=== PATIENT | female | born 1935 | race Caucasian/White ===

== ENCOUNTER 2017-05-10 17:14 | Inpatient (IN) | payer MEDICARE, OTHER, SELFPAY ==
[2017-05-10] VITALS (8 sets, daily range): BP systolic 107–122; BP diastolic 47–64; PULSE 80–106; RESP 16–30; TEMP 36.6–37.7; O2SAT 92–99; BMI 17.2; BMI 15.3
--- NOTE | 2017-05-10 17:59 | RAD_ITS ---
STUDY: X-RAY CHEST REASON FOR EXAM: Female, 81 years old. Shortness of breath, cough and fatigue TECHNIQUE: Frontal and lateral views COMPARISON: None. FINDINGS: The lungs are expanded. Bilateral interstitial prominence Normal size heart. Normal mediastinum. Slightly prominent right hilum with adjacent surgical clips.. Normal visualized pulmonary arteries. Calcified aortic arch and descending thoracic aorta. Normal visualized thoracic spine. Normal visualized ribs, clavicles, and shoulders. There is no demonstrated abnormality of the visualized soft tissue structures of the upper abdomen. RAD/Chest PA and Lateral IMPRESSION: Diffuse pulmonary interstitial prominence. Electronically Signed: Didier Moss DO at 18:39 EDT Tel [phone], Service support ,
--- NOTE | 2017-05-10 17:59 | EKG12_ITS ---
Test Reason : SOB Blood Pressure : / mmHG Vent. Rate : 091 BPM Atrial Rate : 091 BPM P-R Int : 136 ms QRS Dur : 072 ms QT Int : 346 ms P-R-T Axes : 078 074 071 degrees QTc Int : 425 ms Normal sinus rhythm Nonspecific ST abnormality Abnormal ECG Confirmed by NATALIA PATEL, JAME ([id number]), pictures editor LIS COLEMAN ([id number]) on 05/11/2017 2:38:13 PM Referred By: SUSIE Confirmed By:JAME FISHER MD
[2017-05-10 18:30] LABS: Absolute Lymphocyte Count 1.47 X10^3/ul (0.83-4.51); Basophil# 0.02 X10^3/uL; Basophil% 0.1 % (0-1); Eosinophil# 0.12 X10^3/uL; Eosinophils% 0.7 % (0-5); Hematocrit 42.6 % (37-47); Hemoglobin 14.1 g/dl (12.0-15.0); Lymphocyte # 1.47 X10^3/ul (4.0); Lymphocyte % 8.8 % (19-41); Mean Corp Hgb Conc 33.1 g/gl (32-36); Mean Corpuscular Hgb 32.9 pg (27.0-32.0); Mean Corpuscular Volume 99.5 fL (81-99); Monocyte# 1.11 X10^3/uL; Monocyte% 6.6 % (0-10); Neutrophil % 83.6 % (47-70); Platelet Count 185 K/mm3 (150-450); RBC Distribution Width CV 12.7 % (11.6-14.6); RBC Distribution Width SD 46.1 fl (35.1-43.9); Red Blood Count 4.28 M/mm3 (4.2-5.4); White Blood Count 16.8 K/mm3 (4.4-11.0)
[2017-05-10 18:34] LABS: POSITIVE COUNT NO; POSITIVE DIFFERENTIAL NO; POSITIVE MORPHOLOGY NO
[2017-05-10] MEDS: Ipratropium/Albuterol Sulfate 3 ML AMPUL.NEB INHALATION ×2 (18:35→22:57)
[2017-05-10 18:46] LABS: Anion Gap 7 (5-15); BUN 19 mg/dL (7-18); BUN/Creat Ratio 23.5 RATIO (10-20); Calcium,Total 9.5 mg/dL (8.5-10.1); Chloride 110 mmol/L (98-107); Creatinine, Serum 0.81 mg/dL (0.55-1.02); EST Glomerular Filtration Rate 72 mL/min (>60); Est Glom Filt Rate - Afr Amer 87 mL/min (>60); Estimated Creatinine Clearance 39.07 ml/min; Glucose 96 mg/dL (74-106); Potassium 4.3 mmol/L (3.5-5.1); Sodium Level 141 mmol/L (136-145)
--- NOTE | 2017-05-10 19:30 | PCM.HP.STD ---
Problem List (1) Chronic obstructive pulmonary disease (COPD) Status: Chronic Qualifiers: COPD type: unspecified COPD Qualified Code(s): J44.9 - Chronic obstructive pulmonary disease, unspecified (2) Chronic respiratory failure with hypoxia Status: Chronic (3) Severe protein-calorie malnutrition Status: Chronic (4) History of tobacco use Status: Chronic (5) Chronic back pain Status: Chronic Qualifiers: Back pain location: back pain in unspecified location Back pain laterality: unspecified Qualified Code(s): M54.9 - Dorsalgia, unspecified; G89.29 - Other chronic pain (6) History of lung cancer Status: Chronic (7) COPD exacerbation Status: Acute (8) Pneumonia Status: Acute Qualifiers: Pneumonia type: due to unspecified organism Laterality: unspecified laterality Lung location: unspecified part of lung Qualified Code(s): J18.9 - Pneumonia, unspecified organism History of Present Illness Date of Admission: 05/10/17 Chief Complaint: Cough, congestion, wheezing, dyspnea. The patient is a 81 y/o F w/ PMHx: Chronic COPD w/ Chronic Hypoxic Respiratory Failure (2L-2.5L NC q HS), Tobacco Use Hx noted to have quit ~ 2 weeks prior to current presentation (1/2 ppd since youth), Chronic severe protein-calorie malnutrition, Chronic back pain, Hx Lung CA s/p RUL lobectomy following w/ Pulmonary Physician in [place] who presents to the [facility] ED on 05/10/17 with history of ongoing cough with productive sputum, wheezing, dyspnea worsened with exertion with chills without fever x 5 days. In the ED work-up included T 97.8, HR 106-->90, BP 122/47, RR 30-->22, 97% on RA, CBC w/ WBC 16.8, Hgb 14.1, Plts 185 with L shift, BMP unremarkable, CXR with chronic changes but ? early PNA infiltrate and she notes similar presentation prior with PNA. In the ED patient administered azithromycin, rocephin, solumedrol, duoneb, albuterol. Past Medical History Past Medical History (Chronic Problems): Chronic Problems Chronic obstructive pulmonary disease (COPD) (Chronic) Chronic respiratory failure with hypoxia (Chronic) Severe protein-calorie malnutrition (Chronic) History of tobacco use (Chronic) Chronic back pain (Chronic) History of lung cancer (Chronic) Allergies aspirin Adverse Reaction (Verified 05/10/17 17:18) Other Home Medications: Ambulatory Orders Medication Instructions Recorded Albuterol Aerosols [Ventolin 2.5 mg INHALATION Q4HWA.RT 05/10/17 Aerosols] Hydrocodone Bitart/Apap 5-325 1 tablet PO Q6H PRN PRN 05/10/17 [[place] 5MG-325MG] Ipratropium/Albuterol Sulfate 3 ml INHALATION Q4HWA.RT 05/10/17 [Duoneb] Lorazepam [Ativan] 0.5 mg PO TID PRN PRN 05/10/17 Surgical History: - - Hysterectomy, RUL Lobectomy, Melanoma skin resection. 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 Tobacco Use: Non-smoker Alcohol: None Drugs: None - *Family History Maternal History Items: No pertinent history Paternal History Items: No pertinent history Review of Systems Constitutional: Reports: Chills, Malaise, Weakness, Fatigue. Denies: Fever, Weight Change HEENT: Denies: Head Aches, Sinus Congestion, Sinus Drainage Cardiovascular: Denies: Chest Pain, Palpitations Respiratory: Reports: Cough, Shortness of Breath, Shortness of breath at rest, Shortness of breath upon exertion, Sputum production, Wheezing Gastrointestinal: Denies: Abdominal Pain, Nausea, Vomiting Genitourinary: Denies: Dysuria Musculoskeletal: Reports: Back Pain, Joint Pain. Denies: Joint Tenderness Skin: Denies: Rash, Wounds Neurological: Denies: Numbness, Tingling, Focal weakness Psychiatric: Reports: Anxiety. Denies: Depression, Homicidal Ideations, Suicidal Ideations Hematologic/ Lymphatic: Denies: Easy Bruising, Easy Bleeding VTE Information - Inpt Only VTE Present on Admission: No VTE Mechan Device Prophylaxis: SCD's VTE Pharm Prophylaxis ordered?: Yes Patient Problems: Active and Suspected Problems COPD exacerbation (Acute) Pneumonia (Acute) Subjective: Seated upright in the ED bed, notes mild improvement since initial presentation. Objective: Physical Examination: General: awake, alert, oriented x 3 and cooperative, seated upright in the ED bed, notes less dyspnea, able to speak in full sentences. Skin: normal color, turgor, no icterus, cyanosis. HEENT: AT/NC, EOMI, PERRLA, mildly dry MM, no carotid bruits or JVD noted. Lungs: Severely diminished, > bases, coarse BL bases, R>L base, expiratory wheezing. Heart: Regular rate and rhythm; no gallop, rub audible. Abdomen: soft, cachetic habitus, NTTP, ND, normal BS, no HSM. Extremities: no cyanosis, clubbing, or edema. Neurological: patient awake, alert, oriented x 3; cognitive function intact; pupils equally reactive to light and accomodation; cranial nerves II-XII grossly normal, moving all 4 extremities, no focal deficits, strength severely globally decreased secondary to acute presentation. Psychiatric: affect appears fatigued, no acute evidence of depressive or anxiety feelings. - Physical Exam Vital Signs Temp Pulse Resp BP Pulse Ox 97.8 F 93 24 H 117/61 96 05/10/17 17:15 05/10/17 18:35 05/10/17 18:35 05/10/17 17:35 05/10/17 17:35 Oxygen Delivery Method Room Air Weight: 103 lb 10.807 oz Body Mass Index (BMI) 17.2 Laboratory Tests Past 24 Hrs 05/10/17 05/10/17 18:11 18:11 WBC 16.8 H RBC 4.28 Hgb 14.1 Hct 42.6 MCV 99.5 H MCH 32.9 H MCHC 33.1 RDW 12.7 RDW Differential 46.1 H Plt Count 185 MPV 11.0 Immature Gran % (Auto) 0.200 Neut % (Auto) 83.6 H Lymph % (Auto) 8.8 L [place] % (Auto) 6.6 Eos % (Auto) 0.7 Baso % (Auto) 0.1 Absolute Neuts (auto) 14.0 H Absolute Lymphs (auto) 1.47 Total Counted Not Reportable Sodium 141 Potassium 4.3 Chloride 110 H Carbon Dioxide 24.0 Anion Gap 7 BUN 19 H Creatinine 0.81 Estim Creat Clear Calc 39.07 Est GFR (MDRD) Af Amer 87 Est GFR (MDRD) Non-Af 72 BUN/Creatinine Ratio 23.5 H Glucose 96 Calcium 9.5 Assessment/Plan Active and Suspected Problems COPD exacerbation (Acute) Pneumonia (Acute) The patient is a 81 y/o F w/ PMHx: Chronic COPD w/ Chronic Hypoxic Respiratory Failure, Tobacco Use Hx, Chronic severe protein-calorie malnutrition, Chronic back pain, Hx Lung CA who presents to the [facility] ED on 05/10/17 with history of ongoing cough with productive sputum, wheezing, dyspnea worsened with exertion with chills without fever x 5 days. (1) Acute on Chronic Hypoxic Respiratory Failure secondary to Acute on Chronic COPD Exacerbation and Suspected Community Acquired Pneumonia: CXR in the ED w/ change changes and ? infiltrates. Admission CBC w/ WBC 16.8 with L shift. Will admit to [facility], will obtain ABG, maintain on oxygen with wean as tolerated to home oxygen supplementation, continue ATC duonebs, PRN albuterol, maintained on IV Rocephin and Azithromycin, maintain on solumedrol, HOB, IS parameters w/ pending sputum cultures and urine antigens. Bld cx x 2 obtained in the ED. Respiratory viral panel pending. Will need oxygenation assessment prior to discharge. (2) Chronic Back Pain: Fall precautions, position changes, PT, OT, CM for discharge planning, PRN pain regimen. (3) Tobacco Abuse: Encouraged continued cessation as recently stopped ~ 2 weeks prior to current presentation, 1/2 ppd since youth, inpatient consultation per RT, NR if desired. (4) Chronic severe protein-calorie malnutrition: Evidenced per BMI, muscle and fat loss, ensure supplementation, MVI w/ minerals, nutrition consulted. (5) Hx Lung CA: s/p RUL lobectomy following w/ Pulmonary Physician in [place]. Encouraged continued tobacco cessation (2 weeks prior to current presentation). (6) Anxiety: Maintain on home PRN Low dose ativan, although given age would benefit from consideration SSRI instead short acting BZD. (7) DVT Prophylaxis: SCDs, lovenox. (8) CODE status: Discussed CODE status at length including difference between FULL code, DNR-CCA and DNR-CC status. Following discussions about the differences in these status, patient notes unsure about status, recommended continued discussions with son present and for interim FULL CODE status. Advanced Care Planning Face to Face Time: 16 minutes. Code Visit Inpatient E&M: 21334 Init Hosp L3 Procedures: 32455 Advncd Care Plan 30 Min
[2017-05-10] MEDS: MethylPREDNISolone 125 MG/2 ML Vial 80 MG IV (19:33)
[2017-05-10 20:55] LABS: Magnesium 2.1 mg/dL (1.6-2.6)
[2017-05-10 21:25] LABS: Allen Test POS; Base Excess -1 mmol/L (-2 to +2); Bicarbonate 22.5 mmol/L (22-26); Blood Gas Specimen Type ART; O2 Delivery Device Nasal Can; PO2 108 mmHG (75-100); SITE L Radial; SO2 99 % (95-99); Time Given 1515; Total Carbon Dioxide 24 mmol/L; pCO2 31.9 mmHg (35-45); pH 7.46 (7.35-7.45)
[2017-05-10] MEDS: 0.9% Normal Saline 1,000 ML 100 ML IV (21:27)
[2017-05-10] MEDS: Famotidine 20 MG Tablet PO (22:21)
[2017-05-10] MEDS: guaiFENesin 1,200 MG Tablet 1200 MG PO (22:22)
[2017-05-11] VITALS (13 sets, daily range): BP systolic 98–112; BP diastolic 50–66; PULSE 78–98; RESP 16–23; TEMP 36.6–37.1; O2SAT 95–97
--- NOTE | 2017-05-11 00:04 | ED.VISSUMM ---
- ER Visit Summary Date of Service: 05/10/17 Chief Complaint: Short of breath, cough, fatigue History of Present Illness: The patient is a 81 F with a history of COPD. She wears home oxygen at night only. Patient reports a four-day history of increasing shortness of breath and cough. She states she is bringing up thick yellow sputum. She has chest pain only when she takes a deep breath. She denies fever. She has noted increased wheezing over the past 2 days and has been using her breathing treatments more than normal. Physical Examination: Blood pressure is 117/61, temperature 97.8, heart rate 99, respiratory rate 16, pulse ox 96% on room air. Patient sitting upright in bed no acute distress. She speaking full sentences. Head and neck examination is grossly unremarkable. Heart is regular rate and rhythm. Lung sounds are slightly diminished throughout. There is no significant wheeze or rhonchi. Abdomen is soft nontender. Lower extremity examination was no calf tenderness or edema. Test Results: CBC was a white count of 16.8 with 83% neutrophils. Chemistry studies are grossly unremarkable. EKG is sinus at 91 with no sign of acute ischemia. Two-view chest x-ray is read as diffuse pulmonary interstitial prominence. On my review there does appear to be an increased density in the right midlung concerning for early pneumonia. Emergency Department Course and Treatment: Patient was given DuoNeb treatment. Following chest x-ray blood cultures were ordered along with Rocephin, Zithromax, and IV Solu-Medrol. Nursing staff reports that when she was being wheeled back to the department from radiology, she seem to have increased work of breathing and pursed lip breathing. Nurse reports she appeared to be mildly cyanotic around her lips. Pulse ox was reading 68, however it is noted that a good waveform was not able to be achieved. Patient was placed on nasal cannula and was easily weaned back down to 2 L. With a good waveform her sats are in the mid 90s. I have spoken with Dr. Courtney patient will be admitted for further treatment. Treatment Plan: [] Disposition: Admit Impression: 1. COPD exacerbation 2. Pneumonia This note was generated with [employer] software. It may contain incorrect words, spelling, and punctuation that were not noted in review of the chart prior to signing ED Disposition - Plan for ED Patient: Disposition: Acute Care Hospital [facility] Chief Complaint: Shortness of Breath
--- NOTE | 2017-05-11 00:07 | ED.DCSUM_ITS ---
- ER Visit Summary Date of Service: 05/10/17 Chief Complaint: Short of breath, cough, fatigue History of Present Illness: The patient is a 81 F with a history of COPD. She wears home oxygen at night only. Patient reports a four-day history of increasing shortness of breath and cough. She states she is bringing up thick yellow sputum. She has chest pain only when she takes a deep breath. She denies fever. She has noted increased wheezing over the past 2 days and has been using her breathing treatments more than normal. Physical Examination: Blood pressure is 117/61, temperature 97.8, heart rate 99 , respiratory rate 16, pulse ox 96% on room air. Patient sitting upright in bed no acute distress. She speaking full sentences. Head and neck examination is grossly unremarkable. Heart is regular rate and rhythm. Lung sounds are slightly diminished throughout. There is no significant wheeze or rhonchi. Abdomen is soft nontender. Lower extremity examination was no calf tenderness or edema. Test Results: CBC was a white count of 16.8 with 83% neutrophils. Chemistry studies are grossly unremarkable. EKG is sinus at 91 with no sign of acute ischemia. Two-view chest x-ray is read as diffuse pulmonary interstitial prominence. On my review there does appear to be an increased density in the right midlung concerning for early pneumonia. Emergency Department Course and Treatment: Patient was given DuoNeb treatment. Following chest x-ray blood cultures were ordered along with Rocephin, Zithromax , and IV Solu-Medrol. Nursing staff reports that when she was being wheeled back to the department from radiology, she seem to have increased work of breathing and pursed lip breathing. Nurse reports she appeared to be mildly cyanotic around her lips. Pulse ox was reading 68, however it is noted that a good waveform was not able to be achieved. Patient was placed on nasal cannula and was easily weaned back down to 2 L. With a good waveform her sats are in the mid 90s. I have spoken with Dr. Courtney patient will be admitted for further treatment. Treatment Plan: [] Disposition: Admit Impression: 1. COPD exacerbation 2. Pneumonia This note was generated with [employer] software. It may contain incorrect words, spelling, and punctuation that were not noted in review of the chart prior to signing ED Disposition - Plan for ED Patient: Disposition: Acute Care Hospital [facility] Chief Complaint: Shortness of Breath
[2017-05-11] MEDS: Ipratropium/Albuterol Sulfate 3 ML AMPUL.NEB INHALATION ×6 (02:52→22:44)
[2017-05-11 05:18] LABS: Absolute Lymphocyte Count 0.34 X10^3/ul (0.83-4.51); Absolute Neutrophil Count 12.5 X10^3/uL (2.0-7.7); Basophil# 0.02 X10^3/uL; Basophil% 0.2 % (0-1); Hematocrit 38.1 % (37-47); Hemoglobin 12.7 g/dl (12.0-15.0); Lymphocyte # 0.34 X10^3/ul (4.0); Lymphocyte % 2.6 % (19-41); Mean Corp Hgb Conc 33.3 g/gl (32-36); Mean Corpuscular Hgb 33.2 pg (27.0-32.0); Mean Corpuscular Volume 99.5 fL (81-99); Mean Platelet Vol. 10.5 fl (6.2-12.0); Monocyte# 0.15 X10^3/uL; Monocyte% 1.2 % (0-10); Neutrophil # 12.46 X10^3/uL (2.7-7.7); Neutrophil % 95.7 % (47-70); Platelet Count 158 K/mm3 (150-450); RBC Distribution Width CV 12.3 % (11.6-14.6); Red Blood Count 3.83 M/mm3 (4.2-5.4)
[2017-05-11 05:19] LABS: Differential Indicated SCAN CRITERIA MET; POSITIVE COUNT NO; POSITIVE DIFFERENTIAL YES; POSITIVE MORPHOLOGY NO
[2017-05-11 05:28] LABS: Anion Gap 7 (5-15); BUN 19 mg/dL (7-18); BUN/Creat Ratio 24.1 RATIO (10-20); Calcium,Total 8.7 mg/dL (8.5-10.1); Chloride 109 mmol/L (98-107); Creatinine, Serum 0.79 mg/dL (0.55-1.02); EST Glomerular Filtration Rate 74 mL/min (>60); Est Glom Filt Rate - Afr Amer 89 mL/min (>60); Glucose 236 mg/dL (74-106); Potassium 3.9 mmol/L (3.5-5.1); Sodium Level 141 mmol/L (136-145)
--- NOTE | 2017-05-11 09:28 | NURSING ---
ROCEPHIN AND ZITHROMAX NOT ON UNIT FOR PT ADMINISTRATION
[2017-05-11] MEDS: Enoxaparin 30 MG/0.3 ML Syringe SC (09:55)
[2017-05-11] MEDS: Famotidine 20 MG Tablet PO ×2 (09:55→21:12)
[2017-05-11] MEDS: Ceftriaxone 1 GM/50 ML BAG IV (09:55)
[2017-05-11] MEDS: Multivitamins,Ther W-Minerals Tablet 1 TABLET PO (09:56)
[2017-05-11] MEDS: guaiFENesin 1,200 MG Tablet 1200 MG PO ×2 (09:56→21:13)
[2017-05-11] MEDS: oxyCODONE 5 MG Tablet PO ×2 (10:00→21:17)
[2017-05-11] MEDS: Acetaminophen 325 MG Tablet 650 MG PO ×2 (10:01→18:54)
--- NOTE | 2017-05-11 11:17 | CASEMGMT ---
RN LINUS Face to Face with patient for initial transition planning/care coordination assessment. RN CM introduced self and role at [facility]. Patient lying in bed, alert and oriented. Patient willing to participate in assessment and is able to answer all questions appropriately. Care providers, pharmacy, and demographics verified. See link attached. Patient wishes to discharge home, denies need for home health at this time. Patient currently has oxygen at night and will monitor for need for portability. Patient states she has no further needs or concerns at this time. CM to follow for discharge planning needs that may arise. Disposition Plan: Patient to discharge home with family support and follow-up plans in place. CM to monitor for need for portable home oxygen.
--- NOTE | 2017-05-11 16:53 | PCM.PROGNOTE ---
Patient Problems: Active and Suspected Problems COPD exacerbation (Acute) Pneumonia (Acute) Subjective: She feels better today. Still has dry cough, somewhat better. Shortness of breath improving, but appear out of air even at rest. She finished full sentences most of the time. - Physical Exam General: Alert, Oriented x3, Cooperative HEENT: Atraumatic, PERRLA, Normocephalic Oral: Moist Mucosa, No Gingival or Mucosal Lesions/ Ulcerations Neck: Supple, No JVD Lungs: - - Coarse rhonchi bilaterally. Cardiovascular: Regular rate, Regular Rhythm, Normal S1, Normal S2, No murmurs, No Ectopic Activity Abdomen: Bowel Sounds Present, Soft, Non Tender, Non-Distended, No Hepato-splenomegaly Extremities: No clubbing, No cyanosis, No edema Skin: No rashes, No breakdown Musculoskeletal: No Tenderness to Palpation of Joints or Extremities, No Muscle Wasting Lymphatic: No Cervical, Supraclavicular, or Inguinal Adenopathy Neurological: Cranial nerves II-XII grossly intact, Neuro grossly intact Psych/Mental Status: Normal Affect Vital Signs Temp Pulse Resp BP Pulse Ox 98.8 F 78 18 108/58 L 96 05/11/17 14:40 05/11/17 14:40 05/11/17 14:40 05/11/17 14:40 05/11/17 14:40 Oxygen Flow Rate (L/min) 2 Oxygen Delivery Method Nasal Cannula Weight: 92 lb 6.402 oz Body Mass Index (BMI) 15.3 Intake and Output for Last 24 Hours 05/09/17 05/10/17 05/11/17 23:59 23:59 23:59 Intake Total 781 / 781 Output Total 400 / 400 Balance 381 / 381 Microbiology Past 72 Hours 05/10/17 21:30 Respiratory Panel (PCR) - Final Mucosa - Nasopharyngeal 05/10/17 22:30 Legionella Antigen - Final Urine, Clean Catch 05/10/17 22:30 Streptococcus pneumoniae Antigen (M - Final Urine, Clean Catch Laboratory Tests Past 24 Hrs 05/10/17 05/11/17 05/11/17 21:21 05:00 05:00 WBC 13.0 H RBC 3.83 L Hgb 12.7 Hct 38.1 MCV 99.5 H MCH 33.2 H MCHC 33.3 RDW 12.3 RDW Differential 44.0 H Plt Count 158 MPV 10.5 Immature Gran % (Auto) 0.300 Neut % (Auto) 95.7 H Lymph % (Auto) 2.6 L [place] % (Auto) 1.2 Eos % (Auto) 0.0 Baso % (Auto) 0.2 Absolute Neuts (auto) 12.5 H Absolute Lymphs (auto) 0.34 L Total Counted Not Reportable Specimen Type ART Sample Site L Radial pH 7.46 H Bicarbonate Actual 22.5 POC Total CO2 24 Base Excess -1 O2 Saturation 99 ABG pCO2 31.9 L ABG pO2 108 H Geoff Test POS O2 Delivery Device Nasal Can Liter Flow 2.0 Blood Gas Notified Whom HOSP Blood Gas Notified Time 1515 Sodium 141 Potassium 3.9 Chloride 109 H Carbon Dioxide 25.0 Anion Gap 7 BUN 19 H Creatinine 0.79 Estim Creat Clear Calc 28.20 Est GFR (MDRD) Af Amer 89 Est GFR (MDRD) Non-Af 74 BUN/Creatinine Ratio 24.1 H Glucose 236 H Calcium 8.7 Diagnostic Data Chest X-Ray 05/10/17 17:59 IMPRESSION: Diffuse pulmonary interstitial prominence. Electronically Signed: Didier Moss DO at 18:39 EDT Tel [phone], Service support , Medical Necessity - Tobacco Use Smoking Status: Former smoker Tobacco Use: Non-smoker Assessment/Plan Active and Suspected Problems COPD exacerbation (Acute) Pneumonia (Acute) The patient is a 81 y/o F w/ PMHx: Chronic COPD w/ Chronic Hypoxic Respiratory Failure, Tobacco Use Hx, Chronic severe protein-calorie malnutrition, Chronic back pain, Hx Lung CA who presents to the [facility] ED on 05/10/17 with history of ongoing cough with productive sputum, wheezing, dyspnea worsened with exertion with chills without fever x 5 days. #1 Acute on chronic hypoxemic respiratory failure with acute exacerbation of COPD and pneumonia. WBC elevated to 16, low grade temp on admission at 99.8. CXR findings of interstitial prominence bilaterally. Started on Solu-Medrol, bronchodilator with DuoNeb and albuterol prn, and oxygen supplement. She has chronic respiratory failure with home oxygen use, but uses only during the night. Started on ceftriaxone and azithromycin, continue. #2 Chronic back pain. Stable. Continue current medications. PT/OT. #3 Chronic severe protein-calorie malnutrition: BMI 15. Possibly with chronic condition of COPD. Nutrition consult. #4 History of lung cancer. With history of RUL lobectomy. She follows intervention manager in [place]. #5 Anxiety disorder. Stable. Continue current medications. VTE prophylaxis: Lovenox and SCD. GI prophylaxis: H2 tanisha po. Patient is full code. Code status discussed. Disposition: home in 2 to 3 days. Code Visit Inpatient E&M: 03104 Subs Hosp L3
--- NOTE | 2017-05-11 17:04 | PN_ITS ---
Patient Problems: Active and Suspected Problems COPD exacerbation (Acute) Pneumonia (Acute) Subjective: She feels better today. Still has dry cough, somewhat better. Shortness of breath improving, but appear out of air even at rest. She finished full sentences most of the time. - Physical Exam General: Alert, Oriented x3, Cooperative HEENT: Atraumatic, PERRLA, Normocephalic Oral: Moist Mucosa, No Gingival or Mucosal Lesions/ Ulcerations Neck: Supple, No JVD Lungs: - - Coarse rhonchi bilaterally. Cardiovascular: Regular rate, Regular Rhythm, Normal S1, Normal S2, No murmurs, No Ectopic Activity Abdomen: Bowel Sounds Present, Soft, Non Tender, Non-Distended, No Hepato- splenomegaly Extremities: No clubbing, No cyanosis, No edema Skin: No rashes, No breakdown Musculoskeletal: No Tenderness to Palpation of Joints or Extremities, No Muscle Wasting Lymphatic: No Cervical, Supraclavicular, or Inguinal Adenopathy Neurological: Cranial nerves II-XII grossly intact, Neuro grossly intact Psych/Mental Status: Normal Affect Vital Signs Temp Pulse Resp BP Pulse Ox 98.8 F 78 18 108/58 L 96 05/11/17 14:40 05/11/17 14:40 05/11/17 14:40 05/11/17 14:40 05/11/17 14:40 Oxygen Flow Rate (L/min) 2 Oxygen Delivery Method Nasal Cannula Weight: 92 lb 6.402 oz Body Mass Index (BMI) 15.3 Intake and Output for Last 24 Hours 05/09/17 05/10/17 05/11/17 23:59 23:59 23:59 Intake Total 781 / 781 Output Total 400 / 400 Balance 381 / 381 Microbiology Past 72 Hours 05/10/17 21:30 Respiratory Panel (PCR) - Final Mucosa - Nasopharyngeal 05/10/17 22:30 Legionella Antigen - Final Urine, Clean Catch 05/10/17 22:30 Streptococcus pneumoniae Antigen (M - Final Urine, Clean Catch Laboratory Tests Past 24 Hrs 05/10/17 05/11/17 05/11/17 21:21 05:00 05:00 WBC 13.0 H RBC 3.83 L Hgb 12.7 Hct 38.1 MCV 99.5 H MCH 33.2 H MCHC 33.3 RDW 12.3 RDW Differential 44.0 H Plt Count 158 MPV 10.5 Immature Gran % (Auto) 0.300 Neut % (Auto) 95.7 H Lymph % (Auto) 2.6 L Bowman % (Auto) 1.2 Eos % (Auto) 0.0 Baso % (Auto) 0.2 Absolute Neuts (auto) 12.5 H Absolute Lymphs (auto) 0.34 L Total Counted Not Reportable Specimen Type ART Sample Site L Radial pH 7.46 H Bicarbonate Actual 22.5 POC Total CO2 24 Base Excess -1 O2 Saturation 99 ABG pCO2 31.9 L ABG pO2 108 H Geoff Test POS O2 Delivery Device Nasal Can Liter Flow 2.0 Blood Gas Notified Whom HOSP Blood Gas Notified Time 1515 Sodium 141 Potassium 3.9 Chloride 109 H Carbon Dioxide 25.0 Anion Gap 7 BUN 19 H Creatinine 0.79 Estim Creat Clear Calc 28.20 Est GFR (MDRD) Af Amer 89 Est GFR (MDRD) Non-Af 74 BUN/Creatinine Ratio 24.1 H Glucose 236 H Calcium 8.7 Diagnostic Data Chest X-Ray 05/10/17 17:59 IMPRESSION: Diffuse pulmonary interstitial prominence. 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 #1 Acute on chronic hypoxemic respiratory failure with acute exacerbation of COPD and pneumonia. WBC elevated to 16, low grade temp on admission at 99.8. CXR findings of interstitial prominence bilaterally. Started on Solu-Medrol, bronchodilator with DuoNeb and albuterol prn, and oxygen supplement. She has chronic respiratory failure with home oxygen use, but uses only during the night. Started on ceftriaxone and azithromycin, continue. #2 Chronic back pain. Stable. Continue current medications. PT/OT. #3 Chronic severe protein-calorie malnutrition: BMI 15. Possibly with chronic condition of COPD. Nutrition consult. #4 History of lung cancer. With history of RUL lobectomy. 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 #5 Anxiety disorder. Stable. Continue current medications. VTE prophylaxis: Lovenox and SCD. GI prophylaxis: H2 tanisha po. Patient is full code. Code status discussed. Disposition: home in 2 to 3 days. Code Visit Inpatient E&M: 87000 Subs Hosp L3
[2017-05-11] MEDS: 0.9% NaCl Peripheral Flush Adult/Peds IV (21:13)
[2017-05-11] MEDS: LORazepam 0.5 MG Tablet PO (21:18)
[2017-05-12] VITALS (9 sets, daily range): BP systolic 114–122; BP diastolic 60–68; PULSE 77–96; RESP 16–26; TEMP 36.7–37.1; O2SAT 95–99
[2017-05-12] MEDS: LORazepam 0.5 MG Tablet PO ×3 (03:04→21:12)
[2017-05-12] MEDS: Ipratropium/Albuterol Sulfate 3 ML AMPUL.NEB INHALATION ×5 (03:05→20:06)
[2017-05-12] MEDS: 0.9% NaCl Peripheral Flush Adult/Peds IV ×3 (05:26→14:28)
[2017-05-12 07:45] LABS: Hematocrit 39.4 % (37-47); Hemoglobin 13.3 g/dl (12.0-15.0); Mean Corp Hgb Conc 33.8 g/gl (32-36); Mean Corpuscular Hgb 33.2 pg (27.0-32.0); Mean Corpuscular Volume 98.3 fL (81-99); Mean Platelet Vol. 10.9 fl (6.2-12.0); Platelet Count 177 K/mm3 (150-450); RBC Distribution Width CV 12.3 % (11.6-14.6); RBC Distribution Width SD 43.3 fl (35.1-43.9); Red Blood Count 4.01 M/mm3 (4.2-5.4); White Blood Count 16.1 K/mm3 (4.4-11.0)
[2017-05-12 07:47] LABS: Scan Indicated on CBC? Y/N NO
[2017-05-12 08:07] LABS: Anion Gap 8 (5-15); BUN 26 mg/dL (7-18); BUN/Creat Ratio 27.5 RATIO (10-20); Calcium,Total 8.9 mg/dL (8.5-10.1); Chloride 110 mmol/L (98-107); Creatinine, Serum 0.94 mg/dL (0.55-1.02); EST Glomerular Filtration Rate 60 mL/min (>60); Est Glom Filt Rate - Afr Amer 73 mL/min (>60); Glucose 207 mg/dL (74-106); Sodium Level 140 mmol/L (136-145)
[2017-05-12] MEDS: Famotidine 20 MG Tablet PO ×2 (09:51→21:11)
[2017-05-12] MEDS: Enoxaparin 30 MG/0.3 ML Syringe SC (09:51)
[2017-05-12] MEDS: guaiFENesin 1,200 MG Tablet 1200 MG PO ×2 (09:51→21:11)
[2017-05-12] MEDS: Multivitamins,Ther W-Minerals Tablet 1 TABLET PO (09:51)
[2017-05-12] MEDS: oxyCODONE 5 MG Tablet PO ×3 (09:58→21:18)
[2017-05-12] MEDS: Ceftriaxone 1 GM/50 ML BAG IV (10:01)
[2017-05-12] MEDS: Ondansetron 4 MG/2 ML Vial IV (14:28)
--- NOTE | 2017-05-12 18:52 | PCM.PROGNOTE ---
Patient Problems: Active and Suspected Problems COPD exacerbation (Acute) Pneumonia (Acute) Subjective: She feels fair. She is c/o insomnia and fatigue today. She has no chest pain. - Physical Exam General: Alert, Oriented x3, Cooperative HEENT: Atraumatic, PERRLA, Normocephalic Oral: Moist Mucosa, No Gingival or Mucosal Lesions/ Ulcerations Neck: Supple, No JVD Lungs: - - Coarse rhonchi bilaterally. Cardiovascular: Regular rate, Regular Rhythm, Normal S1, Normal S2, No murmurs, No Ectopic Activity Abdomen: Bowel Sounds Present, Soft, Non Tender, Non-Distended, No Hepato-splenomegaly Extremities: No clubbing, No cyanosis, No edema Skin: No rashes, No breakdown Musculoskeletal: No Tenderness to Palpation of Joints or Extremities, No Muscle Wasting Lymphatic: No Cervical, Supraclavicular, or Inguinal Adenopathy Neurological: Cranial nerves II-XII grossly intact, Neuro grossly intact Psych/Mental Status: Normal Affect - Physical Exam Vital Signs Temp Pulse Resp BP Pulse Ox 98.5 F 82 18 114/68 97 05/12/17 15:30 05/12/17 15:44 05/12/17 15:44 05/12/17 15:30 05/12/17 15:30 Oxygen Flow Rate (L/min) 2 Oxygen Delivery Method Room Air Weight: 92 lb 6.402 oz Body Mass Index (BMI) 15.3 Intake and Output for Last 24 Hours 05/10/17 05/11/17 05/12/17 23:59 23:59 23:59 Intake Total 781 / 781 Output Total 400 / 400 Balance 381 / 381 Microbiology Past 72 Hours 05/10/17 21:30 Respiratory Panel (PCR) - Final Mucosa - Nasopharyngeal 05/10/17 22:30 Legionella Antigen - Final Urine, Clean Catch 05/10/17 22:30 Streptococcus pneumoniae Antigen (M - Final Urine, Clean Catch Laboratory Tests Past 24 Hrs 05/12/17 05/12/17 07:15 07:15 WBC 16.1 H RBC 4.01 L Hgb 13.3 Hct 39.4 MCV 98.3 MCH 33.2 H MCHC 33.8 RDW 12.3 RDW Differential 43.3 Plt Count 177 MPV 10.9 Sodium 140 Potassium 4.0 Chloride 110 H Carbon Dioxide 22.0 Anion Gap 8 BUN 26 H Creatinine 0.94 Estim Creat Clear Calc 30.00 Est GFR (MDRD) Af Amer 73 Est GFR (MDRD) Non-Af 60 BUN/Creatinine Ratio 27.5 H Glucose 207 H Calcium 8.9 Diagnostic Data Chest X-Ray 05/10/17 17:59 IMPRESSION: Diffuse pulmonary interstitial prominence. 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 #1 Acute on chronic hypoxemic respiratory failure with acute exacerbation of COPD and pneumonia. WBC elevated to 16, low grade temp on admission at 99.8. CXR findings of interstitial prominence bilaterally. She was started on Rocephin and azithromycin. Continue. Started on Solu-Medrol, bronchodilator with DuoNeb and albuterol prn, and oxygen supplement. She has chronic respiratory failure with home oxygen use, but uses only during the night. She may need oxygen use during the day as well. She needs oxygen evaluation with ambulation prior to discharge. #2 Chronic back pain. Stable. Continue current medications. PT/OT. #3 Chronic severe protein-calorie malnutrition: BMI 15. Possibly with chronic condition of COPD. Nutrition consult. #4 History of lung cancer. With history of RUL lobectomy. 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 #5 Anxiety disorder. Stable. Continue current medications. VTE prophylaxis: Lovenox and SCD. GI prophylaxis: H2 tanisha po. Patient is full code. Code status discussed. Disposition: home in 1 to 2 days. Code Visit Inpatient E&M: 86867 Subs Hosp L2
--- NOTE | 2017-05-12 18:57 | PN_ITS ---
Patient Problems: Active and Suspected Problems COPD exacerbation (Acute) Pneumonia (Acute) Subjective: She feels fair. She is c/o insomnia and fatigue today. She has no chest pain. - Physical Exam General: Alert, Oriented x3, Cooperative HEENT: Atraumatic, PERRLA, Normocephalic Oral: Moist Mucosa, No Gingival or Mucosal Lesions/ Ulcerations Neck: Supple, No JVD Lungs: - - Coarse rhonchi bilaterally. Cardiovascular: Regular rate, Regular Rhythm, Normal S1, Normal S2, No murmurs, No Ectopic Activity Abdomen: Bowel Sounds Present, Soft, Non Tender, Non-Distended, No Hepato- splenomegaly Extremities: No clubbing, No cyanosis, No edema Skin: No rashes, No breakdown Musculoskeletal: No Tenderness to Palpation of Joints or Extremities, No Muscle Wasting Lymphatic: No Cervical, Supraclavicular, or Inguinal Adenopathy Neurological: Cranial nerves II-XII grossly intact, Neuro grossly intact Psych/Mental Status: Normal Affect - Physical Exam Vital Signs Temp Pulse Resp BP Pulse Ox 98.5 F 82 18 114/68 97 05/12/17 15:30 05/12/17 15:44 05/12/17 15:44 05/12/17 15:30 05/12/17 15:30 Oxygen Flow Rate (L/min) 2 Oxygen Delivery Method Room Air Weight: 92 lb 6.402 oz Body Mass Index (BMI) 15.3 Intake and Output for Last 24 Hours 05/10/17 05/11/17 05/12/17 23:59 23:59 23:59 Intake Total 781 / 781 Output Total 400 / 400 Balance 381 / 381 Microbiology Past 72 Hours 05/10/17 21:30 Respiratory Panel (PCR) - Final Mucosa - Nasopharyngeal 05/10/17 22:30 Legionella Antigen - Final Urine, Clean Catch 05/10/17 22:30 Streptococcus pneumoniae Antigen (M - Final Urine, Clean Catch Laboratory Tests Past 24 Hrs 05/12/17 05/12/17 07:15 07:15 WBC 16.1 H RBC 4.01 L Hgb 13.3 Hct 39.4 MCV 98.3 MCH 33.2 H MCHC 33.8 RDW 12.3 RDW Differential 43.3 Plt Count 177 MPV 10.9 Sodium 140 Potassium 4.0 Chloride 110 H Carbon Dioxide 22.0 Anion Gap 8 BUN 26 H Creatinine 0.94 Estim Creat Clear Calc 30.00 Est GFR (MDRD) Af Amer 73 Est GFR (MDRD) Non-Af 60 BUN/Creatinine Ratio 27.5 H Glucose 207 H Calcium 8.9 Diagnostic Data Chest X-Ray 05/10/17 17:59 IMPRESSION: Diffuse pulmonary interstitial prominence. 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 #1 Acute on chronic hypoxemic respiratory failure with acute exacerbation of COPD and pneumonia. WBC elevated to 16, low grade temp on admission at 99.8. CXR findings of interstitial prominence bilaterally. She was started on Rocephin and azithromycin. Continue. Started on Solu-Medrol, bronchodilator with DuoNeb and albuterol prn, and oxygen supplement. She has chronic respiratory failure with home oxygen use, but uses only during the night. She may need oxygen use during the day as well. She needs oxygen evaluation with ambulation prior to discharge. #2 Chronic back pain. Stable. Continue current medications. PT/OT. #3 Chronic severe protein-calorie malnutrition: BMI 15. Possibly with chronic condition of COPD. Nutrition consult. #4 History of lung cancer. With history of RUL lobectomy. 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 #5 Anxiety disorder. Stable. Continue current medications. VTE prophylaxis: Lovenox and SCD. GI prophylaxis: H2 tanisha po. Patient is full code. Code status discussed. Disposition: home in 1 to 2 days. Code Visit Inpatient E&M: 59917 Subs Hosp L2
[2017-05-13] VITALS (8 sets, daily range): BP systolic 119–127; BP diastolic 65–77; PULSE 73–88; RESP 16–20; TEMP 36.7–37; O2SAT 96–98
[2017-05-13] MEDS: oxyCODONE 5 MG Tablet PO ×2 (06:15→20:50)
[2017-05-13] MEDS: LORazepam 0.5 MG Tablet PO ×2 (06:29→20:45)
[2017-05-13 07:18] LABS: Hematocrit 38.1 % (37-47); Hemoglobin 12.6 g/dl (12.0-15.0); Mean Corp Hgb Conc 33.1 g/gl (32-36); Mean Corpuscular Hgb 32.6 pg (27.0-32.0); Mean Corpuscular Volume 98.7 fL (81-99); Mean Platelet Vol. 10.7 fl (6.2-12.0); Platelet Count 171 K/mm3 (150-450); RBC Distribution Width CV 12.1 % (11.6-14.6); RBC Distribution Width SD 43.4 fl (35.1-43.9); Red Blood Count 3.86 M/mm3 (4.2-5.4); White Blood Count 12.2 K/mm3 (4.4-11.0)
[2017-05-13 07:19] LABS: Scan Indicated on CBC? Y/N NO
[2017-05-13] MEDS: Ipratropium/Albuterol Sulfate 3 ML AMPUL.NEB INHALATION ×3 (07:40→18:56)
[2017-05-13 07:50] LABS: BUN 25 mg/dL (7-18); Creatinine, Serum 0.82 mg/dL (0.55-1.02); Estimated Creatinine Clearance 34.39 ml/min; Glucose 136 mg/dL (74-106)
[2017-05-13 07:51] LABS: Anion Gap 7 (5-15); BUN/Creat Ratio 30.5 RATIO (10-20); Calcium,Total 9.1 mg/dL (8.5-10.1); Chloride 110 mmol/L (98-107); EST Glomerular Filtration Rate 71 mL/min (>60); Est Glom Filt Rate - Afr Amer 85 mL/min (>60); Potassium 4.9 mmol/L (3.5-5.1); Sodium Level 142 mmol/L (136-145)
[2017-05-13] MEDS: 0.9% NaCl Peripheral Flush Adult/Peds IV (10:02)
--- NOTE | 2017-05-13 10:58 | PCM.PROGNOTE ---
<Kayleigh Cerna - Last Filed: 05/13/17 11:14> Patient Problems: Active and Suspected Problems COPD exacerbation (Acute) Pneumonia (Acute) Subjective: Patient seen and examined. Complains of shortness of breath. Denies cough, fever, chills. Complains of intermittent chest discomfort. States she is generally weak and wishes to go to assisted facility, [facility] at discharge where her currently resides. Denies other complaints. - Physical Exam General: Alert, Oriented x3, Cooperative, No apparent distress HEENT: Atraumatic, PERRLA, EOMI, Normocephalic Neck: Supple, No JVD, Negative Carotid Bruits Lungs: Clear to auscultation, Diminished Cardiovascular: Regular rate, Regular Rhythm, Normal S1, Normal S2, No murmurs Abdomen: Bowel Sounds Present, Soft, Non Tender, Non-Distended Extremities: No clubbing, No cyanosis, No edema, Capillary Refill Less than 3 Seconds Skin: No rashes, No breakdown Musculoskeletal: No Tenderness to Palpation of Joints or Extremities Neurological: Cranial nerves II-XII grossly intact, Neuro grossly intact Psych/Mental Status: Normal Affect, Appropriate Vital Signs Temp Pulse Resp BP Pulse Ox 98.2 F 88 20 H 119/65 98 05/13/17 10:00 05/13/17 10:00 05/13/17 10:00 05/13/17 10:00 05/13/17 10:00 Oxygen Flow Rate (L/min) 2 Oxygen Delivery Method Room Air Weight: 41.912 kg Body Mass Index (BMI) 15.3 Intake and Output for Last 24 Hours 05/11/17 05/12/17 05/13/17 23:59 23:59 23:59 Intake Total 781 / 781 Output Total 400 / 400 Balance 381 / 381 Microbiology Past 72 Hours 05/10/17 19:58 Blood Culture - Preliminary Blood Culture (Wb) - Anticubital Right No growth in 48 hours. 05/10/17 19:53 Blood Culture - Preliminary Blood Culture (Wb) - Anticubital Left No growth in 48 hours. 05/10/17 21:30 Respiratory Panel (PCR) - Final Mucosa - Nasopharyngeal 05/10/17 22:30 Legionella Antigen - Final Urine, Clean Catch 05/10/17 22:30 Streptococcus pneumoniae Antigen (M - Final Urine, Clean Catch Laboratory Tests Past 24 Hrs 05/13/17 05/13/17 06:55 06:55 WBC 12.2 H RBC 3.86 L Hgb 12.6 Hct 38.1 MCV 98.7 MCH 32.6 H MCHC 33.1 RDW 12.1 RDW Differential 43.4 Plt Count 171 MPV 10.7 Sodium 142 Potassium 4.9 Chloride 110 H Carbon Dioxide 25.0 Anion Gap 7 BUN 25 H Creatinine 0.82 Estim Creat Clear Calc 34.39 Est GFR (MDRD) Af Amer 85 Est GFR (MDRD) Non-Af 71 BUN/Creatinine Ratio 30.5 H Glucose 136 H Calcium 9.1 Medical Necessity - Tobacco Use Smoking Status: Former smoker Tobacco Use: Non-smoker Assessment/Plan Active and Suspected Problems COPD exacerbation (Acute) Pneumonia (Acute) 1. Acute on chronic hypoxic respiratory failure secondary to acute on chronic COPD exacerbation and suspected acute community-acquired pneumonia-patient requires supplemental oxygen at bedtime at home. Chest x-ray on admission with diffuse pulmonary interstitial prominence. WBC on admission 16.8. Urine for strep and Legionella negative. Respiratory panel negative. Blood culture shows no growth in 48 hours. Patient has remained afebrile. No cough. Continue albuterol aerosols. Patient received IV Rocephin and azithromycin. Transition to oral Levaquin for 5 days. Discontinue IV Solu-Medrol and transitioned to oral prednisone taper. Patient is stable on room air. Continue supplemental oxygen as needed to maintain O2 at or above 90%. 2. History of lung cancer-status post right upper lobe lobectomy. Follows with pulmonary medicine and [place]. 3. Chronic back pain-continue home regimen. Denies significant pain. PT/OT. 4. Chronic severe protein calorie malnutrition-BMI 15. Nutrition consulted. Ensure supplementation. 5. History of tobacco use-states she quit in the past few weeks. Encouraged continued cessation. 6. Anxiety disorder-continue home regimen. DVT prophylaxis-Lovenox SC Discharge planning: Patient wishes to be discharged to [facility] where her resides in dementia unit. Case management involved. This patient was seen by KCAY Whalen under the supervision of Dr. Chester. <Shalonda Chester - Last Filed: 05/13/17 16:20> - Physical Exam Vital Signs Temp Pulse Resp BP Pulse Ox 98.2 F 82 16 119/65 98 05/13/17 10:00 05/13/17 10:54 05/13/17 10:54 05/13/17 10:00 05/13/17 10:00 Oxygen Flow Rate (L/min) 2 Oxygen Delivery Method Room Air Weight: 92 lb 6.402 oz Body Mass Index (BMI) 15.3 Intake and Output for Last 24 Hours 05/11/17 05/12/17 05/13/17 23:59 23:59 23:59 Intake Total 781 / 781 Output Total 400 / 400 Balance 381 / 381 Microbiology Past 72 Hours 05/10/17 19:58 Blood Culture - Preliminary Blood Culture (Wb) - Anticubital Right No growth in 48 hours. 05/10/17 19:53 Blood Culture - Preliminary Blood Culture (Wb) - Anticubital Left No growth in 48 hours. 05/10/17 21:30 Respiratory Panel (PCR) - Final Mucosa - Nasopharyngeal 05/10/17 22:30 Legionella Antigen - Final Urine, Clean Catch 05/10/17 22:30 Streptococcus pneumoniae Antigen (M - Final Urine, Clean Catch Laboratory Tests Past 24 Hrs 05/13/17 05/13/17 06:55 06:55 WBC 12.2 H RBC 3.86 L Hgb 12.6 Hct 38.1 MCV 98.7 MCH 32.6 H MCHC 33.1 RDW 12.1 RDW Differential 43.4 Plt Count 171 MPV 10.7 Sodium 142 Potassium 4.9 Chloride 110 H Carbon Dioxide 25.0 Anion Gap 7 BUN 25 H Creatinine 0.82 Estim Creat Clear Calc 34.39 Est GFR (MDRD) Af Amer 85 Est GFR (MDRD) Non-Af 71 BUN/Creatinine Ratio 30.5 H Glucose 136 H Calcium 9.1 Assessment/Plan Hospitalist note: I am seeing this patient in conjunction with Kayleigh Cerna. I independently seen and examined the patient. Progress note above and laboratory data and I agree with above treatment plan. Patient was admitted for acute on chronic hypoxic respiratory failure due to COPD exacerbation and probable early pneumonia. Today, patient complained of headache and not being able to sleep over the last couple of nights. Her breathing is okay, denies cough or sputum production. Her vital signs are stable, maintaining her O2 saturation at 98% on room air. - Physical Exam General: Alert, Oriented x3, Cooperative, No apparent distress. HEENT: Atraumatic, PERRLA, EOMI. Neck: Supple, No JVD, Negative Carotid Bruits, Trachea Midline, Thyroid Normal. Lungs: Decreased breath sounds bilateral, otherwise clear, No rhonchi, No wheeze, No rales. Cardiovascular: Regular rate, Regular Rhythm, Normal S1, Normal S2, PMI Normal. Abdomen: Bowel Sounds Present, Soft, Non Tender, Non-Distended, No Hepato-splenomegaly. Extremities: No clubbing, No cyanosis, No edema Skin: No rashes, No breakdown Neurological: Neuro grossly intact Vital Signs are stable. Assessment and plan: #1 acute on chronic hypoxic respiratory failure: Secondary to COPD and probable early pneumonia. She is on bronchodilators and Levaquin as well as prednisone. Symptoms improved, pulse ox is normal on room air. Routine blood work from today reviewed, unremarkable. Patient wishes to go to a senior living where her resides in the dementia unit. According to PT OT, patient did very well and she may not qualify to go to assisted facility. #2 other chronic medical problems: Stable, continue current medications as above. This note was generated with [id number] dictation software. It may contain incorrect words, spelling, and punctuation that were not noted in checking the note before signing. Code Visit Inpatient E&M: 05437 Subs Hosp L2
[2017-05-13] MEDS: Multivitamins,Ther W-Minerals Tablet 1 TABLET PO (11:10)
[2017-05-13] MEDS: Famotidine 20 MG Tablet PO ×2 (11:10→20:46)
[2017-05-13] MEDS: Enoxaparin 30 MG/0.3 ML Syringe SC (11:10)
[2017-05-13] MEDS: guaiFENesin 1,200 MG Tablet 1200 MG PO ×2 (11:10→20:47)
--- NOTE | 2017-05-13 11:14 | PN_ITS ---
<Kayleigh Cerna - Last Filed: 05/13/17 11:14> Patient Problems: Active and Suspected Problems COPD exacerbation (Acute) Pneumonia (Acute) Subjective: Patient seen and examined. Complains of shortness of breath. Denies cough, fever, chills. Complains of intermittent chest discomfort. States she is generally weak and wishes to go to group home facility, [facility] at discharge where her currently resides. Denies other complaints. - Physical Exam General: Alert, Oriented x3, Cooperative, No apparent distress HEENT: Atraumatic, PERRLA, EOMI, Normocephalic Neck: Supple, No JVD, Negative Carotid Bruits Lungs: Clear to auscultation, Diminished Cardiovascular: Regular rate, Regular Rhythm, Normal S1, Normal S2, No murmurs Abdomen: Bowel Sounds Present, Soft, Non Tender, Non-Distended Extremities: No clubbing, No cyanosis, No edema, Capillary Refill Less than 3 Seconds Skin: No rashes, No breakdown Musculoskeletal: No Tenderness to Palpation of Joints or Extremities Neurological: Cranial nerves II-XII grossly intact, Neuro grossly intact Psych/Mental Status: Normal Affect, Appropriate Vital Signs Temp Pulse Resp BP Pulse Ox 98.2 F 88 20 H 119/65 98 05/13/17 10:00 05/13/17 10:00 05/13/17 10:00 05/13/17 10:00 05/13/17 10:00 Oxygen Flow Rate (L/min) 2 Oxygen Delivery Method Room Air Weight: 41.912 kg Body Mass Index (BMI) 15.3 Intake and Output for Last 24 Hours 05/11/17 05/12/17 05/13/17 23:59 23:59 23:59 Intake Total 781 / 781 Output Total 400 / 400 Balance 381 / 381 Microbiology Past 72 Hours 05/10/17 19:58 Blood Culture - Preliminary Blood Culture (Wb) - Anticubital Right No growth in 48 hours. 05/10/17 19:53 Blood Culture - Preliminary Blood Culture (Wb) - Anticubital Left No growth in 48 hours. 05/10/17 21:30 Respiratory Panel (PCR) - Final Mucosa - Nasopharyngeal 05/10/17 22:30 Legionella Antigen - Final Urine, Clean Catch 05/10/17 22:30 Streptococcus pneumoniae Antigen (M - Final Urine, Clean Catch Laboratory Tests Past 24 Hrs 05/13/17 05/13/17 06:55 06:55 WBC 12.2 H RBC 3.86 L Hgb 12.6 Hct 38.1 MCV 98.7 MCH 32.6 H MCHC 33.1 RDW 12.1 RDW Differential 43.4 Plt Count 171 MPV 10.7 Sodium 142 Potassium 4.9 Chloride 110 H Carbon Dioxide 25.0 Anion Gap 7 BUN 25 H Creatinine 0.82 Estim Creat Clear Calc 34.39 Est GFR (MDRD) Af Amer 85 Est GFR (MDRD) Non-Af 71 BUN/Creatinine Ratio 30.5 H Glucose 136 H Calcium 9.1 Medical Necessity - Tobacco Use Smoking Status: Former smoker Tobacco Use: Non-smoker Assessment/Plan Active and Suspected Problems COPD exacerbation (Acute) Pneumonia (Acute) 1. Acute on chronic hypoxic respiratory failure secondary to acute on chronic COPD exacerbation and suspected acute community-acquired pneumonia-patient requires supplemental oxygen at bedtime at home. Chest x-ray on admission with diffuse pulmonary interstitial prominence. WBC on admission 16.8. Urine for strep and Legionella negative. Respiratory panel negative. Blood culture shows no growth in 48 hours. Patient has remained afebrile. No cough. Continue albuterol aerosols. Patient received IV Rocephin and azithromycin. Transition to oral Levaquin for 5 days. Discontinue IV Solu-Medrol and transitioned to oral prednisone taper. Patient is stable on room air. Continue supplemental oxygen as needed to maintain O2 at or above 90%. 2. History of lung cancer-status post right upper lobe lobectomy. Follows with pulmonary medicine and [place]. 3. Chronic back pain-continue home regimen. Denies significant pain. PT/OT. 4. Chronic severe protein calorie malnutrition-BMI 15. Nutrition consulted. Ensure supplementation. 5. History of tobacco use-states she quit in the past few weeks. Encouraged continued cessation. 6. Anxiety disorder-continue home regimen. DVT prophylaxis-Lovenox SC Discharge planning: Patient wishes to be discharged to [facility] where her resides in dementia unit. Case management involved. This patient was seen by KACY Whalen under the supervision of Dr. Chester. <Shalonda Chester - Last Filed: 05/13/17 16:20> - Physical Exam Vital Signs Temp Pulse Resp BP Pulse Ox 98.2 F 82 16 119/65 98 05/13/17 10:00 05/13/17 10:54 05/13/17 10:54 05/13/17 10:00 05/13/17 10:00 Oxygen Flow Rate (L/min) 2 Oxygen Delivery Method Room Air Weight: 92 lb 6.402 oz Body Mass Index (BMI) 15.3 Intake and Output for Last 24 Hours 05/11/17 05/12/17 05/13/17 23:59 23:59 23:59 Intake Total 781 / 781 Output Total 400 / 400 Balance 381 / 381 Microbiology Past 72 Hours 05/10/17 19:58 Blood Culture - Preliminary Blood Culture (Wb) - Anticubital Right No growth in 48 hours. 05/10/17 19:53 Blood Culture - Preliminary Blood Culture (Wb) - Anticubital Left No growth in 48 hours. 05/10/17 21:30 Respiratory Panel (PCR) - Final Mucosa - Nasopharyngeal 05/10/17 22:30 Legionella Antigen - Final Urine, Clean Catch 05/10/17 22:30 Streptococcus pneumoniae Antigen (M - Final Urine, Clean Catch Laboratory Tests Past 24 Hrs 05/13/17 05/13/17 06:55 06:55 WBC 12.2 H RBC 3.86 L Hgb 12.6 Hct 38.1 MCV 98.7 MCH 32.6 H MCHC 33.1 RDW 12.1 RDW Differential 43.4 Plt Count 171 MPV 10.7 Sodium 142 Potassium 4.9 Chloride 110 H Carbon Dioxide 25.0 Anion Gap 7 BUN 25 H Creatinine 0.82 Estim Creat Clear Calc 34.39 Est GFR (MDRD) Af Amer 85 Est GFR (MDRD) Non-Af 71 BUN/Creatinine Ratio 30.5 H Glucose 136 H Calcium 9.1 Assessment/Plan Hospitalist note: I am seeing this patient in conjunction with Kayleigh Cerna. I independently seen and examined the patient. Progress note above and laboratory data and I agree with above treatment plan. Patient was admitted for acute on chronic hypoxic respiratory failure due to COPD exacerbation and probable early pneumonia. Today, patient complained of headache and not being able to sleep over the last couple of nights. Her breathing is okay, denies cough or sputum production. Her vital signs are stable, maintaining her O2 saturation at 98% on room air. - Physical Exam General: Alert, Oriented x3, Cooperative, No apparent distress. HEENT: Atraumatic, PERRLA, EOMI. Neck: Supple, No JVD, Negative Carotid Bruits, Trachea Midline, Thyroid Normal. Lungs: Decreased breath sounds bilateral, otherwise clear, No rhonchi, No wheeze , No rales. Cardiovascular: Regular rate, Regular Rhythm, Normal S1, Normal S2, PMI Normal. Abdomen: Bowel Sounds Present, Soft, Non Tender, Non-Distended, No Hepato- splenomegaly. Extremities: No clubbing, No cyanosis, No edema Skin: No rashes, No breakdown Neurological: Neuro grossly intact Vital Signs are stable. Assessment and plan: #1 acute on chronic hypoxic respiratory failure: Secondary to COPD and probable early pneumonia. She is on bronchodilators and Levaquin as well as prednisone. Symptoms improved, pulse ox is normal on room air. Routine blood work from today reviewed, unremarkable. Patient wishes to go to a [place] [facility] where her resides in the dementia unit. According to PT OT, patient did very well and she may not qualify to go to group home facility. #2 other chronic medical problems: Stable, continue current medications as above. This note was generated with [employer] dictation software. It may contain incorrect words, spelling, and punctuation that were not noted in checking the note before signing. Code Visit Inpatient E&M: 34623 Subs Hosp L2
[2017-05-13] MEDS: predniSONE 10 MG Tablet 40 MG PO (12:36)
[2017-05-13] MEDS: levoFLOXacin 750 MG Tablet PO (12:37)
--- NOTE | 2017-05-13 13:57 | CASEMGMT ---
Social Work Referral for SNF Placement. Spoke with patient in room. Introduced self as well as social work role. Patient reporting to live at home alone and to not feel able to return home alone at this time. This social worker health services noting that patient was just up walking in the [place] carrying coffee without assist or an assistive device. Patient was also able to get into be on own. Therapy documenting that patient is Independent. This social worker health services educating patient on Medicare guidelines and qualifications. Patient voicing to hear this social worker health services but then pointed out that [facility] said that they would be able to accept patient after patient had a three day stay. This social worker health services contacting [facility] and veto clinical information. [facility] reporting that patient does not current met medicare requirements and that [facility] not able to accept. [facility] voicing that if patient discharges home and fails in the home that at that point [facility] may be able to accept if patient is still within the 30day window. Patient expressing understanding but reluctant to be agreeable to discharge home. This social worker health services broaching topic of home health services. Patient not agreeable to home health care voicing to want to go somewhere where they do everything for you. This social worker health services again voicing that patient is not currently qualifying for a long term home stay. Patient voicing understanding and aware that current plan is for patient to discharge home alone. Patient continuing to decline home health care. Patient daughter, Kimberly aware of above information. Support given. PLAN: Discharge home alone. Elvira GOODWINW, ADMINISTRATIVE AND PROGRAM SPECIALIST
--- NOTE | 2017-05-13 20:55 | NURSING ---
PT C/O LEFT CHEST PAIN DURING ASSESSMENT. STATES THINKS ITS ANXIETY GIVEN ATIVAN AND OXY IR ORDERED. CALLED [facility] FOR STAT EKG. VSS. STATES WORSE WITH BREATHING. WILL NOTIFY MD OF EKG RESULTS.
--- NOTE | 2017-05-13 21:27 | EKG12_ITS ---
Test Reason : CP Blood Pressure : / mmHG Vent. Rate : 083 BPM Atrial Rate : 083 BPM P-R Int : 122 ms QRS Dur : 086 ms QT Int : 376 ms P-R-T Axes : 073 071 067 degrees QTc Int : 441 ms Sinus rhythm with marked sinus arrhythmia Otherwise normal ECG When compared with ECG of 10-MAY-2017 18:30, No significant change was found Confirmed by NATALIA PATEL, JAME ([id number]), production editor LIS COLEMAN ([id number]) on 05/23/2017 9:30:27 AM Referred By: KHOI Confirmed By:JAME FISHER MD
--- NOTE | 2017-05-14 01:15 | NURSING ---
PT C/O INSOMNIA, REQUESTS SLEEPING PILL. NO SLEEPING PILL ORDERED AND PT ALREADY TOOK ATIVAN. ALSO PAST TIME FOR SLEEPING PILL PER PROTOCOL. PT GIVEN WARM BLANKETS AND OFFERED BACKRUB. PT DECLINED.
[2017-05-14] MEDS: Acetaminophen 325 MG Tablet 650 MG PO (01:47)
[2017-05-14 02:00] VITALS: BP 149/85; PULSE 69; RESP 18; TEMP 36.6; O2SAT 99
--- NOTE | 2017-05-14 06:56 | NURSING ---
Reviewed [facility] charting.
[2017-05-14 07:02] LABS: Hematocrit 37.5 % (37-47); Hemoglobin 12.5 g/dl (12.0-15.0); Mean Corp Hgb Conc 33.3 g/gl (32-36); Mean Corpuscular Hgb 32.7 pg (27.0-32.0); Mean Corpuscular Volume 98.2 fL (81-99); Mean Platelet Vol. 10.9 fl (6.2-12.0); Platelet Count 168 K/mm3 (150-450); RBC Distribution Width CV 12.1 % (11.6-14.6); RBC Distribution Width SD 42.1 fl (35.1-43.9); Red Blood Count 3.82 M/mm3 (4.2-5.4)
[2017-05-14 07:08] LABS: Scan Indicated on CBC? Y/N NO
[2017-05-14 07:29] VITALS: PULSE 85; RESP 16; O2SAT 99
[2017-05-14] MEDS: Ipratropium/Albuterol Sulfate 3 ML AMPUL.NEB INHALATION (07:29)
[2017-05-14 08:18] LABS: Anion Gap 6 (5-15); BUN 27 mg/dL (7-18); Calcium,Total 8.8 mg/dL (8.5-10.1); Chloride 110 mmol/L (98-107); Creatinine, Serum 0.84 mg/dL (0.55-1.02); EST Glomerular Filtration Rate 68 mL/min (>60); Est Glom Filt Rate - Afr Amer 83 mL/min (>60); Estimated Creatinine Clearance 33.58 ml/min; Glucose 115 mg/dL (74-106); Potassium 4.6 mmol/L (3.5-5.1); Sodium Level 141 mmol/L (136-145)
[2017-05-14 08:58] VITALS: BP 141/80; PULSE 74; RESP 20; TEMP 36.8; O2SAT 99
[2017-05-14] MEDS: predniSONE 10 MG Tablet 40 MG PO (09:05)
[2017-05-14] MEDS: guaiFENesin 1,200 MG Tablet 1200 MG PO (09:05)
[2017-05-14] MEDS: Famotidine 20 MG Tablet PO (09:05)
[2017-05-14] MEDS: Multivitamins,Ther W-Minerals Tablet 1 TABLET PO (09:05)
[2017-05-14] MEDS: LORazepam 0.5 MG Tablet PO (09:06)
[2017-05-14] MEDS: oxyCODONE 5 MG Tablet PO (09:06)
[2017-05-14] MEDS: Enoxaparin 30 MG/0.3 ML Syringe SC (09:06)
--- NOTE | 2017-05-14 10:34 | PCM.DC ---
- Discharge Diagnoses Current Active Problems: Current Active and Chronic Problems Chronic obstructive pulmonary disease (COPD) (Chronic) Chronic respiratory failure with hypoxia (Chronic) Severe protein-calorie malnutrition (Chronic) History of tobacco use (Chronic) Chronic back pain (Chronic) History of lung cancer (Chronic) COPD exacerbation (Acute) Pneumonia (Acute) You will use the following diet at home:: No restrictions Discharge Activity: Return to Normal Activity Call your doctor if you observe: Shortness of breath, Dizziness, Fainting spells, Chest pain, Increased palpitations (irregular heartbeat) Allergies/Adverse Reactions: Allergies aspirin Adverse Reaction (Verified 05/10/17 17:18) Other Medications to take at Discharge Albuterol Aerosols [Ventolin Aerosols] 2.5 mg INHALATION Q4HWA.RT 05/10/17 Hydrocodone Bitart/Apap 5-325 [[place] 5/325] 1 tablet PO Q6H PRN PRN 05/10/17 Ipratropium/Albuterol Sulfate [Duoneb] 3 ml INHALATION Q4HWA.RT 05/10/17 Lorazepam [Ativan] 0.5 mg PO TID PRN PRN 05/10/17 Prednisone See Taper PO DAILY #22 tab 05/14/17 levoFLOXacin tablet [Levaquin tablet] 750 mg PO Q48@0600 #4 tab 05/14/17 The following prescriptions were given: levoFLOXacin tablet [Levaquin tablet] 750 mg PO Q48@0600 #4 tab Prednisone See Taper PO DAILY #22 tab Primary Care Physician: Moose Abrams [Primary Care Provider] - Please follow up with your Primary Care Physician in: 3-5 Days Proposed Discharge Date: 05/14/17
--- NOTE | 2017-05-14 10:37 | PCM.DC.SUM ---
<Kayleigh Cerna - Last Filed: 05/14/17 10:49> Discharge Date and Diagnosis Date of Admission: 05/10/17 Date of Discharge: 05/14/17 - Primary Discharge Diagnosis Active and Suspected Problems 1. Acute on chronic hypoxic respiratory failure secondary to acute on chronic COPD exacerbation and suspected community-acquired pneumonia - Secondary Discharge Diagnosis Chronic Problems Chronic obstructive pulmonary disease (COPD) (Chronic) Chronic respiratory failure with hypoxia (Chronic) Severe protein-calorie malnutrition (Chronic) History of tobacco use (Chronic) Chronic back pain (Chronic) History of lung cancer (Chronic) Hospital Course and Treatment Imaging Results: Diagnostic Data Chest X-Ray 05/10/17 17:59 IMPRESSION: Diffuse pulmonary interstitial prominence. Electronically Signed: Didier Moss DO at 18:39 EDT Tel [phone], Service support , Operations: None Procedures: None Summary of Care Provided: Patient is a 81-year-old female admitted 05/10/2017 due to cough, congestion, wheezing, dyspnea. She has a past medical history of chronic COPD with chronic hypoxic respiratory failure, likely use history with recent cessation 2 weeks ago, chronic severe protein calorie nutrition, chronic back pain, history of lung cancer status post right upper lobectomy. 1. Acute on chronic hypoxic respiratory failure secondary to acute on chronic COPD exacerbation and suspected acute community-acquired pneumonia-patient requires supplemental oxygen at bedtime at home. Chest x-ray on admission with diffuse pulmonary interstitial prominence. WBC on admission 16.8. Urine for strep and Legionella negative. Respiratory panel negative. Blood culture shows no growth in 48 hours. Patient has remained afebrile. No cough. Continue albuterol aerosols which patient has at home. Patient received IV Rocephin and azithromycin. Transition to oral Levaquin for 5 days. Patient received IV Solu-Medrol and transitioned to oral prednisone taper. Patient is stable on room air. Continue supplemental oxygen as needed to maintain O2 at or above 90%. Patient has home oxygen available at home which 2. History of lung cancer-status post right upper lobe lobectomy. Follows with pulmonary medicine and [place]. 3. Chronic back pain-continue home regimen. Denies significant pain. 4. Chronic severe protein calorie malnutrition-BMI 15. Encouraged continued ensure supplementation. 5. History of tobacco use-states she quit in the past few weeks. Encouraged continued cessation. 6. Anxiety disorder-continue home regimen. General: Alert, Oriented x3, Cooperative, No apparent distress HEENT: Atraumatic, PERRLA, EOMI, Normocephalic Neck: Supple, No JVD, Negative Carotid Bruits Lungs: Diminished, few scattered wheezes Cardiovascular: Regular rate, Regular Rhythm, Normal S1, Normal S2, No murmurs Abdomen: Bowel Sounds Present, Soft, Non Tender, Non-Distended Extremities: No clubbing, No cyanosis, No edema, Capillary Refill Less than 3 Seconds Skin: No rashes, No breakdown Musculoskeletal: No Tenderness to Palpation of Joints or Extremities Neurological: Cranial nerves II-XII grossly intact, Neuro grossly intact Psych/Mental Status: Normal Affect, Appropriate Patient seen and examined prior to discharge. Physical assessment as noted above. Patient is stable for discharge home. Patient was hoping to be discharged to longterm facility where her resides in dementia unit. [facility]. Patient also did not meet criteria and did very well with physical therapy. Patient is going to further discuss this with [facility] and primary care physician at discharge. She declined home health services and [facility]. This patient was seen by KACY Whalen under the supervision of Dr. Chester. Discharge Diet: No Restrictions Discharge Activity: Return to Normal Activity Call your doctor if you observe: Shortness of breath, Dizziness, Fainting spells, Chest pain, Increased palpitations (irregular heartbeat) Home Medications: Medications to take at Discharge Albuterol Aerosols [Ventolin Aerosols] 2.5 mg INHALATION Q4HWA.RT 05/10/17 Hydrocodone Bitart/Apap 5-325 [[place] 5/325] 1 tablet PO Q6H PRN PRN 05/10/17 Ipratropium/Albuterol Sulfate [Duoneb] 3 ml INHALATION Q4HWA.RT 05/10/17 Lorazepam [Ativan] 0.5 mg PO TID PRN PRN 05/10/17 Prednisone See Taper PO DAILY #22 tab 05/14/17 levoFLOXacin tablet [Levaquin tablet] 750 mg PO Q48@0600 #4 tab 05/14/17 Following Prescrptions Were Given to Patient: levoFLOXacin tablet [Levaquin tablet] 750 mg PO Q48@0600 #4 tab Prednisone See Taper PO DAILY #22 tab Primary Care Physician: Moose Abrams [Primary Care Provider] - Please follow up with your Primary Care Physician in: 3-5 Days Disposition: Home Minutes spent on discharge:: 35 Patient Condition:: Stable Medical Necessity - Tobacco Use Smoking Status: Former smoker Tobacco Use: Non-smoker Meaningful Use Info Meaningful Use Diagnoses (Choose all that apply): None applicable <Shalonda Chester E - Last Filed: 05/14/17 13:27> Discharge Date and Diagnosis - Secondary Discharge Diagnosis Chronic Problems Chronic obstructive pulmonary disease (COPD) (Chronic) Chronic respiratory failure with hypoxia (Chronic) Severe protein-calorie malnutrition (Chronic) History of tobacco use (Chronic) Chronic back pain (Chronic) History of lung cancer (Chronic) Hospital Course and Treatment Summary of Care Provided: Hospitalist note: Discharge summary above reviewed as well as physical examination and I agree with above discharge plan. Recent admitted for acute on chronic hypoxic respiratory failure due to COPD exacerbation and suspected community-acquired pneumonia. She was treated with bronchodilators, antibiotics and steroids. Chest x-ray showed diffuse pulmonary interstitial prominence without obvious infiltrate but pneumonia is still a possibility. Her routine blood work was remarkable for leukocytosis. Pneumococcal and Legionella antigen were negative. Respiratory panel for viruses were negative. Blood culture showed no growth in 48 hours. With above-mentioned treatment, patient symptoms improved and she was able to maintain her oxygenation on room air even with ambulation and she did not require oxygen. Patient was seen by PT OT and she did very well and she was able to ambulate around the floor without any difficulties. The patient herself and her daughter were wishing to have the patient go to longterm facility but she did not qualify to go for inpatient to longterm facility. Patient was discharged home in a stable medical condition, discharged on tapering course of prednisone and Levaquin, continued on bronchodilators, recommended follow-up with PCP this coming week. . Minutes spent on discharge:: 32 Code Visit Inpatient E&M: 81811 Disch Hosp
--- NOTE | 2017-05-14 10:46 | DS.PCM_ITS ---
<Kayleigh Cerna - Last Filed: 05/14/17 10:49> Discharge Date and Diagnosis Date of Admission: 05/10/17 Date of Discharge: 05/14/17 - Primary Discharge Diagnosis Active and Suspected Problems 1. Acute on chronic hypoxic respiratory failure secondary to acute on chronic COPD exacerbation and suspected community-acquired pneumonia - Secondary Discharge Diagnosis Chronic Problems Chronic obstructive pulmonary disease (COPD) (Chronic) Chronic respiratory failure with hypoxia (Chronic) Severe protein-calorie malnutrition (Chronic) History of tobacco use (Chronic) Chronic back pain (Chronic) History of lung cancer (Chronic) Hospital Course and Treatment Imaging Results: Diagnostic Data Chest X-Ray 05/10/17 17:59 IMPRESSION: Diffuse pulmonary interstitial prominence. Electronically Signed: Didier Moss DO at 18:39 EDT Tel [phone], Service support , Operations: None Procedures: None Summary of Care Provided: Patient is a 81-year-old female admitted 05/10/2017 due to cough, congestion, wheezing, dyspnea. She has a past medical history of chronic COPD with chronic hypoxic respiratory failure, likely use history with recent cessation 2 weeks ago, chronic severe protein calorie nutrition, chronic back pain, history of lung cancer status post right upper lobectomy. 1. Acute on chronic hypoxic respiratory failure secondary to acute on chronic COPD exacerbation and suspected acute community-acquired pneumonia-patient requires supplemental oxygen at bedtime at home. Chest x-ray on admission with diffuse pulmonary interstitial prominence. WBC on admission 16.8. Urine for strep and Legionella negative. Respiratory panel negative. Blood culture shows no growth in 48 hours. Patient has remained afebrile. No cough. Continue albuterol aerosols which patient has at home. Patient received IV Rocephin and azithromycin. Transition to oral Levaquin for 5 days. Patient received IV Solu-Medrol and transitioned to oral prednisone taper. Patient is stable on room air. Continue supplemental oxygen as needed to maintain O2 at or above 90%. Patient has home oxygen available at home which 2. History of lung cancer-status post right upper lobe lobectomy. Follows with pulmonary medicine and [facility]. 3. Chronic back pain-continue home regimen. Denies significant pain. 4. Chronic severe protein calorie malnutrition-BMI 15. Encouraged continued ensure supplementation. 5. History of tobacco use-states she quit in the past few weeks. Encouraged continued cessation. 6. Anxiety disorder-continue home regimen. General: Alert, Oriented x3, Cooperative, No apparent distress HEENT: Atraumatic, PERRLA, EOMI, Normocephalic Neck: Supple, No JVD, Negative Carotid Bruits Lungs: Diminished, few scattered wheezes Cardiovascular: Regular rate, Regular Rhythm, Normal S1, Normal S2, No murmurs Abdomen: Bowel Sounds Present, Soft, Non Tender, Non-Distended Extremities: No clubbing, No cyanosis, No edema, Capillary Refill Less than 3 Seconds Skin: No rashes, No breakdown Musculoskeletal: No Tenderness to Palpation of Joints or Extremities Neurological: Cranial nerves II-XII grossly intact, Neuro grossly intact Psych/Mental Status: Normal Affect, Appropriate Patient seen and examined prior to discharge. Physical assessment as noted above. Patient is stable for discharge home. Patient was hoping to be discharged to [facility] facility where her resides in dementia unit. Justin juarez denied patient. Patient also did not meet criteria and did very well with physical therapy. Patient is going to further discuss this with Justin juarez and primary care physician at discharge. She declined home health services and Meals [facility] Wheels. This patient was seen by KACY Whalen under the supervision of Dr. Chester. Discharge Diet: No Restrictions Discharge Activity: Return to Normal Activity Call your doctor if you observe: Shortness of breath, Dizziness, Fainting spells , Chest pain, Increased palpitations (irregular heartbeat) Home Medications: Medications to take at Discharge Albuterol Aerosols [Ventolin Aerosols] 2.5 mg INHALATION Q4HWA.RT 05/10/17 Hydrocodone Bitart/Apap 5-325 [[place] 5/325] 1 tablet PO Q6H PRN PRN 05/10/17 Ipratropium/Albuterol Sulfate [Duoneb] 3 ml INHALATION Q4HWA.RT 05/10/17 Lorazepam [Ativan] 0.5 mg PO TID PRN PRN 05/10/17 Prednisone See Taper PO DAILY #22 tab 05/14/17 levoFLOXacin tablet [Levaquin tablet] 750 mg PO Q48@0600 #4 tab 05/14/17 Following Prescrptions Were Given to Patient: levoFLOXacin tablet [Levaquin tablet] 750 mg PO Q48@0600 #4 tab Prednisone See Taper PO DAILY #22 tab Primary Care Physician: Moose Abrams [Primary Care Provider] - Please follow up with your Primary Care Physician in: 3-5 Days Disposition: Home Minutes spent on discharge:: 35 Patient Condition:: Stable Medical Necessity - Tobacco Use Smoking Status: Former smoker Tobacco Use: Non-smoker Meaningful Use Info Meaningful Use Diagnoses (Choose all that apply): None applicable <Shalonda Chester E - Last Filed: 05/14/17 13:27> Discharge Date and Diagnosis - Secondary Discharge Diagnosis Chronic Problems Chronic obstructive pulmonary disease (COPD) (Chronic) Chronic respiratory failure with hypoxia (Chronic) Severe protein-calorie malnutrition (Chronic) History of tobacco use (Chronic) Chronic back pain (Chronic) History of lung cancer (Chronic) Hospital Course and Treatment Summary of Care Provided: Hospitalist note: Discharge summary above reviewed as well as physical examination and I agree with above discharge plan. Recent admitted for acute on chronic hypoxic respiratory failure due to COPD exacerbation and suspected community-acquired pneumonia. She was treated with bronchodilators, antibiotics and steroids. Chest x-ray showed diffuse pulmonary interstitial prominence without obvious infiltrate but pneumonia is still a possibility. Her routine blood work was remarkable for leukocytosis. Pneumococcal and Legionella antigen were negative. Respiratory panel for viruses were negative. Blood culture showed no growth in 48 hours. With above-mentioned treatment, patient symptoms improved and she was able to maintain her oxygenation on room air even with ambulation and she did not require oxygen. Patient was seen by PT OT and she did very well and she was able to ambulate around the floor without any difficulties. The patient herself and her daughter were wishing to have the patient go to [facility] facility but she did not qualify to go for inpatient to [facility] facility. Patient was discharged home in a stable medical condition, discharged on tapering course of prednisone and Levaquin, continued on bronchodilators, recommended follow-up with PCP this coming week. . Minutes spent on discharge:: 32 Code Visit Inpatient E&M: 58043 Disch Hosp
[2017-05-14 11:30] VITALS: O2SAT 95
== END 2017-05-14 12:35 | disposition home or self-care (01) | DRG 190 ==
LOC: ED 18:54 → MS3 19:41
PROVIDERS: Hospitalist; Internal Medicine; Admitting Provider Family Medicine; Emergency Provider Emergency Medicine; Visit Provider Hospitalist
DX: J44.0 Chronic obstructive pulmonary disease with (acute) lower respiratory infection (principal); J96.21 Acute and chronic respiratory failure with hypoxia; E43 Unspecified severe protein-calorie malnutrition; J18.9 Pneumonia, unspecified organism; Z99.81 Dependence on supplemental oxygen; Z68.1 Body mass index [BMI] 19.9 or less, adult; J44.1 Chronic obstructive pulmonary disease with (acute) exacerbation; G89.29 Other chronic pain; M54.9 Dorsalgia, unspecified; F41.9 Anxiety disorder, unspecified; Z66 Do not resuscitate; Z85.118 Personal history of other malignant neoplasm of bronchus and lung; Z87.891 Personal history of nicotine dependence; Z90.2 Acquired absence of lung [part of]
CPT/HCPCS: 36415; 36600; 71046; 80048; 82803; 83735; 84484; 85025; 85027; 87040; 87449; 87633; 93005; 94640; 94667; 94668; 97110; 97162; 97166; 97530; 97802; 99285; J7030; J7050; A4216; J2405

== ENCOUNTER 2017-06-15 13:22 | Emergency (ER) | payer MEDICARE, OTHER, SELFPAY ==
[2017-06-15 13:23] VITALS: BP 135/83; PULSE 92; RESP 28; TEMP 37.4; O2SAT 97; BMI 19.0
--- NOTE | 2017-06-15 13:35 | EKG12_ITS ---
Test Reason : SOB Blood Pressure : / mmHG Vent. Rate : 073 BPM Atrial Rate : 073 BPM P-R Int : 130 ms QRS Dur : 076 ms QT Int : 386 ms P-R-T Axes : 084 080 078 degrees QTc Int : 425 ms Normal sinus rhythm Normal ECG Confirmed by NATALIA PATEL, JAME ([id number]), proposal editor LIS COLEMAN ([id number]) on 06/19/2017 2:25:07 PM Referred By: STACIE/ANA Confirmed By:JAME FISHER MD
--- NOTE | 2017-06-15 13:36 | RAD_ITS ---
STUDY: X-RAY CHEST REASON FOR EXAM: Female, 81 years old. ABD PAIN, N/V, DIZZINESS AND SOB. LABORED BREATHING NOTED TECHNIQUE: Frontal and lateral views of the chest. COMPARISON: None. FINDINGS: There is elevation of the right hilum with volume loss in the right lung suggesting that prior right upper lobectomy. There is hyperinflation of the lungs consistent with chronic obstructive lung disease (COPD). There is no demonstrated pleural abnormality. Normal size heart. Normal mediastinum and carrie. Normal visualized pulmonary arteries. Normal visualized aortic arch and descending thoracic aorta. There is demineralization of the osseous structures. Normal visualized ribs, clavicles, and shoulders. There is no demonstrated abnormality of the visualized soft tissue structures of the upper abdomen. RAD/Chest 1 View (Portable) IMPRESSION: COPD. Electronically Signed: Eric Tolentino MD at 14:01 EDT Tel , Service support ,
[2017-06-15 13:54] VITALS: PULSE 92; RESP 18
[2017-06-15] MEDS: Ipratropium/Albuterol Sulfate 3 ML AMPUL.NEB INHALATION (13:54)
[2017-06-15] MEDS: Albuterol 2.5 MG/3 ML VIAL.NEB. INHALATION (13:55)
[2017-06-15] MEDS: MethylPREDNISolone 125 MG/2 ML Vial IV (14:01)
[2017-06-15 14:17] LABS: Absolute Lymphocyte Count 1.73 X10^3/ul (0.83-4.51); Absolute Neutrophil Count 7.2 X10^3/uL (2.0-7.7); Basophil# 0.08 X10^3/uL; Basophil% 0.8 % (0-1); Eosinophil# 0.36 X10^3/uL; Eosinophils% 3.6 % (0-5); Hemoglobin 13.1 g/dl (12.0-15.0); Lymphocyte # 1.73 X10^3/ul (4.0); Lymphocyte % 17.1 % (19-41); Mean Corp Hgb Conc 32.8 g/gl (32-36); Mean Corpuscular Hgb 31.9 pg (27.0-32.0); Mean Corpuscular Volume 97.3 fL (81-99); Mean Platelet Vol. 10.5 fl (6.2-12.0); Monocyte# 0.68 X10^3/uL; Monocyte% 6.7 % (0-10); Neutrophil # 7.21 X10^3/uL (2.7-7.7); Neutrophil % 71.4 % (47-70); Platelet Count 228 K/mm3 (150-450); RBC Distribution Width CV 13.3 % (11.6-14.6); RBC Distribution Width SD 47.1 fl (35.1-43.9); Red Blood Count 4.11 M/mm3 (4.2-5.4); White Blood Count 10.1 K/mm3 (4.4-11.0)
[2017-06-15 14:18] LABS: POSITIVE COUNT NO; POSITIVE DIFFERENTIAL NO; POSITIVE MORPHOLOGY NO
[2017-06-15 14:24] LABS: AST(SGOT) 15 U/L (15-37); Alanine Aminotransfer ALT/SGPT 11 U/L (13-56); Albumin, Serum 3.4 g/dL (3.2-5.0); Alkaline Phosphatase 60 U/L (45-117); Anion Gap 5 (5-15); BUN 18 mg/dL (7-18); BUN/Creat Ratio 18.7 RATIO (10-20); Calcium,Total 8.9 mg/dL (8.5-10.1); Chloride 108 mmol/L (98-107); Creatinine, Serum 0.96 mg/dL (0.55-1.02); EST Glomerular Filtration Rate 59 mL/min (>60); Est Glom Filt Rate - Afr Amer 71 mL/min (>60); Estimated Creatinine Clearance 30.91 ml/min; Globulin 3.4 g/dL (2.2-4.2); Glucose 95 mg/dL (74-106); Lipase 68 U/L (73-393); Potassium 4.6 mmol/L (3.5-5.1); Protein, Total 6.8 g/dL (6.4-8.2); Sodium Level 140 mmol/L (136-145)
[2017-06-15 14:33] VITALS: BP 106/72; PULSE 78; RESP 20; O2SAT 94
--- NOTE | 2017-06-15 14:33 | ED.VISSUMM ---
- ER Visit Summary Date of Service: 06/15/17 Chief Complaint: Shortness of breath History of Present Illness: The patient is a 81 F who complains of shortness of breath. She states that yesterday she started feeling more short of breath. She also complains that she cannot keep anything down due to nausea. She was diagnosed with pneumonia 1 month ago. She felt dizzy this morning as well. She tried her nebulizers at home but it did not help her breathing. She does have a history of COPD and uses oxygen at night. She has had a cough productive of yellow sputum. She does admit to some intermittent left-sided chest pain as well. She saw her doctor for her symptoms and he put her on omeprazole to help with her stomach issues Physical Examination: Vital signs reviewed. HEENT exam unremarkable. Heart is regular rate and rhythm without murmurs. Lungs have diffuse rhonchi and wheezing. Abdomen is soft with epigastric tenderness. Extremities reveal no edema. Skin exam normal. Neurologic exam normal. Test Results: EKG is normal sinus rhythm with rate of 73. No ST changes. Labs are unremarkable. Chest x-ray reveals COPD without infiltrate Emergency Department Course and Treatment: Patient was given Solu-Medrol, DuoNeb and albuterol treatments. She feels much better. I will treat the patient with prednisone at home for her COPD. I will also give her Pepcid and Zofran for her stomach. She will follow-up with her PCP. Treatment Plan: [] Disposition: Discharge Impression: COPD exacerbation, gastritis This note was generated with [employer] dictation software. It may contain incorrect words, spelling, and punctuation that were not noted in review of the chart prior to signing ED Disposition - Plan for ED Patient: Chief Complaint: General Illness Referrals: Moose Abrams [Primary Care Provider] -
--- NOTE | 2017-06-15 14:35 | ED.DEP ---
ED Disposition - Plan for ED Patient: Disposition: Home or Assisted Living Chief Complaint: General Illness Instructions: ED COPD Flare Prescriptions: Ondansetron [Zofran Odt] 4 mg PO Q8H PRN PRN #10 tab PRN Reason: Nausea Prednisone [Deltasone] 60 mg PO DAILY #12 tab Famotidine [Pepcid] 20 mg PO BID #28 tab Referrals: Moose Abrams [Primary Care Provider] -
== END 2017-06-15 15:30 | disposition home or self-care (01) ==
PROVIDERS: Emergency Provider Emergency Medicine
DX: J44.1 Chronic obstructive pulmonary disease with (acute) exacerbation (principal); K29.70 Gastritis, unspecified, without bleeding; Z87.01 Personal history of pneumonia (recurrent); Z85.118 Personal history of other malignant neoplasm of bronchus and lung
CPT/HCPCS: 71045; 80053; 83690; 84484; 85025; 93005; 94640; 99285; A4216

== ENCOUNTER 2017-06-21 16:51 | Emergency (ER) | payer MEDICARE, OTHER, SELFPAY ==
[2017-06-21 16:54] VITALS: BP 118/81; PULSE 84; RESP 17; TEMP 36.6; O2SAT 95; BMI 18.1
--- NOTE | 2017-06-21 17:28 | EKG12_ITS ---
Test Reason : SOB
--- NOTE | 2017-06-21 17:29 | RAD_ITS ---
STUDY: X-RAY CHEST REASON FOR EXAM: Female, 81 years old. Short of breath TECHNIQUE: Frontal view of the chest COMPARISON: 06/15/2017 FINDINGS: There are stable postsurgical changes in the right lung. There are stable emphysematous changes. The lungs are otherwise clear. There are no pleural effusions. There is no pneumothorax. The heart is normal in size. The visualized osseous structures are within normal limits. RAD/Chest PA and Lateral IMPRESSION: No acute thoracic pathology. Electronically Signed: Victor Manuel Leon, at 18:26 EDT Tel , Service support ,
--- NOTE | 2017-06-21 17:30 | ED.VISSUMM ---
- ER Visit Summary Date of Service: 06/21/17 Chief Complaint: Diarrhea History of Present Illness: The patient is a 81 F 3 of prior lung CA with partial right lobectomy and COPD. Patient states that for the last week she has had diarrhea after breakfast every morning. She only has one episode of diarrhea day because she states she only eats breakfast. She eats peanut butter on toast. She states she is not eating any other meals. She denies melena. She denies nausea or vomiting. She denies abdominal pain. Sometimes the stool is loose other times is watery. She denies any gross blood. Unsure if she has been on recent antibiotics. She has not recently been hospitalized. Physical Examination: Well-appearing older female. Vital signs are stable afebrile. Pulse ox 95% room air no signs of hypoxia. H EENT exam unremarkable mildly dry mucous membranes. Neck nontender no JVD. No lymphadenopathy. Lungs clear to auscultation bilaterally. No rales rhonchi. Heart regular rhythm no murmur. Rate in the 80s. Abdomen is soft and nontender. Normal bowel sounds nondistended. No peritoneal signs. She is moving all 4 extremities. No edema. Neurovascular intact. Back exam nontender. Neurologically she is awake and alert. Test Results: CBC shows a white count of 12. H&H are normal. No bands. Electrolytes are unremarkable with a gap is 6. Creatinine 1. EKG sinus rhythm rate is 71 no acute abnormalities. Chest x-ray 2 views shows chronic changes consistent with COPD but no acute abnormality no pneumonia. Emergency Department Course and Treatment: She with one episode of diarrhea per day after eating breakfast. For the last week. Clinically this does not sound like C. difficile. She will be treated with IV fluids. Screening labs be obtained. She is also complaining of shortness of breath which is probably from her COPD and screening labs will be obtained. Patient will also be given 1 DuoNeb aerosol and Imodium for diarrhea. Treatment Plan: Exam patient is doing well at 1915. No distress. I went over all test results with her. She has had no diarrhea the entire time in the ER. She will be discharged home. Fluids and rest. Imodium for the diarrhea. Clinically I do not think she needs prednisone for her COPD. Disposition:Discharge Impression: Diarrhea This note was generated with [employer] dictation software. It may contain incorrect words, spelling, and punctuation that were not noted in review of the chart prior to signing ED Disposition - Plan for ED Patient: Chief Complaint: Diarrhea Referrals: Moose Abrams [Primary Care Provider] -
[2017-06-21] MEDS: 0.9% Normal Saline 1,000 ML 1000 ML IV (17:36)
[2017-06-21] MEDS: Loperamide 2 MG Capsule PO (17:36)
[2017-06-21 17:38] LABS: Absolute Lymphocyte Count 2.63 X10^3/ul (0.83-4.51); Absolute Neutrophil Count 8.2 X10^3/uL (2.0-7.7); Basophil# 0.05 X10^3/uL; Basophil% 0.4 % (0-1); Eosinophil# 0.24 X10^3/uL; Hematocrit 42.6 % (37-47); Hemoglobin 14.6 g/dl (12.0-15.0); Lymphocyte # 2.63 X10^3/ul (4.0); Lymphocyte % 21.7 % (19-41); Mean Corp Hgb Conc 34.3 g/gl (32-36); Mean Corpuscular Hgb 32.5 pg (27.0-32.0); Mean Corpuscular Volume 94.9 fL (81-99); Mean Platelet Vol. 10.1 fl (6.2-12.0); Monocyte% 6.6 % (0-10); Neutrophil # 8.23 X10^3/uL (2.7-7.7); Neutrophil % 68.1 % (47-70); POSITIVE COUNT NO; POSITIVE DIFFERENTIAL NO; POSITIVE MORPHOLOGY NO; Platelet Count 273 K/mm3 (150-450); RBC Distribution Width CV 13.2 % (11.6-14.6); RBC Distribution Width SD 45.6 fl (35.1-43.9); Red Blood Count 4.49 M/mm3 (4.2-5.4); White Blood Count 12.1 K/mm3 (4.4-11.0)
--- NOTE | 2017-06-21 17:43 | ED.RN ---
pt unable to tell me medications she is taking recently changed. lives alone . family unavailable and would not know medications
[2017-06-21 17:44] VITALS: PULSE 72; RESP 22
[2017-06-21] MEDS: Ipratropium/Albuterol Sulfate 3 ML AMPUL.NEB INHALATION (17:44)
[2017-06-21 17:53] LABS: Anion Gap 6 (5-15); BUN 23 mg/dL (7-18); BUN/Creat Ratio 21.3 RATIO (10-20); Calcium,Total 9.2 mg/dL (8.5-10.1); Chloride 110 mmol/L (98-107); Creatinine, Serum 1.08 mg/dL (0.55-1.02); EST Glomerular Filtration Rate 51 mL/min (>60); Est Glom Filt Rate - Afr Amer 62 mL/min (>60); Estimated Creatinine Clearance 26.28 ml/min; Glucose 142 mg/dL (74-106); Sodium Level 143 mmol/L (136-145)
--- NOTE | 2017-06-21 19:23 | ED.DEP ---
ED Disposition - Plan for ED Patient: Disposition: Home or Assisted Living Chief Complaint: Diarrhea Referrals: Moose Abrams [Primary Care Provider] - As soon as possible Additional Instructions: Fluids and rest. Use Imodium after every loose bowel movement until resolved. Follow-up your primary care physician if not improving or return to ER feeling a lot worse.
[2017-06-21 19:32] VITALS: BP 130/76; RESP 18
== END 2017-06-21 19:33 | disposition home or self-care (01) ==
PROVIDERS: Emergency Provider Emergency Medicine
DX: R19.7 Diarrhea, unspecified (principal); J44.9 Chronic obstructive pulmonary disease, unspecified; Z72.0 Tobacco use; Z85.118 Personal history of other malignant neoplasm of bronchus and lung
CPT/HCPCS: 71046; 80048; 85025; 93005; 94640; 99285; A4216

== ENCOUNTER 2018-04-20 17:37 | Observation (INO) | payer MEDICARE, OTHER, SELFPAY ==
[2018-04-20] VITALS (8 sets, daily range): BP systolic 109–131; BP diastolic 64–72; PULSE 80–94; RESP 20–28; TEMP 36.8–37.1; O2SAT 95–99; BMI 15.8; BMI 15.0
--- NOTE | 2018-04-20 18:07 | EKG12_ITS ---
Test Reason : WEAKNESS Blood Pressure : / mmHG Vent. Rate : 088 BPM Atrial Rate : 088 BPM P-R Int : 130 ms QRS Dur : 090 ms QT Int : 372 ms P-R-T Axes : 064 077 060 degrees QTc Int : 450 ms Normal sinus rhythm Normal ECG Confirmed by NATALIA PATEL, JAME ([id number]), newspaper editor managing LIS COLEMAN ([id number]) on 04/24/2018 9:19:33 AM Referred By: MICHELL Confirmed By:JAME FISHER MD
--- NOTE | 2018-04-20 18:08 | ED.VISSUMM ---
- ER Visit Summary Date of Service: 04/20/18 Chief Complaint: Shortness of breath History of Present Illness: The patient is a 82 F who presents with shortness of breath that has been getting worse over the past week. Patient states her breathing is worse with any exertion. Patient states she is on oxygen at home. Patient states she also has home aerosols. Patient states she has been using these at home. Patient states these were helping initially but over the last couple days have not seem to help much. Patient states she is coughing up some yellow sputum. Patient admits to some rhinorrhea and a sore throat. Patient admits to subjective chills. Patient states she has pain over the left side of her chest with coughing. Physical Examination: Vital signs are stable. Patient is afebrile. Patient is in no acute distress. Oral mucosa is pink and moist. Neck is supple. Trachea is midline. There is no JVD or lymphadenopathy noted. Heart was regular rate and rhythm. Lungs showed wheezing and rhonchi in the left lower lung. Abdomen is soft and nontender. Cranial nerves II through XII are intact. There are no focal motor or sensory deficits noted. The remaining physical exam is within normal limits. Test Results: CBC shows a mild leukocytosis. Basic metabolic profile and troponin were normal. EKG does not show any acute ST changes. Chest x-ray does not show any acute infiltrate. Emergency Department Course and Treatment: Patient was given a DuoNeb aerosol and prednisone initially. Patient was still feeling short of breath. Patient was given a repeat albuterol aerosol. Patient did not feel comfortable going home. Case was discussed with the hospitalist. He will admit the patient to his service. Patient and family understood and were agreeable with the plan. All questions were answered. Disposition: Admit to hospital Impression: COPD exacerbation This note was generated with [employer] dictation software. It may contain incorrect words, spelling, and punctuation that were not noted in review of the chart prior to signing ED Disposition - Plan for ED Patient: Disposition: Acute [facility]
--- NOTE | 2018-04-20 18:15 | RAD_ITS ---
STUDY: X-RAY CHEST REASON FOR EXAM: Female, 82 years old. Shortness of breath. TECHNIQUE: PA and lateral views of the chest. COMPARISON: June 21, 2017. FINDINGS: Telemetry wires overlie the chest. There is mild elevation of the right hemidiaphragm. The lungs are hyperexpanded with chronic interstitial changes consistent with COPD. There is no new mass or infiltrate. There is no demonstrated pleural abnormality. Normal size heart. Normal mediastinum and carrie. Normal visualized pulmonary arteries. There is atherosclerotic calcification of the aortic arch with tortuosity. There is demineralization of the osseous structures. Normal visualized ribs, clavicles, and shoulders. There is no demonstrated abnormality of the visualized soft tissue structures of the upper abdomen. RAD/Chest PA and Lateral IMPRESSION: Question COPD without acute cardiopulmonary disease or major interval change. Electronically Signed: Tony Randloph DO at 18:34 EST Tel [phone], Service support ,
[2018-04-20 18:16] LABS: Absolute Lymphocyte Count 2.08 X10^3/ul (0.83-4.51); Basophil# 0.05 X10^3/uL; Basophil% 0.4 % (0-1); Eosinophil# 0.14 X10^3/uL; Eosinophils% 1.1 % (0-5); Hematocrit 40.1 % (37-47); Hemoglobin 13.2 g/dl (12.0-15.0); Lymphocyte # 2.08 X10^3/ul (4.0); Lymphocyte % 16.9 % (19-41); Mean Corp Hgb Conc 32.9 g/gl (32-36); Mean Corpuscular Hgb 32.4 pg (27.0-32.0); Mean Corpuscular Volume 98.5 fL (81-99); Mean Platelet Vol. 10.3 fl (6.2-12.0); Monocyte# 0.97 X10^3/uL; Monocyte% 7.9 % (0-10); Neutrophil # 9.03 X10^3/uL (2.7-7.7); Neutrophil % 73.1 % (47-70); Platelet Count 289 K/mm3 (150-450); RBC Distribution Width CV 12.6 % (11.6-14.6); RBC Distribution Width SD 44.8 fl (35.1-43.9); Red Blood Count 4.07 M/mm3 (4.2-5.4); White Blood Count 12.3 K/mm3 (4.4-11.0)
[2018-04-20 18:21] LABS: POSITIVE COUNT NO; POSITIVE DIFFERENTIAL NO; POSITIVE MORPHOLOGY NO
[2018-04-20] MEDS: Ipratropium/Albuterol Sulfate 3 ML AMPUL.NEB INHALATION (18:29)
[2018-04-20 18:32] LABS: Anion Gap 7 (5-15); BUN 32 mg/dL (7-18); BUN/Creat Ratio 34.3 RATIO (10-20); Calcium,Total 9.4 mg/dL (8.5-10.1); Chloride 108 mmol/L (98-107); Creatinine, Serum 0.93 mg/dL (0.55-1.02); EST Glomerular Filtration Rate 61 mL/min (>60); Est Glom Filt Rate - Afr Amer 74 mL/min (>60); Glucose 114 mg/dL (74-106); Potassium 4.2 mmol/L (3.5-5.1); Sodium Level 139 mmol/L (136-145)
[2018-04-20] MEDS: Albuterol 2.5 MG/3 ML VIAL.NEB. INHALATION (20:22)
[2018-04-20] MEDS: Acetaminophen 500 MG Tablet 1000 MG PO (20:30)
[2018-04-20] MEDS: predniSONE 20 MG Tablet 60 MG PO (20:31)
--- NOTE | 2018-04-20 21:06 | PCM.HP.STD ---
Problem List (1) COPD exacerbation Status: Acute (2) Vertigo Status: Acute (3) Pneumonia Status: Resolved Qualifiers: Pneumonia type: due to unspecified organism Laterality: unspecified laterality Lung location: unspecified part of lung Qualified Code(s): J18.9 - Pneumonia, unspecified organism History of Present Illness Date of Admission: 04/20/18 Chief Complaint: vertigo The patient is a 82 year old F with a significant history of COPD home oxygen; lung cancer status post lung surgery who presented because of a severe spinning sensation of her head. Further patient reports increased shortness of breath in the last week which is above her baseline. Associated with her symptoms is productive cough of yellow sputum that has been going on for about 2 weeks. She reports that a couple of weeks ago she had flu. Past Medical History Past Medical History (Chronic Problems): Chronic Problems Chronic obstructive pulmonary disease (COPD) (Chronic) Chronic respiratory failure with hypoxia (Chronic) Severe protein-calorie malnutrition (Chronic) History of tobacco use (Chronic) Chronic back pain (Chronic) History of lung cancer (Chronic) Allergies No Known Allergies Allergy (Verified 04/20/18 17:38) Home Medications: Ambulatory Orders Medication Instructions Recorded Lorazepam [Ativan] 0.5 mg PO QHS PRN 05/10/17 Meloxicam 7.5 tab PO DAILY 04/20/18 Surgical History: - - Hysterectomy, RUL Lobectomy, Melanoma skin resection. 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 Paternal History Items: - - Denies knowledge of paternal medical history. Review of Systems Constitutional: Denies: Chills, Fever, Weight Change HEENT: Denies: Head Aches, Sinus Congestion, Sinus Drainage Cardiovascular: Denies: Chest Pain, Palpitations Respiratory: Reports: Cough, Shortness of Breath, Sputum production Gastrointestinal: Denies: Abdominal Pain, Nausea, Vomiting Genitourinary: Denies: Dysuria Musculoskeletal: Denies: Joint Pain, Joint Tenderness Skin: Denies: Rash, Wounds Neurological: Denies: Numbness, Tingling, Focal weakness Psychiatric: Denies: Anxiety, Depression, Homicidal Ideations, Suicidal Ideations Hematologic/ Lymphatic: Denies: Easy Bruising, Easy Bleeding VTE Information - Inpt Only VTE Present on Admission: No VTE Mechan Device Prophylaxis: None VTE Pharm Prophylaxis ordered?: Yes Patient Problems: Active and Suspected Problems Vertigo (Acute) - Physical Exam General: Alert, Oriented x3, Cooperative HEENT: Atraumatic, PERRLA, EOMI, Normocephalic Neck: Supple, No JVD, Negative Carotid Bruits Lungs: Diminished Cardiovascular: Regular rate, No murmurs Abdomen: Bowel Sounds Present, Soft, Non Tender Extremities: No edema, Capillary Refill Less than 3 Seconds Skin: No rashes, No breakdown Musculoskeletal: No Tenderness to Palpation of Joints or Extremities Neurological: Neuro grossly intact Psych/Mental Status: Normal Affect, Appropriate Vital Signs Temp Pulse Resp BP Pulse Ox 98.2 F 89 22 H 109/64 97 04/20/18 20:22 04/20/18 20:22 04/20/18 20:22 04/20/18 20:22 04/20/18 20:22 Oxygen Flow Rate (L/min) 2 Oxygen Delivery Method Room Air Weight: 43.182 kg Body Mass Index (BMI) 15.8 Laboratory Tests Past 24 Hrs 04/20/18 04/20/18 18:08 18:08 WBC 12.3 H RBC 4.07 L Hgb 13.2 Hct 40.1 MCV 98.5 MCH 32.4 H MCHC 32.9 RDW 12.6 RDW Differential 44.8 H Plt Count 289 MPV 10.3 Immature Gran % (Auto) 0.600 Neut % (Auto) 73.1 H Lymph % (Auto) 16.9 L [place] % (Auto) 7.9 Eos % (Auto) 1.1 Baso % (Auto) 0.4 Absolute Neuts (auto) 9.0 H Absolute Lymphs (auto) 2.08 Total Counted Not Reportable Sodium 139 Potassium 4.2 Chloride 108 H Carbon Dioxide 24.0 Anion Gap 7 BUN 32 H Creatinine 0.93 Estim Creat Clear Calc 30.70 Est GFR (MDRD) Af Amer 74 Est GFR (MDRD) Non-Af 61 BUN/Creatinine Ratio 34.3 H Glucose 114 H Calcium 9.4 Troponin I < 0.015 Assessment/Plan All Active Problems Vertigo (Acute) COPD exacerbation (Acute) Pneumonia (Resolved) The patient is a 82 year old F with a significant history of COPD home oxygen; lung cancer status post lung surgery who presented because of a severe spinning sensation of her head; and increased shortness of breath above her baseline as well as a productive cough consistent with Vertigo and acute exacerbation of COPD. Vertigo Likely vestibular neuritis as patient had recent URI. PT to teach patient vestibular exercises. Meclizine as needed Acute exacerbation of COPD Independent review of chest x-ray shows hyperinflation with no acute cardia pulmonary process. Received prednisone 60 mg at emergency department Continue patient on prednisone 40 mg daily Scheduled DuoNeb. Albuterol Patient noted to have mild leukocytosis. Trend CBC. Scheduled Mucinex Anxiety As needed Ativan continued Prophylaxis Subcutaneous heparin. Code Visit OBSV E&M: 00995 Initial observation care L3
[2018-04-21] VITALS (9 sets, daily range): BP systolic 100–118; BP diastolic 56–65; PULSE 80–92; RESP 14–28; TEMP 36.6–37; O2SAT 94–98
[2018-04-21 07:16] LABS: Absolute Lymphocyte Count 0.37 X10^3/ul (0.83-4.51); Absolute Neutrophil Count 7.3 X10^3/uL (2.0-7.7); Basophil# 0.02 X10^3/uL; Basophil% 0.3 % (0-1); Hematocrit 38.9 % (37-47); Hemoglobin 12.7 g/dl (12.0-15.0); Lymphocyte # 0.37 X10^3/ul (4.0); Lymphocyte % 4.7 % (19-41); Mean Corp Hgb Conc 32.6 g/gl (32-36); Mean Corpuscular Hgb 32.6 pg (27.0-32.0); Mean Platelet Vol. 10.5 fl (6.2-12.0); Monocyte# 0.08 X10^3/uL; Neutrophil # 7.34 X10^3/uL (2.7-7.7); Neutrophil % 93.7 % (47-70); Platelet Count 271 K/mm3 (150-450); RBC Distribution Width CV 12.5 % (11.6-14.6); RBC Distribution Width SD 44.7 fl (35.1-43.9); Red Blood Count 3.89 M/mm3 (4.2-5.4); White Blood Count 7.8 K/mm3 (4.4-11.0)
[2018-04-21 07:17] LABS: Differential Indicated SCAN CRITERIA MET; POSITIVE COUNT NO; POSITIVE DIFFERENTIAL YES; POSITIVE MORPHOLOGY NO
[2018-04-21 07:27] LABS: Platelet Estimate ADEQUATE (ADEQ); Platelet Morphology LARGE
[2018-04-21] MEDS: Ipratropium/Albuterol Sulfate 3 ML AMPUL.NEB INHALATION ×3 (07:35→18:54)
[2018-04-21] MEDS: Acetaminophen 325 MG Tablet 650 MG PO ×2 (09:26→14:50)
--- NOTE | 2018-04-21 09:35 | CASEMGMT ---
SW met w/pt in room in regard to prior level of function and discharge plan. PCP: Dr. Chidi Abrams Specialists: none. She used to see a lung doctor but he retired and she no longer sees him. Pharmacy: [facility] in [place] Insurance: Medicare/AARP Living Will/POA: Pt does not have. SW spoke w/pt about completing the forms as she has five children, and states two are involved. SW explained without designating a person, if any decisions needed made all five children would need to make the decision together. Pt is but has dementia and he is in [facility], she is his POA. SW gave pt the forms with a card to call SW after discharge, and explained she can set up an appointment to complete the forms. Pt states understanding. LNOK: Pt has five children. She states her daughter Kimberly takes her to appointments, pt no longer drives. Pt's son Caleb checks on pt every evening. Living arrangements: Pt lives alone, two story home but she stays on the first floor. Prior level of function: Pt independent with most ADL's though does not cook much or drive. Transportation: Pt does not drive, daughter takes her to appointments. DME/HHC: Pt has a walker, does not use. Pt has a nebulizer, O2 through [facility] . Pt wears O2 2LPM Continuous at night. Pt had home health once after an ankle fracture. Pt states has difficulty at times w/ADL's. SW did provide a private hire list for pt, though she states she cannot afford extra help. SW offered to complete referral for fdc care consult at home, explained the consult is free and they can see if pt qualifies for anything, will see if she qualifies for Medicaid. Pt states she and her daughter worked to get her on Medicaid. SW also spoke w/pt about MOW and home health. Pt agreeable to MOW information and referral to home health for nursing. SW completed the referral to [facility] and faxed it. SW gave pt information on MOW and LW/POA. SW made referral to [facility] for nursing, they can see her Monday or Monday. No further needs anticipated, pt home at discharge. TUAN Pereira, SENIOR NETWORK ENGINEER
[2018-04-21] MEDS: guaiFENesin 1,200 MG Tablet 1200 MG PO ×2 (09:36→20:03)
[2018-04-21] MEDS: Meloxicam 7.5 MG Tablet PO (09:36)
[2018-04-21] MEDS: predniSONE 20 MG Tablet 40 MG PO (09:36)
[2018-04-21] MEDS: Enoxaparin 40 MG/0.4 ML Syringe SC (09:36)
--- NOTE | 2018-04-21 11:34 | PCM.PN.HOSP ---
Patient Problems: Active and Suspected Problems Vertigo (Acute) Subjective: He will does not feel back to baseline though does feel a little bit better. Vitals/I&O's: Vital Signs Temp Pulse Resp BP Pulse Ox 98.3 F 89 14 100/64 96 04/21/18 10:24 04/21/18 10:24 04/21/18 10:24 04/21/18 10:24 04/21/18 10:24 Oxygen Flow Rate (L/min) 2 Oxygen Delivery Method Nasal Cannula Weight: 90 lb 2.705 oz Body Mass Index (BMI) 15.0 Intake and Output for Last 24 Hours 04/19/18 04/20/18 04/21/18 23:59 23:59 23:59 Intake Total 100 / 100 Output Total 200 / 200 Balance -200 / -200 100 / 100 General: Alert, Oriented x3, Cooperative, No apparent distress HEENT: Atraumatic, PERRLA, EOMI, Normocephalic Oral: Moist Mucosa Neck: Supple, No JVD, Trachea Midline Lungs: Clear to auscultation, Normal air movement, No rhonchi, No wheeze, No rales, Diminished Cardiovascular: Regular rate, Regular Rhythm, Normal S1, Normal S2, No murmurs Abdomen: Soft, Non Tender, Non-Distended, No Hepato-splenomegaly Extremities: No edema, Capillary Refill Less than 3 Seconds Skin: No rashes, No breakdown Neurological: Neuro grossly intact, Sensory exam intact to light touch and pain Psych/Mental Status: Normal Affect, Appropriate Microbiology Past 72 Hours 04/21/18 01:31 Mucosa - Nasopharyngeal Respiratory Panel (PCR) - Final Laboratory Results 04/20/18 18:08: WBC 12.3 H, RBC 4.07 L, Hgb 13.2, Hct 40.1, MCV 98.5, MCH 32.4 H, MCHC 32.9, RDW 12.6, RDW Differential 44.8 H, Plt Count 289, MPV 10.3, Immature Gran % (Auto) 0.600, Neut % (Auto) 73.1 H, Lymph % (Auto) 16.9 L, [place] % (Auto) 7.9, Eos % (Auto) 1.1, Baso % (Auto) 0.4, Absolute Neuts (auto) 9.0 H, Absolute Lymphs (auto) 2.08, Total Counted Not Reportable 04/20/18 18:08: Sodium 139, Potassium 4.2, Chloride 108 H, Carbon Dioxide 24.0, Anion Gap 7, BUN 32 H, Creatinine 0.93, Estim Creat Clear Calc 30.70, Est GFR (MDRD) Af Amer 74, Est GFR (MDRD) Non-Af 61, BUN/Creatinine Ratio 34.3 H, Glucose 114 H, Calcium 9.4, Troponin I < 0.015 04/21/18 06:16: WBC 7.8, RBC 3.89 L, Hgb 12.7, Hct 38.9, MCV 100.0 H, MCH 32.6 H, MCHC 32.6, RDW 12.5, RDW Differential 44.7 H, Plt Count 271, MPV 10.5, Immature Gran % (Auto) 0.300, Neut % (Auto) 93.7 H, Lymph % (Auto) 4.7 L, [place] % (Auto) 1.0, Eos % (Auto) 0.0, Baso % (Auto) 0.3, Absolute Neuts (auto) 7.3, Absolute Lymphs (auto) 0.37 L, Total Counted Not Reportable, Platelet Estimate ADEQUATE, Plt Morphology Comment LARGE Current Medications Acetaminophen (Tylenol) 650 mg PO Q6H PRN PRN PRN Reason: HEADACHE Last Admin: 04/21/18 09:26 Dose: 650 mg Albuterol Sulfate (Ventolin Aerosols) 2.5 mg INHALATION Q2H PRN PRN PRN Reason: SHORTNESS OF BREATH Albuterol/Ipratropium (Duoneb) 3 ml INHALATION Q4H.RT [facility] Last Admin: 04/21/18 07:35 Dose: 3 ml Enoxaparin Sodium (Lovenox) 40 mg SC DAILY@1000 [facility] Last Admin: 04/21/18 09:36 Dose: 40 mg Guaifenesin (Mucinex) 1,200 mg PO BID [facility] Last Admin: 04/21/18 09:36 Dose: 1,200 mg Lorazepam (Ativan) 0.5 mg PO QHS PRN PRN Reason: ANXIETY Magnesium Hydroxide (Milk Of Magnesia) 30 ml PO DAILY PRN PRN PRN Reason: Constipation Meclizine HCl (Antivert) 12.5 mg PO 4X/DAY PRN PRN PRN Reason: Vertigo Meloxicam (Mobic) 7.5 mg PO DAILY [facility] Last Admin: 04/21/18 09:36 Dose: 7.5 mg Nutritional Formula (Lactose Free) (Ensure Enlive) 120 ml PO 4X/DAY [facility] Last Admin: 04/21/18 09:39 Dose: Not Given Prednisone () 40 mg PO DAILY@0800 [facility] Last Admin: 04/21/18 09:36 Dose: 40 mg Sodium Chloride () 5 - 15 ml IV UD PRN PRN Reason: SALINE FLUSH Medical Necessity - Tobacco Use Smoking Status: Current some day smoker Assessment/Plan All Active Problems Vertigo (Acute) COPD exacerbation (Acute) Pneumonia (Resolved) 1. Acute COPD exacerbation -Chest x-ray is hyperinflated she did have a previous lung resection for cancer -We will continue with p.o. prednisone -Continue with DuoNeb -Plan will be to discharge tomorrow she is on room air 2. Vertigo -This is much improved, likely vestibular given her recent URI -He does have meclizine as needed available 3. Anxiety -Stable -Ativan available as needed DVT: Lovenox Code Visit OBSV E&M: 10738 Initial observation care L2
--- NOTE | 2018-04-21 11:40 | PN_ITS ---
Patient Problems: Active and Suspected Problems Vertigo (Acute) Subjective: He will does not feel back to baseline though does feel a little bit better. Vitals/I&O's: Vital Signs Temp Pulse Resp BP Pulse Ox 98.3 F 89 14 100/64 96 04/21/18 10:24 04/21/18 10:24 04/21/18 10:24 04/21/18 10:24 04/21/18 10:24 Oxygen Flow Rate (L/min) 2 Oxygen Delivery Method Nasal Cannula Weight: 90 lb 2.705 oz Body Mass Index (BMI) 15.0 Intake and Output for Last 24 Hours 04/19/18 04/20/18 04/21/18 23:59 23:59 23:59 Intake Total 100 / 100 Output Total 200 / 200 Balance -200 / -200 100 / 100 General: Alert, Oriented x3, Cooperative, No apparent distress HEENT: Atraumatic, PERRLA, EOMI, Normocephalic Oral: Moist Mucosa Neck: Supple, No JVD, Trachea Midline Lungs: Clear to auscultation, Normal air movement, No rhonchi, No wheeze, No rales, Diminished Cardiovascular: Regular rate, Regular Rhythm, Normal S1, Normal S2, No murmurs Abdomen: Soft, Non Tender, Non-Distended, No Hepato-splenomegaly Extremities: No edema, Capillary Refill Less than 3 Seconds Skin: No rashes, No breakdown Neurological: Neuro grossly intact, Sensory exam intact to light touch and pain Psych/Mental Status: Normal Affect, Appropriate Microbiology Past 72 Hours 04/21/18 01:31 Mucosa - Nasopharyngeal Respiratory Panel (PCR) - Final Laboratory Results 04/20/18 18:08: WBC 12.3 H, RBC 4.07 L, Hgb 13.2, Hct 40.1, MCV 98.5, MCH 32.4 H , MCHC 32.9, RDW 12.6, RDW Differential 44.8 H, Plt Count 289, MPV 10.3, Immature Gran % (Auto) 0.600, Neut % (Auto) 73.1 H, Lymph % (Auto) 16.9 L, [place] % (Auto) 7.9, Eos % (Auto) 1.1, Baso % (Auto) 0.4, Absolute Neuts (auto) 9.0 H, Absolute Lymphs (auto) 2.08, Total Counted Not Reportable 04/20/18 18:08: Sodium 139, Potassium 4.2, Chloride 108 H, Carbon Dioxide 24.0, Anion Gap 7, BUN 32 H, Creatinine 0.93, Estim Creat Clear Calc 30.70, Est GFR (MDRD) Af Amer 74, Est GFR (MDRD) Non-Af 61, BUN/Creatinine Ratio 34.3 H, Glucose 114 H, Calcium 9.4, Troponin I < 0.015 04/21/18 06:16: WBC 7.8, RBC 3.89 L, Hgb 12.7, Hct 38.9, MCV 100.0 H, MCH 32.6 H , MCHC 32.6, RDW 12.5, RDW Differential 44.7 H, Plt Count 271, MPV 10.5, Immature Gran % (Auto) 0.300, Neut % (Auto) 93.7 H, Lymph % (Auto) 4.7 L, [place] % (Auto) 1.0, Eos % (Auto) 0.0, Baso % (Auto) 0.3, Absolute Neuts (auto) 7.3, Absolute Lymphs (auto) 0.37 L, Total Counted Not Reportable, Platelet Estimate ADEQUATE, Plt Morphology Comment LARGE Current Medications Acetaminophen (Tylenol) 650 mg PO Q6H PRN PRN PRN Reason: HEADACHE Last Admin: 04/21/18 09:26 Dose: 650 mg Albuterol Sulfate (Ventolin Aerosols) 2.5 mg INHALATION Q2H PRN PRN PRN Reason: SHORTNESS OF BREATH Albuterol/Ipratropium (Duoneb) 3 ml INHALATION Q4H.RT [facility] Last Admin: 04/21/18 07:35 Dose: 3 ml Enoxaparin Sodium (Lovenox) 40 mg SC DAILY@1000 [facility] Last Admin: 04/21/18 09:36 Dose: 40 mg Guaifenesin (Mucinex) 1,200 mg PO BID [facility] Last Admin: 04/21/18 09:36 Dose: 1,200 mg Lorazepam (Ativan) 0.5 mg PO QHS PRN PRN Reason: ANXIETY Magnesium Hydroxide (Milk Of Magnesia) 30 ml PO DAILY PRN PRN PRN Reason: Constipation Meclizine HCl (Antivert) 12.5 mg PO 4X/DAY PRN PRN PRN Reason: Vertigo Meloxicam (Mobic) 7.5 mg PO DAILY [facility] Last Admin: 04/21/18 09:36 Dose: 7.5 mg Nutritional Formula (Lactose Free) (Ensure Enlive) 120 ml PO 4X/DAY [facility] Last Admin: 04/21/18 09:39 Dose: Not Given Prednisone () 40 mg PO DAILY@0800 [facility] Last Admin: 04/21/18 09:36 Dose: 40 mg Sodium Chloride () 5 - 15 ml IV UD PRN PRN Reason: SALINE FLUSH Medical Necessity - Tobacco Use Smoking Status: Current some day smoker Assessment/Plan All Active Problems Vertigo (Acute) COPD exacerbation (Acute) Pneumonia (Resolved) 1. Acute COPD exacerbation -Chest x-ray is hyperinflated she did have a previous lung resection for cancer -We will continue with p.o. prednisone -Continue with DuoNeb -Plan will be to discharge tomorrow she is on room air 2. Vertigo -This is much improved, likely vestibular given her recent URI -He does have meclizine as needed available 3. Anxiety -Stable -Ativan available as needed DVT: Lovenox Code Visit OBSV E&M: 36380 Initial observation care L2
[2018-04-21] MEDS: LORazepam 0.5 MG Tablet PO (20:03)
[2018-04-22 03:07] VITALS: BP 123/60; PULSE 63; RESP 16; TEMP 36.7; O2SAT 98
[2018-04-22 06:38] VITALS: PULSE 81; RESP 22; O2SAT 98
[2018-04-22] MEDS: Ipratropium/Albuterol Sulfate 3 ML AMPUL.NEB INHALATION ×2 (06:38→10:35)
[2018-04-22 08:20] VITALS: BP 134/72; PULSE 86; RESP 20; TEMP 36.6; O2SAT 97
[2018-04-22] MEDS: guaiFENesin 1,200 MG Tablet 1200 MG PO (08:34)
[2018-04-22] MEDS: predniSONE 20 MG Tablet 40 MG PO (08:34)
[2018-04-22] MEDS: Enoxaparin 40 MG/0.4 ML Syringe SC (08:34)
[2018-04-22 08:41] VITALS: RESP 20; O2SAT 97
[2018-04-22 10:35] VITALS: PULSE 86; RESP 24
--- NOTE | 2018-04-22 10:40 | DCINST_ITS ---
- Discharge Diagnoses Current Active Problems: Current Active and Chronic Problems Vertigo (Acute) You will use the following diet at home:: Regular Your food should be the consistency of: Regular Your liquids should be the consistency of: Regular/Thin Discharge Activity: Return to Normal Activity, No Restrictions Call your doctor if you observe: Fever of 101 or Higher, Shortness of breath, Dizziness, Fainting spells, Swelling in the ankles, Chest pain, Increased palpitations (irregular heartbeat) Allergies/Adverse Reactions: Allergies No Known Allergies Allergy (Verified 04/20/18 17:38) Medications to take at Discharge Lorazepam [Ativan] 0.5 mg PO QHS PRN 05/10/17 Meloxicam 7.5 tab PO DAILY 04/20/18 Budesonide INHALATION BID 04/21/18 Ipratropium/Albuterol Sulfate [Duoneb] 3 ml INHALATION Q4H.RT #30 ampul.neb 04/22/18 predniSONE tablet 40 mg PO DAILY@0800 #10 tablet 04/22/18 The following prescriptions were given: Ipratropium/Albuterol Sulfate [Duoneb] 3 ml INHALATION Q4H.RT #30 ampul.neb predniSONE tablet 40 mg PO DAILY@0800 #10 tablet Primary Care Physician: Moose Abrams [Primary Care Provider] - Please follow up with your Primary Care Physician in: 3-5 days Test Results: Test results from this visit will be discussed in further detail at your follow- up appointment, if applicable.
--- NOTE | 2018-04-22 10:40 | PCM.DC.SUM ---
Discharge Date and Diagnosis - Problem List Patient Problems: Active and Suspected Problems Vertigo (Acute) Date of Admission: 04/20/18 Date of Discharge: 04/22/18 - Primary Discharge Diagnosis Active and Suspected Problems Vertigo (Acute) - Secondary Discharge Diagnosis Chronic Problems Chronic obstructive pulmonary disease (COPD) (Chronic) Chronic respiratory failure with hypoxia (Chronic) Severe protein-calorie malnutrition (Chronic) History of tobacco use (Chronic) Chronic back pain (Chronic) History of lung cancer (Chronic) Hospital Course and Treatment Imaging Results: CXR: IMPRESSION: Question COPD without acute cardiopulmonary disease or major interval change. Consults: None Operations: None Procedures: None Summary of Care Provided: Per HPI: The patient is a 82 year old F with a significant history of COPD home oxygen; lung cancer status post lung surgery who presented because of a severe spinning sensation of her head. Further patient reports increased shortness of breath in the last week which is above her baseline. Associated with her symptoms is productive cough of yellow sputum that has been going on for about 2 weeks. She reports that a couple of weeks ago she had flu. Hospital Course: 1. Acute COPD [id number] female with a history of lung cancer status post lung resection, presents with shortness of breath. She had a slight cough that was slightly productive with yellow sputum, and she does have a history of COPD. She was started on steroids as well as DuoNeb therapy and has been doing very well. She did have an elevated leukocytosis which resolved without intervention. She is afraid of going home alone and therefore given her weakness, home health has been established to go out there with her. She will be given a prescription for prednisone to complete 5 days worth, as well as DuoNeb for her nebulizer. She will continue her home budesonide. To follow-up with her primary care doctor in 3-5 days. 2. Her other medical diagnoses were evaluated and her home medications were continued where appropriate Patient Problems: Active and Suspected Problems Vertigo (Acute) Objective: General: Alert, Oriented x3, Cooperative, No apparent distress HEENT: Atraumatic, PERRLA, EOMI, Normocephalic Oral: Moist Mucosa Neck: Supple, No JVD, Trachea Midline Lungs: Clear to auscultation, Normal air movement, No rhonchi, No wheeze, No rales, Diminished Cardiovascular: Regular rate, Regular Rhythm, Normal S1, Normal S2, No murmurs Abdomen: Soft, Non Tender, Non-Distended, No Hepato-splenomegaly Extremities: No edema, Capillary Refill Less than 3 Seconds Skin: No rashes, No breakdown Neurological: Neuro grossly intact, Sensory exam intact to light touch and pain Psych/Mental Status: Normal Affect, Appropriate - Physical Exam Vital Signs Temp Pulse Resp BP Pulse Ox 98 F 86 20 H 134/72 H 97 04/22/18 08:20 04/22/18 08:20 04/22/18 08:41 04/22/18 08:20 04/22/18 08:41 Oxygen Flow Rate (L/min) 2 Oxygen Delivery Method Room Air Weight: 90 lb 2.705 oz Body Mass Index (BMI) 15.0 Intake and Output for Last 24 Hours 04/20/18 04/21/18 04/23/18 23:59 23:59 00:59 Intake Total 820 / 820 420 / 420 Output Total 200 / 200 Balance -200 / -200 820 / 820 420 / 420 Microbiology Past 72 Hours 04/21/18 01:31 Respiratory Panel (PCR) - Final Mucosa - Nasopharyngeal Discharge Activity: Return to Normal Activity, No Restrictions Call your doctor if you observe: Fever of 101 or Higher, Shortness of breath, Dizziness, Fainting spells, Swelling in the ankles, Chest pain, Increased palpitations (irregular heartbeat) Home Medications: Medications to take at Discharge Lorazepam [Ativan] 0.5 mg PO QHS PRN 05/10/17 Meloxicam 7.5 tab PO DAILY 04/20/18 Budesonide INHALATION BID 04/21/18 Ipratropium/Albuterol Sulfate [Duoneb] 3 ml INHALATION Q4H.RT #30 ampul.neb 04/22/18 predniSONE tablet 40 mg PO DAILY@0800 #10 tablet 04/22/18 Following Prescrptions Were Given to Patient: Ipratropium/Albuterol Sulfate [Duoneb] 3 ml INHALATION Q4H.RT #30 ampul.neb predniSONE tablet 40 mg PO DAILY@0800 #10 tablet Primary Care Physician: Moose Abrams [Primary Care Provider] - Please follow up with your Primary Care Physician in: 3-5 days Disposition: Home with Home Health Minutes spent on discharge:: 35 Patient Condition:: Stable Medical Necessity - Tobacco Use Smoking Status: Current some day smoker Meaningful Use Info Meaningful Use Diagnoses (Choose all that apply): None applicable Code Visit OBSV E&M: 51088 Observation care discharge
[2018-04-22] MEDS: Meloxicam 7.5 MG Tablet PO (12:28)
[2018-04-22] MEDS: Acetaminophen 325 MG Tablet 650 MG PO (12:28)
[2018-04-22 13:30] VITALS: BP 109/63; PULSE 100; RESP 20; TEMP 36.6; O2SAT 94
== END 2018-04-22 13:50 | disposition home or self-care (01) ==
LOC: ED 21:35 → MS3 21:52
PROVIDERS: Admitting Provider Hospitalist; Emergency Provider Emergency Medicine; Visit Provider Family Medicine
DX: R42 Dizziness and giddiness (principal); E43 Unspecified severe protein-calorie malnutrition; J96.11 Chronic respiratory failure with hypoxia; J44.1 Chronic obstructive pulmonary disease with (acute) exacerbation; Z99.81 Dependence on supplemental oxygen; Z68.1 Body mass index [BMI] 19.9 or less, adult; Z85.118 Personal history of other malignant neoplasm of bronchus and lung; Z79.899 Other long term (current) drug therapy; Z85.820 Personal history of malignant melanoma of skin; F41.9 Anxiety disorder, unspecified; F17.210 Nicotine dependence, cigarettes, uncomplicated
CPT/HCPCS: 36415; 71046; 80048; 84484; 85025; 87633; 93005; 94640; 94667; 94668; 96372; 97162; 97166; 97530; 97802; 99218; 99285; 99406; A4216; G0378

== ENCOUNTER → 2018-04-27 12:27 | Outpatient (CLI) | payer MEDICARE, OTHER, SELFPAY ==
[2018-04-20 22:13] VITALS: BMI 15.0
[2018-04-27 14:13] LABS: Amphetamine Urine VISTA NEGATIVE (<1000 ng/mL); Barbiturate Urine VISTA NEGATIVE (< 200 ng/mL); Benzodiazepine Urine VISTA NEGATIVE (< 200 ng/mL); Cocaine Urine VISTA NEGATIVE (< 300 ng/mL); Ecstacy Urine VISTA NEGATIVE (< 500 ng/mL); Methadone Urine VISTA NEGATIVE (< 300 ng/mL); PCP Urine VISTA NEGATIVE (< 25 ng/mL); THC Urine VISTA NEGATIVE (< 50 ng/mL); Vista UDS pH Range 5
== END ==
PROVIDERS: Referring Provider Anesthesiology Pain Medicine; Visit Provider Anesthesiology Pain Medicine
DX: F11.20 Opioid dependence, uncomplicated (principal)
CPT/HCPCS: 80307

== ENCOUNTER → 2018-05-14 13:19 | Outpatient (CLI) | payer MEDICARE, OTHER, SELFPAY ==
[2018-04-20 22:13] VITALS: BMI 15.0
[2018-05-14 15:23] LABS: Amphetamine Urine VISTA NEGATIVE (<1000 ng/mL); Barbiturate Urine VISTA NEGATIVE (< 200 ng/mL); Benzodiazepine Urine VISTA NEGATIVE (< 200 ng/mL); Cocaine Urine VISTA NEGATIVE (< 300 ng/mL); Ecstacy Urine VISTA NEGATIVE (< 500 ng/mL); Methadone Urine VISTA NEGATIVE (< 300 ng/mL); PCP Urine VISTA NEGATIVE (< 25 ng/mL); THC Urine VISTA NEGATIVE (< 50 ng/mL); Vista UDS pH Range 5
== END ==
PROVIDERS: Referring Provider Anesthesiology Pain Medicine; Visit Provider Anesthesiology Pain Medicine
DX: F11.20 Opioid dependence, uncomplicated (principal)
CPT/HCPCS: 80307

== ENCOUNTER 2018-05-27 12:57 | Inpatient (IN) | payer MEDICARE, OTHER, SELFPAY ==
[2018-04-20 22:13] VITALS: BMI 15.0
[2018-05-27 12:58] VITALS: BP 110/49; PULSE 90; RESP 22; TEMP 37.1; O2SAT 96; BMI 15.5
--- NOTE | 2018-05-27 13:13 | EKG12_ITS ---
Test Reason : SOB Blood Pressure : / mmHG Vent. Rate : 080 BPM Atrial Rate : 080 BPM P-R Int : 122 ms QRS Dur : 084 ms QT Int : 352 ms P-R-T Axes : 063 070 068 degrees QTc Int : 405 ms Normal sinus rhythm with sinus arrhythmia Normal ECG Confirmed by NATALIA PATEL, JAME ([id number]), visual effects editor LIS COLEMAN ([id number]) on 05/29/2018 3:58:07 PM Referred By: MICHELL Confirmed By:JAME FISHER MD
--- NOTE | 2018-05-27 13:13 | RAD_ITS ---
STUDY: X-RAY CHEST REASON FOR EXAM: Female, 82 years old. Cough, dyspnea TECHNIQUE: Frontal and lateral views COMPARISON: April 20, 2018 FINDINGS: The lungs are expanded. Pulmonary interstitial prominence. Probable focal scar at the right base. Mild right infrahilar focal infiltrate is suspected. Normal size heart. There are surgical clips over the mediastinum. Normal visualized pulmonary arteries. Mildly calcified visualized aortic arch and descending thoracic aorta. Normal visualized thoracic spine. Normal visualized ribs, clavicles, and shoulders. There is no demonstrated abnormality of the visualized soft tissue structures of the upper abdomen. RAD/Chest PA and Lateral IMPRESSION: Pulmonary interstitial prominence. Probable focal scar at the right base. Mild right infrahilar focal infiltrate is suspected. Electronically Signed: Didier Moss DO at 14:15 EDT Tel [phone], Service support ,
--- NOTE | 2018-05-27 13:17 | ED.DCSUM_ITS ---
- ER Visit Summary Date of Service: 05/27/18 Chief Complaint: [Cough and shortness of breath] History of Present Illness: The patient is a 82 F [presents the emergency department cough shortness of breath started 2 weeks ago. Patient complains of exertional dyspnea and dyspnea at rest. Patient intermittently has had a pain in her chest with cough and with certain movements at times. While patient was getting undressed in the room she developed increased discomfort into the right chest and she thinks may have pulled a muscle. Patient denies any fevers at home but she has had some sweats. Patient is a smoker and has history of COPD. Patient continues to smoke. Patient does use home O2 at night 2 L. She denies recent travel or surgery. She denies any hemoptysis. Patient did cough so hard today that she did vomit x1. Patient has history of prior lung cancer with partial lobectomy of the right lung.] Physical Examination: [HEENT-PERRLA, EOMI. Cranial nerves II through XII grossly intact. TMs clear. Mucous membranes moist. No adenopathy. Cardiovascular-regular rate and rhythm without murmur or ectopy Lungs-diminished breath sounds bilaterally. Patient has some faint expiratory wheezes. No accessory muscle use or retractions. Abdomen-normoactive bowel sounds, soft, nontender, no rebound or rigidity, no peritoneal signs. Extremities-intact ?4, normal range of motion, normal pulses, atraumatic] Test Results: [EKG obtained arrival shows sinus rhythm with a ventricular rate of 80 bpm with occasional PACs. No acute I segment changes noted.] Emergency Department Course and Treatment: [EKG obtained arrival shows sinus rhythm with a ventricular rate of 80 bpm with occasional PACs. CBC with differential showed a white count 14.6, hemoglobin 12, hematocrit 36, platelets 339. Chemistries unremarkable. Troponin less than 0.015. D-dimer was elevated at 2.43. CTA of the chest obtained showed a right lower lobe bronchial thickening and questionable cavitary lesion in the left lung.] Treatment Plan: [Patient was medicated with DuoNeb aerosol as well as Solu- Medrol and started on Levaquin.] Disposition: [Admit] Impression: [COPD exacerbation] This note was generated with [employer] dictation software. It may contain incorrect words, spelling, and punctuation that were not noted in review of the chart prior to signing ED Disposition - Plan for ED Patient: Referrals: Moose Abrams [Primary Care Provider] -
[2018-05-27 13:18] VITALS: PULSE 94; RESP 22
[2018-05-27] MEDS: Ipratropium/Albuterol Sulfate 3 ML AMPUL.NEB INHALATION ×2 (13:18→19:16)
[2018-05-27] MEDS: MethylPREDNISolone 125 MG/2 ML Vial IV (13:28)
[2018-05-27] MEDS: 0.9% Normal Saline 1,000 ML 150 ML IV (13:28)
[2018-05-27 13:34] LABS: Hematocrit 36.1 % (37-47); Mean Corp Hgb Conc 33.2 g/gl (32-36); Mean Corpuscular Hgb 32.6 pg (27.0-32.0); Mean Corpuscular Volume 98.1 fL (81-99); Mean Platelet Vol. 9.8 fl (6.2-12.0); Platelet Count 339 K/mm3 (150-450); RBC Distribution Width CV 13.8 % (11.6-14.6); Red Blood Count 3.68 M/mm3 (4.2-5.4); White Blood Count 14.6 K/mm3 (4.4-11.0)
[2018-05-27 13:35] LABS: Differential Indicated MANUAL DIFF; POSITIVE COUNT YES; POSITIVE DIFFERENTIAL NO; POSITIVE MORPHOLOGY YES
[2018-05-27 13:43] LABS: D-Dimer Quantitative (DVT/PE) 2.43 FEU/ug/m (0.27-0.49)
--- NOTE | 2018-05-27 13:48 | CT_ITS ---
STUDY: CTA CHEST REASON FOR EXAM: Female, 82 years old. Dyspnea, cough RADIATION DOSAGE (If Supplied By Facility): CTDIvol = ( 2.51 ) mGy, DLP = ( 110.95 ) mGycm TECHNIQUE: The examination was performed with the intravenous administration of 75 IV Isovue 300. Post-processing of the angiographic images was performed, with multiplanar reformation and 3D reconstruction. Individualized dose optimization techniques were used for this CT. COMPARISON: None. FINDINGS: Normal enhancement of the main pulmonary artery and right and left pulmonary arteries. Normal enhancement of the bilateral peripheral pulmonary arteries. There is no demonstrated pulmonary embolism. Normal thoracic aorta and visualized great vessels. There is no demonstrated aortic dissection. Normal heart and pericardium. Normal mediastinum. Normal hilar regions. Normal visualized trachea. Intraluminal densities within right lower lobe bronchioles and bronchial wall thickening. The lungs are well expanded. Emphysematous changes. There is reticulonodular prominence of the right pulmonary parenchyma. Questionable 7 mm left upper lobe cavitary lesion. Normal pleura. Normal chest wall structures. Sclerotic focus within a mid thoracic vertebral body may be related to previous vertebroplasty.. Right renal cystic lesions. CT/CTA Chest W/WO Contrast IMPRESSION: No demonstrated pulmonary embolism or arterial dissection. Emphysematous changes. Questionable small cavitary left upper lobe lesion. Reticulonodular prominence of the right pulmonary parenchyma. Right lower lobe bronchial thickening with intraluminal bronchial densities. Correlation with bronchoscopy if needed. Right renal cystic lesion. Electronically Signed: Didier Moss DO at 14:36 EDT Tel [phone], Service support ,
[2018-05-27 13:51] LABS: Anion Gap 6 (5-15); BUN 21 mg/dL (7-18); Calcium,Total 9.7 mg/dL (8.5-10.1); Chloride 106 mmol/L (98-107); Creatinine, Serum 0.91 mg/dL (0.55-1.02); EST Glomerular Filtration Rate 62 mL/min (>60); Est Glom Filt Rate - Afr Amer 76 mL/min (>60); Estimated Creatinine Clearance 30.78 ml/min; Glucose 150 mg/dL (74-106); Potassium 3.9 mmol/L (3.5-5.1); Sodium Level 142 mmol/L (136-145)
[2018-05-27 13:52] LABS: Basophil 1 % (0-1); Lymphocyte 13 % (19-41); Monocyte 2 % (0-10); Neutrophil-Band 7 % (0-5); Neutrophil-Segmented 77 % (47-70); Total Cells Counted 100 (MANUAL DIFF)
[2018-05-27 13:53] LABS: Anisocytosis 1+; Platelet Estimate ADEQUATE (ADEQ); Reactive Lymphocyte RARE; Red Cell Morphology N CYTIC NORMAL (NORM C&C)
[2018-05-27 13:56] LABS: Absolute Neutrophil Count 12.3 X10^3/uL (2.0-7.7); Neutrophil # 12.25 X10^3/uL (2.7-7.7)
--- NOTE | 2018-05-27 15:23 | HP.PCM_ITS ---
History of Present Illness Date of Admission: 05/27/18 Chief Complaint: shortness of breath The patient is a 82 year old F with a past medical history as listed and include COPD and chronic hypoxic respiratory failure on 2 L of oxygen at home. She was admitted through the ED on 05/27/2018 with a complaint of shortness of breath and coughing as well as wheezing for the past few days. Cough was nonproductive. Patient was admitted about a month ago for acute vertigo and was discharged home with steroids. She states as soon as the steroids ran out she started feeling bad again. Of note patient does continue to smoke though she states she is cut down significantly and smokes about 1-2 cigarettes daily. She denied any fever chills, palpitations or dizziness, and admitted to pleuritic chest pain and abdominal pain worsened by the coughing. Review of systems otherwise negative. In the ED, vitals were significant for respiratory rate of 22 and pulse ox was 96% on room air. CBC showed a white cell count of 14.6 and BNP essentially unremarkable. Chest x-ray showed pulmonary interstitial prominence and probable focal scar of the right base with a mild right infrahilar focal infiltrate suspected. On account of elevated d-dimer, she had a CT angiogram done which showed no evidence of a PE but showed reticulonodular prominence of the right pulmonary parenchyma with questionable 7 mm left upper lobe cavitary lesion. She is been admitted to be managed for COPD exacerbation. [] Past Medical History Past Medical History (Chronic Problems): Chronic Problems Chronic obstructive pulmonary disease (COPD) (Chronic) Chronic respiratory failure with hypoxia (Chronic) Severe protein-calorie malnutrition (Chronic) History of tobacco use (Chronic) Chronic back pain (Chronic) History of lung cancer (Chronic) Allergies No Known Allergies Allergy (Verified 05/27/18 12:58) Home Medications: Ambulatory Orders Medication Instructions Recorded Budesonide 1 inh INHALATION BID 04/21/18 Hydrocodone/Acetaminophen [[place] 1 each PO BID PRN PRN 05/27/18 5-325 Tablet] Surgical History: - - Hysterectomy, RUL Lobectomy, Melanoma skin resection. Psychiatric History: Anxiety BAKER TEST History: No pertinent BAKER TEST history Smoking Status: Current every day smoker Alcohol: None Drugs: None - *Family History Maternal History Items: - - Denies knowledge of maternal medical history. Paternal History Items: - - Denies knowledge of paternal medical history. Review of Systems Constitutional: Denies: Chills, Fever, Malaise, Weakness, Weight Change, Fatigue Eyes: Denies: Blurred vision HEENT: Denies: Head Aches, Sinus Congestion, Sinus Drainage Cardiovascular: Denies: Chest Pain, Chest Pressure, Chest Tightness, Light Headedness, Palpitations Respiratory: Reports: Cough, Pleuritic Pain, Shortness of Breath, Shortness of breath at rest, Shortness of breath upon exertion, Wheezing. Denies: Hemoptysis, Sputum production Gastrointestinal: Reports: Abdominal Pain - with coughing, Vomiting - once today after excessive coughing. Denies: Constipation, Diarrhea, Dyspepsia Genitourinary: Denies: Dysuria Musculoskeletal: Denies: Joint Pain, Joint Tenderness Skin: Denies: Rash, Wounds Neurological: Denies: Numbness, Tingling, Focal weakness Psychiatric: Denies: Anxiety, Depression, Homicidal Ideations, Suicidal Ideations Hematologic/ Lymphatic: Denies: Easy Bruising, Easy Bleeding VTE Information - Inpt Only VTE Present on Admission: No VTE Pharm Prophylaxis ordered?: Yes - Physical Exam General: Alert, Oriented x3, Cooperative, No apparent distress HEENT: Atraumatic, PERRLA, EOMI, Normocephalic Oral: Dry Mucosa Neck: Supple, No JVD, Negative Carotid Bruits Lungs: Short of Breath, Wheezes, - - saturation occasionally dipped to 89-88% on room air. has some rhonchi and wheezing in all lung sorto. Cardiovascular: Regular rate, Regular Rhythm, Normal S1, Normal S2, No murmurs Abdomen: Bowel Sounds Present, Soft, Non Tender, Non-Distended, No Hepato- splenomegaly Extremities: No clubbing, No cyanosis, No edema, Capillary Refill Less than 3 Seconds Skin: No rashes, No breakdown Musculoskeletal: No Tenderness to Palpation of Joints or Extremities, Cachexia Lymphatic: No Cervical, Supraclavicular, or Inguinal Adenopathy Neurological: Cranial nerves II-XII grossly intact Psych/Mental Status: Normal Affect, Appropriate, Alert and oriented to time, place, person, mood and affect Vital Signs Temp Pulse Resp BP Pulse Ox 98.7 F 94 22 H 110/49 L 96 05/27/18 12:58 05/27/18 13:18 05/27/18 13:18 05/27/18 12:58 05/27/18 12:58 Oxygen Delivery Method Room Air Weight: 93 lb 6.4 oz Body Mass Index (BMI) 15.5 Laboratory Tests Past 24 Hrs 05/27/18 05/27/18 05/27/18 13:24 13:24 13:24 WBC 14.6 H RBC 3.68 L Hgb 12.0 Hct 36.1 L MCV 98.1 MCH 32.6 H MCHC 33.2 RDW 13.8 RDW Differential 50.0 H Plt Count 339 MPV 9.8 Neut % (Auto) Not Reportable Absolute Neuts (auto) 12.3 H Absolute Lymphs (auto) 1.90 Total Counted 100 Neutrophils % (Manual) 77 H Band Neutrophils % 7 H Lymphocytes % (Manual) 13 L Monocytes % (Manual) 2 Basophils % (Manual) 1 Diff Path Review May foll Reactive Lymphocytes RARE Platelet Estimate ADEQUATE RBC Morphology N CYTIC Anisocytosis 1+ D-Dimer Quant (PE/DVT) 2.43 H* Sodium 142 Potassium 3.9 Chloride 106 Carbon Dioxide 30.0 Anion Gap 6 BUN 21 H Creatinine 0.91 Estim Creat Clear Calc 30.78 Est GFR (MDRD) Af Amer 76 Est GFR (MDRD) Non-Af 62 BUN/Creatinine Ratio 23.0 H Glucose 150 H Calcium 9.7 Troponin I < 0.015 Diagnostic Data Chest X-Ray 05/27/18 13:13 IMPRESSION: Pulmonary interstitial prominence. Probable focal scar at the right base. Mild right infrahilar focal infiltrate is suspected. Electronically Signed: Didier Moss DO at 14:15 EDT Tel [phone], Service support , Chest CTA 05/27/18 13:48 IMPRESSION: No demonstrated pulmonary embolism or arterial dissection. Emphysematous changes. Questionable small cavitary left upper lobe lesion. Reticulonodular prominence of the right pulmonary parenchyma. Right lower lobe bronchial thickening with intraluminal bronchial densities. Correlation with bronchoscopy if needed. Right renal cystic lesion. Electronically Signed: Didier Moss DO at 14:36 EDT Tel [phone], Service support , Assessment/Plan All Active Problems Vertigo (Acute) COPD exacerbation (Acute) Pneumonia (Resolved) 2-year-old female admitted with a complaint of shortness of breath cough and wheezing. 1. COPD exacerbation likely due to URTI * admit to Med surg with telemetry * check respiratory panel and sputum culture * IV solumedrol 40mg q8 * breathing treatments with duonebs * titrate oxygen to maintain sats>92% * counselled strongly to stop smokiing * Continue inhaled budesonide. * 2. cavitary right upper lung lesion: * as per CT, there is a questionable 7mm upper lobe cavitary lesion. 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 * Will consult pulmonology for review. * 3. Chronic hypoxic respiratory failure: on 2L of oxygen at home. Was on room air at time of review. Titrate oxygen to maintain saturation above 90%. 4. Severe malnutrition: BMI is only 15.5 and patient looks cachectic. This is likely as a result of severe COPD. Will consult nutrition. DVT Prophylaxis: Lovenox Code Status:Full code * Patient counseled extensively about different types of CODE STATUS including full code, DNR CCA and DNR CCA. Patient elects to be full code. Total [id number] time 16 minutes. Code Visit OBSV E&M: 07001 Initial observation care L3
[2018-05-27] MEDS: levoFLOXacin IV 750 MG/150 ML BAG 100 MG IV (15:42)
[2018-05-27 16:05] VITALS: BMI 15.3
[2018-05-27 17:46] VITALS: BP 119/62; PULSE 86; RESP 31; TEMP 36.8; O2SAT 96
[2018-05-27 19:16] VITALS: PULSE 85; RESP 18; O2SAT 97
[2018-05-27 20:01] VITALS: BP 137/75; PULSE 84; RESP 20; TEMP 36.7; O2SAT 97
[2018-05-27 20:21] VITALS: PULSE 73
[2018-05-27] MEDS: HYDROcodone Bitartrate/Apap 5/325 Tablet PO (21:00)
[2018-05-28] VITALS (20 sets, daily range): BP systolic 109–138; BP diastolic 46–78; PULSE 59–94; RESP 18–34; TEMP 36.4–37.2; O2SAT 93–98
[2018-05-28 06:13] LABS: Anion Gap 7 (5-15); BUN 23 mg/dL (7-18); Calcium,Total 8.7 mg/dL (8.5-10.1); Chloride 108 mmol/L (98-107); Creatinine, Serum 0.89 mg/dL (0.55-1.02); EST Glomerular Filtration Rate 65 mL/min (>60); Est Glom Filt Rate - Afr Amer 78 mL/min (>60); Glucose 242 mg/dL (74-106); Potassium 4.6 mmol/L (3.5-5.1); Sodium Level 139 mmol/L (136-145)
[2018-05-28 06:38] LABS: Hematocrit 33.2 % (37-47); Mean Corp Hgb Conc 33.1 g/gl (32-36); Mean Corpuscular Hgb 32.3 pg (27.0-32.0); Mean Corpuscular Volume 97.4 fL (81-99); Mean Platelet Vol. 10.4 fl (6.2-12.0); Platelet Count 306 K/mm3 (150-450); RBC Distribution Width CV 13.6 % (11.6-14.6); RBC Distribution Width SD 46.2 fl (35.1-43.9); Red Blood Count 3.41 M/mm3 (4.2-5.4); White Blood Count 13.2 K/mm3 (4.4-11.0)
[2018-05-28 06:46] LABS: Differential Indicated MANUAL DIFF; POSITIVE COUNT YES; POSITIVE DIFFERENTIAL NO; POSITIVE MORPHOLOGY YES
[2018-05-28 07:12] LABS: Lymphocyte 14 % (19-41); Neutrophil-Band 3 % (0-5); Neutrophil-Segmented 83 % (47-70); Platelet Estimate ADEQUATE (ADEQ); Red Cell Morphology NORM C+C NORMAL (NORM C&C); Total Cells Counted 100 (MANUAL DIFF); Toxic Granulation 3+
[2018-05-28 07:13] LABS: Absolute Lymphocyte Count 1.84 X10^3/ul (0.83-4.51); Absolute Neutrophil Count 11.4 X10^3/uL (2.0-7.7); Lymphocyte # 1.84 X10^3/ul (4.0); Neutrophil # 11.35 X10^3/uL (2.7-7.7)
[2018-05-28] MEDS: Ipratropium/Albuterol Sulfate 3 ML AMPUL.NEB INHALATION ×4 (07:28→19:40)
[2018-05-28] MEDS: HYDROcodone Bitartrate/Apap 5/325 Tablet PO ×2 (10:02→15:57)
--- NOTE | 2018-05-28 10:41 | NURSING ---
Addendum entered by Sera Burger 05/28/18 12:50: aware of order for sputum-- unable to obtain at this time. Original Note: Addendum entered by Sera Burger 05/28/18 10:41: tubes needed are in room with labels in preparation to send when obtained. Original Note: Pt and [employer] Bri notified of need for urine samples.
[2018-05-28 13:21] LABS: Pathologist Review Reviewed
--- NOTE | 2018-05-28 13:41 | PCM.PN.HOSP ---
Patient Problems: Active and Suspected Problems COPD exacerbation (Acute) Pneumonia (Acute) Subjective: breathing better. Vitals/I&O's: Vital Signs Temp Pulse Resp BP Pulse Ox 36.4 C L 76 23 H 110/46 L 94 05/28/18 08:00 05/28/18 11:15 05/28/18 11:15 05/28/18 08:00 05/28/18 11:15 Oxygen Flow Rate (L/min) 2 Oxygen Delivery Method Room Air Weight: 41.73 kg Body Mass Index (BMI) 15.3 Intake and Output for Last 24 Hours 05/26/18 05/27/18 05/28/18 23:59 23:59 23:59 Intake Total 1257 / 1257 306 / 306 Output Total 300 / 300 200 / 200 Balance 957 / 957 106 / 106 General: Alert, No apparent distress HEENT: Atraumatic, Normocephalic Oral: Moist Mucosa, No Gingival or Mucosal Lesions/ Ulcerations Neck: No Nodes, Thyroid Normal Size and Texture Lungs: Diminished, - - coarse bs bilaterally. Cardiovascular: Regular rate, Regular Rhythm, Normal S1, Normal S2, No murmurs Abdomen: Bowel Sounds Present, Soft, Non Tender, Non-Distended Extremities: No edema, No Calf Tenderness Skin: No rashes, No breakdown Musculoskeletal: Cachexia, Muscle Wasting Psych/Mental Status: Normal Affect, Appropriate Microbiology Past 72 Hours 05/27/18 16:30 Mucosa - Nose Respiratory Panel (PCR) - Final 05/28/18 11:12 Urine, Clean Catch Streptococcus pneumoniae Antigen (M - Final 05/28/18 11:12 Urine, Clean Catch Legionella Antigen - Final Laboratory Results 05/27/18 13:24: Absolute Neuts (auto) 12.3 H, Absolute Lymphs (auto) 1.90, Total Counted 100, Neutrophils % (Manual) 77 H, Band Neutrophils % 7 H, Lymphocytes % (Manual) 13 L, Monocytes % (Manual) 2, Basophils % (Manual) 1, Diff Path Review Reviewed, Reactive Lymphocytes RARE, Platelet Estimate ADEQUATE, RBC Morphology N CYTIC, Anisocytosis 1+ 05/27/18 13:24: D-Dimer Quant (PE/DVT) 2.43 H* 05/27/18 13:24: Sodium 142, Potassium 3.9, Chloride 106, Carbon Dioxide 30.0, Anion Gap 6, BUN 21 H, Creatinine 0.91, Estim Creat Clear Calc 30.78, Est GFR (MDRD) Af Amer 76, Est GFR (MDRD) Non-Af 62, BUN/Creatinine Ratio 23.0 H, Glucose 150 H, Calcium 9.7, Troponin I < 0.015 05/28/18 05:30: WBC 13.2 H, RBC 3.41 L, Hgb 11.0 L, Hct 33.2 L, MCV 97.4, MCH 32.3 H, MCHC 33.1, RDW 13.6, RDW Differential 46.2 H, Plt Count 306, MPV 10.4, Neut % (Auto) Not Reportable, Absolute Neuts (auto) 11.4 H, Absolute Lymphs (auto) 1.84, Total Counted 100, Neutrophils % (Manual) 83 H, Band Neutrophils % 3, Lymphocytes % (Manual) 14 L, Diff Path Review May foll, Toxic Granulation 3+, Platelet Estimate ADEQUATE, RBC Morphology NORM C+C 05/28/18 05:30: Sodium 139, Potassium 4.6, Chloride 108 H, Carbon Dioxide 24.0, Anion Gap 7, BUN 23 H, Creatinine 0.89, Estim Creat Clear Calc 31.00, Est GFR (MDRD) Af Amer 78, Est GFR (MDRD) Non-Af 65, BUN/Creatinine Ratio 26.0 H, Glucose 242 H, Calcium 8.7 Current Medications Hydrocodone Bitart/Acetaminophen ([place] 5mg-325mg) 1 tablet PO BID PRN PRN PRN Reason: PAIN Last Admin: 05/28/18 10:02 Dose: 1 tablet Albuterol/Ipratropium (Duoneb) 3 ml INHALATION Q4HWA.RT ARABELLA Last Admin: 05/28/18 11:15 Dose: 3 ml Dextrose (D50w Syringe) 0 gm IV X1 PRN; Protocol PRN Reason: Hypoglycemia Enoxaparin Sodium (Lovenox) 40 mg SC DAILY@1000 ARABELLA Last Admin: 05/28/18 10:03 Dose: Not Given Glucagon () 1 mg IM .X1 PRN PRN Reason: Hypoglycemia Levofloxacin (Levaquin Iv) 750 mg in 150 mls @ 100 mls/hr IV Q48H ARABELLA Methylprednisolone (Solu-Medrol) 40 mg IV Q8 [facility] Last Admin: 05/28/18 05:34 Dose: 40 mg Nutritional Formula (Lactose Free) (Ensure Enlive) 120 ml PO 4X/DAY [facility] Last Admin: 05/28/18 09:56 Dose: Not Given Sodium Chloride () 5 - 15 ml IV UD PRN PRN Reason: SALINE FLUSH Medical Necessity - Tobacco Use Smoking Status: Current every day smoker Assessment/Plan All Active Problems COPD exacerbation (Acute) Pneumonia (Acute) 1. AECOPD improved slightly on BDs and steroids wean steroids and monitor 2. Possible gram negative pneumonia RLL Strep and legionella antigens negative on levaquin clinically improving 3. COLLETTE cavitary lesion, possible pulm consult check PPD 4. Tobacco abuse states only smoking 3 cigs/d advised complete cessation. discussed risks of continued smoking, including, worsening COPD, CAD, PAD, etc. 5. DVT proph: LMWH. Code Visit Inpatient E&M: 35137 Subs Hosp L2
--- NOTE | 2018-05-28 13:49 | PN_ITS ---
Patient Problems: Active and Suspected Problems COPD exacerbation (Acute) Pneumonia (Acute) Subjective: breathing better. Vitals/I&O's: Vital Signs Temp Pulse Resp BP Pulse Ox 36.4 C L 76 23 H 110/46 L 94 05/28/18 08:00 05/28/18 11:15 05/28/18 11:15 05/28/18 08:00 05/28/18 11:15 Oxygen Flow Rate (L/min) 2 Oxygen Delivery Method Room Air Weight: 41.73 kg Body Mass Index (BMI) 15.3 Intake and Output for Last 24 Hours 05/26/18 05/27/18 05/28/18 23:59 23:59 23:59 Intake Total 1257 / 1257 306 / 306 Output Total 300 / 300 200 / 200 Balance 957 / 957 106 / 106 General: Alert, No apparent distress HEENT: Atraumatic, Normocephalic Oral: Moist Mucosa, No Gingival or Mucosal Lesions/ Ulcerations Neck: No Nodes, Thyroid Normal Size and Texture Lungs: Diminished, - - coarse bs bilaterally. Cardiovascular: Regular rate, Regular Rhythm, Normal S1, Normal S2, No murmurs Abdomen: Bowel Sounds Present, Soft, Non Tender, Non-Distended Extremities: No edema, No Calf Tenderness Skin: No rashes, No breakdown Musculoskeletal: Cachexia, Muscle Wasting Psych/Mental Status: Normal Affect, Appropriate Microbiology Past 72 Hours 05/27/18 16:30 Mucosa - Nose Respiratory Panel (PCR) - Final 05/28/18 11:12 Urine, Clean Catch Streptococcus pneumoniae Antigen (M - Final 05/28/18 11:12 Urine, Clean Catch Legionella Antigen - Final Laboratory Results 05/27/18 13:24: Absolute Neuts (auto) 12.3 H, Absolute Lymphs (auto) 1.90, Total Counted 100, Neutrophils % (Manual) 77 H, Band Neutrophils % 7 H, Lymphocytes % (Manual) 13 L, Monocytes % (Manual) 2, Basophils % (Manual) 1, Diff Path Review Reviewed, Reactive Lymphocytes RARE, Platelet Estimate ADEQUATE, RBC Morphology N CYTIC, Anisocytosis 1+ 05/27/18 13:24: D-Dimer Quant (PE/DVT) 2.43 H* 05/27/18 13:24: Sodium 142, Potassium 3.9, Chloride 106, Carbon Dioxide 30.0, Anion Gap 6, BUN 21 H, Creatinine 0.91, Estim Creat Clear Calc 30.78, Est GFR (MDRD) Af Amer 76, Est GFR (MDRD) Non-Af 62, BUN/Creatinine Ratio 23.0 H, Glucose 150 H, Calcium 9.7, Troponin I < 0.015 05/28/18 05:30: WBC 13.2 H, RBC 3.41 L, Hgb 11.0 L, Hct 33.2 L, MCV 97.4, MCH 32.3 H, MCHC 33.1, RDW 13.6, RDW Differential 46.2 H, Plt Count 306, MPV 10.4, Neut % (Auto) Not Reportable, Absolute Neuts (auto) 11.4 H, Absolute Lymphs (auto) 1.84, Total Counted 100, Neutrophils % (Manual) 83 H, Band Neutrophils % 3, Lymphocytes % (Manual) 14 L, Diff Path Review May foll, Toxic Granulation 3+, Platelet Estimate ADEQUATE, RBC Morphology NORM C+C 05/28/18 05:30: Sodium 139, Potassium 4.6, Chloride 108 H, Carbon Dioxide 24.0, Anion Gap 7, BUN 23 H, Creatinine 0.89, Estim Creat Clear Calc 31.00, Est GFR (MDRD) Af Amer 78, Est GFR (MDRD) Non-Af 65, BUN/Creatinine Ratio 26.0 H, Glucose 242 H, Calcium 8.7 Current Medications Hydrocodone Bitart/Acetaminophen ([place] 5mg-325mg) 1 tablet PO BID PRN PRN PRN Reason: PAIN Last Admin: 05/28/18 10:02 Dose: 1 tablet Albuterol/Ipratropium (Duoneb) 3 ml INHALATION Q4HWA.RT ARABELLA Last Admin: 05/28/18 11:15 Dose: 3 ml Dextrose (D50w Syringe) 0 gm IV X1 PRN; Protocol PRN Reason: Hypoglycemia Enoxaparin Sodium (Lovenox) 40 mg SC DAILY@1000 ARABELLA Last Admin: 05/28/18 10:03 Dose: Not Given Glucagon () 1 mg IM .X1 PRN PRN Reason: Hypoglycemia Levofloxacin (Levaquin Iv) 750 mg in 150 mls @ 100 mls/hr IV Q48H [place]ELL[place] Methylprednisolone (Solu-Medrol) 40 mg IV Q8 [facility] Last Admin: 05/28/18 05:34 Dose: 40 mg Nutritional Formula (Lactose Free) (Ensure Enlive) 120 ml PO 4X/DAY [facility] Last Admin: 05/28/18 09:56 Dose: Not Given Sodium Chloride () 5 - 15 ml IV UD PRN PRN Reason: SALINE FLUSH Medical Necessity - Tobacco Use Smoking Status: Current every day smoker Assessment/Plan All Active Problems COPD exacerbation (Acute) Pneumonia (Acute) 1. AECOPD * improved slightly * on BDs and steroids * wean steroids and monitor 2. Possible gram negative pneumonia * RLL * Strep and legionella antigens negative * on levaquin * clinically improving 3. COLLETTE cavitary lesion, possible * pulm consult * check PPD 4. Tobacco abuse * states only smoking 3 cigs/d * advised complete cessation. * discussed risks of continued smoking, including, worsening COPD, CAD, PAD, etc. 5. DVT proph: LMWH. Code Visit Inpatient E&M: 55149 Subs Hosp L2
--- NOTE | 2018-05-28 14:00 | NURSING ---
Pt reports that she hates the taste of Ensure and will not drink it during stay. She reports that at home she drinks Boost.
--- NOTE | 2018-05-28 14:43 | CON.PCM_ITS ---
Problem List (1) Chronic obstructive pulmonary disease (COPD) Status: Chronic Qualifiers: COPD type: unspecified COPD Qualified Code(s): J44.9 - Chronic obstructive pulmonary disease, unspecified (2) Severe protein-calorie malnutrition Status: Chronic (3) History of tobacco use Status: Chronic (4) Chronic back pain Status: Chronic Qualifiers: Back pain location: back pain in unspecified location Back pain laterality: unspecified Qualified Code(s): M54.9 - Dorsalgia, unspecified; G89.29 - Other chronic pain (5) History of lung cancer Status: Chronic (6) Bronchiectasis Status: Acute Reason for Consult Date of Consultation: 05/28/18 Reason for Consultation: Abnormal CT scan History of Present Illness: The patient is a 82 year old F, with past medical history listed below, who presented to [facility] on 05/27/2018 secondary to worsening shortness of breath, coughing and wheezing for 3 days. Patient had described the cough is nonproductive. Patient had reported a recent hospitalization approximately 1 month ago secondary to acute vertigo and was discharged home with steroids. Patient states that when the steroids had been completed, patient started to feel worse again. Patient continues to be an active smoker, but has attempted to cut down recently and she feels this may have helped a little bit. Patient did not have any fevers, chills, palpitations, nausea or vomiting. Patient did report some pleuritic type chest pain and abdominal pain that she thought was worse with coughing. In the emergency room, patient was noted to be 96% on room air with an elevated white blood cell count of 14.6. Patient eventually had a CT angiogram showing no PE, but a reticular nodular right lower lobe infiltrate, potential cavitary lesion of 7 mm and emphysematous changes. Patient was admitted to the floor for COPD exacerbation. Since being hospitalized, patient reports subjective improvement in overall condition. Patient has reported significant increase in sputum production with the onset of steroids. Patient remains on room air, but states that she required 2 L nasal cannula with ambulation previously. Patient reports a long pulmonary history and was previously taken care of by Dr. Coy in [place]. Patient has not been able to establish with another metal solderer since that time. Patient is unable to provide much specific history, but does state that she has a history of lung cancer that was removed. Patient states that she would not be willing to undergo chemo, radiation or repeat surgery if cancer were found again. Patient is unaware of a diagnosis of COPD, but does state that she has had pulmonary function tests in the past. Patient is on Pulmicort aerosols at home. Patient does report increased need for hospitalization recently. Patient does not use any pulmonary toileting devices at home. Patient is unaware of a diagnosis of bronchiectasis. Patient denies any recent unintentional weight loss. Patient reports that she is been small for a long time. Patient does report that she would wish to stallworth ve more conservative measures moving forward. Past Medical History Past Medical History (Chronic Problems): Chronic Problems Chronic obstructive pulmonary disease (COPD) (Chronic) Chronic respiratory failure with hypoxia (Chronic) Severe protein-calorie malnutrition (Chronic) History of tobacco use (Chronic) Chronic back pain (Chronic) History of lung cancer (Chronic) Allergies No Known Allergies Allergy (Verified 05/27/18 16:17) Home Medications: Ambulatory Orders Medication Instructions Recorded Budesonide 1 inh INHALATION BID 04/21/18 Hydrocodone/Acetaminophen [[place] 1 each PO BID PRN PRN 05/27/18 5-325 Tablet] Surgical History: - - Hysterectomy, RUL Lobectomy, Melanoma skin resection. 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 Paternal History Items: - - Denies knowledge of paternal medical history. Review of Systems Comment: See HPI, otherwise negative x10 systems Patient Problems: Active and Suspected Problems Bronchiectasis (Acute) COPD exacerbation (Acute) Pneumonia (Acute) Objective: CT scan of the chest was personally reviewed. Patient does have emphysematous changes noted at bilateral apices, right greater than left. Patient also has significant bronchiectasis noted right greater than left. Patient does have some narrowing of the airway in the right hilum. Patient does not have any PFTs available for review. - Physical Exam General: Alert, Oriented x3, Cooperative, No apparent distress, - - No conversational dyspnea. Frail-appearing. HEENT: Atraumatic, PERRLA, EOMI, Normocephalic, - - No scleral icterus or injection noted. Oral: Moist Mucosa, No Gingival or Mucosal Lesions/ Ulcerations Neck: Supple, No JVD, No Nodes, Trachea Midline Lungs: No wheeze, No rales, Diminished, Rhonchi - Improved with coughing, - - Symmetric expansion. No dullness to percussion. Cardiovascular: Regular rate, Regular Rhythm, Normal S1, Normal S2, No murmurs, No rub noted, No Gallop Abdomen: Bowel Sounds Present, Soft, Non Tender, Non-Distended Extremities: No cyanosis, No edema, Capillary Refill Less than 3 Seconds, Clubbing - Mild Skin: No rashes, No breakdown Musculoskeletal: No Tenderness to Palpation of Joints or Extremities Lymphatic: No Cervical, Supraclavicular, or Inguinal Adenopathy Neurological: Cranial nerves II-XII grossly intact, Neuro grossly intact, Motor Exam 5/5 strength throughout Psych/Mental Status: Normal Affect, Appropriate Vital Signs Temp Pulse Resp BP Pulse Ox 36.4 C L 76 23 H 110/46 L 94 05/28/18 08:00 05/28/18 11:15 05/28/18 11:15 05/28/18 08:00 05/28/18 11:15 Oxygen Flow Rate (L/min) 2 Oxygen Delivery Method Room Air Weight: 41.73 kg Body Mass Index (BMI) 15.3 Intake and Output for Last 24 Hours 05/26/18 05/27/18 05/28/18 23:59 23:59 23:59 Intake Total 1257 / 1257 306 / 306 Output Total 300 / 300 200 / 200 Balance 957 / 957 106 / 106 Microbiology Past 72 Hours 05/27/18 16:30 Respiratory Panel (PCR) - Final Mucosa - Nose 05/28/18 11:12 Streptococcus pneumoniae Antigen (M - Final Urine, Clean Catch 05/28/18 11:12 Legionella Antigen - Final Urine, Clean Catch Laboratory Tests Past 24 Hrs 05/27/18 05/28/18 05/28/18 13:24 05:30 05:30 WBC 13.2 H RBC 3.41 L Hgb 11.0 L Hct 33.2 L MCV 97.4 MCH 32.3 H MCHC 33.1 RDW 13.6 RDW Differential 46.2 H Plt Count 306 MPV 10.4 Neut % (Auto) Not Reportable Absolute Neuts (auto) 11.4 H Absolute Lymphs (auto) 1.84 Total Counted 100 Neutrophils % (Manual) 83 H Band Neutrophils % 3 Lymphocytes % (Manual) 14 L Diff Path Review Reviewed May foll Toxic Granulation 3+ Platelet Estimate ADEQUATE RBC Morphology NORM C+C Sodium 139 Potassium 4.6 Chloride 108 H Carbon Dioxide 24.0 Anion Gap 7 BUN 23 H Creatinine 0.89 Estim Creat Clear Calc 31.00 Est GFR (MDRD) Af Amer 78 Est GFR (MDRD) Non-Af 65 BUN/Creatinine Ratio 26.0 H Glucose 242 H Calcium 8.7 Assessment/Plan All Active Problems Bronchiectasis (Acute) COPD exacerbation (Acute) Pneumonia (Acute) RECOMMENDATIONS: 1. Initiate PEP therapy, await sputum culture 2. Agree with antibiotics and steroids 3. Add mucolytic therapy 4. Outpatient complete PFT 5. Walking oximetry prior to discharge 6. Attempt to obtain old records from Dr. Coy's office 7. Repeat CT scan of the chest in 3 months as an outpatient IMPRESSIONS: 1. Abnormal CT scan/bronchiectasis/COPD in exacerbation Patient does have extensive bronchiectasis noted on CT scan of the chest. Patient does have some hilar narrowing of the airway, but it is unclear if this is secondary to secretions. Patient is wishing for a conservative approach at this time given her age and comorbidities. Given this perspective, pulmonary toileting would be appropriate. Will add a mucolytic, but continue bronchodilators, antibiotics and steroids. Will repeat CT scan in 3 months to see if narrowing is improved after initiation of pulmonary toileting. Patient will need a walking oximetry prior to discharge for formal recommendations. Clinical suspicion for recurrent pneumonia secondary to poor control of bronchiectasis. Patient would have an increased risk for multidrug-resistant organisms, so would obtain a sputum culture to direct outpatient therapy. Also recommend obtaining old records from Dr. Coy. 2. Reported cavitary right upper lung lesion Patient does not have any risk factors for tuberculosis. Patient does have a history of previous lung nodule, but exact location is unclear to the patient. Clinical suspicion for bronchiectatic lesion. Patient may have a malignancy, but is not wanting to do anything with the diagnosis at this time. 3. Malnutrition/repeated hospitalizations/lack of outpatient pulmonary follow-up Complicates care, management, recovery and prognosis. We will follow-up as an outpatient with our office. Code Visit Inpatient E&M: 49775 Init Hosp L3
--- NOTE | 2018-05-28 14:48 | CHAPLAIN ---
Type of Pastoral Visit _x__ Initial Visit ___ Follow-up Visit ___ On-call Visit ___ General Patient Visit ___ Spiritual Assessment ___ Family Conference ___ Bereavement ___ Rapid Response ___ Code Blue ___ Other (describe below) Pastoral Care Referral From _x__ Patient ___ Family ___ Nurse ___ Physician ___ Airplane Rental Clerk ___ University Demonstrator ___ Other (describe below) Sacrament/Intervention _x__ Active listening ___ Anointing ___ Confucianism ___ Bereavement ___ Communion ___ Vivian exploration ___ _x__ Life review _x__ Prayer ___ Reconciliation ___ Sacrament of Sick _x__ Supportive presence ___ Wedding ___ Other (describe below) Pastoral Comments patient says that she is independent and wants to do as much for herself as possible; pt says she is realizing that any physical activity is difficult for her; pt will see a different doctor and asks for prayer to live longer although she admits that when my number is up that is it, and I will go to [place] and be with my daughter there; pt is member of [employer] and welcomes prayer support and time to talk; pt says she had six children but only two watch out for her and I don't want to talk about that situation with my other children;
--- NOTE | 2018-05-28 15:00 | CASEMGMT ---
SOL BARRIGA Assessment Presentation: COPD exacerbation. Previous admission: 04/20/18-04/22/18 for COPD exacerbation. PT returned home. Intro role of CM purpose of SOL BARRIGA Assessment to patient in room. She is awake alert and able to participate in dc planning. Pt states she was doing fairly well at home with family support for shopping, driving and meals. Pt did state we'll have to see what these lung tests show, I told them I don't want any more surgeries. SOL BARRIGA provided emotional support, spoke with pt re: her wishes to remain independent but she is voicing she does not want extensive treatment if cancer is found again. SOL BARRIGA let her know CM is available to speak with her in future if she has concerns. -Pt talked about her being at [facility], has dementia. Her family has discussed her going to [facility] if SNF needed, but pt stated she does not wish to go there. She would be agreeable to local area SNF if needed, but prefers to return home if at all possible. PCP: Dr. Abrams Specialists: Dr. Fuentes, Dr. Coy in [place] Preferred [facility]acy: [facility] Insurance: [facility] Prescription Benefit: yes LNOK: daughters Kimberly Patterson and Denise Almonte are listed but pt states only Daughter Kimberly and her son Caleb help her. Living Arrangements: Pt lives in two story home, first floor set up. Pt has been independent at home but difficulty with bathing. Received list of private duty companies on last admission. Pt states she does not wish to pay for additional care and wishes to remain independent as much as possible. Family assists with checking on pt, shopping and taking to appointments. Transportation: daughter/son drive DME: Walker, nebulizer, Oxygen 2l through [facility], wears @ night only. Pt states she has concentrator, no portability. Call to [facility] to verify script is for nocturnal O2 only. If continuous Home O2 is needed, will need update script and documentation faxed. [facility] PH: FX: HHC: none. SOL BARRIGA discussed Home Health on dc, but presently pt is declining. Patient DC goals: Home DC PLAN: anticipate home on discharge. Pending test results, may benefit from Palliative Care Referral on dc. Bianca FARRIS RN ACM
[2018-05-28] MEDS: 0.9% NaCl Peripheral Flush Adult/Peds IV ×2 (15:54→22:36)
[2018-05-28] MEDS: guaiFENesin 1,200 MG Tablet 1200 MG PO (17:41)
[2018-05-29] VITALS (10 sets, daily range): BP systolic 118–129; BP diastolic 57–60; PULSE 70–821; RESP 18–24; TEMP 36.6–36.8; O2SAT 96–98
[2018-05-29] MEDS: HYDROcodone Bitartrate/Apap 5/325 Tablet PO ×2 (05:56→12:56)
[2018-05-29] MEDS: 0.9% NaCl Peripheral Flush Adult/Peds IV (05:57)
[2018-05-29] MEDS: Ipratropium/Albuterol Sulfate 3 ML AMPUL.NEB INHALATION ×2 (06:58→11:36)
--- NOTE | 2018-05-29 08:14 | PCM.PN.PUL ---
Patient Problems: Active and Suspected Problems Bronchiectasis (Acute) COPD exacerbation (Acute) Pneumonia (Acute) Subjective: Patient feels subjectively unchanged compared to previous. Patient does report she was able to expectorate some overnight, but did not receive an Acapella. Patient was placed on nasal cannula oxygen with sleep. Patient denies any current chest pain, abdominal pain, nausea or vomiting. Patient does not feel she is strong enough to go home at this point. - Physical Exam General: Alert, Oriented x3, Cooperative, No apparent distress, - - No conversational dyspnea noted. Appears stated age. HEENT: Atraumatic, PERRLA, EOMI, Normocephalic, - - No scleral icterus or injection noted. Oral: Moist Mucosa, No Gingival or Mucosal Lesions/ Ulcerations Neck: Supple, No JVD, No Nodes, Trachea Midline Lungs: No wheeze, No rales, Diminished, Rhonchi - Scattered, - - Symmetric expansion. No dullness to percussion. Cardiovascular: Regular rate, Regular Rhythm, Normal S1, Normal S2, No murmurs, No rub noted, No Gallop Abdomen: Bowel Sounds Present, Soft, Non Tender, Non-Distended Extremities: No clubbing, No cyanosis, No edema, Capillary Refill Less than 3 Seconds Skin: No rashes, No breakdown Musculoskeletal: No Tenderness to Palpation of Joints or Extremities Lymphatic: No Cervical, Supraclavicular, or Inguinal Adenopathy Neurological: Cranial nerves II-XII grossly intact, Neuro grossly intact, Motor Exam 5/5 strength throughout Psych/Mental Status: Alert and oriented to time, place, person, mood and affect Vital Signs Temp Pulse Resp BP Pulse Ox 36.6 C 73 24 H 129/60 H 98 05/29/18 03:06 05/29/18 06:01 05/29/18 03:10 05/29/18 03:06 05/29/18 03:10 Oxygen Flow Rate (L/min) 2 Oxygen Delivery Method Nasal Cannula Weight: 41.7 kg Body Mass Index (BMI) 15.3 Intake and Output for Last 24 Hours 05/27/18 05/28/18 05/29/18 23:59 23:59 23:59 Intake Total 1257 / 1257 806 / 806 100 / 100 Output Total 300 / 300 200 / 200 Balance 957 / 957 606 / 606 100 / 100 Microbiology Past 72 Hours 05/27/18 16:30 Respiratory Panel (PCR) - Final Mucosa - Nose 05/28/18 11:12 Streptococcus pneumoniae Antigen (M - Final Urine, Clean Catch 05/28/18 11:12 Legionella Antigen - Final Urine, Clean Catch Laboratory Tests Past 24 Hrs 05/27/18 13:24 Diff Path Review Reviewed Medical Necessity - Tobacco Use Smoking Status: Current every day smoker Assessment/Plan All Active Problems Bronchiectasis (Acute) COPD exacerbation (Acute) Pneumonia (Acute) RECOMMENDATIONS: 1. Initiate PEP therapy, await sputum culture 2. Agree with antibiotics, but transition to prednisone 3. Prednisone can likely be weaned over the next 12-14 days 4. Outpatient complete PFT 5. Walking oximetry prior to discharge 6. Attempt to obtain old records from Dr. Coy's office 7. Repeat CT scan of the chest in 3 months as an outpatient IMPRESSIONS: 1. Abnormal CT scan/bronchiectasis/COPD in exacerbation Patient does have extensive bronchiectasis noted on CT scan of the chest. Patient does have some hilar narrowing of the airway, but it is unclear if this is secondary to secretions. Patient is wishing for a conservative approach at this time given her age and comorbidities. Patient is not received and Acapella. This will be provided. Patient is on mucolytic therapy. Encourage ambulation. Patient will need a walking oximetry prior to discharge. Patient will be at high risk for resistant organisms, so may need to wait for culture to come back given lack of subjective improvement. 2. Reported cavitary right upper lung lesion Patient does not have any risk factors for tuberculosis. Patient does have a history of previous lung nodule, but exact location is unclear to the patient. Clinical suspicion for bronchiectatic lesion. Patient may have a malignancy, but is not wanting to do anything with the diagnosis at this time. 3. Malnutrition/repeated hospitalizations/lack of outpatient pulmonary follow-up Complicates care, management, recovery and prognosis. We will follow-up as an outpatient with our office. Code Visit Inpatient E&M: 24097 Subs Hosp L2
[2018-05-29] MEDS: levoFLOXacin IV 750 MG/150 ML BAG 100 MG IV (08:28)
--- NOTE | 2018-05-29 08:57 | CPS ---
Pt WAS EATING, Pt KNOWS HOW TO USE PEP.
[2018-05-29] MEDS: predniSONE 20 MG Tablet 40 MG PO (09:05)
[2018-05-29] MEDS: guaiFENesin 1,200 MG Tablet 1200 MG PO (09:05)
[2018-05-29] MEDS: Enoxaparin 40 MG/0.4 ML Syringe SC (09:05)
--- NOTE | 2018-05-29 09:34 | NURSING ---
Addendum entered by Sera Burger 05/29/18 09:56: *42hrs not 3 days. Appointment was set up with PCP to have read within time frame. Original Note: Dr. Koroma notified pt that TB test will be given today and that patient will be responsible to follow up with PCP for reading in 3 days.
--- NOTE | 2018-05-29 09:35 | PCM.DC ---
- Discharge Diagnoses Current Active Problems: Current Active and Chronic Problems Bronchiectasis (Acute) COPD exacerbation (Acute) Pneumonia (Acute) You will use the following diet at home:: No restrictions Your food should be the consistency of: Regular Discharge Activity: Return to Normal Activity Call your doctor if you observe: Fever of 101 or Higher, Shortness of breath Instructions: What is COPD?, Discharge Instructions: COPD Allergies/Adverse Reactions: Allergies No Known Allergies Allergy (Verified 05/27/18 16:17) Medications to take at Discharge Budesonide 1 inh INHALATION BID 04/21/18 Hydrocodone/Acetaminophen [[place] 5-325 Tablet] 1 each PO BID PRN PRN 05/27/18 Albuterol Inhaler [Ventolin Hfa] 1 - 2 puff INHALATION Q4H PRN PRN #1 inhaler 05/29/18 Guaifenesin [Mucinex] 1,200 mg PO BID #10 tablet 05/29/18 levoFLOXacin tablet [Levaquin tablet] 750 mg PO QODAY #3 tablet 05/29/18 predniSONE tablet 2 tab PO DAILY@0800 #8 tablet 05/29/18 The following prescriptions were given: Albuterol Inhaler [Ventolin Hfa] 1 - 2 puff INHALATION Q4H PRN PRN #1 inhaler PRN Reason: Shortness Of Breath levoFLOXacin tablet [Levaquin tablet] 750 mg PO QODAY #3 tablet predniSONE tablet 2 tab PO DAILY@0800 #8 tablet Guaifenesin [Mucinex] 1,200 mg PO BID #10 tablet Primary Care Physician: Moose Abrams [Primary Care Provider] - Within 1 Week (have your skin test read by 06/01/18) Test Results: Test results from this visit will be discussed in further detail at your follow-up appointment, if applicable. Please Follow Up With: Brad Fuentes MD - COPD When: 4-6 weeks Proposed Discharge Date: 05/29/18
--- NOTE | 2018-05-29 09:37 | PCM.DC.SUM ---
Discharge Date and Diagnosis - Problem List Patient Problems: Active and Suspected Problems Bronchiectasis (Acute) COPD exacerbation (Acute) Pneumonia (Acute) Date of Admission: 05/27/18 Date of Discharge: 05/29/18 - Primary Discharge Diagnosis Active and Suspected Problems Bronchiectasis (Acute) COPD exacerbation (Acute) Pneumonia (Acute) 1. AECOPD improved slightly on BDs and steroids wean steroids and monitor 2. Possible gram negative pneumonia RLL Strep and legionella antigens negative on levaquin clinically improving 3. COLLETTE cavitary lesion, possible pulm consult check PPD 4. Tobacco abuse states only smoking 3 cigs/d advised complete cessation. discussed risks of continued smoking, including, worsening COPD, CAD, PAD, etc. - Secondary Discharge Diagnosis Chronic Problems Chronic obstructive pulmonary disease (COPD) (Chronic) Chronic respiratory failure with hypoxia (Chronic) Severe protein-calorie malnutrition (Chronic) History of tobacco use (Chronic) Chronic back pain (Chronic) History of lung cancer (Chronic) Hospital Course and Treatment Imaging Results: Clinical Impression(s) from Imaging Studies Chest X-Ray 05/27/18 13:13 IMPRESSION: Pulmonary interstitial prominence. Probable focal scar at the right base. Mild right infrahilar focal infiltrate is suspected. Electronically Signed: Didier Moss DO at 14:15 EDT Tel [phone], Service support , Chest CTA 05/27/18 13:48 IMPRESSION: No demonstrated pulmonary embolism or arterial dissection. Emphysematous changes. Questionable small cavitary left upper lobe lesion. Reticulonodular prominence of the right pulmonary parenchyma. Right lower lobe bronchial thickening with intraluminal bronchial densities. Correlation with bronchoscopy if needed. Right renal cystic lesion. Electronically Signed: Didier Moss DO at 14:36 EDT Tel [phone], Service support , Alfredo: pulmonary Operations: None Procedures: None Summary of Care Provided: The patient is a 82 year old F Patti with shortness of breath. Patient had a CT Lou Webber of the chest that showed reticular nodular prominence of the right pulmonary parenchyma with a questionable submillimeter left upper lobe cavitary lesion. Patient was admitted for COPD exacerbation started on steroids as well as treatment for pneumonia. Patient was put on Levaquin. Patient was seen in consultation by pulmonology is concerned about bronchiectasis and possible drug-resistant organisms the patient has clinically improved during the course of her brief hospitalization. Sputum culture was performed late on the evening of the . Overall patient is better she is currently on room air, though she does have oxygen that she wears at night chronically. Patient is stable for discharge. Patient will follow up with pulmonary group here. Previously, patient was seeing a water meter installer in [place] who is no longer practicing. Patient will complete total of a week of Levaquin, have an albuterol metered-dose inhaler as needed, prednisone 40 mg daily for total 5 days including time as she has been here. And patient is still continuing to smoke and has been advised strongly to discontinue all cigarettes. Patient is minimizing her consumption stating that is only 3 cigarettes/day. Patient is advised to have complete cessation. For the cavitary lung lesion PPD was ordered today and I will need to be checked by a nuclear the of this month. Her Kalosis but still will need to be followed up. Patient stated that her family said that her cats are the problem. Explained that the cats are most likely not her problem in regards to her pulmonary disease but the fact that she smokes, has pneumonia plus minus bronchiectasis and has had part of her lung resected due to cancer in the past with her ongoing tobacco abuse. [] Patient Problems: Active and Suspected Problems Bronchiectasis (Acute) COPD exacerbation (Acute) Pneumonia (Acute) - Physical Exam General: Alert, No apparent distress HEENT: Atraumatic, Normocephalic Oral: Moist Mucosa, No Gingival or Mucosal Lesions/ Ulcerations Neck: No Nodes, Thyroid Normal Size and Texture Lungs: Normal air movement, - - coarse breath sounds bilaterally Cardiovascular: Regular rate, Regular Rhythm, Normal S1, Normal S2, No murmurs Abdomen: Bowel Sounds Present, Soft, Non Tender, Non-Distended, No Hepato-splenomegaly, Passing Flatus Extremities: No edema, No Calf Tenderness Skin: No rashes, No breakdown Musculoskeletal: No Tenderness to Palpation of Joints or Extremities, No Muscle Wasting Psych/Mental Status: Normal Affect, Appropriate Vital Signs Temp Pulse Resp BP Pulse Ox 36.8 C 70 18 123/60 H 96 05/29/18 08:14 05/29/18 08:14 05/29/18 08:14 05/29/18 08:14 05/29/18 08:14 Oxygen Flow Rate (L/min) 2 Oxygen Delivery Method Room Air Weight: 41.7 kg Body Mass Index (BMI) 15.3 Intake and Output for Last 24 Hours 05/27/18 05/28/18 05/29/18 23:59 23:59 23:59 Intake Total 1257 / 1257 806 / 806 100 / 100 Output Total 300 / 300 200 / 200 Balance 957 / 957 606 / 606 100 / 100 Microbiology Past 72 Hours 05/27/18 16:30 Respiratory Panel (PCR) - Final Mucosa - Nose 05/28/18 11:12 Streptococcus pneumoniae Antigen (M - Final Urine, Clean Catch 05/28/18 11:12 Legionella Antigen - Final Urine, Clean Catch Laboratory Tests Past 24 Hrs 05/27/18 13:24 Diff Path Review Reviewed Discharge Diet: No Restrictions Discharge Activity: Return to Normal Activity Call your doctor if you observe: Fever of 101 or Higher, Shortness of breath Home Medications: Medications to take at Discharge Budesonide 1 inh INHALATION BID 04/21/18 Hydrocodone/Acetaminophen [Weir 5-325 Tablet] 1 each PO BID PRN PRN 05/27/18 Albuterol Inhaler [Ventolin Hfa] 1 - 2 puff INHALATION Q4H PRN PRN #1 inhaler 05/29/18 Guaifenesin [Mucinex] 1,200 mg PO BID #10 tablet 05/29/18 levoFLOXacin tablet [Levaquin tablet] 750 mg PO QODAY #3 tablet 05/29/18 predniSONE tablet 2 tab PO DAILY@0800 #8 tablet 05/29/18 Following Prescrptions Were Given to Patient: Albuterol Inhaler [Ventolin Hfa] 1 - 2 puff INHALATION Q4H PRN PRN #1 inhaler PRN Reason: Shortness Of Breath levoFLOXacin tablet [Levaquin tablet] 750 mg PO QODAY #3 tablet predniSONE tablet 2 tab PO DAILY@0800 #8 tablet Guaifenesin [Mucinex] 1,200 mg PO BID #10 tablet Primary Care Physician: Moose Abrams [Primary Care Provider] - Within 1 Week (have your skin test read by 06/01/18) Please Follow Up With: Alfredo,Brad, MD - COPD When: 4-6 weeks Patient Instructions: What is COPD?, Discharge Instructions: COPD Disposition: Home Minutes spent on discharge:: 32 Patient Condition:: Fair Medical Necessity - Tobacco Use Smoking Status: Light Smoker (<10/day) Tobacco Use: Cigarettes Meaningful Use Info Meaningful Use Diagnoses (Choose all that apply): None applicable Code Visit Inpatient E&M: 88449 Disch Hosp
--- NOTE | 2018-05-29 09:41 | DS.PCM_ITS ---
Discharge Date and Diagnosis - Problem List Patient Problems: Active and Suspected Problems Bronchiectasis (Acute) COPD exacerbation (Acute) Pneumonia (Acute) Date of Admission: 05/27/18 Date of Discharge: 05/29/18 - Primary Discharge Diagnosis Active and Suspected Problems Bronchiectasis (Acute) COPD exacerbation (Acute) Pneumonia (Acute) 1. AECOPD * improved slightly * on BDs and steroids * wean steroids and monitor 2. Possible gram negative pneumonia * RLL * Strep and legionella antigens negative * on levaquin * clinically improving 3. COLLETTE cavitary lesion, possible * pulm consult * check PPD 4. Tobacco abuse * states only smoking 3 cigs/d * advised complete cessation. * discussed risks of continued smoking, including, worsening COPD, CAD, PAD, etc. - Secondary Discharge Diagnosis Chronic Problems Chronic obstructive pulmonary disease (COPD) (Chronic) Chronic respiratory failure with hypoxia (Chronic) Severe protein-calorie malnutrition (Chronic) History of tobacco use (Chronic) Chronic back pain (Chronic) History of lung cancer (Chronic) Hospital Course and Treatment Imaging Results: Clinical Impression(s) from Imaging Studies Chest X-Ray 05/27/18 13:13 IMPRESSION: Pulmonary interstitial prominence. Probable focal scar at the right base. Mild right infrahilar focal infiltrate is suspected. Electronically Signed: Didier Moss DO at 14:15 EDT Tel [phone], Service support , Chest CTA 05/27/18 13:48 IMPRESSION: No demonstrated pulmonary embolism or arterial dissection. Emphysematous changes. Questionable small cavitary left upper lobe lesion. Reticulonodular prominence of the right pulmonary parenchyma. Right lower lobe bronchial thickening with intraluminal bronchial densities. Correlation with bronchoscopy if needed. Right renal cystic lesion. Electronically Signed: Didier Moss DO at 14:36 EDT Tel [phone], Service support , Alfredo: pulmonary Operations: None Procedures: None Summary of Care Provided: The patient is a 82 year old F Patti with shortness of breath. Patient had a CT Lou Webber of the chest that showed reticular nodular prominence of the right pulmonary parenchyma with a questionable submillimeter left upper lobe cavitary lesion. Patient was admitted for COPD exacerbation started on steroids as well as treatment for pneumonia. Patient was put on Levaquin. Patient was seen in consultation by pulmonology is concerned about bronchiectasis and possible drug- resistant organisms the patient has clinically improved during the course of her brief hospitalization. Sputum culture was performed late on the evening of the . Overall patient is better she is currently on room air, though she does have oxygen that she wears at night chronically. Patient is stable for discharge. Patient will follow up with pulmonary group here. Previously, patient was seeing a qc tech in [place] who is no longer practicing. Patient will complete total of a week of Levaquin, have an albuterol metered- dose inhaler as needed, prednisone 40 mg daily for total 5 days including time as she has been here. And patient is still continuing to smoke and has been advised strongly to discontinue all cigarettes. Patient is minimizing her consumption stating that is only 3 cigarettes/day. Patient is advised to have complete cessation. For the cavitary lung lesion PPD was ordered today and I will need to be checked by a nuclear the of this month. Her Kalosis but still will need to be followed up. Patient stated that her family said that her cats are the problem. Explained that the cats are most likely not her problem in regards to her pulmonary disease but the fact that she smokes, has pneumonia plus minus bronchiectasis and has had part of her lung resected due to cancer in the past with her ongoing tobacco abuse. [] Patient Problems: Active and Suspected Problems Bronchiectasis (Acute) COPD exacerbation (Acute) Pneumonia (Acute) - Physical Exam General: Alert, No apparent distress HEENT: Atraumatic, Normocephalic Oral: Moist Mucosa, No Gingival or Mucosal Lesions/ Ulcerations Neck: No Nodes, Thyroid Normal Size and Texture Lungs: Normal air movement, - - coarse breath sounds bilaterally Cardiovascular: Regular rate, Regular Rhythm, Normal S1, Normal S2, No murmurs Abdomen: Bowel Sounds Present, Soft, Non Tender, Non-Distended, No Hepato- splenomegaly, Passing Flatus Extremities: No edema, No Calf Tenderness Skin: No rashes, No breakdown Musculoskeletal: No Tenderness to Palpation of Joints or Extremities, No Muscle Wasting Psych/Mental Status: Normal Affect, Appropriate Vital Signs Temp Pulse Resp BP Pulse Ox 36.8 C 70 18 123/60 H 96 05/29/18 08:14 05/29/18 08:14 05/29/18 08:14 05/29/18 08:14 05/29/18 08:14 Oxygen Flow Rate (L/min) 2 Oxygen Delivery Method Room Air Weight: 41.7 kg Body Mass Index (BMI) 15.3 Intake and Output for Last 24 Hours 05/27/18 05/28/18 05/29/18 23:59 23:59 23:59 Intake Total 1257 / 1257 806 / 806 100 / 100 Output Total 300 / 300 200 / 200 Balance 957 / 957 606 / 606 100 / 100 Microbiology Past 72 Hours 05/27/18 16:30 Respiratory Panel (PCR) - Final Mucosa - Nose 05/28/18 11:12 Streptococcus pneumoniae Antigen (M - Final Urine, Clean Catch 05/28/18 11:12 Legionella Antigen - Final Urine, Clean Catch Laboratory Tests Past 24 Hrs 05/27/18 13:24 Diff Path Review Reviewed Discharge Diet: No Restrictions Discharge Activity: Return to Normal Activity Call your doctor if you observe: Fever of 101 or Higher, Shortness of breath Home Medications: Medications to take at Discharge Budesonide 1 inh INHALATION BID 04/21/18 Hydrocodone/Acetaminophen [Oak 5-325 Tablet] 1 each PO BID PRN PRN 05/27/18 Albuterol Inhaler [Ventolin Hfa] 1 - 2 puff INHALATION Q4H PRN PRN #1 inhaler 05/29/18 Guaifenesin [Mucinex] 1,200 mg PO BID #10 tablet 05/29/18 levoFLOXacin tablet [Levaquin tablet] 750 mg PO QODAY #3 tablet 05/29/18 predniSONE tablet 2 tab PO DAILY@0800 #8 tablet 05/29/18 Following Prescrptions Were Given to Patient: Albuterol Inhaler [Ventolin Hfa] 1 - 2 puff INHALATION Q4H PRN PRN #1 inhaler PRN Reason: Shortness Of Breath levoFLOXacin tablet [Levaquin tablet] 750 mg PO QODAY #3 tablet predniSONE tablet 2 tab PO DAILY@0800 #8 tablet Guaifenesin [Mucinex] 1,200 mg PO BID #10 tablet Primary Care Physician: Moose Abrams [Primary Care Provider] - Within 1 Week (have your skin test read by 4/19/19) Please Follow Up With: Brad Fuentes MD - COPD When: 4-6 weeks Patient Instructions: What is COPD?, Discharge Instructions: COPD Disposition: Home Minutes spent on discharge:: 32 Patient Condition:: Fair Medical Necessity - Tobacco Use Smoking Status: Light Smoker (<10/day) Tobacco Use: Cigarettes Meaningful Use Info Meaningful Use Diagnoses (Choose all that apply): None applicable Code Visit Inpatient E&M: 49302 Disch Hosp
--- NOTE | 2018-05-29 09:54 | NURSING ---
Doctor Ga states that patient can be d/c'ed today, despite no result from sputum culture. Patient was 96% on RA yesterday and remains 96-97% on RA today. Pt states that she doesn't like to be alone. Asked pt if she could go to assisted living- pt states financially she is unable. Pt up independently walking in room- tolerating well.
[2018-05-29] MEDS: Tuberculin,Purif.prot.deriv. 50 TU/ML Vial 5 ML ID (10:20)
[2018-05-29 14:08] LABS: Pathologist Review Reviewed
--- NOTE | 2018-05-30 13:23 | CASEMGMT ---
SOL BARRIGA DC CALL DC DATE: 05/29/18 DC DISPOSITION: Home LACE/STRATA 10/16 Intro role of CM to patient via phone. Pt states she was doing well. Had concern that she was peeing alot since 4 am. SOL BARRIGA discussed IV fluids pt received, does not appear to be on diuretic medications. Pt not symptomatic re: lightheadedness, dizziness. Discussed to call physician if these symptoms occur or continues to have frequent urination in next 24 hours. Pt has appt with PCP tomorrow. -Was able to get her prescriptions, and no questions re: instructions. -No care suggestions given. Pt stated care was the best care, and the nurses treated me so well. Bianca MORAESN RN ACM
== END 2018-05-29 13:36 | disposition home or self-care (01) | DRG 190 ==
LOC: ED 13:26 → MS2 15:46
PROVIDERS: Admitting Provider Student in an Organized Health Care Education/Training Program; Emergency Provider Emergency Medicine
DX: J44.1 Chronic obstructive pulmonary disease with (acute) exacerbation (principal); E43 Unspecified severe protein-calorie malnutrition; J15.6 Pneumonia due to other Gram-negative bacteria; J96.11 Chronic respiratory failure with hypoxia; Z68.1 Body mass index [BMI] 19.9 or less, adult; J44.0 Chronic obstructive pulmonary disease with (acute) lower respiratory infection; Z99.81 Dependence on supplemental oxygen; J98.4 Other disorders of lung; G89.29 Other chronic pain; M54.9 Dorsalgia, unspecified; Z72.0 Tobacco use; Z85.118 Personal history of other malignant neoplasm of bronchus and lung; Z90.2 Acquired absence of lung [part of]
CPT/HCPCS: 36415; 71046; 71275; 80048; 84484; 85025; 85379; 87070; 87205; 87449; 87633; 93005; 94640; 94667; 94668; 97802; 99285; J7030; J7040; Q9967; A4216

== ENCOUNTER → 2018-07-04 12:26 | Outpatient (CLI) | payer MEDICARE, OTHER, SELFPAY ==
[2018-06-13 08:05] VITALS: BMI 16.0
[2018-07-04 12:50] VITALS: PULSE 100; PULSE 102; PULSE 105; PULSE 112; PULSE 113; PULSE 85; O2SAT 97; O2SAT 98
--- NOTE | 2018-07-06 11:07 | PCM.PSN.6M ---
PSN 6 Minute Walk Test - 6 Minute Walk Test 6 Minute Walk Test: 6 Minute Walk Test PSN:6-Minute Walk Test Start: 07/04/18 12:49 Freq: Status: Active Protocol: RESP.6MINW Document 07/04/18 12:50 SURENDRA (Rec: 07/04/18 12:51 SURENDRA [id number]) 6 Minute Walk Test Date Performed 07/04/18 Time Performed 12:30 Height 5 ft 5 in Weight: 83 lb Weight in Pounds 83.[address]: Brad Fuentes Assistive device used: None Pre-test Oxygen Delivery Method Room Air Pulse Ox (%) 98 Pulse Rate (60-100 beats/min) 85 Dyspnea Keven Scale (0-10) 3 Exertion Keevn Scale (6-20) 6 1st minute Oxygen Delivery Method Room Air Pulse Ox (%) 98 Pulse Rate (60-100 beats/min) 112 H 2nd minute Oxygen Delivery Method Room Air Pulse Ox (%) 97 Pulse Rate (60-100 beats/min) 113 H Number of Rests Taken 1 3rd minute Oxygen Delivery Method Room Air Pulse Ox (%) 98 Pulse Rate (60-100 beats/min) 105 H 4th minute Oxygen Delivery Method Room Air Pulse Ox (%) 98 Pulse Rate (60-100 beats/min) 100 5th minute Oxygen Delivery Method Room Air Pulse Ox (%) 98 Pulse Rate (60-100 beats/min) 102 H 6th minute Oxygen Delivery Method Room Air Pulse Ox (%) 98 Pulse Rate (60-100 beats/min) 100 Dyspnea Keven Scale (0-10) 4 Exertion Keven Scale (6-20) 14 Post-test Oxygen Delivery Method Room Air Pulse Ox (%) 98 Pulse Rate (60-100 beats/min) 85 Full Laps Walked 14 Partial Lap, Number of Tiles Walked 15 Total Distance Walked (ft) 841 - Interpretation Interpretation: The patient ambulated 841 feet over the course of 6 minutes beginning on room air without assistive devices or breaks. Pretesting oxygen saturation was noted to be 98% on room air. With ambulation, the kelvin oxygen saturation was 97%. There was no significant exertional oxygen desaturation. - Recommendations Recommendations: There is no indication for the use of supplemental oxygen at this time.
== END ==
PROVIDERS: Referring Provider Nurse Practitioner Acute Care; Visit Provider Nurse Practitioner Acute Care
DX: J44.9 Chronic obstructive pulmonary disease, unspecified (principal)
CPT/HCPCS: 94618

== ENCOUNTER → 2018-07-05 09:49 | Outpatient (CLI) | payer MEDICARE, OTHER, SELFPAY ==
[2018-06-13 08:05] VITALS: BMI 16.0
--- NOTE | 2018-07-06 11:25 | PFT ---
INTRODUCTION: The patient is an 82-year-old female that presents for pulmonary function studies secondary to a diagnosis of COPD. Respiratory therapy reports good patient effort. Bronchodilators were used during testing. INTERPRETATION: Forced expiration spirometry demonstrates the presence of a moderate large airways obstructive ventilatory defect. There was no significant response to aerosolized bronchodilators. The patient did have a rather robust nonspecific mid flow bronchodilator response. Spirograms are of fair quality and plateau gradually indicating slow emptying of the lungs. Body plethysmography was performed and reveals lung volumes to be within normal limits. Diffusing capacity by single breath CO is reduced at 52% of predicted. IMPRESSION: Irreversible moderate large airways obstructive ventilatory defect with associated symmetric reduction in diffusing capacity.
== END ==
PROVIDERS: Referring Provider Nurse Practitioner Acute Care; Visit Provider Nurse Practitioner Acute Care
DX: J44.9 Chronic obstructive pulmonary disease, unspecified (principal)
CPT/HCPCS: 94060; 94726; 94729

== ENCOUNTER → 2018-07-31 | Outpatient (CLI) | payer MEDICARE, OTHER, SELFPAY ==
[2018-07-18 10:13] VITALS: BMI 16.1
--- NOTE | 2018-07-31 14:48 | CT_ITS ---
STUDY: CT CHEST WITHOUT CONTRAST REASON FOR EXAM: Female, 82 years old. Orchiectomy since trouble breathing RADIATION DOSAGE (If Supplied By Facility): CTDIvol = ( 5.09 ) mGy, DLP = ( 178.35 ) mGycm TECHNIQUE: Transaxial imaging was performed without the administration of intravenous contrast material. Multiplanar coronal and sagittal images were reformatted. Individualized dose optimization techniques were used for this CT. COMPARISON: May 27, 2018 CT chest FINDINGS: There are areas of scarring in the lung bases. There is peripheral emphysematous change towards the lung apices. Within the left apex there is a focal lobulated spiculated nodule that measures up to 1.6 x 2.1 cm collectively that is similar to the prior study. There is biapical scarring. There is no evidence of focal consolidation. Is a stable focus of peripheral emphysematous blebs in the left apex which appears less cavitary than on prior study. There is no demonstrated pleural abnormality. Normal heart and pericardium. Normal mediastinum. Normal hilar regions. There is a mildly prominent appearance of the pulmonary arteries which could indicate pulmonary arterial hypertension. The aorta is partially calcified mildly tortuous. There is a sclerotic density within the T5 vertebral body stable since prior study. There is calcification of the suprarenal abdominal aorta. There is a small hiatal hernia. CT/Chest without Contrast IMPRESSION: Persistent lobulated spiculated nodule in the left apex with accompanying bilateral apical thickening and emphysematous change. This may represent a focus of scarring however a follow-up in 6 months is warranted to ensure stability Emphysema chronic obstructive pulmonary disease no evidence of acute focal infiltrate. Electronically Signed: Carmen Lujan MD at 15:59 EDT Tel , Service support ,
== END | disposition home or self-care (01) ==
LOC: CT 14:47
PROVIDERS: Referring Provider Nurse Practitioner Acute Care; Visit Provider Nurse Practitioner Acute Care
DX: J47.9 Bronchiectasis, uncomplicated (principal)
CPT/HCPCS: 71250

== ENCOUNTER → 2018-10-01 09:49 | Outpatient (CLI) | payer MEDICARE, OTHER, SELFPAY ==
[2018-09-26 09:19] VITALS: BMI 16.1
--- NOTE | 2018-10-01 10:30 | PET_ITS ---
EXAMINATION: FDG PET/CT INDICATIONS: An 82-year-old female with history of carcinoma of the lung presenting for restaging examination and evaluation of pulmonary nodularity. COMPARISON EXAMINATION: CT of the chest report dated 07/31/18 INDEX LESION SIZE SUV INTERPRETATION Left hemithorax pulmonary parenchyma, left upper lobe 23.4-mm (frame 214) 1.2 Quantitative criteria for viable neoplasm are not fulfilled, sequential radiologic investigation recommended TECHNIQUE: Following the intravenous administration of 13.95 mCi of F-18 deoxyglucose via the right antecubital fossa, multiplanar image acquisitions of the neck, chest, abdomen and pelvis to level of mid thigh, obtained at one hour post radiopharmaceutical administration contemporaneously interpreted with the current CT of the neck, chest, abdomen and pelvis to level of mid thigh, dated 10/01/[address] of the chest report dated 07/31/18 reveal: SERUM GLUCOSE LEVEL: 123 mg/dl. HEIGHT: 65 inches. WEIGHT: 98 lbs. FINDINGS: 1. Mild increased FDG PET study concentration is demonstrated in the left upper lateral hemithorax pulmonary parenchyma, left upper lobe, generating a calculated maximal standard uptake value of 1.2. The maximal axial diameter of the corresponding lobulated parenchymal density on review of CT of the chest dated 10/01/18 is 23.4-mm (transverse). 2. Normal physiologic distribution of the radiopharmaceutical is apparent in the hepatic (2.6) and splenic parenchyma, both renal units, bladder and visualized intestinal tract. The visualized portion of the cerebral cortex demonstrate symmetric and preserved glucose metabolism. Diffuse radiopharmaceutical concentration is noted in all four quadrants of the abdomen and pelvis. Injection site artifact is defined in the right upper extremity. Prominent radiopharmaceutical concentration is defined in the left renal unit collecting system extending from the renal pelvis to the distal left ureter. Pertinent CT findings are as follows: CHEST: Emphysematous changes are noted in the bilateral upper lung zones. Additional parenchymal changes noted in the right and left hemithorax demonstrate no discernible increase in glucose metabolism. There is atherosclerotic calcification defined in the thoracic aorta without evidence of dilatation-aneurysm formation. Coronary arterial calcification is observed. Calcified and non-calcified mediastinal soft tissue densities are ametabolic. There is calcification of the pleural interface involving the right hemithorax without evidence of facilitated FDG uptake. Right and left axillary soft tissue densities are ametabolic. ABDOMEN AND PELVIS: There is atherosclerotic calcification defined in the abdominal aorta without evidence of dilatation-aneurysm formation. Pelvic arterial calcification is observed. Bilateral inguinal soft tissue densities with fatty hilus formation are non-glucose avid. Cortical cyst formation is defined in the right kidney with a maximal axial diameter of 21.2-mm (AP). SKELETAL: Diffuse demineralization is demonstrated. There is an apparent sclerotic density defined in the fifth thoracic vertebra which demonstrates no evidence of increased FDG concentration. Degenerative changes are noted in the cervical, thoracic and lumbar spine. PET/PET/CT Tumor Base -Thigh Subs IMPRESSION: 1. NEGATIVE EXAMINATION. There is no definitive quantitative scintigraphic evidence of recurrent-metastatic/viable neoplasm. 2. Increased radiopharmaceutical concentration observed in the left upper hemithorax pulmonary parenchyma, left upper lobe, does not fulfill quantitative criteria for viable neoplasm. (Kera et al, Journal of Nuclear Medicine 43:302 P, 2002). 3. Metabolic and/or anatomic stability may be ensured in the left hemithorax pulmonary parenchymal metabolic abnormality with repeat FDG PET study and/or CT of the thorax in three-six months. (Xiu, Journal of Nuclear Medicine 45:88, P2004 Gwendolyn, Seminars in Thoracic and Cardiovascular Surgery 14:292, 2002). Electronic Signature Randal Lucero D.O. Electronically Signed: Randal Lucero DO at 23:34 EDT Tel , Service support ,
== END ==
PROVIDERS: Referring Provider Internal Medicine Critical Care Medicine; Visit Provider Internal Medicine Critical Care Medicine
DX: J47.9 Bronchiectasis, uncomplicated (principal); E43 Unspecified severe protein-calorie malnutrition; Z85.118 Personal history of other malignant neoplasm of bronchus and lung
CPT/HCPCS: 78815; A9552

== ENCOUNTER → 2018-10-03 15:15 | Outpatient (CLI) | payer MEDICARE, OTHER, SELFPAY ==
[2018-09-26 09:19] VITALS: BMI 16.1
[2018-10-03 17:23] LABS: Amphetamine Urine VISTA NEGATIVE (<1000 ng/mL); Barbiturate Urine VISTA NEGATIVE (< 200 ng/mL); Benzodiazepine Urine VISTA NEGATIVE (< 200 ng/mL); Cocaine Urine VISTA NEGATIVE (< 300 ng/mL); Ecstacy Urine VISTA NEGATIVE (< 500 ng/mL); Methadone Urine VISTA NEGATIVE (< 300 ng/mL); PCP Urine VISTA NEGATIVE (< 25 ng/mL); THC Urine VISTA NEGATIVE (< 50 ng/mL); Vista UDS pH Range 5
== END ==
PROVIDERS: Referring Provider Anesthesiology Pain Medicine; Visit Provider Anesthesiology Pain Medicine
DX: F11.20 Opioid dependence, uncomplicated (principal)
CPT/HCPCS: 80307

== ENCOUNTER → 2018-11-08 10:27 | Outpatient (CLI) | payer MEDICARE, OTHER, SELFPAY ==
[2018-09-26 09:19] VITALS: BMI 16.1
--- NOTE | 2018-11-08 10:30 | RAD_ITS ---
STUDY: X-RAY - PELVIS AND BILATERAL HIPS REASON FOR EXAM: Female, 82 years old. Back pain. Bilateral hip pain. Recent fall. TECHNIQUE: AP view of the pelvis.? 2 views of the right hip, and 2 views of the left hip were obtained. COMPARISON: None. FINDINGS: There is a non-specific bowel gas pattern. Normal visualized soft tissue structures. Normal bilateral iliac wings, sacroiliac joints and visualized sacrum. Normal bilateral superior and inferior pubic rami. Normal pubic symphysis. Normal bilateral ischial tuberosities. Normal visualized right femoral head. Normal right acetabulum. There is mild articular joint space narrowing of the right hip. Normal visualized left femoral head. Normal left acetabulum. There is mild articular joint space narrowing of the left hip. RAD/Hips B/L min 2 views w/ Pelvis IMPRESSION: Degenerative changes bilateral hips. There is no evidence of hip or pelvic fracture or dislocation. Electronically Signed: Tony Randolph DO at 21:21 EDT Tel [phone], Service support ,
== END ==
PROVIDERS: Referring Provider Anesthesiology Pain Medicine; Visit Provider Anesthesiology Pain Medicine
DX: M54.9 Dorsalgia, unspecified (principal); Z91.81 History of falling
CPT/HCPCS: 73521

== ENCOUNTER → 2019-07-15 12:41 | Outpatient (CLI) | payer MEDICARE, OTHER, SELFPAY ==
[2019-03-27 09:10] VITALS: BMI 16.2
[2019-07-15 14:00] LABS: Amphetamine Urine VISTA NEGATIVE (<1000 ng/mL); Barbiturate Urine VISTA NEGATIVE (< 200 ng/mL); Benzodiazepine Urine VISTA NEGATIVE (< 200 ng/mL); Cocaine Urine VISTA NEGATIVE (< 300 ng/mL); Ecstacy Urine VISTA NEGATIVE (< 500 ng/mL); Methadone Urine VISTA NEGATIVE (< 300 ng/mL); PCP Urine VISTA NEGATIVE (< 25 ng/mL); THC Urine VISTA NEGATIVE (< 50 ng/mL); Vista UDS pH Range 6
== END ==
LOC: LAB 12:43
PROVIDERS: Visit Provider Anesthesiology Pain Medicine
DX: F11.20 Opioid dependence, uncomplicated (principal)
CPT/HCPCS: 80307

== ENCOUNTER → 2019-08-12 11:55 | Outpatient (CLI) | payer MEDICARE, OTHER, SELFPAY ==
[2019-03-27 09:10] VITALS: BMI 16.2
--- NOTE | 2019-08-12 11:57 | RAD_ITS ---
STUDY: X-RAY CHEST REASON FOR EXAM: Female, 83 years old. Large palpable lump on left side of sternum PT stated she has history of lung cancer and recently had surgery and they removed a mass apart of the lung TECHNIQUE: Frontal and lateral views of the chest. COMPARISON: 05/27/2018. FINDINGS: There is hyperinflation of the lungs consistent with chronic obstructive lung disease (COPD). Scarring in both lung apices. Postsurgical changes related to partial resection of the upper right lung. No focal infiltrates effusions or masses seen. There is no demonstrated pleural abnormality. Normal size heart. Normal mediastinum and carrie. Normal visualized pulmonary arteries. Normal visualized aortic arch and descending thoracic aorta. Normal visualized thoracic spine. Normal visualized ribs, clavicles, and shoulders. No gross mass of the sternum. There is no demonstrated abnormality of the visualized soft tissue structures of the upper abdomen. RAD/Chest PA and Lateral IMPRESSION: No definite acute abnormality. COPD. Postsurgical changes of the right lung. Biapical scarring. Electronically Signed: James Allen MD at 16:41 EDT , Service support ,
== END ==
PROVIDERS: Referring Provider Nurse Practitioner Acute Care; Visit Provider Nurse Practitioner Acute Care
DX: J44.9 Chronic obstructive pulmonary disease, unspecified (principal)
CPT/HCPCS: 71046

== ENCOUNTER → 2019-10-08 15:17 | Outpatient (CLI) | payer MEDICARE, OTHER, SELFPAY ==
[2019-03-27 09:10] VITALS: BMI 16.2
--- NOTE | 2019-10-08 15:00 | PET_ITS ---
EXAMINATION: FDG PET-CT INDICATIONS: An 83-year-old female with a reported history of carcinoma of the lung presenting for restaging examination. COMPARISON EXAMINATION: FDG PET CT study dated 10/01/18. TECHNIQUE: Following the intravenous administration of 13.83 mCi of F-18 deoxyglucose via the left antecubital fossa, multiplanar image acquisitions of the head, neck, chest, abdomen and pelvis to level of mid-thigh, lower extremities obtained at one hour post radiopharmaceutical administration contemporaneously interpreted with the current CT of the head, neck, chest, abdomen and pelvis to level of mid-thigh, lower extremities dated 10/08/19 via coregistration and previous FDG PET CT study dated 10/01/18 reveal: SERUM GLUCOSE LEVEL: 93 mg/dl. HEIGHT: 65 inches. WEIGHT: 96 lbs. INDEX LESION SIZE SUV INTERPRETATION PERSISTENT: Left upper lateral lung-left upper lobe 23.6 mm, frame 184 comp to 23.4 mm, 10/01/18 1.4 comp to 1.2, 10/01/18 Quantitative criteria for viable neoplasm are not fulfilled, no definitive interim metabolic change. FINDINGS: 1. Redefined increased glucose metabolism is manifest in the left upper lateral lung-left upper lobe rendering a current calculated maximum standard uptake value of 1.4 compared to 1.2 defined on the FDG PET CT study dated 10/01/18. The maximum axial diameter of the irregular shaped density on review of CT of the chest dated 10/08/19 is 23.6 mm (transverse). 2. Normal physiologic distribution of the radiopharmaceutical is apparent in the hepatic (2.2/2.8) and splenic parenchyma, both renal units, bladder and visualized intestinal tract. The visualized portion of the cerebral cortex demonstrate symmetric and preserved glucose metabolism. Diffuse intestinal tract activity is noted throughout all four quadrants of the abdominal-pelvic retroperitoneum and mesentery consistent with normal physiologic distribution of the radiopharmaceutical. Pertinent CT findings are as follows. CHEST: There is atherosclerotic calcification defined in the thoracic aorta without evidence of dilatation-aneurysm formation. Bilateral axillary scattered mediastinal soft tissue is ametabolic. Additional densities defined in bilateral upper lung zones demonstrates no evidence of quantitative significant increased FDG uptake. Paraseptal emphysematous changes noted in the right upper lung field. ABDOMEN AND PELVIS: Atherosclerotic calcification is defined in the abdominal aorta without evidence of dilatation, aneurysm formation. Pelvic arterial calcification is demonstrated. Cortical cyst formation is observed in the right kidney. The uterus appears surgically absent. Calcified phlebolith formation is noted in the left lower hemipelvis. SKELETAL: Degenerative changes defined in the cervical, thoracic and lumbar spine demonstrate no evidence of glucose hypermetabolism. A sclerotic density is redefined in the thoracic vertebra without evidence of facilitated FDG uptake. PET/PET/CT Tumor Base -Thigh Subs IMPRESSION: 1. NEGATIVE EXAMINATION. There is no definitive quantitative scintigraphic evidence of recurrent-metastatic viable neoplasm. 2. An increased FDG uptake redefined in the left upper lateral lung-left upper lobe does not fulfill quantitative criteria for viable neoplasm. (Pace et al, Annals of Internal Medicine, 138:724, 2003). 3. Overall, compared to the previous FDG PET CT study dated 10/01/18, there is current continued absence of defined viable neoplastic disease. Electronic Signature Randal Lucero D.O. Accurate Quantification of SUVs for this report are calculated using the exclusive [employer]. Exclusive [place] Patent [employer]? Technology ([place]. Patent No. [id number] [id number]). Electronically Signed: Randal Lucero DO at 18:30 EDT Tel , Service support ,
== END ==
PROVIDERS: Referring Provider Internal Medicine Critical Care Medicine; Visit Provider Internal Medicine Critical Care Medicine
DX: R91.1 Solitary pulmonary nodule (principal); Z85.118 Personal history of other malignant neoplasm of bronchus and lung; Z44.9 Encounter for fitting and adjustment of unspecified external prosthetic device; J47.9 Bronchiectasis, uncomplicated
CPT/HCPCS: 78815; A9552

== ENCOUNTER 2019-12-02 07:13 | Inpatient (IN) | payer MEDICARE, OTHER, SELFPAY ==
[2019-03-27 09:10] VITALS: BMI 16.2
[2019-12-02] VITALS (17 sets, daily range): BP systolic 101–140; BP diastolic 45–69; PULSE 63–98; RESP 18–38; TEMP 36.4–36.8; O2SAT 95–99; BMI 16.7; BMI 15.3
--- NOTE | 2019-12-02 07:27 | RAD_ITS ---
STUDY: X-RAY CHEST REASON FOR EXAM: Female, 84 years old. Increased SOB since last night with right sided CP radiates across chest TECHNIQUE: Single AP portable view of the chest. COMPARISON: Comparison is made with prior study dated 08/12/2019. FINDINGS: EKG electrodes are seen. Hyperinflation. Decreased bronchovascular markings suggestive of emphysematous change. Stable mild scarring at the lung bases. Stable apical scarring more prominent on the right side. Surgical clips are seen in the right hilar region most likely secondary to prior resection. There is no demonstrated pleural abnormality. Normal size heart. Normal mediastinum and carrie. Normal visualized pulmonary arteries. There is atherosclerotic calcification of the aortic arch with tortuosity. There are degenerative changes of the visualized thoracic spine. Normal visualized ribs, clavicles, and shoulders. There is no demonstrated abnormality of the visualized soft tissue structures of the upper abdomen. RAD/Chest 1 View (Portable) IMPRESSION: Hyperinflation and COPD. No acute adenopathy is seen. Electronically Signed: J Luis Whitten, at 8:24 EDT , Service support ,
--- NOTE | 2019-12-02 07:27 | EKG12_ITS ---
Test Reason : Blood Pressure : / mmHG Vent. Rate : 071 BPM Atrial Rate : 071 BPM P-R Int : 130 ms QRS Dur : 080 ms QT Int : 398 ms P-R-T Axes : 077 072 081 degrees QTc Int : 432 ms Sinus rhythm with marked sinus arrhythmia Otherwise normal ECG Confirmed by NORRIS PATEL, ROBERT ([id number]), sound editor SKYLER KATZ ([id number]) on 12/03/2019 8:22:57 AM Referred By: KATIE Confirmed By:ROBERT PISANO MD
--- NOTE | 2019-12-02 07:34 | ED.DCSUM_ITS ---
History of Present Illness Chief Complaint: Shortness of Breath Informant: Patient, EMS Narrative: Patient presenting for evaluation secondary to shortness of breath. Patient has a underlying history of COPD, chronically on oxygen. She also has a past history of lung cancer status post lobectomy. Patient states that she chronically deals with shortness of breath but really over the course of the last 24 hours and specifically last night she was feeling increasingly short of breath. Patient states that this is associated with mild wheezing, she does state that she has a mild cough but no fevers. No nausea or vomiting. She did have one episode of loose stools this morning. She denies any sick contacts. She does endorse some chest pain associated with this. Patient recently finished a course of prednisone. She denies recent hospital admissions or sick contacts. Review of systems otherwise negative. Past Medical History - Allergies and Home Meds Allergies/Adverse Reactions: Allergies No Known Allergies Allergy (Verified 10/15/19 12:40) Primary Care Physician: Moose Abrams MD [Primary Care Provider] - Prior records reviewed: Yes Past Medical History: - - Lung cancer status post lobectomy, COPD chronically on oxygen Surgical History: - - Hysterectomy, RUL Lobectomy, Melanoma skin resection. Smoking Status: Light Smoker (<10/day) Alcohol: None Drugs: None - Family History Maternal Family History: Family History (Last Reviewed 10/15/19 @ 12:58 by Natasha Baron NP, LUBE TECHNICIAN-C) Other No pertinent family history Family History: Reports: - - Denies knowledge of maternal medical history. Paternal Family History: Family History (Last Reviewed 10/15/19 @ 12:58 by Natasha Baron NP, LUBE TECHNICIAN-C) Other No pertinent family history Family History: Reports: - - Denies knowledge of paternal medical history. Review of Systems All systems negative except as indicated General: Denies: Chills, Fever, Sweats Eyes: Denies: Visual changes - bilaterally, Diplopia ENT: Denies: Rhinorrhea, Sore throat Cardiovascular: Reports: Chest pain Respiratory: Reports: Dyspnea, Cough Gastrointestinal: Denies: Abdominal pain, Nausea, Vomiting, Diarrhea, Melena, Hematochezia Genitourinary: Denies: Dysuria, Hematuria, Frequency Musculoskeletal: Denies: Back pain, Extremity Pain Skin: Denies: Rash, Wounds Neurological: Denies: Headache, Weakness, Numbness Physical Exam Vital Signs/Narrative: Vital Signs Temp Pulse Resp BP Pulse Ox 12/02/19 07:22 98.1 F 80 37 H 112/64 96 Inital Vital Signs reviewed: Yes General: Well developed, Cachectic Cardiovascular: Regular rate, Regular rhythm, No murmurs, - - 2+ radial pulses bilaterally symmetric Respiratory: Rales - Right base, Rhonchi - Bilateral apices, - - Patient is able to speak in completely full sentences without seeming dyspneic, but then when she stops speaking she becomes rather tachypneic with respiratory rates going up into the mid to high 30s. No retractions or air retention is noted. . Negative for: Chest tenderness - Well-healed thoracotomy surgical scar patient's right posterior back Abdomen: Soft, Nontender, Nondistended, Normal bowel sounds Back: Nontender, Normal Inspection Extremities: Nontender, No edema Skin: Normal color, No rash Neurological: Alert, Oriented x3, Cranial nerves II-XII grossly intact, Normal Strength, Normal Sensation Psychological: Normal affect, Normal Mood Diagnostic/Tx/Re-eval Chest X-Ray - ED: 1 View, Read by ED Physician, Read by Radiologist, Chronic Changes Clinical Impression(s) from Imaging Studies Chest X-Ray 12/02/19 07:27 IMPRESSION: Hyperinflation and COPD. No acute adenopathy is seen. Electronically Signed: J Luis Whitten, at 8:24 EDT , Service support , Laboratory Data 12/02/19 12/02/19 12/02/19 07:50 07:50 07:50 WBC 15.8 H RBC 3.71 L Hgb 11.6 L Hct 35.9 L MCV 96.8 MCH 31.3 MCHC 32.3 RDW Std Deviation 50.7 H RDW Coeff of Keiry 14.4 Plt Count 360 MPV 9.6 Immature Gran % (Auto) 2.200 H Neut % (Auto) 84.3 H Lymph % (Auto) 7.9 L Sierra % (Auto) 5.1 Eos % (Auto) 0.2 Baso % (Auto) 0.3 Absolute Neuts (auto) 13.3 H Absolute Lymphs (auto) 1.24 Nucleated RBC % 0 Specimen Type VBG pH VBG pO2 VBG HCO3 VBG O2 Sat (Calc) VBG Base Excess POC Mix VBG pCO2 Pt Tmp Liter Flow Sodium 138 Potassium 4.3 Chloride 106 Carbon Dioxide 26.0 POC Venous Total CO2 Anion Gap 6 BUN 22 H Creatinine 1.16 H Estim Creat Clear Calc 25.00 Est GFR (MDRD) Af Amer 57 L Est GFR (MDRD) Non-Af 47 L BUN/Creatinine Ratio 19.0 Glucose 134 H Lactic Acid 1.4 Calcium 9.3 Troponin I < 0.015 12/02/19 07:51 WBC RBC Hgb Hct MCV MCH MCHC RDW Std Deviation RDW Coeff of Keiry Plt Count MPV Immature Gran % (Auto) Neut % (Auto) Lymph % (Auto) Sierra % (Auto) Eos % (Auto) Baso % (Auto) Absolute Neuts (auto) Absolute Lymphs (auto) Nucleated RBC % Specimen Type FAUSTO VBG pH 7.45 H VBG pO2 71 H VBG HCO3 24 VBG O2 Sat (Calc) 95 H VBG Base Excess 0 POC Mix VBG pCO2 Pt Tmp 34.9 L Liter Flow 2.0 Sodium Potassium Chloride Carbon Dioxide POC Venous Total CO2 25 Anion Gap BUN Creatinine Estim Creat Clear Calc Est GFR (MDRD) Af Amer Est GFR (MDRD) Non-Af BUN/Creatinine Ratio Glucose Lactic Acid Calcium Troponin I - EKG Initial EKG Interpretation: - - Sinus rhythm at 71 with sinus arrhythmia noted. Normal MN and QTc intervals. Isoelectric ST segments normal T waves. - Medical Decision Making Patient presenting for evaluation secondary to shortness of breath. On physical exam the patient was able to converse without being dyspneic but after any sort of conversation or efforts applied she had significant tachypnea with respiratory rates pushing up into the mid the high 30s. Work-up was obtained. EKG demonstrated no ischemic changes. CBC does demonstrate a leukocytosis of 15. Chemistry and troponin found to be negative. Flu test was obtained which was found to be negative. Chest x-ray by my personal review as well as radiology shows chronic changes. Repeat evaluation of the patient after breathing treatment shows her saturations to be appropriate, but even with minimal exertion the patient's respiratory rates shoot up into the 30s. I believe the patient to clinically have pneumonia, and I believe that she requires admission at this point. Patient was given Rocephin and azithromycin. Patient will be admitted under the hospitalist. ED Disposition - Plan for ED Patient: Disposition: Acute Care Hospital [facility] Diagnosis: Pneumonia
[2019-12-02] MEDS: Acetaminophen 325 MG Tablet 650 MG PO ×2 (07:36→14:40)
[2019-12-02] MEDS: Ipratropium/Albuterol Sulfate 3 ML AMPUL.NEB INHALATION ×4 (07:50→23:10)
[2019-12-02 07:55] LABS: Blood Gas Specimen Type VEN; VBG BASE EXCESS 0 mmol/L (-1.0-3.5); VBG Bicarbonate 24 mmol/L (22-26); VBG PO2 71 mmHg (25-40); VBG SO2 95 % (50-70); VBG TCO2 25 mmol/L (23-33); VBG pCO2 34.9 mmHg (41-51); VBG pH 7.45 (7.32-7.42)
[2019-12-02 08:05] LABS: Absolute Lymphocyte Count 1.24 X10^3/uL (0.83-4.51); Absolute Neutrophil Count 13.3 X10^3/uL (2.0-7.7); Basophil# 0.04 X10^3/uL; Basophil% 0.3 % (0-1); Eosinophil# 0.03 X10^3/uL; Eosinophils% 0.2 % (0-5); Hematocrit 35.9 % (37-47); Hemoglobin 11.6 g/dL (12.0-15.0); Lymphocyte # 1.24 X10^3/ul (4.0); Lymphocyte % 7.9 % (19-41); Mean Corp Hgb Conc 32.3 g/dL (32-36); Mean Corpuscular Hgb 31.3 pg (27.0-32.0); Mean Corpuscular Volume 96.8 fL (81-99); Mean Platelet Vol. 9.6 fl (6.2-12.0); Monocyte% 5.1 % (0-10); NRBC Flagged by Analyzer 0 % (0-5); Neutrophil % 84.3 % (47-70); Platelet Count 360 K/mm3 (150-450); RBC Distribution Width CV 14.4 % (11.6-14.6); RBC Distribution Width SD 50.7 fl (35.1-43.9); Red Blood Count 3.71 M/mm3 (4.2-5.4); White Blood Count 15.8 K/mm3 (4.4-11.0)
[2019-12-02 08:20] LABS: Anion Gap 6 (5-15); BUN 22 mg/dL (7-18); Calcium,Total 9.3 mg/dL (8.5-10.1); Chloride 106 mmol/L (98-107); Creatinine, Serum 1.16 mg/dL (0.55-1.02); EST Glomerular Filtration Rate 47 mL/min (>60); Est Glom Filt Rate - Afr Amer 57 mL/min (>60); Glucose 134 mg/dL (74-106); Potassium 4.3 mmol/L (3.5-5.1); Sodium Level 138 mmol/L (136-145)
[2019-12-02 08:28] LABS: Lactic Acid 1.4 mmol/L (0.4-1.9)
--- NOTE | 2019-12-02 09:08 | HP.PCM_ITS ---
Problem List (1) Incidental lung nodule, greater than or equal to 8mm Status: Chronic (2) Stage 2 moderate COPD by GOLD classification Status: Chronic (3) Bronchiectasis Status: Chronic Qualifiers: Bronchiectasis type: uncomplicated Qualified Code(s): J47.9 - Bronchiectasis, uncomplicated (4) Chronic obstructive pulmonary disease (COPD) Status: Chronic Qualifiers: COPD type: unspecified COPD Qualified Code(s): J44.9 - Chronic obstructive pulmonary disease, unspecified (5) Chronic respiratory failure with hypoxia Status: Chronic (6) Severe protein-calorie malnutrition Status: Chronic (7) History of tobacco use Status: Chronic (8) Chronic back pain Status: Chronic Qualifiers: Back pain location: back pain in unspecified location Back pain laterality: unspecified Qualified Code(s): M54.9 - Dorsalgia, unspecified; G89.29 - Other chronic pain (9) History of lung cancer Status: Chronic (10) COPD exacerbation Status: Acute History of Present Illness Date of Admission: 12/02/19 Chief Complaint: Shortness of breath for few weeks The patient is a 84 year old F with history of COPD, chronic hypoxic respiratory failure on 2 L of oxygen, lung cancer status post right upper lobectomy and bronchiectasis came to ED with shortness of breath progressively worsening for a bout 2 to 3 weeks. It got the worst yesterday night with patient being tachypneic, restless and increased work of breathing even at rest. As per patient, she could not sleep even on taking sleeping pills. Patient also has rib pain/musculoskeletal chest pain in the front and back from deep breathing. Denies fever or chills. Has mild nausea but no vomiting. Patient also complained of headache, mainly frontal headache but denies sinus discharge, nasal congestion or postnasal discharge. No syncope. In ED, patient was breathing at the rate of 38/min, pulse ox 97% on 2 L of oxygen normal blood pressure and heart rate. Chest x-ray in ED does not show acute change. Patient has leukocytosis with left shift 122/creatinine 1.16. Decreasing normal pH COVID-19 PCR negative. Troponin negative magnesium 2.2. [] Past Medical History Past Medical History (Chronic Problems): Chronic Problems (Last Reviewed 10/15/19 @ 12:58 by Natasha Baron ARCHITECTURAL DRAFTING INSTRUCTOR, ARCHITECTURAL DRAFTING INSTRUCTOR-C) Incidental lung nodule, greater than or equal to 8mm (Chronic) Stage 2 moderate COPD by GOLD classification (Chronic) Bronchiectasis (Chronic) Chronic obstructive pulmonary disease (COPD) (Chronic) Chronic respiratory failure with hypoxia (Chronic) Severe protein-calorie malnutrition (Chronic) History of tobacco use (Chronic) Chronic back pain (Chronic) History of lung cancer (Chronic) Medical History: Medical History (Last Reviewed 10/15/19 @ 12:58 by Natasha Baron ARCHITECTURAL DRAFTING INSTRUCTOR, ARCHITECTURAL DRAFTING INSTRUCTOR-C) Bronchiectasis (Chronic) J47.9 Chronic obstructive pulmonary disease (COPD) (Chronic) J44.9 Chronic respiratory failure with hypoxia (Chronic) J96.11 Severe protein-calorie malnutrition (Chronic) E43 History of tobacco use (Chronic) Z87.891 Chronic back pain (Chronic) M54.9, G89.29 History of lung cancer (Chronic) Z85.118 COPD exacerbation (Acute) J44.1 Pneumonia (Acute) J18.9 Allergies No Known Allergies Allergy (Verified 10/15/19 12:40) Home Medications: Ambulatory Orders Medication Instructions Recorded Hydrocodone/Acetaminophen [Lenox 1 ea PO BID PRN PRN 05/27/18 5-325 Tablet] budesonide 0.5 mg/2 mL suspension 0.5 mg INHALATION BID #60 ml 12/17/18 for nebulization ipratropium 0.5 mg-albuterol 3 mg 3 ml INHALATION Q8H #180 ml 12/17/18 (2.5 mg base)/3 mL nebulization soln arformoterol 15 mcg/2 mL solution 2 ml INHALATION BID #120 ml 08/27/19 for nebulization albuterol sulfate 2.5 mg INHALATION Q4H PRN #180 ml 10/15/19 albuterol sulfate 90 mcg/actuation 1 - 2 puff INHALATION Q4H PRN PRN 12/02/19 aerosol inhaler #1 inhaler Surgical History: Surgical History (Last Reviewed 10/15/19 @ 12:58 by Natasha Baron ARCHITECTURAL DRAFTING INSTRUCTOR, ARCHITECTURAL DRAFTING INSTRUCTOR-C) No pertinent past surgical history Z78.9 Surgical History: - - Hysterectomy, RUL Lobectomy, Melanoma skin resection. 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 Patient is smokes since teenage Alcohol: None Drugs: None - *Family History Maternal Family History: Family History (Last Reviewed 10/15/19 @ 12:58 by Natasha Baron NP, ARCHITECTURAL DRAFTING INSTRUCTOR-C) Other No pertinent family history History Items: - - Denies knowledge of maternal medical history. Paternal Family History: Family History (Last Reviewed 10/15/19 @ 12:58 by Natasha Baron NP, ARCHITECTURAL DRAFTING INSTRUCTOR-C) Other No pertinent family history History Items: - - Denies knowledge of paternal medical history. Review of Systems Constitutional: Denies: Chills, Fever, Weight Change HEENT: Denies: Head Aches, Sinus Congestion, Sinus Drainage Cardiovascular: Denies: Chest Pain, Palpitations Respiratory: Reports: Cough - Mild cough, nonproductive, Shortness of Breath, Shortness of breath at rest, Shortness of breath upon exertion, Wheezing. Denies: Sputum production Gastrointestinal: Reports: Nausea. Denies: Abdominal Pain, Vomiting Genitourinary: Denies: Dysuria, Frequency, Hesitancy Musculoskeletal: Denies: Joint Pain, Joint Tenderness Skin: Denies: Rash, Wounds Neurological: Denies: Numbness, Tingling, Focal weakness Psychiatric: Reports: Anxiety. Denies: Depression, Homicidal Ideations, Suicidal Ideations Hematologic/ Lymphatic: Denies: Easy Bruising, Easy Bleeding VTE Information - Inpt Only VTE Present on Admission: No VTE Mechan Device Prophylaxis: None VTE Pharm Prophylaxis ordered?: Yes - Physical Exam Vitals/I&O's: Vital Signs Temp Pulse Resp BP Pulse Ox 98.1 F 64 22 H 106/56 L 97 12/02/19 08:29 12/02/19 08:29 12/02/19 08:29 12/02/19 08:29 12/02/19 08:29 Oxygen Flow Rate (L/min) 2 Oxygen Delivery Method Nasal Cannula Weight: 100 lb 4.8 oz Body Mass Index (BMI) 16.7 General: Alert, Oriented x3, Cooperative HEENT: Atraumatic, PERRLA, EOMI, Normocephalic Oral: No Gingival or Mucosal Lesions/ Ulcerations, Dry Mucosa Neck: Supple, No JVD, Negative Carotid Bruits Lungs: Diminished - Air entry severely diminished in both lungs., Rhonchi, Short of Breath, Tachypneic, Using Accessory Muscles, - - Right posterior lateral thoracotomy scar Cardiovascular: Regular rate, Regular Rhythm, Normal S1, Normal S2, No murmurs Abdomen: Bowel Sounds Present, Soft, Non Tender, Non-Distended Extremities: No edema, Capillary Refill Less than 3 Seconds Skin: No rashes, No breakdown Musculoskeletal: No Tenderness to Palpation of Joints or Extremities, Arthritic Changes, Muscle Wasting, - - Moderate muscle atrophy of extremities and diffuse subcutaneous fat loss Neurological: Cranial nerves II-XII grossly intact, Deep Tendon Reflexes 2+/4 and Symmetrical, Neuro grossly intact Psych/Mental Status: Normal Affect, Appropriate Microbiology Past 72 Hours 12/02/19 07:35 Mucosa - Nose Influenza Types A,B Direct FA (NERY) - Final Laboratory Results 12/02/19 07:35: COVID-19 (TOÑITO) Pending 12/02/19 07:50: WBC 15.8 H, RBC 3.71 L, Hgb 11.6 L, Hct 35.9 L, MCV 96.8, MCH 31.3, MCHC 32.3, RDW Std Deviation 50.7 H, RDW Coeff of Keiry 14.4, Plt Count 360, MPV 9.6, Immature Gran % (Auto) 2.200 H, Neut % (Auto) 84.3 H, Lymph % (Auto) 7.9 L, Platte % (Auto) 5.1, Eos % (Auto) 0.2, Baso % (Auto) 0.3, Absolute Neuts (auto) 13.3 H, Absolute Lymphs (auto) 1.24, Nucleated RBC % 0 12/02/19 07:50: Sodium 138, Potassium 4.3, Chloride 106, Carbon Dioxide 26.0, Anion Gap 6, BUN 22 H, Creatinine 1.16 H, Estim Creat Clear Calc 25.00, Est GFR (MDRD) Af Amer 57 L, Est GFR (MDRD) Non-Af 47 L, BUN/Creatinine Ratio 19.0, Glucose 134 H, Calcium 9.3, Troponin I < 0.015 12/02/19 07:50: Lactic Acid 1.4 12/02/19 07:51: Specimen Type FAUSTO, VBG pH 7.45 H, VBG pO2 71 H, VBG HCO3 24, VBG O2 Sat (Calc) 95 H, VBG Base Excess 0, POC Mix VBG pCO2 Pt Tmp 34.9 L, Liter Flow 2.0, POC Venous Total CO2 25 Current Medications Azithromycin 500 mg/ Dextrose 255 mls @ 250 mls/hr IV X1 ONE Stop: 12/02/19 09:37 Assessment/Plan All Active Problems (Last Reviewed 10/15/19 @ 12:58 by Natasha Baron ARCHITECTURAL DRAFTING INSTRUCTOR, ARCHITECTURAL DRAFTING INSTRUCTOR- C) COPD exacerbation (Acute) The patient is a 84 year old F with history of COPD, chronic hypoxic respiratory failure on 2 L of oxygen, lung cancer status post right upper lobectomy came to ED with shortness of breath progressively worsening for about 2 to 3 weeks. It got the worst yesterday night with patient being tachypneic, restless and increased work of breathing even at rest. As per patient, she could not sleep even on taking sleeping pills. Patient also has rib pain/musculoskeletal chest pain in the front and back from deep breathing. Denies fever or chills. Has mild nausea but no vomiting. Patient also complained of headache, mainly frontal headache but denies sinus discharge, nasal congestion or postnasal discharge. No syncope. In ED, patient was breathing at the rate of 38/min, pulse ox 97% on 2 L of oxygen normal blood pressure and heart rate. Chest x-ray in ED does not show acute change. Patient has leukocytosis with left shift 122/creatinine 1.16. Decreasing normal pH COVID-19 PCR negative. Troponin negative magnesium 2.2. 1. Acute respiratory insufficiency with chronic hypoxic respiratory failure secondary to COPD exacerbation: Patient is being admitted on MedSurg floor. Sputum culture and respiratory panel ordered. Blood cultures x2 ordered from ER. COVID-19 PCR negative. On bronchodilator, IV Solu-Medrol, incentive spirometry, chest physiotherapy and Mucinex. BiPAP ordered for respiratory muscle fatigue. 2. COPD exacerbation probably from viral bronchitis with a stage II moderate COPD by Gold classification: As mentioned. Patient counseled to stop smoking. Nicotine patch ordered. 2. cavitary right upper lung lesion: Patient CT scan in July 2018 reported 1.6 x 2.1 cm focal lobulated spiculated nodule in the left apex similar to prior study. Biapical scarring. Later on patient had negative PET scan in September 2019. Patient was last seen in pulmonary clinic on October 16, 2019 and advised to follow-up with Dr. Fuentes 12/17/2019 = 3. Chronic hypoxic respiratory failure: on 2 to 3 L of oxygen at home. 4. Severe malnutrition: BMI is only 15.3 and patient looks cachectic. Secondary to COPD. DVT Prophylaxis: Lovenox 40 mg sq daily Living will/advanced directive/end of life care: Patient does not have living will or advanced directive. After discussion of procedures involved with full code, DNR CC arrest and DNR CC, the patient opted for DNR-CC Arrest no intubation Patient does not want artificial life support including intubation, tube feed, ventilator and/chest compression, central venous catheter, vasopressor and DC shock if needed Total time spent in [id number] encounter in discussion of advanced directive 16 minutes. Clinical Impression(s) from Imaging Studies Chest X-Ray 12/02/19 07:27 IMPRESSION: Hyperinflation and COPD. No acute adenopathy is seen. Inpatient E&M: 79246 Init Hosp L3 Procedures: 85383 Advncd Care Plan 30 Min
[2019-12-02] MEDS: Ceftriaxone 1 GM/50 ML BAG IV (09:21)
[2019-12-02] MEDS: 0.9% Normal Saline 1,000 ML 75 ML IV (12:15)
[2019-12-02] MEDS: Famotidine 20 MG Tablet PO (12:27)
[2019-12-02] MEDS: Enoxaparin 30 MG/0.3 ML Syringe SC (12:27)
[2019-12-02 13:06] LABS: Magnesium 2.2 mg/dL (1.6-2.6)
--- NOTE | 2019-12-02 13:23 | NURSING ---
wound photo: juarez
--- NOTE | 2019-12-02 13:47 | NT.THERAPY_ITS ---
Nutrition Therapy Report - History Nutrition Services has been consulted to:: Manage nutrient details of diet order Current diet / nutrition support order:: Regular general w/ 120 cc Ensure Enlive 4x/day - Anthropometric Measurements Height:: 5 ft 5 in Weight:: 41.73 kg Body Mass Index (BMI):: 15.3 - Relevant Labs Relevant Labs:: WBC 15.8 K/mm3 (4.4-11.0) H 12/02/19 07:50 RBC 3.71 M/mm3 (4.2-5.4) L 12/02/19 07:50 Hgb 11.6 g/dL (12.0-15.0) L 12/02/19 07:50 Hct 35.9 % (37-47) L 12/02/19 07:50 RDW Std Deviation 50.7 fl (35.1-43.9) H 12/02/19 07:50 Immature Gran % (Auto) 2.200 % (0.0-0.9) H 12/02/19 07:50 Neut % (Auto) 84.3 % (47-70) H 12/02/19 07:50 Lymph % (Auto) 7.9 % (19-41) L 12/02/19 07:50 Absolute Neuts (auto) 13.3 X10^3/uL (2.0-7.7) H 12/02/19 07:50 BUN 22 mg/dL (7-18) H 12/02/19 07:50 Creatinine 1.16 mg/dL (0.55-1.02) H 12/02/19 07:50 Est GFR (MDRD) Af Amer 57 mL/min (>60) L 12/02/19 07:50 Est GFR (MDRD) Non-Af 47 mL/min (>60) L 12/02/19 07:50 Glucose 134 mg/dL (74-106) H 12/02/19 07:50 - Assessment Food / Nutrition-Related History:: Pt reports Regular diet at home, but not eating much b/ too tired to get up and fix a meal as it is hard to breathe. She tries to drink Boost 1-2 x/day. [facility] but does not [facility] so will d/c. She is agreeable to trying CIB w/ meals. Eating fairly well on MS3 d/t food already prepared and served to her. Talked to SW re: possible MOW or other meal delivery service post d/c. Pt UBW: 49.895 kg - wt loss of 16.4% over unknown time frame - pt says that she weighed 49.895 kg all of her life so wt loss must've been recent since she wasn't eating. Has difficulty swallowing foods if not chewed enough - does NOT want mech altered diet. Has PI to coccyx - agreeable to trying Evens bid to help w/ skin healing. . [ End ] - Nutrition Diagnosis Problem / Etiology / Signs & Symptoms (PES):: Pt with inadequate oral po intake r/t easily gets SOB w/ COPD/resp failure AEB 16.4% wt loss recently, pt inability to prepare meals at home d/t hard to breathe and severe fat/muscle loss. Evidence of Malnutrition Exists:: Yes Severe PCM:: Chronic Illness - Nutrition Intervention Nutrition Prescription:: [id number] ivette / 50-60 gm pro / day - Food / Nutrient Delivery Interventions Summary of nutrition intervention:: Will d/c ensure enlive at [facility] d/t pt dislikes and give cib w/ meals instead. Rec continue liberal regular diet (pt not wanting mech altered diet though it may help make food easier to eat w/ less effort). Rec MOW or other meal delivery service post d/c if pt returns home as pt not able to cook for self d/t becomes too SOB. Will order Evens bid to help w/ healing of coccyx PI. Nutrition education provided?: No - MNT Monitoring Further MNT monitoring and evaluation required?: Yes MNT Follow-up in:: 3-5 days - Please call RD/LD if questions or concerns at [phone]
[2019-12-02] MEDS: oxyCODONE 5 MG Tablet PO (14:40)
--- NOTE | 2019-12-02 15:56 | CHAPLAIN ---
Type of Pastoral Visit _x__ Initial Visit ___ Follow-up Visit ___ On-call Visit ___ General Patient Visit ___ Spiritual Assessment ___ Family Conference ___ Bereavement ___ Rapid Response ___ Code Blue ___ Other (describe below) Pastoral Care Referral From _x__ Patient ___ Family ___ Nurse ___ Physician ___ User Support Analyst Supervisor ___ Melt House Centrifugal Operator ___ Other (describe below) Sacrament/Intervention _x__ Active listening ___ Anointing ___ Latter Day ___ Bereavement ___ Communion ___ Vivian exploration ___ ___ Life review _x__ Prayer ___ Reconciliation ___ Sacrament of Sick _x__ Supportive presence ___ Wedding ___ Other (describe below) Pastoral Comments patient talks about dying and God's timing/decision
[2019-12-03] VITALS (9 sets, daily range): BP systolic 111–130; BP diastolic 48–64; PULSE 71–90; RESP 18–33; TEMP 36.7–36.8; O2SAT 92–98
--- NOTE | 2019-12-03 03:42 | CPS ---
pt sleeping comfortable -did not wake for 0300 aero tx
[2019-12-03] MEDS: Acetaminophen 325 MG Tablet 650 MG PO (05:58)
[2019-12-03] MEDS: oxyCODONE 5 MG Tablet PO (05:59)
[2019-12-03] MEDS: Ipratropium/Albuterol Sulfate 3 ML AMPUL.NEB INHALATION ×4 (06:59→19:38)
[2019-12-03 07:47] LABS: Absolute Lymphocyte Count 0.22 X10^3/uL (0.83-4.51); Absolute Neutrophil Count 8.4 X10^3/uL (2.0-7.7); Basophil# 0.01 X10^3/uL; Basophil% 0.1 % (0-1); Hematocrit 33.2 % (37-47); Hemoglobin 10.4 g/dL (12.0-15.0); Lymphocyte # 0.22 X10^3/ul (4.0); Lymphocyte % 2.5 % (19-41); Mean Corp Hgb Conc 31.3 g/dL (32-36); Mean Corpuscular Hgb 31.2 pg (27.0-32.0); Mean Corpuscular Volume 99.7 fL (81-99); Mean Platelet Vol. 9.7 fl (6.2-12.0); Monocyte# 0.17 X10^3/uL; Monocyte% 1.9 % (0-10); NRBC Flagged by Analyzer 0 % (0-5); Neutrophil # 8.35 X10^3/uL (2.7-7.7); Neutrophil % 93.6 % (47-70); POSITIVE DIFFERENTIAL YES; Platelet Count 286 K/mm3 (150-450); RBC Distribution Width CV 14.4 % (11.6-14.6); Red Blood Count 3.33 M/mm3 (4.2-5.4); White Blood Count 8.9 K/mm3 (4.4-11.0)
[2019-12-03 07:50] LABS: Differential Indicated SCAN CRITERIA MET
[2019-12-03 08:10] LABS: Anion Gap 7 (5-15); BUN 31 mg/dL (7-18); BUN/Creat Ratio 26.7 RATIO (10-20); Calcium,Total 8.4 mg/dL (8.5-10.1); Chloride 107 mmol/L (98-107); Creatinine, Serum 1.16 mg/dL (0.55-1.02); EST Glomerular Filtration Rate 47 mL/min (>60); Est Glom Filt Rate - Afr Amer 57 mL/min (>60); Estimated Creatinine Clearance 22.93 ml/min; Glucose 370 mg/dL (74-106); Potassium 4.3 mmol/L (3.5-5.1); Sodium Level 137 mmol/L (136-145)
--- NOTE | 2019-12-03 10:18 | NURSING ---
Pt has very thick, overgrown toenails to bilateral great toes. Pt states she has been wearing bandaids over the toenails for years because they dig into the toes next to them. States she only has one pair of shoes that she can wear d/t the toenails. Pt states that her daughters have tried to get her to have them looked at, but patient has been very reluctant. Pt states at my age, I can't survive another surgery. Discussed with patient that podiatry could trim the toenails and it would not be a big surgery. pt states she wants to think about it for a day and will discuss it with her daughters. This nurse is worried that patient will not follow through if podiatry doesn't see her here. will continue to follow.
[2019-12-03] MEDS: Ibuprofen 600 MG Tablet PO (10:29)
[2019-12-03] MEDS: 0.9% Saline Lock 10 ML Syringe IV ×3 (10:30→14:22)
[2019-12-03] MEDS: Enoxaparin 30 MG/0.3 ML Syringe SC (10:31)
[2019-12-03] MEDS: Famotidine 20 MG Tablet PO (10:32)
--- NOTE | 2019-12-03 10:55 | CASEMGMT ---
RN CM Face to Face with patient for initial transition planning/care coordination assessment. RN CM introduced self and role at [facility]. Patient lying in bed, alert and oriented. Patient willing to participate in assessment and is able to answer all questions appropriately. Care providers, pharmacy, and demographics verified. Patient wishes to discharge home will monitor for need for HHC. . Patient states she has no further needs or concerns at this time. CM to follow for discharge planning needs that may arise. PCP: Jose Alberto Specialists: Alfredo geriatric physical therapist [facility] Benef[facility]: yes Living Will/HPOA: none LNOK: 2 daughter and son Living Arrangements: Patient lives alone in a 2 story home with bed and bath on first floor. 2 steps and railing to enter the home. Patient states she is independent at home. Transportation: daughters DME/HHC: patient states she has shower chair, raised toilet, walker, grab bars, nebulizer, and oxygen 2 lpm at HS through [facility] (no portability). Patient has been Shanery Pham in the past. Disposition Plan: Yvonne FARRIS, RN, CM
[2019-12-03] MEDS: Sodium Chloride 0.65% 1 SPRAY SPRAY.BTL 2 SPRAY NASAL ×2 (11:22→22:25)
[2019-12-03 11:48] LABS: Mucous, Urine 0 SEEN /hpf (<or=2+); Red Blood Cells-Urine 0 SEEN /hpf (0-5)
[2019-12-03 11:51] LABS: Color, Urine Yellow (Yellow); Glucose, Dipstick 1000 mg/dl (Normal); Ketone-Dipstick Negative (Negative); Leukocyte Esterase-Dipstick 100 /ul (Negative); Nitrite-Dipstick Positive (Negative); Occult Blood-Urine Negative /ul (Negative); Protein-Dipstick Negative (Negative); Specific Gravity, Urine 1.015 (1.002-1.030); Urine Bilirubin Dipstick Negative (Negative); Urine Clarity Sl. Cloudy (Clear); Urine Urobilinogen Normal (Normal)
[2019-12-03 11:57] LABS: Bacteria 2+ /hpf (None Seen); Squamous Epithelial Cells - UA 0-5 SEEN /hpf (5-10); White Blood Cells 5-10 SEEN /hpf (0-5)
[2019-12-03] MEDS: ALPRAZolam 0.25 MG Tablet 0.125 MG PO (12:02)
[2019-12-03] MEDS: oxyCODONE 5 MG Tablet 10 MG PO ×2 (14:37→22:23)
[2019-12-03] MEDS: BENZOCAINE/MENTHOL 1 LOZENGE MUCOUS MEM ×3 (14:37→22:24)
--- NOTE | 2019-12-03 15:06 | PN_ITS ---
Patient Problems: Active and Suspected Problems (Last Reviewed 10/15/19 @ 12:58 by Natasha Baron AIRCRAFT INSTRUMENT MECHANIC, AIRCRAFT INSTRUMENT MECHANIC-C) COPD exacerbation (Acute) Reason for Visit: F/U COPD Exacerbation Objective: Pt still SOB and chest tightness. Feels little better. General: Alert, Oriented x3, Cooperative HEENT: Atraumatic, PERRLA, EOMI, Normocephalic Oral: No Gingival or Mucosal Lesions/ Ulcerations, Dry Mucosa Neck: Supple, No JVD, Negative Carotid Bruits Lungs: Air entry severely diminished in both lungs Rhonchi, Right posterior lateral thoracotomy scar Cardiovascular: Regular rate, Regular Rhythm, Normal S1, Normal S2, No murmurs Abdomen: Bowel Sounds Present, Soft, Non Tender, Non-Distended Extremities: No edema, Capillary Refill Less than 3 Seconds Skin: No rashes, No breakdown Musculoskeletal: No Tenderness to Palpation of Joints or Extremities, Arthritic Changes, Moderate muscle atrophy of extremities and diffuse subcutaneous fat loss Neurological: Cranial nerves II-XII grossly intact, Deep Tendon Reflexes 2+/4 and Symmetrical, Neuro grossly intact Psych/Mental Status: Normal Affect, Appropriate Vitals/I&O's: Vital Signs Temp Pulse Resp BP Pulse Ox 98.3 F 90 24 H 117/55 L 96 12/03/19 14:28 12/03/19 14:39 12/03/19 14:28 12/03/19 14:28 12/03/19 14:28 Oxygen Flow Rate (L/min) 2 Oxygen Delivery Method Nasal Cannula Weight: 91 lb 15.982 oz Body Mass Index (BMI) 15.3 Intake and Output for Last 24 Hours 12/01/19 12/02/19 12/03/19 23:59 23:59 23:59 Intake Total 955 / 1055 1578.25 / 1578.25 Output Total 160 / 160 Balance 955 / 1055 1418.25 / 1418.25 Microbiology Past 72 Hours 12/03/19 11:40 Urine Catheter - Catheter Legionella Antigen - Final 12/03/19 11:40 Urine, Random Streptococcus pneumoniae Antigen (M - Final 12/02/19 07:50 Blood Culture (Wb) - Left Forearm Blood Culture - Preliminary GNR lactose high school music teacher 12/02/19 13:15 Mucosa - Nose Respiratory Panel (PCR) - Final 12/02/19 07:35 Mucosa - Nose Influenza Types A,B Direct FA (NERY) - Final Laboratory Results 12/03/19 07:30: WBC 8.9, RBC 3.33 L, Hgb 10.4 L, Hct 33.2 L, MCV 99.7 H, MCH 31.2, MCHC 31.3 L, RDW Std Deviation 52.0 H, RDW Coeff of Keiry 14.4, Plt Count 286, MPV 9.7, Immature Gran % (Auto) 1.900 H, Neut % (Auto) 93.6 H, Lymph % (Auto) 2.5 L, Duval % (Auto) 1.9, Eos % (Auto) 0.0, Baso % (Auto) 0.1, Absolute Neuts (auto) 8.4 H, Absolute Lymphs (auto) 0.22 L, Nucleated RBC % 0, Differential Comment COMMENT 12/03/19 07:30: Sodium 137, Potassium 4.3, Chloride 107, Carbon Dioxide 23.0, Anion Gap 7, BUN 31 H, Creatinine 1.16 H, Estim Creat Clear Calc 22.93, Est GFR (MDRD) Af Amer 57 L, Est GFR (MDRD) Non-Af 47 L, BUN/Creatinine Ratio 26.7 H, Glucose 370 H, Calcium 8.4 L 12/03/19 11:40: Urine Color Yellow, Urine Clarity Sl. Cloudy, Urine pH 5.0, Ur Specific [place] 1.015, Urine Protein Negative, Urine Glucose (UA) 1000 H, Urine Ketones Negative, Urine Occult Blood Negative, Urine Nitrite Positive H, Urine Bilirubin Negative, Urine Urobilinogen Normal, Ur Leukocyte Esterase 100 H, Urine RBC 0 SEEN, Urine WBC 5-10 SEEN, Ur Squamous Epith Cells 0-5 SEEN, Urine Bacteria 2+, Urine Mucus 0 SEEN Current Medications Acetaminophen (Acetaminophen 325 Mg Tablet) 650 mg PO Q6H PRN PRN PRN Reason: Pain Score 1-10/Temp > 100.7 F Last Admin: 12/03/19 05:58 Dose: 650 mg Documented by: Al Hydroxide/Mg Hydroxide (Mag Hydrox/Al Hydrox/Simeth 30 Ml Udc) 30 ml PO Q6H PRN PRN PRN Reason: Gastric Burning Albuterol Sulfate (Albuterol 2.5 Mg/3 Ml Vial.Neb.) 2.5 mg INHALATION Q2H PRN PRN PRN Reason: Shortness of Breath/Wheezing Albuterol/Ipratropium (Ipratropium/Albuterol Sulfate 3 Ml Ampul.Neb) 3 ml INHALATION Q4H.RT [facility] Last Admin: 12/03/19 11:48 Dose: 3 ml Documented by: Alprazolam (Alprazolam 0.25 Mg Tablet) 0.125 mg PO TID PRN PRN Reason: ANXIETY Last Admin: 12/03/19 12:02 Dose: 0.125 mg Documented by: Enoxaparin Sodium (Enoxaparin 30 Mg/0.3 Ml Syringe) 30 mg SC DAILY [facility] Last Admin: 12/03/19 10:31 Dose: 30 mg Documented by: Famotidine (Famotidine 20 Mg Tablet) 20 mg PO DAILY [facility] Last Admin: 12/03/19 10:32 Dose: 20 mg Documented by: Sodium Chloride () 250 mls @ 15 mls/hr IV .[id number] PRN PRN Reason: Additional IVPB Infusion Last Infusion: 12/03/19 12:03 Dose: 0 mls/hr Documented by: Azithromycin 500 mg/ Dextrose 255 mls @ 250 mls/hr IV Q24 [facility] Stop: 12/05/19 11:02 Last Infusion: 12/03/19 13:20 Dose: Infused Documented by: Ceftriaxone Sodium 2 gm/ (Sodium Chloride) 50 mls @ 100 mls/hr IV Q24 [facility] Last Infusion: 12/03/19 11:23 Dose: Infused Documented by: Ibuprofen (Ibuprofen 400 Mg Tablet) 400 mg PO Q6H PRN PRN PRN Reason: Pain Score 1-3 Melatonin (Melatonin 3 Mg Tablet) 3 mg PO QHS PRN PRN PRN Reason: INSOMNIA Methylprednisolone (Methylprednisolone 40 Mg/Ml Vial) 40 mg IV Q8 [facility] Last Admin: 12/03/19 14:22 Dose: 40 mg Documented by: Morphine Sulfate (Morphine 2 Mg/Ml Syringe) 2 mg IV Q3H PRN PRN PRN Reason: Pain Score 6-10 Nicotine (Nicotine 21 Mg Patch) 21 mg TRANSDERM. DAILY [facility] Last Admin: 12/03/19 11:22 Dose: 21 mg Documented by: Nitroglycerin (Nitroglycerin (Inpatient Use) 0.4 Mg Tab.Subl) 0.4 mg SUBLINGUAL Q5M PRN PRN Reason: CARDIAC/CHEST PAIN Oxycodone HCl (Oxycodone 5 Mg Tablet) 5 mg PO Q4H PRN PRN PRN Reason: Pain Score 4-5 Last Admin: 12/03/19 05:59 Dose: 5 mg Documented by: Oxycodone HCl (Oxycodone 5 Mg Tablet) 10 mg PO Q4H PRN PRN PRN Reason: Pain Score 6-10 Last Admin: 12/03/19 14:37 Dose: 10 mg Documented by: Polyethylene Glycol (Polyethylene Glycol 3350 17 Gm Packet) 17 gm PO DAILY [facility] Last Admin: 12/03/19 10:33 Dose: Not Given Documented by: Prochlorperazine Edisylate (Prochlorperazine 10 Mg/2 Ml Vial) 5 mg IV Q4H PRN PRN PRN Reason: Breakthrough nausea/vomiting Senna/Docusate Sodium (Senna/Docusate Sodium 1 Tablet) 2 tablet PO BID [facility] Last Admin: 12/03/19 10:36 Dose: Not Given Documented by: Sodium Chloride (0.9% Saline Lock 10 Ml Syringe) 10 - 40 ml IV UD PRN PRN Reason: SALINE FLUSH Last Admin: 12/03/19 14:22 Dose: 20 ml Documented by: Sodium Chloride (Sodium Chloride 0.65% 1 [place].Btl) 2 spray NASAL BID [facility] Last Admin: 12/03/19 11:22 Dose: 2 sprays Documented by: Throat Lozenges (Benzocaine/Menthol 1 Lozenge) 1 lozenge MUCOUS MEM Q2H PRN PRN PRN Reason: SORE THROAT Last Admin: 12/03/19 14:37 Dose: 1 lozenge Documented by: STROKE Vital Signs/Narrative: Vital Signs Temp Pulse Resp BP Pulse Ox 12/03/19 14:39 90 12/03/19 14:28 98.3 F 76 24 H 117/55 L 96 12/03/19 11:45 82 33 H Medical Necessity - Tobacco Use Smoking Status: Current every day smoker Tobacco Use: Cigarettes - 3 to 4 cigarettes daily. Patient is smokes since teenage Assessment/Plan All Active Problems (Last Reviewed 10/15/19 @ 12:58 by Natasha Baron AIRCRAFT INSTRUMENT MECHANIC, AIRCRAFT INSTRUMENT MECHANIC- C) COPD exacerbation (Acute) The patient is a 84 year old F with history of COPD, chronic hypoxic respiratory failure on 2 L of oxygen, lung cancer status post right upper lobectomy came to ED with shortness of breath progressively worsening for about 2 to 3 weeks consistent with COPD exacerbation. Chest x-ray in ED does not show acute change. Patient has leukocytosis with left shift 122/creatinine 1.16. VBG normal pH COVID-19 PCR negative. Troponin negative magnesium 2.2. 1. Acute respiratory insufficiency with chronic hypoxic respiratory failure secondary to COPD exacerbation: Patient is being admitted on MedSurg floor. COVID-19 PCR negative. On bronchodilator, IV Solu-Medrol, incentive spirometry, chest physiotherapy and Mucinex. BiPAP PRN For rescue breathing or night 2. Gram neg paddy bacteremia, exact source unclear, possible pneumonia: On IV Ceftriaxone. Prelim blood cx positie of Gram neg paddy, lactose high school music teacher. Resp panel, urinary antigens are negative. ID consult requested. 3. COPD exacerbation probably from viral bronchitis with a stage II moderate COPD by Gold classification: As mentioned. Patient counseled to stop smoking. Nicotine patch 2. cavitary right upper lung lesion: Patient CT scan in July 2018 reported 1.6 x 2.1 cm focal lobulated spiculated nodule in the left apex similar to prior study. Biapical scarring. Later on patient had negative PET scan in September 2019. Patient was last seen in pulmonary clinic on October 16, 2019 and advised to follow-up with Dr. Fuentes 12/17/2019 3. Chronic hypoxic respiratory failure: on 2 to 3 L of oxygen at home. 4. Severe malnutrition: BMI is only 15.3 and patient looks cachectic. Secondary to COPD. DVT Prophylaxis: Lovenox 40 mg sq daily Living will/advanced directive/end of life care: Patient does not have living will or advanced directive. DNR-CC Arrest no intubation Microbiology Past 72 Hours 12/03/19 11:40 Urine Catheter - Catheter Legionella Antigen - Final 12/03/19 11:40 Urine, Random Streptococcus pneumoniae Antigen (M - Final 12/02/19 07:50 Blood Culture (Wb) - Left Forearm Blood Culture - Preliminary GNR lactose high school music teacher 12/02/19 13:15 Mucosa - Nose Respiratory Panel (PCR) - Final 12/02/19 07:35 Mucosa - Nose Influenza Types A,B Direct FA (NERY) - Final Laboratory Results 12/03/19 07:30: WBC 8.9, RBC 3.33 L, Hgb 10.4 L, Hct 33.2 L, MCV 99.7 H, MCH 31.2, MCHC 31.3 L, RDW Std Deviation 52.0 H, RDW Coeff of Keiry 14.4, Plt Count 286, MPV 9.7, Immature Gran % (Auto) 1.900 H, Neut % (Auto) 93.6 H, Lymph % (Auto) 2.5 L, Duval % (Auto) 1.9, Eos % (Auto) 0.0, Baso % (Auto) 0.1, Absolute Neuts (auto) 8.4 H, Absolute Lymphs (auto) 0.22 L, Nucleated RBC % 0, Differential Comment COMMENT 12/03/19 07:30: Sodium 137, Potassium 4.3, Chloride 107, Carbon Dioxide 23.0, Anion Gap 7, BUN 31 H, Creatinine 1.16 H, Estim Creat Clear Calc 22.93, Est GFR (MDRD) Af Amer 57 L, Est GFR (MDRD) Non-Af 47 L, BUN/Creatinine Ratio 26.7 H, Glucose 370 H, Calcium 8.4 L 12/03/19 11:40: Urine Color Yellow, Urine Clarity Sl. Cloudy, Urine pH 5.0, Ur Specific [place] 1.015, Urine Protein Negative, Urine Glucose (UA) 1000 H, Urine Ketones Negative, Urine Occult Blood Negative, Urine Nitrite Positive H, Urine Bilirubin Negative, Urine Urobilinogen Normal, Ur Leukocyte Esterase 100 H, Urine RBC 0 SEEN, Urine WBC 5-10 SEEN, Ur Squamous Epith Cells 0-5 SEEN, Urine Bacteria 2+, Urine Mucus 0 SEEN Clinical Impression(s) from Imaging Studies Chest X-Ray 12/02/19 07:27 IMPRESSION: Hyperinflation and COPD. No acute adenopathy is seen. Inpatient E&M: 06324 Subs Hosp L2
--- NOTE | 2019-12-03 16:16 | PCM.HP.ID ---
Problem List (1) Bacteremia due to Gram-negative bacteria Status: Acute Reason for Consult: bacteremia Consulted by: Dr. Zacarias History of Present Illness: The patient is a 84 year old F with h/o COPD, presented with one month of fatigue, dyspnea, rigors, painful mass on chest. Follows with Dr. Fuentes. Came to ED with one day of acutely worsened symptoms, not feeling well. Started on azithro/ceftriaxone. Mild dysuria, no abd pain, no n/v/d. Covid neg. Feeling better today. Full ROS performed and neg except as noted above. Some yellow sputum, not much different from baseline. - Medical History Past Medical History (Chronic Problems): Chronic Problems (Last Reviewed 10/15/19 @ 12:58 by Natasha Baron CERTIFIED SOLID WASTE FACILITY OPERATOR, CERTIFIED SOLID WASTE FACILITY OPERATOR-C) Incidental lung nodule, greater than or equal to 8mm (Chronic) Stage 2 moderate COPD by GOLD classification (Chronic) Bronchiectasis (Chronic) Chronic obstructive pulmonary disease (COPD) (Chronic) Chronic respiratory failure with hypoxia (Chronic) Severe protein-calorie malnutrition (Chronic) History of tobacco use (Chronic) Chronic back pain (Chronic) History of lung cancer (Chronic) Allergies/Adverse Reactions: Allergies No Known Allergies Allergy (Verified 10/15/19 12:40) Home Medications: Ambulatory Orders Medication Instructions Recorded Hydrocodone/Acetaminophen [[place] 1 ea PO BID PRN PRN 05/27/18 5-325 Tablet] budesonide 0.5 mg/2 mL suspension 0.5 mg INHALATION BID #60 ml 12/17/18 for nebulization ipratropium 0.5 mg-albuterol 3 mg 3 ml INHALATION Q8H #180 ml 12/17/18 (2.5 mg base)/3 mL nebulization soln arformoterol 15 mcg/2 mL solution 2 ml INHALATION BID #120 ml 08/27/19 for nebulization albuterol sulfate 2.5 mg INHALATION Q4H PRN #180 ml 10/15/19 albuterol sulfate 90 mcg/actuation 1 - 2 puff INHALATION Q4H PRN PRN 12/02/19 aerosol inhaler #1 inhaler - Social History SMOKING STATUS:: Current every day smoker Vital Signs Temp Pulse Resp BP Pulse Ox 98.3 F 90 24 H 117/55 L 96 12/03/19 14:28 12/03/19 14:39 12/03/19 14:28 12/03/19 14:28 12/03/19 14:28 Oxygen Flow Rate (L/min) 2 Oxygen Delivery Method Nasal Cannula Weight: 41.73 kg Body Mass Index (BMI) 15.3 Microbiology Past 72 Hours 12/03/19 11:40 Legionella Antigen - Final Urine Catheter - Catheter 12/03/19 11:40 Streptococcus pneumoniae Antigen (M - Final Urine, Random 12/02/19 07:50 Blood Culture - Preliminary Blood Culture (Wb) - Left Forearm GNR lactose tarper 12/02/19 13:15 Respiratory Panel (PCR) - Final Mucosa - Nose 12/02/19 07:35 Influenza Types A,B Direct FA (NERY) - Final Mucosa - Nose Laboratory Tests Past 24 Hrs 12/03/19 12/03/19 12/03/19 07:30 07:30 11:40 WBC 8.9 RBC 3.33 L Hgb 10.4 L Hct 33.2 L MCV 99.7 H MCH 31.2 MCHC 31.3 L RDW Std Deviation 52.0 H RDW Coeff of Keiry 14.4 Plt Count 286 MPV 9.7 Immature Gran % (Auto) 1.900 H Neut % (Auto) 93.6 H Lymph % (Auto) 2.5 L Mcculloch % (Auto) 1.9 Eos % (Auto) 0.0 Baso % (Auto) 0.1 Absolute Neuts (auto) 8.4 H Absolute Lymphs (auto) 0.22 L Nucleated RBC % 0 Differential Comment COMMENT Sodium 137 Potassium 4.3 Chloride 107 Carbon Dioxide 23.0 Anion Gap 7 BUN 31 H Creatinine 1.16 H Estim Creat Clear Calc 22.93 Est GFR (MDRD) Af Amer 57 L Est GFR (MDRD) Non-Af 47 L BUN/Creatinine Ratio 26.7 H Glucose 370 H Calcium 8.4 L Urine Color Yellow Urine Clarity Sl. Cloudy Urine pH 5.0 Ur Specific [place] 1.015 Urine Protein Negative Urine Glucose (UA) 1000 H Urine Ketones Negative Urine Occult Blood Negative Urine Nitrite Positive H Urine Bilirubin Negative Urine Urobilinogen Normal Ur Leukocyte Esterase 100 H Urine RBC 0 SEEN Urine WBC 5-10 SEEN Ur Squamous Epith Cells 0-5 SEEN Urine Bacteria 2+ Urine Mucus 0 SEEN - Other Studies Radiology: [] reviewed Other Studies: [] Route of nutrition/ use of supplements: [] Nutritional Intake: [] IV Site: [] George Catheter: [] - Physical Exam General: Cooperative, No apparent distress HEENT: Atraumatic, PERRLA, EOMI Neck: Supple, No Nodes Lungs: Wheezes Cardiovascular: Regular rate, Regular Rhythm Abdomen: Soft, Non Tender, Non-Distended Extremities: No edema Skin: No rashes IV Site: Peripheral, without redness Musculoskeletal: No Tenderness to Palpation of Joints or Extremities Neurological: Cranial nerves II-XII grossly intact - Assessment/Plan Antibiotics: [] Assessment/Plan: [] Active and Suspected Problems (Last Reviewed 10/15/19 @ 12:58 by Natasha Baron CERTIFIED SOLID WASTE FACILITY OPERATOR, CERTIFIED SOLID WASTE FACILITY OPERATOR-C) COPD exacerbation (Acute) GNR bacteremia - wbc rapidly normalized, feeling better. Checking Ucx and UAgs. UAgs now neg, will stop azithro, cont ceftriaxone. GNR is lactose fermentor. Will follow, thank you
--- NOTE | 2019-12-03 16:20 | CASEMGMT ---
Social Work Note SW received referral for Meals on Wheels. Pt also noted that she has difficulty cleaning her home. SW in to speak with pt. SW introduced self and role at [facility]. Pt is alert and orientated x3. Pt states that she is already getting Meals on Wheels. SW spoke with pt regarding [facility] Home/ Area Agency on Aging and Private Duty List. SW provided pt with community resources including [facility] and Private Duty list. Pt thanked this worker. denied additional needs or concerns. Yvonne Mendoza MANAGER QUALITY IMPROVEMENT, HEAT SET OPERATOR
[2019-12-04] VITALS (11 sets, daily range): BP systolic 112–123; BP diastolic 50–63; PULSE 79–88; RESP 17–20; TEMP 36.8–37.1; O2SAT 91–98
--- NOTE | 2019-12-04 01:27 | CPS ---
PATIENT REFUSED BIPAP
[2019-12-04] MEDS: Acetaminophen 325 MG Tablet 650 MG PO (03:40)
[2019-12-04] MEDS: oxyCODONE 5 MG Tablet 10 MG PO ×4 (03:40→19:38)
[2019-12-04] MEDS: 0.9% Saline Lock 10 ML Syringe IV ×4 (05:17→21:38)
[2019-12-04 05:47] LABS: Absolute Lymphocyte Count 0.27 X10^3/uL (0.83-4.51); Absolute Neutrophil Count 13.9 X10^3/uL (2.0-7.7); Basophil# 0.01 X10^3/uL; Basophil% 0.1 % (0-1); Hematocrit 32.4 % (37-47); Hemoglobin 10.2 g/dL (12.0-15.0); Lymphocyte # 0.27 X10^3/ul (4.0); Lymphocyte % 1.8 % (19-41); Mean Corp Hgb Conc 31.5 g/dL (32-36); Mean Corpuscular Hgb 31.6 pg (27.0-32.0); Mean Corpuscular Volume 100.3 fL (81-99); Mean Platelet Vol. 10.1 fl (6.2-12.0); Monocyte# 0.44 X10^3/uL; NRBC Flagged by Analyzer 0 % (0-5); Neutrophil # 13.92 X10^3/uL (2.7-7.7); Neutrophil % 93.4 % (47-70); POSITIVE DIFFERENTIAL YES; Platelet Count 287 K/mm3 (150-450); RBC Distribution Width CV 14.4 % (11.6-14.6); Red Blood Count 3.23 M/mm3 (4.2-5.4); White Blood Count 14.9 K/mm3 (4.4-11.0)
[2019-12-04 05:51] LABS: Differential Indicated SCAN CRITERIA MET
[2019-12-04 06:10] LABS: Anion Gap 7 (5-15); BUN 35 mg/dL (7-18); BUN/Creat Ratio 25.4 RATIO (10-20); Calcium,Total 8.9 mg/dL (8.5-10.1); Chloride 107 mmol/L (98-107); Creatinine, Serum 1.38 mg/dL (0.55-1.02); EST Glomerular Filtration Rate 39 mL/min (>60); Est Glom Filt Rate - Afr Amer 47 mL/min (>60); Estimated Creatinine Clearance 19.28 ml/min; Glucose 484 mg/dL (74-106); Potassium 4.6 mmol/L (3.5-5.1); Sodium Level 136 mmol/L (136-145)
[2019-12-04 06:13] LABS: Differential Comment SCANNED
[2019-12-04 06:16] LABS: Bedside Glucose 461 mg/dL (70-110)
[2019-12-04] MEDS: Ipratropium/Albuterol Sulfate 3 ML AMPUL.NEB INHALATION ×3 (06:58→20:39)
[2019-12-04] MEDS: Insulin Lispro 100 UNIT/ML INSULN.PEN 20 UNIT SC (07:06)
[2019-12-04 07:16] LABS: Hemoglobin A1c 6.7 % (3.8-5.6)
[2019-12-04] MEDS: Enoxaparin 30 MG/0.3 ML Syringe SC (09:41)
[2019-12-04] MEDS: Famotidine 20 MG Tablet PO (09:44)
[2019-12-04] MEDS: Insulin Lispro 100 UNIT/ML INSULN.PEN SC ×3 (11:12→21:38)
--- NOTE | 2019-12-04 11:32 | PCM.PN.HOSP ---
Patient Problems: Active and Suspected Problems (Last Reviewed 10/15/19 @ 12:58 by Natasha Baron THREAD SINGER, THREAD SINGER-C) Bacteremia due to Gram-negative bacteria (Acute) COPD exacerbation (Acute) Reason for Visit: Follow-up for COPD exacerbation and ESBL E. coli Objective: Patient did not had any fever since admission. Patient is growing ESBL E. coli in blood. Urine culture presumptive E. coli, more than 100,000 although you wish WBC was 5-10 cells and patient denies dysuria. Blood sugar was high. Heart rate and blood pressure controlled. Patient overall respiratory status is improved and feeling better with respect of chest tightness and shortness of breath Physical exam General: Alert, Oriented x3, Cooperative HEENT: Atraumatic, PERRLA, EOMI, Normocephalic Oral: No Gingival or Mucosal Lesions/ Ulcerations Neck: Supple, No JVD, Negative Carotid Bruits Lungs: Air entry diminished in bilateral lung bases. Bilateral expiratory rhonchi, improved Cardiovascular: Regular rate, Regular Rhythm, Normal S1, Normal S2, No murmurs Abdomen: Bowel Sounds Present, Soft, Non Tender, Non-Distended : No renal angle tenderness. No suprapubic tenderness. Extremities: No edema, Capillary Refill Less than 3 Seconds Skin: No rashes, No breakdown Musculoskeletal: No Tenderness to Palpation of Joints or Extremities Neurological: Cranial nerves II-XII grossly intact, Deep Tendon Reflexes 2+/4 and Symmetrical, Neuro grossly intact Psych/Mental Status: Normal Affect, Appropriate. Vitals/I&O's: Vital Signs Temp Pulse Resp BP Pulse Ox 98.2 F 84 18 113/50 L 96 12/04/19 09:39 12/04/19 09:39 12/04/19 09:39 12/04/19 09:39 12/04/19 11:28 Oxygen Flow Rate (L/min) [ 0 AMBULATING on Room Air] Oxygen Flow Rate (L/min) [At 0 REST on Room Air] Oxygen Flow Rate (L/min) 1.5 Oxygen Delivery Method Nasal Cannula Weight: 91 lb 15.982 oz Body Mass Index (BMI) 15.3 Intake and Output for Last 24 Hours 12/02/19 12/03/19 12/04/19 23:59 23:59 23:59 Intake Total 955 / 1055 1578.25 / 1778.25 450 / 450 Output Total 160 / 160 Balance 955 / 1055 1418.25 / 1618.25 450 / 450 Microbiology Past 72 Hours 12/03/19 11:40 Urine, Catheterized Urine Culture - Preliminary Presumptive E. coli 12/02/19 07:50 Blood Culture (Wb) - Left Forearm Blood Culture - Preliminary Escherichia coli 12/02/19 07:50 Blood Culture (Wb) - Anticubital Right Blood Culture - Preliminary No growth in 48 hours. 12/03/19 11:40 Urine Catheter - Catheter Legionella Antigen - Final 12/03/19 11:40 Urine, Random Streptococcus pneumoniae Antigen (M - Final 12/02/19 13:15 Mucosa - Nose Respiratory Panel (PCR) - Final 12/02/19 07:35 Mucosa - Nose Influenza Types A,B Direct FA (NERY) - Final Laboratory Results 12/03/19 11:40: Urine Color Yellow, Urine Clarity Sl. Cloudy, Urine pH 5.0, Ur Specific Seltzer 1.015, Urine Protein Negative, Urine Glucose (UA) 1000 H, Urine Ketones Negative, Urine Occult Blood Negative, Urine Nitrite Positive H, Urine Bilirubin Negative, Urine Urobilinogen Normal, Ur Leukocyte Esterase 100 H, Urine RBC 0 SEEN, Urine WBC 5-10 SEEN, Ur Squamous Epith Cells 0-5 SEEN, Urine Bacteria 2+, Urine Mucus 0 SEEN 12/04/19 05:37: WBC 14.9 H, RBC 3.23 L, Hgb 10.2 L, Hct 32.4 L, MCV 100.3 H, MCH 31.6, MCHC 31.5 L, RDW Std Deviation 53.0 H, RDW Coeff of Keiry 14.4, Plt Count 287, MPV 10.1, Immature Gran % (Auto) 1.700 H, Neut % (Auto) 93.4 H, Lymph % (Auto) 1.8 L, [place] % (Auto) 3.0, Eos % (Auto) 0.0, Baso % (Auto) 0.1, Absolute Neuts (auto) 13.9 H, Absolute Lymphs (auto) 0.27 L, Nucleated RBC % 0, Differential Comment SCANNED 12/04/19 05:37: Sodium 136, Potassium 4.6, Chloride 107, Carbon Dioxide 22.0, Anion Gap 7, BUN 35 H, Creatinine 1.38 H, Estim Creat Clear Calc 19.28, Est GFR (MDRD) Af Amer 47 L, Est GFR (MDRD) Non-Af 39 L, BUN/Creatinine Ratio 25.4 H, Glucose 484 H*, Calcium 8.9 12/04/19 05:37: Hemoglobin A1c 6.7 H 12/04/19 06:13: POC Glucose 461 H* Current Medications Acetaminophen (Acetaminophen 325 Mg Tablet) 650 mg PO Q6H PRN PRN PRN Reason: Pain Score 1-10/Temp > 100.7 F Last Admin: 12/04/19 03:40 Dose: 650 mg Documented by: Al Hydroxide/Mg Hydroxide (Mag Hydrox/Al Hydrox/Simeth 30 Ml Udc) 30 ml PO Q6H PRN PRN PRN Reason: Gastric Burning Albuterol Sulfate (Albuterol 2.5 Mg/3 Ml Vial.Neb.) 2.5 mg INHALATION Q2H PRN PRN PRN Reason: Shortness of Breath/Wheezing Albuterol/Ipratropium (Ipratropium/Albuterol Sulfate 3 Ml Ampul.Neb) 3 ml INHALATION Q4H.RT [facility] Last Admin: 12/04/19 06:58 Dose: 3 ml Documented by: Alprazolam (Alprazolam 0.25 Mg Tablet) 0.125 mg PO TID PRN PRN Reason: ANXIETY Last Admin: 12/03/19 12:02 Dose: 0.125 mg Documented by: Enoxaparin Sodium (Enoxaparin 30 Mg/0.3 Ml Syringe) 30 mg SC DAILY [facility] Last Admin: 12/04/19 09:41 Dose: 30 mg Documented by: Famotidine (Famotidine 20 Mg Tablet) 20 mg PO DAILY [facility] Last Admin: 12/04/19 09:44 Dose: 20 mg Documented by: Sodium Chloride () 250 mls @ 15 mls/hr IV .[id number] PRN PRN Reason: Additional IVPB Infusion Last Infusion: 12/03/19 12:03 Dose: 0 mls/hr Documented by: Meropenem 500 mg/ Sodium (Chloride) 60 mls @ 100 mls/hr IV Q12 [facility] Last Infusion: 12/04/19 11:12 Dose: 0 mls/hr Documented by: Ibuprofen (Ibuprofen 400 Mg Tablet) 400 mg PO Q6H PRN PRN PRN Reason: Pain Score 1-3 Insulin Glargine (Insulin Glargine 100 Units/Ml Pen) 15 units SC BID [facility] Last Admin: 12/04/19 11:14 Dose: 15 u Documented by: Insulin Human Lispro (Insulin Lispro 100 Unit/Ml Insuln.Pen) 0 unit SC Q6 [facility]; Protocol Last Admin: 12/04/19 11:12 Dose: 6 u Documented by: Melatonin (Melatonin 3 Mg Tablet) 3 mg PO QHS PRN PRN PRN Reason: INSOMNIA Morphine Sulfate (Morphine 2 Mg/Ml Syringe) 2 mg IV Q3H PRN PRN PRN Reason: Pain Score 6-10 Nicotine (Nicotine 21 Mg Patch) 21 mg TRANSDERM. DAILY [facility] Last Admin: 12/04/19 09:43 Dose: 21 mg Documented by: Nitroglycerin (Nitroglycerin (Inpatient Use) 0.4 Mg Tab.Subl) 0.4 mg SUBLINGUAL Q5M PRN PRN Reason: CARDIAC/CHEST PAIN Oxycodone HCl (Oxycodone 5 Mg Tablet) 5 mg PO Q4H PRN PRN PRN Reason: Pain Score 4-5 Last Admin: 12/03/19 05:59 Dose: 5 mg Documented by: Oxycodone HCl (Oxycodone 5 Mg Tablet) 10 mg PO Q4H PRN PRN PRN Reason: Pain Score 6-10 Last Admin: 12/04/19 09:45 Dose: 10 mg Documented by: Polyethylene Glycol (Polyethylene Glycol 3350 17 Gm Packet) 17 gm PO DAILY [facility] Last Admin: 12/04/19 09:42 Dose: Not Given Documented by: Prednisone (Prednisone 20 Mg Tablet) 40 mg PO DAILY@0800 [facility] Prochlorperazine Edisylate (Prochlorperazine 10 Mg/2 Ml Vial) 5 mg IV Q4H PRN PRN PRN Reason: Breakthrough nausea/vomiting Senna/Docusate Sodium (Senna/Docusate Sodium 1 Tablet) 2 tablet PO BID [facility] Last Admin: 12/04/19 09:45 Dose: Not Given Documented by: Sodium Chloride (0.9% Saline Lock 10 Ml Syringe) 10 - 40 ml IV UD PRN PRN Reason: SALINE FLUSH Last Admin: 12/04/19 09:45 Dose: 10 ml Documented by: Sodium Chloride (Sodium Chloride 0.65% 1 [place].Btl) 2 spray NASAL BID [facility] Last Admin: 12/04/19 09:44 Dose: Not Given Documented by: Throat Lozenges (Benzocaine/Menthol 1 Lozenge) 1 lozenge MUCOUS MEM Q2H PRN PRN PRN Reason: SORE THROAT Last Admin: 12/03/19 22:24 Dose: 1 lozenge Documented by: STROKE Vital Signs/Narrative: Vital Signs Temp Pulse Resp BP Pulse Ox Pulse Ox Pulse Ox 12/04/19 11:28 91 96 12/04/19 09:39 98.2 F 84 18 113/50 L 98 12/04/19 07:35 81 17 12/04/19 07:34 92 Medical Necessity - Tobacco Use Smoking Status: Current every day smoker Tobacco Use: Cigarettes - 3 to 4 cigarettes daily. Patient is smokes since teenage Assessment/Plan All Active Problems (Last Reviewed 10/15/19 @ 12:58 by Natasha Baron THREAD SINGER, THREAD SINGER-C) Bacteremia due to Gram-negative bacteria (Acute) COPD exacerbation (Acute) The patient is a 84 year old F with history of COPD, chronic hypoxic respiratory failure on 2 L of oxygen, lung cancer status post right upper lobectomy came to ED with shortness of breath progressively worsening for about 2 to 3 weeks consistent with COPD exacerbation. Chest x-ray in ED does not show acute change. Patient has leukocytosis with left shift 122/creatinine 1.16. VBG normal pH COVID-19 PCR negative. Troponin negative magnesium 2.2. 1. Acute respiratory insufficiency with chronic hypoxic respiratory failure secondary to COPD exacerbation: Patient is being admitted on MedSurg floor. COVID-19 PCR negative. On bronchodilator, IV Solu-Medrol, incentive spirometry, chest physiotherapy and Mucinex. BiPAP PRN For rescue breathing or night 2. ESBL E. coli, source possible UTI or pneumonia : 1 bottle of blood culture showed ESBL E. coli. Sensitive to Zosyn, Unasyn and meropenem. IV antibiotic changed to meropenem. No fever. Repeat WBC count on 12/02 normalized and then again 14.9 thousand probably secondary to steroid effect. Patient does not have good peripheral line therefore PICC line ordered. 3. COPD exacerbation probably from viral bronchitis with a stage II moderate COPD by Gold classification: As mentioned. Patient counseled to stop smoking. Nicotine patch 12/03: IV Solu-Medrol discontinued. Prednisone from tomorrow a.m. Rest continue bronchodilator, chest physiotherapy PEP. 2. cavitary right upper lung lesion: Patient CT scan in July 2018 reported 1.6 x 2.1 cm focal lobulated spiculated nodule in the left apex similar to prior study. Biapical scarring. Later on patient had negative PET scan in September 2019. Patient was last seen in pulmonary clinic on October 16, 2019 and advised to follow-up with Dr. Fuentes 12/17/2019 3. Chronic hypoxic respiratory failure: on 2 to 3 L of oxygen at home. 4. Severe malnutrition: BMI is only 15.3 and patient looks cachectic. Secondary to COPD. DVT Prophylaxis: Lovenox 40 mg sq daily Living will/advanced directive/end of life care: Patient does not have living will or advanced directive. DNR-CC Arrest no intubation Microbiology Past 72 Hours 12/03/19 11:40 Urine Catheter - Catheter Legionella Antigen - Final 12/03/19 11:40 Urine, Random Streptococcus pneumoniae Antigen (M - Final 12/02/19 07:50 Blood Culture (Wb) - Left Forearm Blood Culture - Preliminary GNR lactose staking technician 12/02/19 13:15 Mucosa - Nose Respiratory Panel (PCR) - Final 12/02/19 07:35 Mucosa - Nose Influenza Types A,B Direct FA (NERY) - Final Laboratory Results 12/03/19 07:30: WBC 8.9, RBC 3.33 L, Hgb 10.4 L, Hct 33.2 L, MCV 99.7 H, MCH 31.2, MCHC 31.3 L, RDW Std Deviation 52.0 H, RDW Coeff of Keiry 14.4, Plt Count 286, MPV 9.7, Immature Gran % (Auto) 1.900 H, Neut % (Auto) 93.6 H, Lymph % (Auto) 2.5 L, [place] % (Auto) 1.9, Eos % (Auto) 0.0, Baso % (Auto) 0.1, Absolute Neuts (auto) 8.4 H, Absolute Lymphs (auto) 0.22 L, Nucleated RBC % 0, Differential Comment COMMENT 12/03/19 07:30: Sodium 137, Potassium 4.3, Chloride 107, Carbon Dioxide 23.0, Anion Gap 7, BUN 31 H, Creatinine 1.16 H, Estim Creat Clear Calc 22.93, Est GFR (MDRD) Af Amer 57 L, Est GFR (MDRD) Non-Af 47 L, BUN/Creatinine Ratio 26.7 H, Glucose 370 H, Calcium 8.4 L 12/03/19 11:40: Urine Color Yellow, Urine Clarity Sl. Cloudy, Urine pH 5.0, Ur Specific Seltzer 1.015, Urine Protein Negative, Urine Glucose (UA) 1000 H, Urine Ketones Negative, Urine Occult Blood Negative, Urine Nitrite Positive H, Urine Bilirubin Negative, Urine Urobilinogen Normal, Ur Leukocyte Esterase 100 H, Urine RBC 0 SEEN, Urine WBC 5-10 SEEN, Ur Squamous Epith Cells 0-5 SEEN, Urine Bacteria 2+, Urine Mucus 0 SEEN Clinical Impression(s) from Imaging Studies Chest X-Ray 12/02/19 07:27 IMPRESSION: Hyperinflation and COPD. No acute adenopathy is seen. Inpatient E&M: [id number] Subs Hosp L2
[2019-12-04] MEDS: ALPRAZolam 0.25 MG Tablet 0.125 MG PO (11:33)
--- NOTE | 2019-12-04 12:07 | RAD_ITS ---
STUDY: X-RAY CHEST REASON FOR EXAM: Female, 84 years old. PICC line placement TECHNIQUE: Frontal view of the chest COMPARISON: 02 December 2019 FINDINGS: PICC line enters the right upper approximately and terminates with its tip at the cavoatrial junction. There are surgical clips in the upper mediastinum. Lungs are hyperinflated with increased interstitial markings, likely a degree of edema. Cardiac size is mildly increased. There is no pneumothorax or pleural effusions. 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 Appearance is stable since prior. RAD/CXR for Line Placement IMPRESSION: Expected appearance of right PICC line, tip at the cavoatrial junction. Moderate to severe emphysema. Possibly bronchial disease and/or mild pulmonary edema. Electronically Signed: Ruth Byrne, at 12:45 EDT Tel , Service support ,
[2019-12-04 12:30] LABS: Bedside Glucose 232 mg/dL (70-110)
--- NOTE | 2019-12-04 14:04 | CASEMGMT ---
SOL BARRIGA updated that patient will need IV ATB at discharge. SOL BARRIGA in to discuss discharge options with patient of [facility], outpatient infusion clinic, or SNF. Patient would like SOL BARRIGA to speak with daughter. SOL BARRIGA updated daughter Kimberly of needs at discharge and options. Kimberly would like time to think about it and call CM back. Contact information given to daughter. CM will continue to follow this patient and plan for a safe discharge.
[2019-12-04 17:20] LABS: Bedside Glucose 164 mg/dL (70-110)
--- NOTE | 2019-12-04 17:22 | PN.ID_ITS ---
Patient Problems: Active and Suspected Problems (Last Reviewed 10/15/19 @ 12:58 by Natasha Baron CRIMINAL JUSTICE SOCIAL WORKER, CRIMINAL JUSTICE SOCIAL WORKER-C) Bacteremia due to Gram-negative bacteria (Acute) COPD exacerbation (Acute) Subjective: Feeling better, no fever, no abd pain - Physical Exam Vitals/I&O's: Vital Signs Temp Pulse Resp BP Pulse Ox 98.3 F 80 18 113/51 L 97 12/04/19 14:27 12/04/19 14:27 12/04/19 14:27 12/04/19 14:27 12/04/19 14:31 Oxygen Flow Rate (L/min) [ 0 AMBULATING on Room Air] Oxygen Flow Rate (L/min) [At 0 REST on Room Air] Oxygen Flow Rate (L/min) 1 Oxygen Delivery Method Room Air Weight: 41.73 kg Body Mass Index (BMI) 15.3 Intake and Output for Last 24 Hours 12/02/19 12/03/19 12/04/19 23:59 23:59 23:59 Intake Total 955 / 1055 1578.25 / 1778.25 675 / 675 Output Total 160 / 160 Balance 955 / 1055 1418.25 / 1618.25 675 / 675 General: Alert, Cooperative, No apparent distress Lungs: Clear to auscultation, Normal air movement Cardiovascular: Regular rate, Regular Rhythm Abdomen: Soft, Non Tender, Non-Distended Skin: No rashes Microbiology Past 72 Hours 12/03/19 11:40 Urine, Catheterized Urine Culture - Preliminary Presumptive E. coli 12/02/19 07:50 Blood Culture (Wb) - Left Forearm Blood Culture - Preliminary Escherichia coli 12/02/19 07:50 Blood Culture (Wb) - Anticubital Right Blood Culture - Preliminary No growth in 48 hours. 12/03/19 11:40 Urine Catheter - Catheter Legionella Antigen - Final 12/03/19 11:40 Urine, Random Streptococcus pneumoniae Antigen (M - Final 12/02/19 13:15 Mucosa - Nose Respiratory Panel (PCR) - Final 12/02/19 07:35 Mucosa - Nose Influenza Types A,B Direct FA (NERY) - Final Laboratory Results 12/04/19 05:37: WBC 14.9 H, RBC 3.23 L, Hgb 10.2 L, Hct 32.4 L, MCV 100.3 H, MCH 31.6, MCHC 31.5 L, RDW Std Deviation 53.0 H, RDW Coeff of Keiry 14.4, Plt Count 287, MPV 10.1, Immature Gran % (Auto) 1.700 H, Neut % (Auto) 93.4 H, Lymph % (Auto) 1.8 L, [place] % (Auto) 3.0, Eos % (Auto) 0.0, Baso % (Auto) 0.1, Absolute Neuts (auto) 13.9 H, Absolute Lymphs (auto) 0.27 L, Nucleated RBC % 0, Differential Comment SCANNED 12/04/19 05:37: Sodium 136, Potassium 4.6, Chloride 107, Carbon Dioxide 22.0, Anion Gap 7, BUN 35 H, Creatinine 1.38 H, Estim Creat Clear Calc 19.28, Est GFR (MDRD) Af Amer 47 L, Est GFR (MDRD) Non-Af 39 L, BUN/Creatinine Ratio 25.4 H, Glucose 484 H*, Calcium 8.9 12/04/19 05:37: Hemoglobin A1c 6.7 H 12/04/19 06:13: POC Glucose 461 H* 12/04/19 11:05: POC Glucose 232 H 12/04/19 17:11: POC Glucose 164 H Current Medications Acetaminophen (Acetaminophen 325 Mg Tablet) 650 mg PO Q6H PRN PRN PRN Reason: Pain Score 1-10/Temp > 100.7 F Last Admin: 12/04/19 03:40 Dose: 650 mg Documented by: Al Hydroxide/Mg Hydroxide (Mag Hydrox/Al Hydrox/Simeth 30 Ml Udc) 30 ml PO Q6H PRN PRN PRN Reason: Gastric Burning Albuterol Sulfate (Albuterol 2.5 Mg/3 Ml Vial.Neb.) 2.5 mg INHALATION Q2H PRN PRN PRN Reason: Shortness of Breath/Wheezing Albuterol/Ipratropium (Ipratropium/Albuterol Sulfate 3 Ml Ampul.Neb) 3 ml INHALATION Q4H.RT [facility] Last Admin: 12/04/19 15:12 Dose: 3 ml Documented by: Alprazolam (Alprazolam 0.25 Mg Tablet) 0.125 mg PO TID PRN PRN Reason: ANXIETY Last Admin: 12/04/19 11:33 Dose: 0.125 mg Documented by: Enoxaparin Sodium (Enoxaparin 30 Mg/0.3 Ml Syringe) 30 mg SC DAILY [facility] Last Admin: 12/04/19 09:41 Dose: 30 mg Documented by: Famotidine (Famotidine 20 Mg Tablet) 20 mg PO DAILY [facility] Last Admin: 12/04/19 09:44 Dose: 20 mg Documented by: Sodium Chloride () 250 mls @ 15 mls/hr IV .[id number] PRN PRN Reason: Additional IVPB Infusion Last Infusion: 12/04/19 14:06 Dose: 0 mls/hr Documented by: Meropenem 500 mg/ Sodium (Chloride) 60 mls @ 100 mls/hr IV Q12 [facility] Last Infusion: 12/04/19 13:57 Dose: Infused Documented by: Ibuprofen (Ibuprofen 400 Mg Tablet) 400 mg PO Q6H PRN PRN PRN Reason: Pain Score 1-3 Insulin Glargine (Insulin Glargine 100 Units/Ml Pen) 15 units SC BID [facility] Last Admin: 12/04/19 11:14 Dose: 15 u Documented by: Insulin Human Lispro (Insulin Lispro 100 Unit/Ml Insuln.Pen) 0 unit SC Q6 [facility]; Protocol Last Admin: 12/04/19 17:14 Dose: 3 u Documented by: Melatonin (Melatonin 3 Mg Tablet) 3 mg PO QHS PRN PRN PRN Reason: INSOMNIA Morphine Sulfate (Morphine 2 Mg/Ml Syringe) 2 mg IV Q3H PRN PRN PRN Reason: Pain Score 6-10 Nicotine (Nicotine 21 Mg Patch) 21 mg TRANSDERM. DAILY [facility] Last Admin: 12/04/19 09:43 Dose: 21 mg Documented by: Nitroglycerin (Nitroglycerin (Inpatient Use) 0.4 Mg Tab.Subl) 0.4 mg SUBLINGUAL Q5M PRN PRN Reason: CARDIAC/CHEST PAIN Oxycodone HCl (Oxycodone 5 Mg Tablet) 5 mg PO Q4H PRN PRN PRN Reason: Pain Score 4-5 Last Admin: 12/03/19 05:59 Dose: 5 mg Documented by: Oxycodone HCl (Oxycodone 5 Mg Tablet) 10 mg PO Q4H PRN PRN PRN Reason: Pain Score 6-10 Last Admin: 12/04/19 14:26 Dose: 10 mg Documented by: Polyethylene Glycol (Polyethylene Glycol 3350 17 Gm Packet) 17 gm PO DAILY [facility] Last Admin: 12/04/19 09:42 Dose: Not Given Documented by: Prednisone (Prednisone 20 Mg Tablet) 40 mg PO DAILY@0800 [facility] Prochlorperazine Edisylate (Prochlorperazine 10 Mg/2 Ml Vial) 5 mg IV Q4H PRN PRN PRN Reason: Breakthrough nausea/vomiting Senna/Docusate Sodium (Senna/Docusate Sodium 1 Tablet) 2 tablet PO BID [facility] Last Admin: 12/04/19 09:45 Dose: Not Given Documented by: Sodium Chloride (0.9% Saline Lock 10 Ml Syringe) 10 - 40 ml IV UD PRN PRN Reason: SALINE FLUSH Last Admin: 12/04/19 14:06 Dose: 10 ml Documented by: Sodium Chloride (Sodium Chloride 0.65% 1 [place].Btl) 2 spray NASAL BID [facility] Last Admin: 12/04/19 09:44 Dose: Not Given Documented by: Throat Lozenges (Benzocaine/Menthol 1 Lozenge) 1 lozenge MUCOUS MEM Q2H PRN PRN PRN Reason: SORE THROAT Last Admin: 12/03/19 22:24 Dose: 1 lozenge Documented by: Medical Necessity - Tobacco Use Smoking Status: Current every day smoker Tobacco Use: Cigarettes - 3 to 4 cigarettes daily. Patient is smokes since teen age Route of nutrition/ use of supplements: [] Nutritional Intake: [] IV Site: [] George Catheter: [] - Assessment/Plan Antibiotics: [] Assessment/Plan: [] Active and Suspected Problems (Last Reviewed 10/15/19 @ 12:58 by Natasha Baron CRIMINAL JUSTICE SOCIAL WORKER, CRIMINAL JUSTICE SOCIAL WORKER-C) COPD exacerbation (Acute) esbl bacteremia - wbc rapidly normalized, feeling better. On meropenem. Picc in place. Wrote for 6 more days iv erta. Will follow, d/w casework supervisor
[2019-12-04 21:45] LABS: Bedside Glucose 161 mg/dL (70-110)
[2019-12-05] VITALS (7 sets, daily range): BP systolic 107–117; BP diastolic 56–62; PULSE 72–91; RESP 14–24; TEMP 36.7–37.1; O2SAT 97–100
[2019-12-05] MEDS: oxyCODONE 5 MG Tablet 10 MG PO ×3 (01:55→18:27)
[2019-12-05] MEDS: ALPRAZolam 0.25 MG Tablet 0.125 MG PO (04:58)
[2019-12-05 06:03] LABS: Absolute Lymphocyte Count 1.59 X10^3/uL (0.83-4.51); Basophil# 0.01 X10^3/uL; Basophil% 0.1 % (0-1); Eosinophil# 0.02 X10^3/uL; Eosinophils% 0.1 % (0-5); Hematocrit 32.6 % (37-47); Hemoglobin 10.2 g/dL (12.0-15.0); Lymphocyte # 1.59 X10^3/ul (4.0); Lymphocyte % 11.5 % (19-41); Mean Corp Hgb Conc 31.3 g/dL (32-36); Mean Corpuscular Hgb 31.2 pg (27.0-32.0); Mean Corpuscular Volume 99.7 fL (81-99); Mean Platelet Vol. 10.3 fl (6.2-12.0); Monocyte# 1.06 X10^3/uL; Monocyte% 7.7 % (0-10); NRBC Flagged by Analyzer 0 % (0-5); Neutrophil # 11.04 X10^3/uL (2.7-7.7); Neutrophil % 79.7 % (47-70); Platelet Count 287 K/mm3 (150-450); RBC Distribution Width CV 14.8 % (11.6-14.6); RBC Distribution Width SD 54.4 fl (35.1-43.9); Red Blood Count 3.27 M/mm3 (4.2-5.4); White Blood Count 13.8 K/mm3 (4.4-11.0)
[2019-12-05 06:47] LABS: Anion Gap 6 (5-15); BUN 33 mg/dL (7-18); BUN/Creat Ratio 29.5 RATIO (10-20); Calcium,Total 8.6 mg/dL (8.5-10.1); Chloride 107 mmol/L (98-107); Creatinine, Serum 1.12 mg/dL (0.55-1.02); EST Glomerular Filtration Rate 49 mL/min (>60); Est Glom Filt Rate - Afr Amer 59 mL/min (>60); Estimated Creatinine Clearance 23.75 ml/min; Glucose 142 mg/dL (74-106); Potassium 4.4 mmol/L (3.5-5.1); Sodium Level 139 mmol/L (136-145)
[2019-12-05 06:50] LABS: Bedside Glucose 126 mg/dL (70-110)
[2019-12-05] MEDS: Ipratropium/Albuterol Sulfate 3 ML AMPUL.NEB INHALATION ×3 (07:42→15:26)
[2019-12-05 07:45] LABS: Bedside Glucose 119 mg/dL (70-110)
--- NOTE | 2019-12-05 09:24 | CASEMGMT ---
SOL BARRIGA received message from daughter Kimberly. SOL BARRIGA returned call to Kimberly to discuss discharge planning. Kimberly states that her and patient talked and agreed that going to a SNF at discharge for IV ATB would be best. Daughter and Kimberly prefer [facility]. SOL BARRIGA in to confirm plans with patient. Patient states she is agreeable to [facility] at discharge. SOL BARRIGA updated JEFF Mendoza regarding request for referral to [facility].
[2019-12-05] MEDS: Senna/Docusate Sodium 1 Tablet 2 TABLET PO (09:29)
[2019-12-05] MEDS: Enoxaparin 30 MG/0.3 ML Syringe SC (09:29)
[2019-12-05] MEDS: predniSONE 20 MG Tablet 40 MG PO (09:29)
[2019-12-05] MEDS: Sodium Chloride 0.65% 1 SPRAY SPRAY.BTL 2 SPRAY NASAL (09:30)
[2019-12-05] MEDS: Famotidine 20 MG Tablet PO (09:30)
--- NOTE | 2019-12-05 09:55 | CASEMGMT ---
Addendum entered by Yvonne Mendoza 12/05/19 15:45: JEFF placed another call to Maggie at [facility]. Maggie states she has no beds available at this time. JEFF placed a call to pt's daughter Kimberly and updated her that [facility] has no beds available at this time. Kimberly asked about [facility]. JEFF explained that this worker will make referral. JEFF placed a call to Anjana in TCU. TCU is able to accept pt today. SW in to speak with pt. JEFF updated pt that [facility] doesn't have any beds available and informed pt that pt's daughter Kimberly requested [facility] as next choice. Pt agreeable to [facility]. Plan:TCU today Original Note: Social Work Note SW received referral for SNF. JEFF placed a call to Maggie Mckeon in admissions not available at this time. Анна took this worker's number to have Maggie give this worker a call back. JEFF waiting for call back from Justynnery Mendoza [employer] MANAGER, [employer]
--- NOTE | 2019-12-05 10:11 | PCM.TXEXTCAR ---
- Diet 12/02/19 11:59 Diet: Regular - General Food consistency:: Regular Liquid Consistency:: Regular/Thin Is pt able to select menu?: Yes - Routine Orders/Code Status Suppository Type: Dulcolax 10mg Suppository Frequency: Daily PRN Routine Lab Work: CBC, BMP - weekly on antibiotic and fax to Dr Wooten [facility] no int[facility] - Wound(s) left arm Wound Type: healed skin tear coccyx Wound Type: pressure Dressing Change: Mepilex overgrown toenails both feet Wound Type: overgrown toenails - Therapies Weight Bearing: Weight bearing as tolerated Extremity Affected:: Bilateral Lower Physical Therapy: Eval and Treat Occupational Therapy: Eval and Treat Speech Therapy: Eval and Treat - Problem/Diagnosis (1) Incidental lung nodule, greater than or equal to 8mm Status: Chronic (2) Stage 2 moderate COPD by GOLD classification Status: Chronic (3) Bronchiectasis Status: Chronic (4) Chronic obstructive pulmonary disease (COPD) Status: Chronic (5) Chronic respiratory failure with hypoxia Status: Chronic (6) Severe protein-calorie malnutrition Status: Chronic (7) History of tobacco use Status: Chronic (8) Chronic back pain Status: Chronic (9) History of lung cancer Status: Chronic (10) COPD exacerbation Status: Acute - Allergies/Procedures Done in Hospital Allergies/Adverse Reactions: Allergies No Known Allergies Allergy (Verified 10/15/19 12:40) - Type of Care/Length of Stay Estimated LOS: Convalescent Care Less Than 30 days Type of Care Needed: Skilled Rehab Potential: Good Prognosis: Good - Additional Orders/Day of Discharge Day of Discharge: 12/05/19 - Dietary and Speech Recommendations Dietitian Recommendations/Changes: Will d/c ensure enlive at [facility] d/t pt dislikes and give cib w/ meals instead. Rec continue liberal regular diet (pt not wanting [facility] altered diet though it may help make food easier to eat w/ less effort). Rec [employer] or other meal delivery service post d/c if pt returns home as pt not able to cook for self d/t becomes too SOB. Order Evens bid to help w/ healing of coccyx PI. - Follow Up Care Primary Care Physician: Moose Abrams MD [Primary Care Provider] - Please follow up with your Primary Care Physician in: in 2 weeks Please Follow Up With: Chang Wooten MD When: prn as needed for ESBL bacteremia
--- NOTE | 2019-12-05 10:13 | DS.PCM_ITS ---
Discharge Date and Diagnosis - Problem List Patient Problems: Active and Suspected Problems (Last Reviewed 10/15/19 @ 12:58 by Natasha Baron QUARTER BACKER, QUARTER BACKER-C) Bacteremia due to Gram-negative bacteria (Acute) COPD exacerbation (Acute) Date of Admission: 12/02/19 Date of Discharge: 12/05/19 - Primary Discharge Diagnosis Acute Problems: Active Problems (Last Reviewed 10/15/19 @ 12:58 by Natasha Baron QUARTER BACKER, QUARTER BACKER-C) Bacteremia due to Gram-negative bacteria (Acute) COPD exacerbation (Acute) ESBL E. coli bacteremia secondary to ESBL E. coli UTI - Secondary Discharge Diagnosis Chronic Problems: Chronic Problems (Last Reviewed 10/15/19 @ 12:58 by Natasha Baron QUARTER BACKER, QUARTER BACKER-C) Incidental lung nodule, greater than or equal to 8mm (Chronic) Stage 2 moderate COPD by GOLD classification (Chronic) Bronchiectasis (Chronic) Chronic obstructive pulmonary disease (COPD) (Chronic) Chronic respiratory failure with hypoxia (Chronic) Severe protein-calorie malnutrition (Chronic) History of tobacco use (Chronic) Chronic back pain (Chronic) History of lung cancer (Chronic) Hospital Course and Treatment Consultations 12/02/19 12:06 Consult: Onc/Wound/door captain Routine Comment: wound to coccyx Operations: None Summary of Care Provided: The patient is a 84 year old F with history of COPD, chronic hypoxic respiratory failure on 2 L of oxygen, lung cancer status post right upper lobectomy came to ED with shortness of breath progressively worsening for about 2 to 3 weeks consistent with COPD exacerbation. Chest x-ray in ED does not show acute change. Patient has leukocytosis with left shift 122/creatinine 1.16. VBG normal pH COVID-19 PCR negative. Troponin negative magnesium 2.2. 1. Acute respiratory insufficiency with chronic hypoxic respiratory failure secondary to COPD exacerbation: Patient is being admitted on MedSurg floor. COVID-19 PCR negative. On bronchodilator, IV Solu-Medrol, incentive spirometry, chest physiotherapy and Mucinex. BiPAP PRN For rescue breathing or night. Continue bronchodilator, prednisone, total 5 days burst therapy, incentive spirometry and chest physiotherapy in SNF. 2. ESBL E. coli bacteremia from UTI: 1 bottle of blood culture showed ESBL E. coli. Urine culture shows more than 1000 colonies of ESBL E. coli. Sensitive to Zosyn, Unasyn and meropenem. IV antibiotic changed to meropenem. No fever. Repeat WBC count on 12/02 normalized and then again 14.9 thousand probably secondary to steroid effect. Patient had PICC line in right upper arm. Total 7 days of IV ertapenem. No pneumonic consolidation seen on chest x-ray. Pneumonia ruled out. 3. COPD exacerbation probably from viral bronchitis with a stage II moderate COPD by Gold classification: As mentioned. Patient counseled to stop smoking. Nicotine patch Much improved. 2. cavitary right upper lung lesion: Patient CT scan in July 2018 reported 1.6 x 2.1 cm focal lobulated spiculated nodule in the left apex similar to prior study. Biapical scarring. Later on patient had negative PET scan in September 2019. Patient was last seen in pulmonary clinic on October 16, 2019 and advised to follow-up with Dr. Fuentes 12/17/2019 3. Chronic hypoxic respiratory failure: on 2 to 3 L of oxygen at home. 4. Severe malnutrition: BMI is only 15.3 and patient looks cachectic. Secondary to COPD. DVT Prophylaxis: Lovenox 40 mg sq daily Living will/advanced directive/end of life care: Patient does not have living will or advanced directive. DNR-CC Arrest no intubation Discharge medication reconciliation done. Discharge follow-up instructions completed. Discharge process discussed with the patient and all questions were answered to patient's satisfaction. Total time spent, exact 35 minutes on discharge meds reconciliation, examination, coordination of care with nurses and ancillary staff, review of imaging and blood test and discussion with the patient on follow-up instructions Clinical Impression(s) from Imaging Studies Chest X-Ray 12/02/19 07:27 IMPRESSION: Hyperinflation and COPD. No acute adenopathy is seen. Chest X-Ray 12/04/19 12:07 IMPRESSION: Expected appearance of right PICC line, tip at the cavoatrial junction. Moderate to severe emphysema. Possibly bronchial disease and/or mild pulmonary edema. Patient Problems: Active and Suspected Problems (Last Reviewed 10/15/19 @ 12:58 by Natasha Baron QUARTER BACKER, QUARTER BACKER-C) Bacteremia due to Gram-negative bacteria (Acute) COPD exacerbation (Acute) Objective: No fever or chills. Patient breathing has much improved. As per ER physicians she complained of mild dysuria. Blood sugar is controlled after discontinuation of Solu-Medrol. Physical exam General: Alert, Oriented x3, Cooperative HEENT: Atraumatic, PERRLA, EOMI, Normocephalic Oral: No Gingival or Mucosal Lesions/ Ulcerations Neck: Supple, No JVD, Negative Carotid Bruits Lungs: Air entry diminished in bilateral lung bases, much improved. Bilateral occasional wheezing. Cardiovascular: Regular rate, Regular Rhythm, Normal S1, Normal S2, No murmurs Abdomen: Bowel Sounds Present, Soft, Non Tender, Non-Distended : No renal angle tenderness. No suprapubic tenderness. Extremities: No edema, Capillary Refill Less than 3 Seconds. Right upper arm PICC line Skin: No rashes, No breakdown Musculoskeletal: No Tenderness to Palpation of Joints or Extremities Neurological: Cranial nerves II-XII grossly intact, Deep Tendon Reflexes 2+/4 and Symmetrical, Neuro grossly intact Psych/Mental Status: Normal Affect, Appropriate. - Physical Exam Vitals/I&O's: Vital Signs Temp Pulse Resp BP Pulse Ox 98.4 F 91 14 110/59 L 98 12/05/19 09:15 12/05/19 09:15 12/05/19 09:15 12/05/19 09:15 12/05/19 09:15 Oxygen Flow Rate (L/min) [ 0 AMBULATING on Room Air] Oxygen Flow Rate (L/min) [At 0 REST on Room Air] Oxygen Flow Rate (L/min) 1 Oxygen Delivery Method Nasal Cannula Weight: 91 lb 15.982 oz Body Mass Index (BMI) 15.3 Intake and Output for Last 24 Hours 12/03/19 12/04/19 12/05/19 23:59 23:59 23:59 Intake Total 1578.25 / 1778.25 885 / 885 660 / 660 Output Total 160 / 160 Balance 1418.25 / 1618.25 885 / 885 660 / 660 Microbiology Past 72 Hours 12/02/19 07:50 Blood Culture (Wb) - Left Forearm Blood Culture - Preliminary Escherichia coli 12/03/19 11:40 Urine, Catheterized Urine Culture - Preliminary Presumptive E. coli 12/02/19 07:50 Blood Culture (Wb) - Anticubital Right Blood Culture - Preliminary No growth in 48 hours. 12/03/19 11:40 Urine Catheter - Catheter Legionella Antigen - Final 12/03/19 11:40 Urine, Random Streptococcus pneumoniae Antigen (M - Final 12/02/19 13:15 Mucosa - Nose Respiratory Panel (PCR) - Final 12/02/19 07:35 Mucosa - Nose Influenza Types A,B Direct FA (NERY) - Final Laboratory Results 12/04/19 11:05: POC Glucose 232 H 12/04/19 17:11: POC Glucose 164 H 12/04/19 21:35: POC Glucose 161 H 12/05/19 04:48: POC Glucose 126 H 12/05/19 05:42: WBC 13.8 H, RBC 3.27 L, Hgb 10.2 L, Hct 32.6 L, MCV 99.7 H, MCH 31.2, MCHC 31.3 L, RDW Std Deviation 54.4 H, RDW Coeff of Keiry 14.8 H, Plt Count 287, MPV 10.3, Immature Gran % (Auto) 0.900, Neut % (Auto) 79.7 H, Lymph % (Auto) 11.5 L, [place] % (Auto) 7.7, Eos % (Auto) 0.1, Baso % (Auto) 0.1, Absolute Neuts (auto) 11.0 H, Absolute Lymphs (auto) 1.59, Nucleated RBC % 0 12/05/19 05:42: Sodium 139, Potassium 4.4, Chloride 107, Carbon Dioxide 26.0, Anion Gap 6, BUN 33 H, Creatinine 1.12 H, Estim Creat Clear Calc 23.75, Est GFR (MDRD) Af Amer 59 L, Est GFR (MDRD) Non-Af 49 L, BUN/Creatinine Ratio 29.5 H, Glucose 142 H, Calcium 8.6 12/05/19 07:38: POC Glucose 119 H Current Medications Acetaminophen (Acetaminophen 325 Mg Tablet) 650 mg PO Q6H PRN PRN PRN Reason: Pain Score 1-10/Temp > 100.7 F Last Admin: 12/04/19 03:40 Dose: 650 mg Documented by: Al Hydroxide/Mg Hydroxide (Mag Hydrox/Al Hydrox/Simeth 30 Ml Udc) 30 ml PO Q6H PRN PRN PRN Reason: Gastric Burning Albuterol Sulfate (Albuterol 2.5 Mg/3 Ml Vial.Neb.) 2.5 mg INHALATION Q2H PRN PRN PRN Reason: Shortness of Breath/Wheezing Albuterol/Ipratropium (Ipratropium/Albuterol Sulfate 3 Ml Ampul.Neb) 3 ml INHALATION Q4H.RT [facility] Last Admin: 12/05/19 07:42 Dose: 3 ml Documented by: Alprazolam (Alprazolam 0.25 Mg Tablet) 0.125 mg PO TID PRN PRN Reason: ANXIETY Last Admin: 12/05/19 04:58 Dose: 0.125 mg Documented by: Enoxaparin Sodium (Enoxaparin 30 Mg/0.3 Ml Syringe) 30 mg SC DAILY [facility] Last Admin: 12/05/19 09:29 Dose: 30 mg Documented by: Famotidine (Famotidine 20 Mg Tablet) 20 mg PO DAILY [facility] Last Admin: 12/05/19 09:30 Dose: 20 mg Documented by: Sodium Chloride () 250 mls @ 15 mls/hr IV .[id number] PRN PRN Reason: Additional IVPB Infusion Last Admin: 12/05/19 09:27 Dose: 15 mls/hr Documented by: Meropenem 500 mg/ Sodium (Chloride) 60 mls @ 100 mls/hr IV Q12 [facility] Last Admin: 12/05/19 09:29 Dose: 100 mls/hr Documented by: Ibuprofen (Ibuprofen 400 Mg Tablet) 400 mg PO Q6H PRN PRN PRN Reason: Pain Score 1-3 Insulin Glargine (Insulin Glargine 100 Units/Ml Pen) 15 units SC BID [facility] Last Admin: 12/05/19 09:41 Dose: Not Given Documented by: Insulin Human Lispro (Insulin Lispro 100 Unit/Ml Insuln.Pen) 0 unit SC Q6 [facility]; Protocol Last Admin: 12/05/19 05:00 Dose: Not Given Documented by: Melatonin (Melatonin 3 Mg Tablet) 3 mg PO QHS PRN PRN PRN Reason: INSOMNIA Morphine Sulfate (Morphine 2 Mg/Ml Syringe) 2 mg IV Q3H PRN PRN PRN Reason: Pain Score 6-10 Nicotine (Nicotine 21 Mg Patch) 21 mg TRANSDERM. DAILY [facility] Last Admin: 12/05/19 09:29 Dose: 21 mg Documented by: Nitroglycerin (Nitroglycerin (Inpatient Use) 0.4 Mg Tab.Subl) 0.4 mg SUBLINGUAL Q5M PRN PRN Reason: CARDIAC/CHEST PAIN Oxycodone HCl (Oxycodone 5 Mg Tablet) 5 mg PO Q4H PRN PRN PRN Reason: Pain Score 4-5 Last Admin: 12/03/19 05:59 Dose: 5 mg Documented by: Oxycodone HCl (Oxycodone 5 Mg Tablet) 10 mg PO Q4H PRN PRN PRN Reason: Pain Score 6-10 Last Admin: 12/05/19 01:55 Dose: 10 mg Documented by: Polyethylene Glycol (Polyethylene Glycol 3350 17 Gm Packet) 17 gm PO DAILY [facility] Last Admin: 12/05/19 09:31 Dose: Not Given Documented by: Prednisone (Prednisone 20 Mg Tablet) 40 mg PO DAILY@0800 [facility] Last Admin: 12/05/19 09:29 Dose: 40 mg Documented by: Prochlorperazine Edisylate (Prochlorperazine 10 Mg/2 Ml Vial) 5 mg IV Q4H PRN PRN PRN Reason: Breakthrough nausea/vomiting Senna/Docusate Sodium (Senna/Docusate Sodium 1 Tablet) 2 tablet PO BID [facility] Last Admin: 12/05/19 09:29 Dose: 2 tablet Documented by: Sodium Chloride (0.9% Saline Lock 10 Ml Syringe) 10 - 40 ml IV UD PRN PRN Reason: SALINE FLUSH Last Admin: 12/04/19 21:38 Dose: 10 ml Documented by: Sodium Chloride (Sodium Chloride 0.65% 1 Tarrs Tarrs.Btl) 2 spray NASAL BID [facility] Last Admin: 12/05/19 09:30 Dose: 2 sprays Documented by: Throat Lozenges (Benzocaine/Menthol 1 Lozenge) 1 lozenge MUCOUS MEM Q2H PRN PRN PRN Reason: SORE THROAT Last Admin: 12/03/19 22:24 Dose: 1 lozenge Documented by: Home Medications: Medications to take at Discharge budesonide 0.5 mg/2 mL suspension for nebulization 0.5 mg INHALATION BID #60 ml 12/17/18 arformoterol 15 mcg/2 mL solution for nebulization 2 ml INHALATION BID #120 ml 08/27/19 albuterol sulfate 2.5 mg INHALATION Q4H PRN #180 ml 10/15/19 albuterol sulfate 90 mcg/actuation aerosol inhaler 1 - 2 puff INHALATION Q4H PRN PRN #1 inhaler 12/02/19 Ertapenem Sodium [Ertapenem] 1 gm IV DAILY #6 vial 12/04/19 Hydrocodone/Acetaminophen [[place] 5-325 Tablet] 1 ea PO BID PRN PRN 3 Days #7 tab 12/05/19 Ipratropium/Albuterol Sulfate [Iprat-Albut 0.5-3(2.5) mg/3 ml] 3 ml INHALATION [id number] #180 ml 12/05/19 Prednisone 40 mg PO DAILY #8 tab 12/05/19 Following Prescriptions Were Given to Patient: Ertapenem Sodium [Ertapenem] 1 gm IV DAILY #6 vial Prescription Printed Hydrocodone/Acetaminophen [[place] 5-325 Tablet] 1 ea PO BID PRN PRN 3 Days #7 tab PRN Reason: Pain Transmission Status: Received by [facility] #[id number] Prednisone 40 mg PO DAILY #8 tab Transmission Status: Received by [facility] #[id number] Primary Care Physician: Moose Abrams MD [Primary Care Provider] - Please follow up with your Primary Care Physician in: in 2 weeks Please Follow Up With: Chang Wooten MD When: prn as needed for ESBL bacteremia Medical Necessity - Tobacco Use Smoking Status: Current every day smoker Tobacco Use: Cigarettes - 3 to 4 cigarettes daily. Patient is smokes since teenage Meaningful Use Info Meaningful Use Diagnoses (Choose all that apply): None applicable Inpatient E&M: [id number] [facility]
[2019-12-05 11:20] LABS: Bedside Glucose 221 mg/dL (70-110)
[2019-12-05] MEDS: Insulin Lispro 100 UNIT/ML INSULN.PEN SC ×2 (12:33→16:28)
[2019-12-05] MEDS: 0.9% Saline Lock 10 ML Syringe IV ×3 (14:06→18:25)
--- NOTE | 2019-12-05 15:21 | PN.ID_ITS ---
Patient Problems: Active and Suspected Problems (Last Reviewed 10/15/19 @ 12:58 by Natasha Baron PATTERN GRADER SUPERVISOR, PATTERN GRADER SUPERVISOR-C) Bacteremia due to Gram-negative bacteria (Acute) COPD exacerbation (Acute) Subjective: Feeling well, no fever, minimal abd pain - Physical Exam Vitals/I&O's: Vital Signs Temp Pulse Resp BP Pulse Ox 98.7 F 81 24 H 107/56 L 99 12/05/19 14:01 12/05/19 14:01 12/05/19 14:01 12/05/19 14:01 12/05/19 14:01 Oxygen Flow Rate (L/min) [ 0 AMBULATING on Room Air] Oxygen Flow Rate (L/min) [At 0 REST on Room Air] Oxygen Flow Rate (L/min) 1 Oxygen Delivery Method Nasal Cannula Weight: 41.73 kg Body Mass Index (BMI) 15.3 Intake and Output for Last 24 Hours 12/03/19 12/04/19 12/05/19 23:59 23:59 23:59 Intake Total 1578.25 / 1778.25 885 / 885 789.5 / 789.5 Output Total 160 / 160 Balance 1418.25 / 1618.25 885 / 885 789.5 / 789.5 General: Alert, Cooperative, No apparent distress Lungs: Clear to auscultation, Normal air movement Cardiovascular: Regular rate, Regular Rhythm Abdomen: Soft, Non Tender, Non-Distended Skin: No rashes Microbiology Past 72 Hours 12/02/19 07:50 Blood Culture (Wb) - Left Forearm Blood Culture - Preliminary Escherichia coli 12/03/19 11:40 Urine, Catheterized Urine Culture - Preliminary Presumptive E. coli 12/02/19 07:50 Blood Culture (Wb) - Anticubital Right Blood Culture - Preliminary No growth in 48 hours. 12/03/19 11:40 Urine Catheter - Catheter Legionella Antigen - Final 12/03/19 11:40 Urine, Random Streptococcus pneumoniae Antigen (M - Final 12/02/19 13:15 Mucosa - Nose Respiratory Panel (PCR) - Final Laboratory Results 12/04/19 17:11: POC Glucose 164 H 12/04/19 21:35: POC Glucose 161 H 12/05/19 04:48: POC Glucose 126 H 12/05/19 05:42: WBC 13.8 H, RBC 3.27 L, Hgb 10.2 L, Hct 32.6 L, MCV 99.7 H, MCH 31.2, MCHC 31.3 L, RDW Std Deviation 54.4 H, RDW Coeff of Keiry 14.8 H, Plt Count 287, MPV 10.3, Immature Gran % (Auto) 0.900, Neut % (Auto) 79.7 H, Lymph % (Auto) 11.5 L, [place] % (Auto) 7.7, Eos % (Auto) 0.1, Baso % (Auto) 0.1, Absolute Neuts (auto) 11.0 H, Absolute Lymphs (auto) 1.59, Nucleated RBC % 0 12/05/19 05:42: Sodium 139, Potassium 4.4, Chloride 107, Carbon Dioxide 26.0, Anion Gap 6, BUN 33 H, Creatinine 1.12 H, Estim Creat Clear Calc 23.75, Est GFR (MDRD) Af Amer 59 L, Est GFR (MDRD) Non-Af 49 L, BUN/Creatinine Ratio 29.5 H, Glucose 142 H, Calcium 8.6 12/05/19 07:38: POC Glucose 119 H 12/05/19 11:09: POC Glucose 221 H Current Medications Acetaminophen (Acetaminophen 325 Mg Tablet) 650 mg PO Q6H PRN PRN PRN Reason: Pain Score 1-10/Temp > 100.7 F Last Admin: 12/04/19 03:40 Dose: 650 mg Documented by: Al Hydroxide/Mg Hydroxide (Mag Hydrox/Al Hydrox/Simeth 30 Ml Udc) 30 ml PO Q6H PRN PRN PRN Reason: Gastric Burning Albuterol Sulfate (Albuterol 2.5 Mg/3 Ml Vial.Neb.) 2.5 mg INHALATION Q2H PRN PRN PRN Reason: Shortness of Breath/Wheezing Albuterol/Ipratropium (Ipratropium/Albuterol Sulfate 3 Ml Ampul.Neb) 3 ml INHALATION Q4H.RT [facility] Last Admin: 12/05/19 11:06 Dose: 3 ml Documented by: Alprazolam (Alprazolam 0.25 Mg Tablet) 0.125 mg PO TID PRN PRN Reason: ANXIETY Last Admin: 12/05/19 04:58 Dose: 0.125 mg Documented by: Enoxaparin Sodium (Enoxaparin 30 Mg/0.3 Ml Syringe) 30 mg SC DAILY [facility] Last Admin: 12/05/19 09:29 Dose: 30 mg Documented by: Famotidine (Famotidine 20 Mg Tablet) 20 mg PO DAILY [facility] Last Admin: 12/05/19 09:30 Dose: 20 mg Documented by: Sodium Chloride () 250 mls @ 15 mls/hr IV .[id number] PRN PRN Reason: Additional IVPB Infusion Last Infusion: 12/05/19 14:05 Dose: 0 mls/hr Documented by: Meropenem 500 mg/ Sodium (Chloride) 60 mls @ 100 mls/hr IV Q12 [facility] Last Infusion: 12/05/19 10:10 Dose: Infused Documented by: Ibuprofen (Ibuprofen 400 Mg Tablet) 400 mg PO Q6H PRN PRN PRN Reason: Pain Score 1-3 Insulin Glargine (Insulin Glargine 100 Units/Ml Pen) 15 units SC BID [facility] Last Admin: 12/05/19 09:41 Dose: Not Given Documented by: Insulin Human Lispro (Insulin Lispro 100 Unit/Ml Insuln.Pen) 0 unit SC Q6 [facility]; Protocol Last Admin: 12/05/19 12:33 Dose: 6 u Documented by: Melatonin (Melatonin 3 Mg Tablet) 3 mg PO QHS PRN PRN PRN Reason: INSOMNIA Morphine Sulfate (Morphine 2 Mg/Ml Syringe) 2 mg IV Q3H PRN PRN PRN Reason: Pain Score 6-10 Nicotine (Nicotine 21 Mg Patch) 21 mg TRANSDERM. DAILY [facility] Last Admin: 12/05/19 09:29 Dose: 21 mg Documented by: Nitroglycerin (Nitroglycerin (Inpatient Use) 0.4 Mg Tab.Subl) 0.4 mg SUBLINGUAL Q5M PRN PRN Reason: CARDIAC/CHEST PAIN Oxycodone HCl (Oxycodone 5 Mg Tablet) 5 mg PO Q4H PRN PRN PRN Reason: Pain Score 4-5 Last Admin: 12/03/19 05:59 Dose: 5 mg Documented by: Oxycodone HCl (Oxycodone 5 Mg Tablet) 10 mg PO Q4H PRN PRN PRN Reason: Pain Score 6-10 Last Admin: 12/05/19 11:22 Dose: 10 mg Documented by: Polyethylene Glycol (Polyethylene Glycol 3350 17 Gm Packet) 17 gm PO DAILY [facility] Last Admin: 12/05/19 09:31 Dose: Not Given Documented by: Prednisone (Prednisone 20 Mg Tablet) 40 mg PO DAILY@0800 [facility] Last Admin: 12/05/19 09:29 Dose: 40 mg Documented by: Prochlorperazine Edisylate (Prochlorperazine 10 Mg/2 Ml Vial) 5 mg IV Q4H PRN PRN PRN Reason: Breakthrough nausea/vomiting Senna/Docusate Sodium (Senna/Docusate Sodium 1 Tablet) 2 tablet PO BID [facility] Last Admin: 12/05/19 09:29 Dose: 2 tablet Documented by: Sodium Chloride (0.9% Saline Lock 10 Ml Syringe) 10 - 40 ml IV UD PRN PRN Reason: SALINE FLUSH Last Admin: 12/05/19 14:06 Dose: 10 ml Documented by: Sodium Chloride (Sodium Chloride 0.65% 1 [place] Burnside.Btl) 2 spray NASAL BID [facility] Last Admin: 12/05/19 09:30 Dose: 2 sprays Documented by: Throat Lozenges (Benzocaine/Menthol 1 Lozenge) 1 lozenge MUCOUS MEM Q2H PRN PRN PRN Reason: SORE THROAT Last Admin: 12/03/19 22:24 Dose: 1 lozenge Documented by: Medical Necessity - Tobacco Use Smoking Status: Current every day smoker Tobacco Use: Cigarettes - 3 to 4 cigarettes daily. Patient is smokes since teenage Route of nutrition/ use of supplements: [] Nutritional Intake: [] IV Site: [] George Catheter: [] - Assessment/Plan Antibiotics: [] Assessment/Plan: [] Active and Suspected Problems (Last Reviewed 10/15/19 @ 12:58 by Natasha Baron PATTERN GRADER SUPERVISOR, PATTERN GRADER SUPERVISOR-C) COPD exacerbation (Acute) esbl bacteremia - wbc rapidly normalized, feeling better. On meropenem. Picc in place. Wrote for 6 more days iv erta. Dose of erta prior to leaving Will follow as needed
[2019-12-05 16:30] LABS: Bedside Glucose 217 mg/dL (70-110)
--- NOTE | 2019-12-05 17:29 | NURSING ---
Report called to Meseret HORTON in TCU.
== END 2019-12-05 18:45 | disposition skilled nursing facility (03) | DRG 871 ==
LOC: ED 09:08 → MS3 11:48
PROVIDERS: Hospitalist; Admitting Provider Internal Medicine; Emergency Provider Emergency Medicine; Visit Provider Internal Medicine
DX: R78.81 Bacteremia (principal); E43 Unspecified severe protein-calorie malnutrition; J96.11 Chronic respiratory failure with hypoxia; N39.0 Urinary tract infection, site not specified; J44.1 Chronic obstructive pulmonary disease with (acute) exacerbation; Z68.1 Body mass index [BMI] 19.9 or less, adult; Z16.12 Extended spectrum beta lactamase (ESBL) resistance; R64 Cachexia; J44.0 Chronic obstructive pulmonary disease with (acute) lower respiratory infection; J20.8 Acute bronchitis due to other specified organisms; T38.0X5A Adverse effect of glucocorticoids and synthetic analogues, initial encounter; B96.89 Other specified bacterial agents as the cause of diseases classified elsewhere; B96.20 Unspecified Escherichia coli [E. coli] as the cause of diseases classified elsewhere; R91.1 Solitary pulmonary nodule; M54.9 Dorsalgia, unspecified; G89.29 Other chronic pain; Z85.118 Personal history of other malignant neoplasm of bronchus and lung; F17.210 Nicotine dependence, cigarettes, uncomplicated; Z90.710 Acquired absence of both cervix and uterus; Z66 Do not resuscitate; Z90.2 Acquired absence of lung [part of]; Z85.820 Personal history of malignant melanoma of skin; Z79.51 Long term (current) use of inhaled steroids
CPT/HCPCS: 36415; 36569; 71045; 80048; 81001; 82803; 82962; 83036; 83605; 83735; 84484; 85025; 87040; 87077; 87086; 87088; 87186; 87449; 87633; 87635; 87804; 93005; 94640; 94667; 94668; 97110; 97116; 97162; 97166; 97530; 97535; 97802; 99251; 99285; J2185; J7030; J7040; J7050; A4216; G0463; J0696; U0003

== ENCOUNTER 2019-12-05 18:45 | Inpatient (IN) | payer MEDICARE, OTHER, SELFPAY ==
[2019-12-02 13:50] VITALS: BMI 15.3
[2019-12-05 19:59] VITALS: BP 116/52; PULSE 70; RESP 16; TEMP 36.8; O2SAT 98
--- NOTE | 2019-12-05 21:42 | HP.PCM_ITS ---
Problem List (1) Debility Status: Acute (2) Shortness of breath Status: Acute (3) Bacteremia Status: Acute (4) Urinary tract infection Status: Acute (5) Lung cancer Status: Chronic (6) Tobacco abuse Status: Chronic (7) Bronchiectasis Status: Chronic Qualifiers: (8) Chronic obstructive pulmonary disease (COPD) Status: Chronic Qualifiers: (9) Chronic back pain Status: Chronic Qualifiers: History of Present Illness Date of Admission: 12/05/19 Chief Complaint: Here for rehabilitation, strengthening, prior to discharge home alone. 12/02/19 The patient is a 84 year old Female with below past medical history presented to [facility] Emergency Department with shortness of breath. 12/02/19 EKG sinus rhythm with marked sinus arrhythmia, otherwise normal EKG. 12/02/19 Chest X-ray hyperinflation, COPD, no acute processes. COPD, on chronic oxygen, history of lung cancer status post lobectomy. Increasing shortness of breath over last 24 hours, mild, wheezing, mild cough. Loose stools, chest pain, recent prednisone course. Respiratory rate 30's with minimal conversation. WBC 15, BMP okay, Troponin okay. Rapid flu negative, COVID-19 negative. Rocephin, Azithromycin given for clinical pneumonia. 12/02/19 Admit to Hospital. Steroids, bronchodilators, incentive spirometry, BiPAP for acute respiratory failure. Pancultured. Nicotine patch for tobacco abuse. 12/03/19 Infectious Disease consulted for gram negative paddy bacteremia. Stop Azithromycin, continue Ceftriaxone. 12/04/19 ESBL E. Coli from either urine or pneumonia. IV Meropenem for treatment. 12/05/19 Urine culture growing ESBL E. Coli. Pneumonia ruled out. Total 7 days IV Ertapenem via right upper extremity PICC line. 12/05/19 Admit to TCU with debility, here for rehabilitation, strengthening, prior to discharge home alone. Past Medical History Past Medical History (Chronic Problems): Chronic Problems (Last Reviewed 10/15/19 @ 12:58 by Natasha Baron WORD PROCESSOR OPERATOR, WORD PROCESSOR OPERATOR-C) Lung cancer (Chronic) Tobacco abuse (Chronic) Incidental lung nodule, greater than or equal to 8mm (Chronic) Stage 2 moderate COPD by GOLD classification (Chronic) Bronchiectasis (Chronic) Chronic obstructive pulmonary disease (COPD) (Chronic) Chronic respiratory failure with hypoxia (Chronic) Severe protein-calorie malnutrition (Chronic) History of tobacco use (Chronic) Chronic back pain (Chronic) History of lung cancer (Chronic) Medical History: Medical History (Last Reviewed 10/15/19 @ 12:58 by Natasha Baron WORD PROCESSOR OPERATOR, WORD PROCESSOR OPERATOR-C) Bronchiectasis (Chronic) J47.9 Chronic obstructive pulmonary disease (COPD) (Chronic) J44.9 Chronic respiratory failure with hypoxia (Chronic) J96.11 Severe protein-calorie malnutrition (Chronic) E43 History of tobacco use (Chronic) Z87.891 Chronic back pain (Chronic) M54.9, G89.29 History of lung cancer (Chronic) Z85.118 COPD exacerbation (Acute) J44.1 Allergies No Known Allergies Allergy (Verified 10/15/19 12:40) Home Medications: Ambulatory Orders Medication Instructions Recorded albuterol sulfate 2.5 mg INHALATION Q4H PRN #180 ml 10/15/19 albuterol sulfate 90 mcg/actuation 1 - 2 puff INHALATION Q4H PRN PRN 12/02/19 aerosol inhaler #1 inhaler Arformoterol Tartrate [Brovana] 2 ml INHALATION BID 12/05/19 Budesonide 0.5 mg INHALATION BID 12/05/19 Ertapenem Sodium [Ertapenem] 1 gm IV DAILY 12/05/19 Hydrocodone/Acetaminophen [[place] 1 ea PO BID PRN PRN 3 Days #7 tab 12/05/19 5-325 Tablet] Ipratropium/Albuterol Sulfate 3 ml INHALATION [id number] 12/05/19 [Iprat-Albut 0.5-3(2.5) mg/3 ml] Prednisone 40 mg PO DAILY 12/05/19 Surgical History: Surgical History (Last Reviewed 10/15/19 @ 12:58 by Natahsa Baron WORD PROCESSOR OPERATOR, WORD PROCESSOR OPERATOR-C) No pertinent past surgical history Z78.9 Surgical History: hysterectomy, - - RUL Lobectomy, Melanoma skin resection. 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 Paternal Family History: Family History (Last Reviewed 10/15/19 @ 12:58 by Natasha Baron WORD PROCESSOR OPERATOR, WORD PROCESSOR OPERATOR-C) Other No pertinent family history History Items: - - Denies knowledge of paternal medical history. Review of Systems Constitutional: Reports: Weakness. Denies: Chills, Fever, Weight Change HEENT: Denies: Head Aches, Sinus Congestion, Sinus Drainage Cardiovascular: Denies: Chest Pain, Palpitations Respiratory: Denies: Cough, Shortness of breath at rest, Sputum production Gastrointestinal: Denies: Abdominal Pain, Nausea, Vomiting Genitourinary: Denies: Dysuria Musculoskeletal: Denies: Joint Pain, Joint Tenderness Skin: Denies: Rash, Wounds Neurological: Denies: Numbness, Tingling, Focal weakness Psychiatric: Denies: Anxiety, Depression, Homicidal Ideations, Suicidal Ideations Hematologic/ Lymphatic: Denies: Easy Bruising, Easy Bleeding VTE Information - Inpt Only VTE Present on Admission: No VTE Mechan Device Prophylaxis: Knee High KORIN Hose VTE Pharm Prophylaxis ordered?: Yes Patient Problems: Active and Suspected Problems (Last Reviewed 10/15/19 @ 12:58 by Natasha Baron WORD PROCESSOR OPERATOR, WORD PROCESSOR OPERATOR-C) Debility (Acute) Shortness of breath (Acute) Bacteremia (Acute) Urinary tract infection (Acute) - Physical Exam Vitals/I&O's: Body Mass Index (BMI) 15.3 General: Alert, Oriented x3, Cooperative HEENT: Atraumatic, PERRLA, EOMI, Normocephalic Neck: Supple, No JVD, Negative Carotid Bruits Lungs: Rhonchi, Short of Breath, Wheezes Cardiovascular: Regular rate, No murmurs Abdomen: Bowel Sounds Present, Soft, Non Tender Extremities: No edema, Capillary Refill Less than 3 Seconds Skin: No rashes, No breakdown Musculoskeletal: No Tenderness to Palpation of Joints or Extremities Neurological: Cranial nerves II-XII grossly intact Psych/Mental Status: Normal Affect, Appropriate Current Medications Hydrocodone Bitart/Acetaminophen (Hydrocodone Bitartrate/Apap 5/325 Tablet) 1 tablet PO BID PRN PRN PRN Reason: Pain Score 1-10 Albuterol Sulfate (Albuterol 2.5 Mg/3 Ml Vial.Neb.) 2.5 mg INHALATION Q4H PRN PRN PRN Reason: Sob &/Or Wheezing Albuterol/Ipratropium (Ipratropium/Albuterol Sulfate 3 Ml Ampul.Neb) 3 ml INHALATION Q6HWA.RT [facility] Stop: 12/10/19 20:16 Budesonide (Budesonide Respules 0.5 Mg/2 Ml Ampul.Neb.) 0.5 mg INHALATION BID [facility] Nicotine (Nicotine 21 Mg Patch) 21 mg TRANSDERM. DAILY [facility] Non-Formulary Medication (Arformoterol Tartrate [Brovana]) 2 ml INHALATION BID [facility] Non-Formulary Medication (Ertapenem Sodium [Ertapenem]) 1 gm IV DAILY [facility] Stop: 12/11/19 23:59 Nutritional Formula (Nutritional Supplement (Evens) Packet) 1 packet PO BIDCM [facility] Prednisone (Prednisone 20 Mg Tablet) 40 mg PO DAILYCM [facility] Stop: 12/07/19 08:01 Tuberculin PPD (Tuberculin,Purif.Prot.Deriv. 50 Tu/Ml Vial) 5 tu ID X1 ONE Stop: 12/06/19 10:01 Tuberculin PPD (Tuberculin,Purif.Prot.Deriv. 50 Tu/Ml Vial) 5 tu ID X1 ONE Stop: 12/13/19 10:01 Assessment/Plan All Active Problems (Last Reviewed 10/15/19 @ 12:58 by Natasha Baron WORD PROCESSOR OPERATOR, WORD PROCESSOR OPERATOR- C) Bacteremia due to Gram-negative bacteria (Acute) Debility (Acute) Shortness of breath (Acute) Bacteremia (Acute) Urinary tract infection (Acute) COPD exacerbation (Acute) 84 year old female with below past medical history hospitalized for bacteremia, secondary to ESBL E. Coli urinary tract infection, complicated by acute respiratory failure from COPD, admitted to TCU with debility, here for rehabilitation, strengthening, prior to discharge home alone. * Debility - PT/OT. * Pain - [place] 5/325MG BID PRN pain (1-10). * Bowel - Miralax 17GM daily, Senna/colace 1 tablet BID, MOM 30ML daily PRN, Dulcolax 10MG ND daily PRN. * Adult immunization - Administer Prevnar 13, Pneumovax 23, Fluzone as a ppropriate. * DVT prophylaxis - Lovenox 30MG SC daily. * COPD - Perforomist 20MG inhaled BID, Pulmicort 0.5MG inhaled BID, Duoneb 3ML inhaled [id number], Albuterol 2.5MG Q4H PRN, Prednisone taper. * ESBL E. Coli urinary tract infection with bacteremia - Ertapenem 1GM IV daily thru 12/11/19. * Tobacco Abuse - Nicotine patch 21MG TD daily. * Nutrition - Evens 1 packet BID.
[2019-12-05 21:50] VITALS: BMI 16.9
[2019-12-05 21:52] VITALS: BMI 17.0
[2019-12-06 04:32] VITALS: BP 164/56; PULSE 76; RESP 20; TEMP 36.8; O2SAT 97
[2019-12-06] MEDS: Enoxaparin 30 MG/0.3 ML Syringe SC (04:35)
[2019-12-06] MEDS: Polyethylene Glycol 3350 17 GM PACKET PO (04:35)
[2019-12-06] MEDS: Senna/Docusate Sodium 1 Tablet PO ×2 (04:37→18:27)
[2019-12-06] MEDS: 0.9% Saline Lock 10 ML Syringe IV (05:00)
[2019-12-06 05:47] LABS: Absolute Lymphocyte Count 1.01 X10^3/uL (0.83-4.51); Absolute Neutrophil Count 8.1 X10^3/uL (2.0-7.7); Basophil# 0.01 X10^3/uL; Basophil% 0.1 % (0-1); Eosinophil# 0.01 X10^3/uL; Eosinophils% 0.1 % (0-5); Hemoglobin 9.8 g/dL (12.0-15.0); Lymphocyte # 1.01 X10^3/ul (4.0); Mean Corp Hgb Conc 31.6 g/dL (32-36); Mean Corpuscular Hgb 30.9 pg (27.0-32.0); Mean Corpuscular Volume 97.8 fL (81-99); Mean Platelet Vol. 10.5 fl (6.2-12.0); Monocyte# 0.85 X10^3/uL; Monocyte% 8.4 % (0-10); NRBC Flagged by Analyzer 0 % (0-5); Neutrophil # 8.13 X10^3/uL (2.7-7.7); Neutrophil % 80.7 % (47-70); Platelet Count 232 K/mm3 (150-450); RBC Distribution Width CV 14.6 % (11.6-14.6); RBC Distribution Width SD 52.6 fl (35.1-43.9); Red Blood Count 3.17 M/mm3 (4.2-5.4); White Blood Count 10.1 K/mm3 (4.4-11.0)
[2019-12-06 06:01] LABS: Anion Gap 5 (5-15); BUN 31 mg/dL (7-18); BUN/Creat Ratio 34.5 RATIO (10-20); Calcium,Total 8.7 mg/dL (8.5-10.1); Chloride 105 mmol/L (98-107); EST Glomerular Filtration Rate 63 mL/min (>60); Est Glom Filt Rate - Afr Amer 77 mL/min (>60); Glucose 187 mg/dL (74-106); Sodium Level 138 mmol/L (136-145)
[2019-12-06] MEDS: HYDROcodone Bitartrate/Apap 5/325 Tablet PO ×2 (07:12→11:47)
--- NOTE | 2019-12-06 08:48 | CPS ---
Treatment not given, in bathroom.
[2019-12-06] MEDS: Tuberculin,Purif.prot.deriv. 50 TU/ML Vial 5 ML ID (09:22)
[2019-12-06] MEDS: predniSONE 20 MG Tablet 40 MG PO (09:22)
--- NOTE | 2019-12-06 10:21 | PCM.NTREPORT ---
Nutrition Therapy Report - History Nutrition Services has been consulted to:: Manage nutrient details of diet order Current diet / nutrition support order:: Regular diet; Evens 1 pkt BID. - Anthropometric Measurements Height:: 5 ft 5 in Weight:: 46.3 kg Body Mass Index (BMI):: 16.9 - Relevant Labs Relevant Labs:: RBC 3.17 M/mm3 (4.2-5.4) L 12/06/19 05:23 Hgb 9.8 g/dL (12.0-15.0) L 12/06/19 05:23 Hct 31.0 % (37-47) L 12/06/19 05:23 MCHC 31.6 g/dL (32-36) L 12/06/19 05:23 RDW Std Deviation 52.6 fl (35.1-43.9) H 12/06/19 05:23 Neut % (Auto) 80.7 % (47-70) H 12/06/19 05:23 Lymph % (Auto) 10.0 % (19-41) L 12/06/19 05:23 Absolute Neuts (auto) 8.1 X10^3/uL (2.0-7.7) H 12/06/19 05:23 BUN 31 mg/dL (7-18) H 12/06/19 05:23 BUN/Creatinine Ratio 34.5 RATIO (10-20) H 12/06/19 05:23 Glucose 187 mg/dL (74-106) H 12/06/19 05:23 - Assessment Food / Nutrition-Related History:: RDN spoke w/ res via phone d/t COVID safety guidelines. Res in-house transfer. 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 Consumes Boost at most 3 bottles per day. Dislikes ensure and CIB, agreeable to magic cup/ ensure pudding. Notes intake during time on MS3 good- currently consuming 1st meal on TCU during interview. Reports UBW 105-110# a long time ago, more recently 90# 1-1 1/2 months ago at PCP visit; CBW 102.1#, wt hx per EMR 12/02/19 92#, 05/28/18 91.9#, 04/21/18 90.2. Suspect wt gain likely d/t res recieving consistent prepared meals during hospital stay w/ ONS. Per RDN assessment recent admin 12/02/19 res found w/ s/s of severe loss of subcutaneous fat (orbital, triceps, fat overlying ribcage) and severe loss of muscle (temples, clavivles, shoulders, scapula, thigh, & calf)-- unable to visually assess pt at this time d/t COVID safety guidelines. - Nutrition Diagnosis Problem / Etiology / Signs & Symptoms (PES):: Severe malnutrition in the context of chronic illness r/t inadequate oral intake and increased nutrient needs d/t COPD and coccyx pressure injury as evidenced by </=75% energy intake compared to estimated nutrient needs >/=1 month, BMI 16.9, and severe loss of muscle/subcutaneous fat. Evidence of Malnutrition Exists:: Yes Severe PCM:: Chronic Illness - Nutrition Intervention Nutrition Prescription:: [id number] calories, 55-65 grams protein. - Food / Nutrient Delivery Interventions Summary of nutrition intervention:: Res would benefit from Meals on Wheels or alternative meals delivery service at time of discharge if plans to return home as res reports decreased intake d/t fatigue during food preparation from difficulty breathing. Nutrition support ordered as / adjusted to:: Continue Regular diet. Will fortify res meals and provide magic cup & ensure pudding w/ all meals. Continue Evens 1 pkt BID for wound healing. Nutrition education provided?: No - MNT Monitoring Further MNT monitoring and evaluation required?: Yes MNT Follow-up in:: 7-9 days
[2019-12-06 10:25] VITALS: BMI 16.9
--- NOTE | 2019-12-06 11:41 | CASEMGMT ---
Social Work Discussed code status with pt. Pt confirmed DNR-CCA, no intubation. MOLST form reviewed and placed in chart. Anushka Jung, BUFFING MACHINE OPERATOR PIANO SOUNDING BOARD MATCHER
[2019-12-06] MEDS: Ipratropium/Albuterol Sulfate 3 ML AMPUL.NEB INHALATION ×2 (12:35→19:17)
[2019-12-06 13:10] VITALS: PULSE 88; RESP 20
[2019-12-06] MEDS: Acetaminophen 500 MG Tablet 1000 MG PO (14:22)
[2019-12-06] MEDS: oxyCODONE 5 MG Tablet PO (14:22)
[2019-12-06] MEDS: BENZOCAINE/MENTHOL 1 LOZENGE 2 LOZENGE MUCOUS MEM (14:22)
--- NOTE | 2019-12-06 14:31 | PCM.CONS.GEN ---
Problem List (1) Tinea unguium Status: Acute (2) Onychogryphosis Status: Acute (3) Toe pain, bilateral Status: Acute Reason for Consult Date of Consultation: 12/06/19 Reason for Consultation: elongated curved toenails History of Present Illness: The patient is a 84 year old F who presentsere for rehabilitation, strengthening, prior to discharge home alone. Patient was admitted to hospital for SOB, baceteremia, UTI prior to coming to TCU. Podiatry was consulted for help managing patient's long curved thickened toenails. [] Past Medical History Past Medical History (Chronic Problems): Chronic Problems (Last Reviewed 10/15/19 @ 12:58 by Natasha Baron WHOLESALE REPRESENTATIVE, WHOLESALE REPRESENTATIVE-C) Lung cancer (Chronic) Tobacco abuse (Chronic) Incidental lung nodule, greater than or equal to 8mm (Chronic) Stage 2 moderate COPD by GOLD classification (Chronic) Bronchiectasis (Chronic) Chronic obstructive pulmonary disease (COPD) (Chronic) Chronic respiratory failure with hypoxia (Chronic) Severe protein-calorie malnutrition (Chronic) History of tobacco use (Chronic) Chronic back pain (Chronic) History of lung cancer (Chronic) Medical History: Medical History (Last Reviewed 10/15/19 @ 12:58 by Natasha Baron WHOLESALE REPRESENTATIVE, WHOLESALE REPRESENTATIVE-C) Bronchiectasis (Chronic) J47.9 Chronic obstructive pulmonary disease (COPD) (Chronic) J44.9 Chronic respiratory failure with hypoxia (Chronic) J96.11 Severe protein-calorie malnutrition (Chronic) E43 History of tobacco use (Chronic) Z87.891 Chronic back pain (Chronic) M54.9, G89.29 History of lung cancer (Chronic) Z85.118 COPD exacerbation (Acute) J44.1 Allergies No Known Allergies Allergy (Verified 10/15/19 12:40) Home Medications: Ambulatory Orders Medication Instructions Recorded albuterol sulfate 2.5 mg INHALATION Q4H PRN #180 ml 10/15/19 albuterol sulfate 90 mcg/actuation 1 - 2 puff INHALATION Q4H PRN PRN 12/02/19 aerosol inhaler #1 inhaler Arformoterol Tartrate [Brovana] 2 ml INHALATION BID 12/05/19 Budesonide 0.5 mg INHALATION BID 12/05/19 Ertapenem Sodium [Ertapenem] 1 gm IV DAILY 12/05/19 Hydrocodone/Acetaminophen [[place] 1 ea PO BID PRN PRN 3 Days #7 tab 12/05/19 5-325 Tablet] Ipratropium/Albuterol Sulfate 3 ml INHALATION [id number] 12/05/19 [Iprat-Albut 0.5-3(2.5) mg/3 ml] Prednisone 40 mg PO DAILY 12/05/19 Surgical History: Surgical History (Last Reviewed 10/15/19 @ 12:58 by Natasha Baron WHOLESALE REPRESENTATIVE, WHOLESALE REPRESENTATIVE-C) No pertinent past surgical history Z78.9 Surgical History: hysterectomy, - - RUL Lobectomy, Melanoma skin resection. 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 Paternal Family History: Family History (Last Reviewed 10/15/19 @ 12:58 by Natasha Baron NP, WHOLESALE REPRESENTATIVE-C) Other No pertinent family history History Items: - - Denies knowledge of paternal medical history. Review of Systems Constitutional: Denies: Chills Cardiovascular: Denies: Chest Pain Respiratory: Denies: Cough Musculoskeletal: Reports: Foot Pain - bilateral Skin: Reports: Dryness, Wounds - sacral Patient Problems: Active and Suspected Problems (Last Reviewed 10/15/19 @ 12:58 by Natasha Baron NP, WHOLESALE REPRESENTATIVE-C) Debility (Acute) Shortness of breath (Acute) Bacteremia (Acute) Urinary tract infection (Acute) - Physical Exam Vitals/I&O's: Vital Signs Temp Pulse Resp BP Pulse Ox 98.3 F 88 20 H 164/56 H 97 12/06/19 04:32 12/06/19 13:10 12/06/19 13:10 12/06/19 04:32 12/06/19 04:32 Oxygen Flow Rate (L/min) 2 Oxygen Delivery Method Nasal Cannula Weight: 46.3 kg Body Mass Index (BMI) 16.9 Intake and Output for Last 24 Hours 12/04/19 12/05/19 12/06/19 23:59 23:59 23:59 Intake Total 422.00 / 422.00 Balance 422.00 / 422.00 General: Alert, Oriented x3 HEENT: Atraumatic Extremities: No clubbing, No cyanosis, No edema, Capillary Refill Less than 3 Seconds, No Calf Tenderness, Cool, Peripheral Pulses Normal, Tenderness - toenails, - - nails 1,2,3,4,5 bilateral are elongated, elevated, thickened, incurvated, deviated, yellowed, cumbling, with subungal debris, pain on palpation. Of note is 1st and 2nd nail bilaterally are growing toward the other digit with patient padding with bandaids Skin: No rashes Musculoskeletal: - - Pain with ROM of 1st MPJ bilaterally Neurological: Sensory exam intact to light touch and pain Psych/Mental Status: Normal Affect, Appropriate Laboratory Results 12/06/19 05:23: WBC 10.1, RBC 3.17 L, Hgb 9.8 L, Hct 31.0 L, MCV 97.8, MCH 30.9, MCHC 31.6 L, RDW Std Deviation 52.6 H, RDW Coeff of [place] 14.6, Plt Count 232, MPV 10.5, Immature Gran % (Auto) 0.700, Neut % (Auto) 80.7 H, Lymph % (Auto) 10.0 L, [place] % (Auto) 8.4, Eos % (Auto) 0.1, Baso % (Auto) 0.1, Absolute Neuts (auto) 8.1 H, Absolute Lymphs (auto) 1.01, Nucleated RBC % 0 12/06/19 05:23: Sodium 138, Potassium 4.0, Chloride 105, Carbon Dioxide 28.0, Anion Gap 5, BUN 31 H, Creatinine 0.90, Estim Creat Clear Calc 32.80, Est GFR (MDRD) Af Amer 77, Est GFR (MDRD) Non-Af 63, BUN/Creatinine Ratio 34.5 H, Glucose 187 H, Calcium 8.7 12/06/19 13:10: COVID-19 ([place]) Pending Current Medications Acetaminophen (Acetaminophen 500 Mg Tablet) 1,000 mg PO Q6H PRN PRN PRN Reason: Pain Score 1-3 Last Admin: 12/06/19 14:22 Dose: 1,000 mg Documented by: Albuterol Sulfate (Albuterol 2.5 Mg/3 Ml Vial.Neb.) 2.5 mg INHALATION Q4H PRN PRN PRN Reason: Sob &/Or Wheezing Albuterol/Ipratropium (Ipratropium/Albuterol Sulfate 3 Ml Ampul.Neb) 3 ml INHALATION Q6HWA.RT [facility] Stop: 12/10/19 20:16 Bisacodyl (Bisacodyl 10 Mg Suppository) 10 mg RECTAL DAILY PRN PRN Reason: Constipation Budesonide (Budesonide Respules 0.5 Mg/2 Ml Ampul.Neb.) 0.5 mg INHALATION BID [facility] Enoxaparin Sodium (Enoxaparin 30 Mg/0.3 Ml Syringe) 30 mg SC DAILY@0600 [facility] Last Admin: 12/06/19 04:35 Dose: 30 mg Documented by: Heparin Sodium (Beef Lung) (Heparin Pf Lock 10 Units/Ml 50 Units/5 Ml Syringe) 50 units IV UD PRN PRN Reason: PICC Line Heparin Flush Ertapenem 1 gm/ Sodium (Chloride) 50 mls @ 100 mls/hr IV DAILY [facility] Last Infusion: 12/06/19 05:58 Dose: Infused Documented by: Sodium Chloride () 250 mls @ 15 mls/hr IV .[id number] PRN PRN Reason: Saline Flush Last Infusion: 12/06/19 10:36 Dose: 0 mls/hr Documented by: Sodium Chloride () 250 mls @ 15 mls/hr IV .[id number] PRN PRN Reason: Additional IVPB Infusion Sodium Chloride () 250 mls @ 15 mls/hr IV .[id number] PRN PRN Reason: Saline Flush Sodium Chloride () 250 mls @ 15 mls/hr IV .[id number] PRN PRN Reason: Additional IVPB Infusion Ipratropium [place] (Ipratropium [place] 0.06% Nasal [place]) 2 spray NASAL TID [facility] Stop: 12/11/19 14:01 Magnesium Hydroxide (Magnesium Hydroxide 30 Ml Udc) 30 ml PO DAILY PRN PRN Reason: Constipation Multi-Ingredient Cream (Mineral Oil/Petrolatum,White Jar) 1 applic TOPICAL BID PRN [facility]; Protocol Nicotine (Nicotine 21 Mg Patch) 21 mg TRANSDERM. DAILY [facility] Last Admin: 12/06/19 04:36 Dose: 21 mg Documented by: Nutritional Formula (Nutritional Supplement (Evens) Packet) 1 packet PO BIDCM [facility] Last Admin: 12/06/19 09:22 Dose: 1 packet Documented by: Oxycodone HCl (Oxycodone 5 Mg Tablet) 5 mg PO Q4H PRN PRN PRN Reason: Pain Score 4-10 Last Admin: 12/06/19 14:22 Dose: 5 mg Documented by: Polyethylene Glycol (Polyethylene Glycol 3350 17 Gm Packet) 17 gm PO DAILY [facility] Last Admin: 12/06/19 04:35 Dose: 17 gm Documented by: Prednisone ([facility] 20 Mg Tablet) [facility] Stop: 12/07/19 08:01 Last Admin: 12/06/19 09:22 Dose: 40 mg Documented by: Senna/Docusate Sodium (Senna/Docusate Sodium 1 Tablet) 1 tablet PO BID [facility] Last Admin: 12/06/19 04:37 Dose: 1 tablet Documented by: Sodium Chloride (0.9% Saline Lock 10 Ml Syringe) 10 - 40 ml IV UD PRN PRN Reason: Open End PICC Flush Last Admin: 12/06/19 05:00 Dose: 10 ml Documented by: Sodium Chloride (0.9 % Nacl (Sterile) Posiflush 10 Ml) 10 - 40 ml IV UD PRN PRN Reason: Port access or dressing change Throat Lozenges (Benzocaine/Menthol 1 Lozenge) 2 lozenge MUCOUS MEM Q2H PRN PRN PRN Reason: SORE THROAT Last Admin: 12/06/19 14:22 Dose: 2 lozenge Documented by: Tuberculin PPD (Tuberculin,Purif.Prot.Deriv. 50 Tu/Ml Vial) 5 tu ID X1 ONE Stop: 12/13/19 10:01 Assessment/Plan All Active Problems (Last Reviewed 10/15/19 @ 12:58 by Natasha Baron WHOLESALE REPRESENTATIVE, WHOLESALE REPRESENTATIVE-C) Bacteremia due to Gram-negative bacteria (Acute) Debility (Acute) Shortness of breath (Acute) Bacteremia (Acute) Urinary tract infection (Acute) Tinea unguium (Acute) Onychogryphosis (Acute) Toe pain, bilateral (Acute) COPD exacerbation (Acute) Tinea ungium onychogryphosis pain in toes bilateral tinea cutis Patient seen and examined Patient refused to have nails debrided today. Patient states that she is 'too weak' and that she 'needs to talk to her daughter first'. Patient states she has been maintaining her nails for the last 86 years herself. She states she changes the bandaid on the 1st and 2nd toes bilaterally about once a week when she washes her feet. She states they aren't painful as long as she has the bandaids on to prevent rubbing and a wound and as long as they aren't touched. Patient denies that her painful, elongated nails are hampering her physical therapy. Discussed the importance of proper nail maintenance and foot hygeine. Patient understood that there is the potential for wound development given the state of her toenails. Patient understood the risks and refuses to have her nails debrided today. Thank you for the consult. Please contact if any questions or concerns.
[2019-12-06 14:34] VITALS: BP 104/49; PULSE 84; RESP 16; TEMP 37.2; O2SAT 98
[2019-12-06] MEDS: Ipratropium Bromide 0.06% NASAL SPRAY 2 SPRAY NASAL ×2 (18:25→21:16)
[2019-12-06 19:15] VITALS: PULSE 90; RESP 18; O2SAT 100
[2019-12-07 05:50] VITALS: BP 131/61; PULSE 92; RESP 20; TEMP 36.7; O2SAT 97
[2019-12-07] MEDS: 0.9% Saline Lock 10 ML Syringe IV ×2 (05:53→21:24)
[2019-12-07] MEDS: Acetaminophen 500 MG Tablet 1000 MG PO ×2 (05:56→13:38)
[2019-12-07] MEDS: oxyCODONE 5 MG Tablet PO ×3 (05:56→18:08)
[2019-12-07] MEDS: Ipratropium Bromide 0.06% NASAL SPRAY 2 SPRAY NASAL ×3 (05:58→21:23)
[2019-12-07] MEDS: Enoxaparin 30 MG/0.3 ML Syringe SC (06:00)
[2019-12-07 07:24] VITALS: PULSE 83; RESP 18; O2SAT 98
[2019-12-07] MEDS: Ipratropium/Albuterol Sulfate 3 ML AMPUL.NEB INHALATION ×2 (07:26→13:17)
[2019-12-07] MEDS: predniSONE 20 MG Tablet 40 MG PO (09:38)
--- NOTE | 2019-12-07 13:50 | NURSING ---
Resident and friend, Loulou notified of COVID Outbreak status. Left message for daughter, Kimberly to call.
[2019-12-07 15:06] VITALS: BP 108/52; PULSE 79; RESP 16; TEMP 36.1; O2SAT 98
[2019-12-07] MEDS: Senna/Docusate Sodium 1 Tablet PO (17:05)
[2019-12-07 20:03] VITALS: PULSE 81; RESP 28; O2SAT 99
[2019-12-08 05:03] VITALS: BP 111/55; PULSE 76; RESP 20; TEMP 35.8; O2SAT 95
[2019-12-08] MEDS: oxyCODONE 5 MG Tablet PO ×4 (05:09→19:51)
[2019-12-08] MEDS: Ipratropium Bromide 0.06% NASAL SPRAY 2 SPRAY NASAL ×3 (05:14→19:43)
[2019-12-08 08:47] VITALS: PULSE 80; RESP 36; O2SAT 99
[2019-12-08] MEDS: Budesonide Respules 0.5 MG/2 ML AMPUL.NEB. INHALATION ×2 (08:47→20:11)
[2019-12-08] MEDS: Ipratropium/Albuterol Sulfate 3 ML AMPUL.NEB INHALATION ×2 (08:47→20:11)
[2019-12-08] MEDS: Iron Polysaccharide Complex 150 MG CAPSULE PO (09:13)
[2019-12-08] MEDS: Acetaminophen 500 MG Tablet 1000 MG PO (10:24)
[2019-12-08] MEDS: 0.9% Saline Lock 10 ML Syringe IV ×2 (14:19→19:44)
[2019-12-08 14:22] VITALS: BP 95/47; PULSE 89; RESP 18; TEMP 36.4; O2SAT 99
[2019-12-08 20:11] VITALS: PULSE 78; RESP 20; O2SAT 98
[2019-12-09] MEDS: Ipratropium Bromide 0.06% NASAL SPRAY 2 SPRAY NASAL ×3 (04:20→19:55)
[2019-12-09] MEDS: oxyCODONE 5 MG Tablet PO ×3 (04:20→16:55)
[2019-12-09] MEDS: 0.9% Saline Lock 10 ML Syringe IV (04:21)
[2019-12-09 04:22] VITALS: BP 95/53; PULSE 80; RESP 20; TEMP 36.4; O2SAT 91
[2019-12-09 06:45] VITALS: PULSE 91; RESP 16; O2SAT 98
[2019-12-09] MEDS: Budesonide Respules 0.5 MG/2 ML AMPUL.NEB. INHALATION (06:45)
[2019-12-09] MEDS: Ipratropium/Albuterol Sulfate 3 ML AMPUL.NEB INHALATION ×3 (06:45→19:00)
[2019-12-09] MEDS: Acetaminophen 500 MG Tablet 1000 MG PO ×2 (07:23→19:53)
[2019-12-09] MEDS: Iron Polysaccharide Complex 150 MG CAPSULE PO (08:52)
--- NOTE | 2019-12-09 10:57 | PHA.CONS_ITS ---
<Barbara Knight M - Last Filed: 12/09/19 10:57> Progress Note - Pharmacy Subjective: TCU ADMISSION Objective: Allergies No Known Allergies Allergy (Verified 10/15/19 12:40) Current Medications Generic Name Dose Route Start Last Admin Trade Name Freq PRN Reason Stop Dose Admin Acetaminophen 1,000 mg 12/06/19 13:39 12/09/19 07:23 Acetaminophen 500 Mg Tablet PO 1,000 mg Q6H PRN PRN Administration Pain Score 1-3 Albuterol Sulfate 2.5 mg 12/05/19 21:15 Albuterol 2.5 Mg/3 Ml Vial.Neb. INHALATION Q4H PRN PRN Sob &/Or Wheezing Albuterol/Ipratropium 3 ml 12/05/19 20:15 12/08/19 20:11 Ipratropium/Albuterol Sulfate 3 Ml Ampul.Neb INHALATION 12/10/19 20:16 3 ml Q6HWA.RT ARABELLA Administration Bisacodyl 10 mg 12/05/19 21:58 Bisacodyl 10 Mg Suppository RECTAL DAILY PRN Constipation Budesonide 0.5 mg 12/08/19 07:15 12/08/19 20:11 Budesonide Respules 0.5 Mg/2 Ml Ampul.Neb. INHALATION 0.5 mg BID.RT ARABELLA Administration Heparin Sodium (Beef Lung) 50 units 12/05/19 21:45 Heparin Pf Lock 10 Units/Ml 50 Units/5 Ml Syringe IV UD PRN PICC Line Heparin Flush Ertapenem 1 gm/ Sodium 50 mls @ 100 mls/hr 12/06/19 06:00 12/09/19 06:30 Chloride IV Infused DAILY ARABELLA Infusion Sodium Chloride 250 mls @ 15 mls/hr 12/06/19 03:24 12/06/19 10:36 IV 0 mls/hr .[id number] PRN Infusion Saline Flush Sodium Chloride 250 mls @ 15 mls/hr 12/06/19 03:24 IV .[id number] PRN Additional IVPB Infusion Sodium Chloride 250 mls @ 15 mls/hr 12/06/19 08:06 IV .[id number] PRN Saline Flush Sodium Chloride 250 mls @ 15 mls/hr 12/06/19 08:06 IV .[id number] PRN Additional IVPB Infusion Ipratropium [place] 2 spray 12/06/19 14:00 12/09/19 04:20 Ipratropium [place] 0.06% Nasal [place] NASAL 12/11/19 14:01 2 spray TID ARABELLA Administration Magnesium Hydroxide 30 ml 12/05/19 21:58 Magnesium Hydroxide 30 Ml Udc PO DAILY PRN Constipation Multi-Ingredient Cream 1 applic 12/06/19 01:55 Mineral Oil/Petrolatum,White Jar TOPICAL BID PRN [facility] Protocol Nicotine 21 mg 12/06/19 06:00 12/09/19 04:21 Nicotine 21 Mg Patch TRANSDERM. 21 mg DAILY ARABELLA Administration Nutritional Formula 1 packet 12/06/19 08:00 12/09/19 08:52 Nutritional Supplement (Evens) Packet PO 1 packet BIDCM ARABELLA Administration Oxycodone HCl 5 mg 12/06/19 13:47 12/09/19 04:20 Oxycodone 5 Mg Tablet PO 5 mg Q4H PRN PRN Administration Pain Score 4-10 Polyethylene Glycol 17 gm 12/06/19 06:00 12/09/19 04:21 Polyethylene Glycol 3350 17 Gm Packet PO Not Given DAILY ARABELLA Polysaccharide Iron Complex 150 mg 12/08/19 08:00 12/09/19 08:52 Iron Polysaccharide Complex 150 Mg Capsule PO 150 mg DAILYCM ARABELLA Administration Senna/Docusate Sodium 1 tablet 12/06/19 06:00 12/09/19 04:21 Senna/Docusate Sodium 1 Tablet PO Not Given BID ARABELLA Sodium Chloride 10 - 40 ml 12/05/19 21:45 12/09/19 04:21 0.9% Saline Lock 10 Ml Syringe IV 20 ml UD PRN Administration Open End PICC Flush Sodium Chloride 10 - 40 ml 12/05/19 21:45 0.9 % Nacl (Sterile) Posiflush 10 Ml IV UD PRN Port access or dressing change Throat Lozenges 2 lozenge 12/06/19 13:47 12/06/19 14:22 Benzocaine/Menthol 1 Lozenge MUCOUS MEM 2 lozenge Q2H PRN PRN Administration SORE THROAT Tuberculin PPD 5 tu 12/13/19 10:00 Tuberculin,Purif.Prot.Deriv. 50 Tu/Ml Vial ID 12/13/19 10:01 X1 ONE Problem List (Last Reviewed 10/15/19 @ 12:58 by Natasha Baron DIRECTOR CENTER, DIRECTOR CENTER-C) Debility (Acute) Shortness of breath (Acute) Bacteremia (Acute) Urinary tract infection (Acute) Lung cancer (Chronic) Tobacco abuse (Chronic) Tinea unguium (Acute) Onychogryphosis (Acute) Toe pain, bilateral (Acute) Bronchiectasis (Chronic) Chronic obstructive pulmonary disease (COPD) (Chronic) Chronic back pain (Chronic) Vital Signs Temp Pulse Resp BP Pulse Ox 97.5 F L 80 20 H 95/53 L 91 12/09/19 04:22 12/09/19 04:22 12/09/19 04:22 12/09/19 04:22 12/09/19 04:22 Oxygen Flow Rate (L/min) 2 Oxygen Delivery Method Room Air Weight: 46.3 kg Body Mass Index (BMI) 16.9 Sodium 138 mmol/L (136-145) 12/06/19 05:23 Potassium 4.0 mmol/L (3.5-5.1) 12/06/19 05:23 Chloride 105 mmol/L (98-107) 12/06/19 05:23 Carbon Dioxide 28.0 mmol/L (21.0-32.0) 12/06/19 05:23 Anion Gap 5 (5-15) 12/06/19 05:23 BUN 31 mg/dL (7-18) H 12/06/19 05:23 Creatinine 0.90 mg/dL (0.55-1.02) 12/06/19 05:23 Est GFR (MDRD) Af Amer 77 mL/min (>60) 12/06/19 05:23 Est GFR (MDRD) Non-Af 63 mL/min (>60) 12/06/19 05:23 BUN/Creatinine Ratio 34.5 RATIO (10-20) H 12/06/19 05:23 Glucose 187 mg/dL (74-106) H 12/06/19 05:23 Assessment/Plan: 1. Pain: Tylenol 1000mg PO Q6h PRN pain 1-310, oxycodone 5mg PO Q4h PRN Pain 4- 10. Please continue to monitor for increased/decreased pain, PRN medication usage. *2. ESBL E. Coli UTI/Bacteremia: Invanz 1g IV Daily. Per H/P, stopdate listed as 12/10, however no stop date on active order. Please add stopdate of 12/11/19 if this is till the stopdate, thank you. 3. COPD: Duoneb nebs Q6HWA, Pulmicort nebs Q12h, Albuterol nebs Q4h PRN SOB/Wheezing. Please continue to monitor for S/S exacerbation, improvement in symptoms with PRN medication usage. 4. Nicotine abuse: Nicotine Patch 21mg Daily. Please continue to monitor for local site reactions, vivid nightmares/dreams. Patch may be able to be removed at nighttime if nightmares/vivid dreams occur. 5. Sore Throat: Cepacol lozenge Q2h PRN. Please continue to monitor for medication effectiveness, PRN medication usage. Psychotropic Medications: None Unnecessary Medications: *1. Atrovent Nasal [place]: Using thru 12/10, no indication noted. Please review for appropriate use/indication, thank you. *2. Ferrex: 150mg PO Daily. No indication for use documented. Please review for appropriate/indication, thank you. Bowel Regimen: Miralax 17g PO Daily, Senna/Docusate 1 tab PO BID, Dulcolax 10mg IA Daily PRN, Milk of Magnesia 30ml PO daily PRN. Please continue to monitor for increased/decreased constipation and/or diarrhea. Date of Note:: 12/09/19 - Provider Comments Provider responsibility: Provider responsible to enter orders to implement recommendations <Jerson Kaur Chi - Last Filed: 12/09/19 15:09> Progress Note - Pharmacy Subjective: [] Objective: Allergies No Known Allergies Allergy (Verified 10/15/19 12:40) Current Medications Generic Name Dose Route Start Last Admin Trade Name Freq PRN Reason Stop Dose Admin Acetaminophen 1,000 mg 12/06/19 13:39 12/09/19 07:23 Acetaminophen 500 Mg Tablet PO 1,000 mg Q6H PRN PRN Administration Pain Score 1-3 Albuterol Sulfate 2.5 mg 12/05/19 21:15 Albuterol 2.5 Mg/3 Ml Vial.Neb. INHALATION Q4H PRN PRN Sob &/Or Wheezing Albuterol/Ipratropium 3 ml 12/05/19 20:15 12/09/19 13:00 Ipratropium/Albuterol Sulfate 3 Ml Ampul.Neb INHALATION 12/10/19 20:16 3 ml Q6HWA.RT ARABELLA Administration Bisacodyl 10 mg 12/05/19 21:58 Bisacodyl 10 Mg Suppository RECTAL DAILY PRN Constipation Budesonide 0.5 mg 12/08/19 07:15 12/09/19 06:45 Budesonide Respules 0.5 Mg/2 Ml Ampul.Neb. INHALATION 0.5 mg BID.RT ARABELLA Administration Heparin Sodium (Beef Lung) 50 units 12/05/19 21:45 Heparin Pf Lock 10 Units/Ml 50 Units/5 Ml Syringe IV UD PRN PICC Line Heparin Flush Ertapenem 1 gm/ Sodium 50 mls @ 100 mls/hr 12/06/19 06:00 12/09/19 06:30 Chloride IV Infused DAILY ARABELLA Infusion Sodium Chloride 250 mls @ 15 mls/hr 12/06/19 03:24 12/06/19 10:36 IV 0 mls/hr .[id number] PRN Infusion Saline Flush Sodium Chloride 250 mls @ 15 mls/hr 12/06/19 03:24 IV .[id number] PRN Additional IVPB Infusion Sodium Chloride 250 mls @ 15 mls/hr 12/06/19 08:06 IV .[id number] PRN Saline Flush Sodium Chloride 250 mls @ 15 mls/hr 12/06/19 08:06 IV .[id number] PRN Additional IVPB Infusion Ipratropium [place] 2 spray 12/06/19 14:00 12/09/19 12:46 Ipratropium [place] 0.06% Nasal [place] NASAL 12/11/19 14:01 2 spray TID ARABELLA Administration Magnesium Hydroxide 30 ml 12/05/19 21:58 Magnesium Hydroxide 30 Ml Udc PO DAILY PRN Constipation Multi-Ingredient Cream 1 applic 12/06/19 01:55 Mineral Oil/Petrolatum,White Jar TOPICAL BID PRN [facility] Protocol Nicotine 21 mg 12/06/19 06:00 12/09/19 04:21 Nicotine 21 Mg Patch TRANSDERM. 21 mg DAILY ARABELLA Administration Nutritional Formula 1 packet 12/06/19 08:00 12/09/19 08:52 Nutritional Supplement (Evens) Packet PO 1 packet BIDCM ARABELLA Administration Oxycodone HCl 5 mg 12/06/19 13:47 12/09/19 12:42 Oxycodone 5 Mg Tablet PO 5 mg Q4H PRN PRN Administration Pain Score 4-10 Polyethylene Glycol 17 gm 12/06/19 06:00 12/09/19 04:21 Polyethylene Glycol 3350 17 Gm Packet PO Not Given DAILY ARABELLA Polysaccharide Iron Complex 150 mg 12/08/19 08:00 12/09/19 08:52 Iron Polysaccharide Complex 150 Mg Capsule PO 150 mg DAILYCM ARABELLA Administration Senna/Docusate Sodium 1 tablet 12/06/19 06:00 12/09/19 12:48 Senna/Docusate Sodium 1 Tablet PO Not Given BID ARABELLA Sodium Chloride 10 - 40 ml 12/05/19 21:45 12/09/19 04:21 0.9% Saline Lock 10 Ml Syringe IV 20 ml UD PRN Administration Open End PICC Flush Sodium Chloride 10 - 40 ml 12/05/19 21:45 0.9 % Nacl (Sterile) Posiflush 10 Ml IV UD PRN Port access or dressing change Throat Lozenges 2 lozenge 12/06/19 13:47 12/06/19 14:22 Benzocaine/Menthol 1 Lozenge MUCOUS MEM 2 lozenge Q2H PRN PRN Administration SORE THROAT Tuberculin PPD 5 tu 12/13/19 10:00 Tuberculin,Purif.Prot.Deriv. 50 Tu/Ml Vial ID 12/13/19 10:01 X1 ONE Problem List (Last Reviewed 10/15/19 @ 12:58 by Natasha Baron DIRECTOR CENTER, DIRECTOR CENTER-C) Debility (Acute) Shortness of breath (Acute) Bacteremia (Acute) Urinary tract infection (Acute) Lung cancer (Chronic) Tobacco abuse (Chronic) Tinea unguium (Acute) Onychogryphosis (Acute) Toe pain, bilateral (Acute) Bronchiectasis (Chronic) Chronic obstructive pulmonary disease (COPD) (Chronic) Chronic back pain (Chronic) Vital Signs Temp Pulse Resp BP Pulse Ox 97.5 F L 85 18 89/46 L 97 12/09/19 13:29 12/09/19 13:29 12/09/19 13:29 12/09/19 13:29 12/09/19 13:29 Oxygen Flow Rate (L/min) 2 Oxygen Delivery Method Room Air Weight: 46.3 kg Body Mass Index (BMI) 16.9 Sodium 138 mmol/L (136-145) 12/06/19 05:23 Potassium 4.0 mmol/L (3.5-5.1) 12/06/19 05:23 Chloride 105 mmol/L (98-107) 12/06/19 05:23 Carbon Dioxide 28.0 mmol/L (21.0-32.0) 12/06/19 05:23 Anion Gap 5 (5-15) 12/06/19 05:23 BUN 31 mg/dL (7-18) H 12/06/19 05:23 Creatinine 0.90 mg/dL (0.55-1.02) 12/06/19 05:23 Est GFR (MDRD) Af Amer 77 mL/min (>60) 12/06/19 05:23 Est GFR (MDRD) Non-Af 63 mL/min (>60) 12/06/19 05:23 BUN/Creatinine Ratio 34.5 RATIO (10-20) H 12/06/19 05:23 Glucose 187 mg/dL (74-106) H 12/06/19 05:23 Assessment/Plan: Psychotropic Medications: Unnecessary Medications: Bowel Regimen: - Provider Comments Provider responsibility: Provider responsible to enter orders to implement recommendations Provider Comments to Recommendations by Pharmacy: Agree
[2019-12-09 13:29] VITALS: BP 89/46; PULSE 85; RESP 18; TEMP 36.4; O2SAT 97
--- NOTE | 2019-12-09 17:02 | CASEMGMT ---
Social Work Met with patient to discuss Palliative Care. Patient scored 6 on screening tool. Explained program. Pt agreeable to referral but would also like dtr involved. Contacted dtr to explain program and referral. Dtr agreeable as well. Referral made to [facility]. Anushka Jung, TRANSCRIPTION TYPIST BROADCAST FIELD SUPERVISOR
--- NOTE | 2019-12-09 17:57 | NURSING ---
Daughter, Kimberly, notified of negative COVID results.
[2019-12-09 19:00] VITALS: PULSE 70; RESP 18; O2SAT 99
[2019-12-10 05:13] VITALS: BP 107/56; PULSE 82; RESP 20; TEMP 37.1; O2SAT 98
[2019-12-10] MEDS: HYDROcodone Bitartrate/Apap 5/325 Tablet PO ×2 (05:14→17:22)
[2019-12-10] MEDS: Ipratropium Bromide 0.06% NASAL SPRAY 2 SPRAY NASAL ×3 (05:20→20:18)
[2019-12-10] MEDS: 0.9% Saline Lock 10 ML Syringe IV (05:25)
[2019-12-10 07:10] VITALS: PULSE 79; RESP 28; O2SAT 99
[2019-12-10] MEDS: Ipratropium/Albuterol Sulfate 3 ML AMPUL.NEB INHALATION ×2 (07:10→19:45)
[2019-12-10] MEDS: Iron Polysaccharide Complex 150 MG CAPSULE PO (08:18)
[2019-12-10] MEDS: Acetaminophen 500 MG Tablet 1000 MG PO ×3 (08:18→20:22)
[2019-12-10 13:05] VITALS: PULSE 75; RESP 26
[2019-12-10 15:52] VITALS: BP 98/40; PULSE 72; RESP 16; TEMP 36.4; O2SAT 92
--- NOTE | 2019-12-10 16:21 | NURSING ---
Resident and daughter, Kimberly, notified of staff member testing positive for COVID19
[2019-12-10 19:40] VITALS: PULSE 75; RESP 20
[2019-12-10] MEDS: Budesonide Respules 0.5 MG/2 ML AMPUL.NEB. INHALATION (19:45)
[2019-12-11 05:22] VITALS: BP 108/62; PULSE 79; RESP 16; TEMP 37; O2SAT 98
[2019-12-11] MEDS: HYDROcodone Bitartrate/Apap 5/325 Tablet PO ×3 (05:23→18:12)
[2019-12-11] MEDS: Ipratropium Bromide 0.06% NASAL SPRAY 2 SPRAY NASAL ×2 (05:23→13:51)
[2019-12-11] MEDS: 0.9% Saline Lock 10 ML Syringe IV (05:26)
[2019-12-11 07:45] VITALS: PULSE 75; RESP 21; O2SAT 97
[2019-12-11] MEDS: Budesonide Respules 0.5 MG/2 ML AMPUL.NEB. INHALATION ×2 (07:45→19:10)
[2019-12-11] MEDS: Iron Polysaccharide Complex 150 MG CAPSULE PO (08:30)
[2019-12-11] MEDS: Acetaminophen 500 MG Tablet 1000 MG PO (10:29)
--- NOTE | 2019-12-11 10:31 | NURSING ---
Patient states she is not feeling well. Vitals taken Temp 98.5 oral. Pulse 80. Resp. 30 SPO2 97% on 2L via nasal cannula. PRN Tylenol given per request.
--- NOTE | 2019-12-11 11:44 | CASEMGMT ---
Social Work IDT met with patient and both daughters via conference call for care plan meeting. Discussed patient's progress in therapy. Pt is SBA/CGA for bed mobility, tx and ambulating 30-50 ft with FWW. Pt fatigues quickly and is easily SOB. Pt needs improved activity tolerance. Pt is Veronika to encourage to participate, wearing O2 2LPM continuously. Pt is SBA for grooming, and UE dressing, Veronika for LE dressing, and SBA for toileting tasks. Pt is on a regular diet, receiving fortified foods, good intake, but losing weight. Pt agreed to add ice cream to meals. Pt's last day of IV ATB is this date. Explained Medicare benefit. the goal is for pt to return home alone with daughter's support. Palliative will follow patient at [place]. Explained it is an easy transition to hospice if pt chooses. Pt and dtrs understand. Will continue to follow. Anushka Jung, JANETTE SPONGE FISHERMAN
[2019-12-11 15:06] VITALS: BP 98/55; PULSE 80; RESP 30; TEMP 36.9; O2SAT 97
[2019-12-11 19:10] VITALS: PULSE 80; RESP 18
[2019-12-12 04:42] VITALS: BP 112/54; PULSE 76; RESP 18; TEMP 36.8; O2SAT 96
[2019-12-12] MEDS: HYDROcodone Bitartrate/Apap 5/325 Tablet PO ×2 (04:44→17:10)
[2019-12-12] MEDS: 0.9% Saline Lock 10 ML Syringe IV (04:47)
[2019-12-12 06:52] VITALS: PULSE 78; RESP 16; O2SAT 98
[2019-12-12] MEDS: Budesonide Respules 0.5 MG/2 ML AMPUL.NEB. INHALATION ×2 (06:52→21:30)
[2019-12-12] MEDS: Iron Polysaccharide Complex 150 MG CAPSULE PO (08:07)
[2019-12-12] MEDS: Polyethylene Glycol 3350 17 GM PACKET PO (08:07)
--- NOTE | 2019-12-12 08:11 | NURSING ---
Patient has not had bowel movement since 12/06. Patient states she had a very large bowel movement 2 days ago. Patient agreed to take Miralax at this time and will take stool softener at .
--- NOTE | 2019-12-12 11:26 | CASEMGMT ---
Social Work Met with pt whom is requesting to DC home. Pt agreeable to DC 12/[address] [facility] and Palliative Care. Spoke with dtr whom is agreeable as well and will assist, along with neighbor, with pt at DC. Referred to [facility] PT/OT/SN. Notified [facility] of DC date. No DME needs. Dtr to transport. Plan: DC home 12/14 with [facility] PT/OT/SN, [facility] JANETTE JordanW
[2019-12-12] MEDS: Acetaminophen 500 MG Tablet 1000 MG PO (13:20)
[2019-12-12 16:00] VITALS: BP 104/56; PULSE 78; RESP 22; TEMP 36.3; O2SAT 98
--- NOTE | 2019-12-12 16:57 | NURSING ---
PICC line dressing changed. Patient tolerated procedure well.
[2019-12-12] MEDS: Senna/Docusate Sodium 1 Tablet PO (17:09)
--- NOTE | 2019-12-12 18:55 | DCINST_ITS ---
- Discharge Diagnoses Current Active Problems: Current Active and Chronic Problems (Last Reviewed 10/15/19 @ 12:58 by Natasha Baron RENTAL CAR DELIVERER, RENTAL CAR DELIVERER-C) Debility (Acute) Shortness of breath (Acute) Bacteremia (Acute) Urinary tract infection (Acute) Lung cancer (Chronic) Tobacco abuse (Chronic) Tinea unguium (Acute) Onychogryphosis (Acute) Toe pain, bilateral (Acute) Bronchiectasis (Chronic) Chronic obstructive pulmonary disease (COPD) (Chronic) Chronic back pain (Chronic) You will use the following diet at home:: No restrictions, Regular Your food should be the consistency of: Regular Your liquids should be the consistency of: Regular/Thin Discharge Activity: Return to Normal Activity, May Shower, Use Walker Weight Bearing Status: Weight bearing as tolerated Call your doctor if you observe: Fever of 101 or Higher, Inability to urinate, Inability to have a bowel movement, Shortness of breath, Chest pain, Uncontrolled pain Allergies/Adverse Reactions: Allergies No Known Allergies Allergy (Verified 10/15/19 12:40) Medications to take at Discharge albuterol sulfate 2.5 mg INHALATION Q4H PRN #180 ml 10/15/19 albuterol sulfate 90 mcg/actuation aerosol inhaler 1 - 2 puff INHALATION Q4H PRN PRN #1 inhaler 12/02/19 Arformoterol Tartrate [Brovana] 2 ml INHALATION BID 12/05/19 Budesonide 0.5 mg INHALATION BID 12/05/19 Hydrocodone/Acetaminophen [[place] 5-325 Tablet] 1 ea PO BID PRN PRN 3 Days #7 tab 12/05/19 Acetaminophen [Tylenol] 1,000 mg PO Q6H PRN PRN tablet 12/12/19 Hydrocodone Bitart/Apap 5-325 [[place] 5/325] 1 tablet PO BID tablet 12/12/19 Iron Polysaccharide Complex [Ferrex 150] 150 mg PO DAILYCM #30 cap 12/12/19 Mineral Oil/Petrolatum,White [Eucerin] 1 applic TOPICAL BID PRN jar 12/12/19 Nicotine [Nicoderm Cq] 21 mg TRANSDERM. DAILY #30 patch 12/12/19 Nutritional Supplement [Evens - ORANGE FLAVOR] 1 packet PO BIDCM #60 packet 12/12/19 The following prescriptions were given: Iron Polysaccharide Complex [Ferrex 150] 150 mg PO DAILYCM #30 cap Transmission Status: Pending to [facility] #[id number] Nutritional Supplement [Evens - ORANGE FLAVOR] 1 packet PO BIDCM #60 packet Transmission Status: Pending to [facility] #[id number] Nicotine [Nicoderm Cq] 21 mg TRANSDERM. DAILY #30 patch Transmission Status: Pending to [facility] #[id number] Primary Care Physician: Moose Abrams MD [Primary Care Provider] - Please follow up with your Primary Care Physician in: 1 week. Test Results: Test results from this visit will be discussed in further detail at your follow- up appointment, if applicable. Proposed Discharge Date: 12/15/19
--- NOTE | 2019-12-12 18:56 | PCM.DC.SUM ---
Discharge Date and Diagnosis - Problem List Patient Problems: Active and Suspected Problems (Last Reviewed 10/15/19 @ 12:58 by Natasha Baron ASSISTANT PLANT MANAGER, ASSISTANT PLANT MANAGER-C) Debility (Acute) Shortness of breath (Acute) Bacteremia (Acute) Urinary tract infection (Acute) Tinea unguium (Acute) Onychogryphosis (Acute) Toe pain, bilateral (Acute) Date of Admission: 12/05/19 Date of Discharge: 12/15/19 - Primary Discharge Diagnosis Acute Problems: Active Problems (Last Reviewed 10/15/19 @ 12:58 by Natasha Baron ASSISTANT PLANT MANAGER, ASSISTANT PLANT MANAGER-C) Debility (Acute) Shortness of breath (Acute) Bacteremia (Acute) Urinary tract infection (Acute) Tinea unguium (Acute) Onychogryphosis (Acute) Toe pain, bilateral (Acute) - Secondary Discharge Diagnosis Chronic Problems: Chronic Problems (Last Reviewed 10/15/19 @ 12:58 by Natasha Baron ASSISTANT PLANT MANAGER, ASSISTANT PLANT MANAGER-C) Lung cancer (Chronic) Tobacco abuse (Chronic) Incidental lung nodule, greater than or equal to 8mm (Chronic) Stage 2 moderate COPD by GOLD classification (Chronic) Bronchiectasis (Chronic) Chronic obstructive pulmonary disease (COPD) (Chronic) Chronic respiratory failure with hypoxia (Chronic) Severe protein-calorie malnutrition (Chronic) History of tobacco use (Chronic) Chronic back pain (Chronic) History of lung cancer (Chronic) Hospital Course and Treatment Imaging Results: 12/05/19 20:18 Diet: Regular - General Food consistency:: Regular Liquid Consistency:: Regular/Thin Is pt able to select menu?: Yes Operations: None Procedures: None Summary of Care Provided: The patient is a 84 year old Female with below past medical history hospitalized for bacteremia, secondary to ESBL E. Coli urinary tract infection, complicated by acute respiratory failure from COPD, admitted to TCU with debility, here for rehabilitation, strengthening, prior to discharge home alone. Iron added for anemia. Discharge home alone, [facility] PT/OT/SN, [facility]. Patient Problems: Active and Suspected Problems (Last Reviewed 10/15/19 @ 12:58 by Natasha Baron ASSISTANT PLANT MANAGER, ASSISTANT PLANT MANAGER-C) Debility (Acute) Shortness of breath (Acute) Bacteremia (Acute) Urinary tract infection (Acute) Tinea unguium (Acute) Onychogryphosis (Acute) Toe pain, bilateral (Acute) - Physical Exam Vitals/I&O's: Vital Signs Temp Pulse Resp BP Pulse Ox 97.4 F L 78 22 H 104/56 L 98 12/12/19 16:00 12/12/19 16:00 12/12/19 16:00 12/12/19 16:00 12/12/19 16:00 Oxygen Flow Rate (L/min) 2 Oxygen Delivery Method Nasal Cannula Weight: 44.044 kg Body Mass Index (BMI) 16.9 Intake and Output for Last 24 Hours 12/10/19 12/11/19 12/12/19 23:59 23:59 23:59 Intake Total 650 / 650 530 / 530 540 / 540 Balance 650 / 650 530 / 530 540 / 540 Microbiology Past 72 Hours 12/09/19 10:55 Mucosa - Nose - Final Current Medications Acetaminophen (Acetaminophen 500 Mg Tablet) 1,000 mg PO Q6H PRN PRN PRN Reason: Pain Score 1-3 Last Admin: 12/12/19 13:20 Dose: 1,000 mg Documented by: Hydrocodone Bitart/Acetaminophen (Hydrocodone Bitartrate/Apap 5/325 Tablet) 1 tablet PO BID [facility] Last Admin: 12/12/19 17:10 Dose: 1 tablet Documented by: Albuterol Sulfate (Albuterol 2.5 Mg/3 Ml Vial.Neb.) 2.5 mg INHALATION Q4H PRN PRN PRN Reason: Sob &/Or Wheezing Bisacodyl (Bisacodyl 10 Mg Suppository) 10 mg RECTAL DAILY PRN PRN Reason: Constipation Budesonide (Budesonide Respules 0.5 Mg/2 Ml Ampul.Neb.) 0.5 mg INHALATION BID.RT [facility] Last Admin: 12/12/19 06:52 Dose: 0.5 mg Documented by: Heparin Sodium (Beef Lung) (Heparin Pf Lock 10 Units/Ml 50 Units/5 Ml Syringe) 50 units IV UD PRN PRN Reason: PICC Line Heparin Flush Sodium Chloride () 250 mls @ 15 mls/hr IV .[id number] PRN PRN Reason: Saline Flush Last Infusion: 12/11/19 06:20 Dose: Infused Documented by: Sodium Chloride () 250 mls @ 15 mls/hr IV .[id number] PRN PRN Reason: Additional IVPB Infusion Sodium Chloride () 250 mls @ 15 mls/hr IV .[id number] PRN PRN Reason: Saline Flush Sodium Chloride () 250 mls @ 15 mls/hr IV .[id number] PRN PRN Reason: Additional IVPB Infusion Magnesium Hydroxide (Magnesium Hydroxide 30 Ml Udc) 30 ml PO DAILY PRN PRN Reason: Constipation Multi-Ingredient Cream (Mineral Oil/Petrolatum,White Jar) 1 applic TOPICAL BID PRN [facility]; Protocol Nicotine (Nicotine 21 Mg Patch) 21 mg TRANSDERM. DAILY [facility] Last Admin: 12/12/19 04:45 Dose: 21 mg Documented by: Nutritional Formula (Nutritional Supplement (Evens) Packet) [facility] Last Admin: 12/12/19 17:09 Dose: 1 packet Documented by: Polyethylene Glycol (Polyethylene Glycol 3350 17 Gm Packet) 17 gm PO DAILY [facility] Last Admin: 12/12/19 08:07 Dose: 17 gm Documented by: Polysaccharide Iron Complex (Iron Polysaccharide Complex 150 Mg Capsule) [facility] Last Admin: 12/12/19 08:07 Dose: 150 mg Documented by: Senna/Docusate Sodium (Senna/Docusate Sodium 1 Tablet) 1 tablet PO BID [facility] Last Admin: 12/12/19 17:09 Dose: 1 tablet Documented by: Sodium Chloride (0.9% Saline Lock 10 Ml Syringe) 10 - 40 ml IV UD PRN PRN Reason: Open End PICC Flush Last Admin: 12/12/19 04:47 Dose: 10 ml Documented by: Sodium Chloride (0.9 % Nacl (Sterile) Posiflush 10 Ml) 10 - 40 ml IV UD PRN PRN Reason: Port access or dressing change Throat Lozenges (Benzocaine/Menthol 1 Lozenge) 2 lozenge MUCOUS MEM Q2H PRN PRN PRN Reason: SORE THROAT Last Admin: 12/06/19 14:22 Dose: 2 lozenge Documented by: Tuberculin PPD (Tuberculin,Purif.Prot.Deriv. 50 Tu/Ml Vial) 5 tu ID X1 ONE Stop: 12/13/19 10:01 Discharge Diet: No Restrictions Discharge Activity: Return to Normal Activity, May Shower, Use Walker Weight Bearing Status: Weight bearing as tolerated Call your doctor if you observe: Fever of 101 or Higher, Inability to urinate, Inability to have a bowel movement, Shortness of breath, Chest pain, Uncontrolled pain Home Medications: Medications to take at Discharge albuterol sulfate 2.5 mg INHALATION Q4H PRN #180 ml 10/15/19 albuterol sulfate 90 mcg/actuation aerosol inhaler 1 - 2 puff INHALATION Q4H PRN PRN #1 inhaler 12/02/19 Arformoterol Tartrate [Brovana] 2 ml INHALATION BID 12/05/19 Budesonide 0.5 mg INHALATION BID 12/05/19 Hydrocodone/Acetaminophen [[place] 5-325 Tablet] 1 ea PO BID PRN PRN 3 Days #7 tab 12/05/19 Acetaminophen [Tylenol] 1,000 mg PO Q6H PRN PRN tablet 12/12/19 Hydrocodone Bitart/Apap 5-325 [[place] 5/325] 1 tablet PO BID tablet 12/12/19 Iron Polysaccharide Complex [Ferrex 150] 150 mg PO DAILYCM #30 cap 12/12/19 Mineral Oil/Petrolatum,White [Eucerin] 1 applic TOPICAL BID PRN jar 12/12/19 Nicotine [Nicoderm Cq] 21 mg TRANSDERM. DAILY #30 patch 12/12/19 Nutritional Supplement [Evens - ORANGE FLAVOR] 1 packet PO BIDCM #60 packet 12/12/19 Following Prescriptions Were Given to Patient: Iron Polysaccharide Complex [Ferrex 150] 150 mg PO DAILYCM #30 cap Transmission Status: Pending to [facility] #[id number] Nutritional Supplement [Evens - ORANGE FLAVOR] 1 packet PO BIDCM #60 packet Transmission Status: Pending to [facility] #[id number] Nicotine [Nicoderm Cq] 21 mg TRANSDERM. DAILY #30 patch Transmission Status: Pending to [facility] #[id number] Primary Care Physician: Moose Abrams MD [Primary Care Provider] - Please follow up with your Primary Care Physician in: 1 week. Disposition: Home with Home Health Minutes spent on discharge:: 35 Patient Condition:: Stable Medical Necessity - Tobacco Use Smoking Status: Light Smoker (<10/day) Tobacco Use: Cigarettes Meaningful Use Info Meaningful Use Diagnoses (Choose all that apply): None applicable
[2019-12-12 21:30] VITALS: PULSE 76; RESP 18
[2019-12-13 05:24] VITALS: BP 99/56; PULSE 66; RESP 20; TEMP 36.6; O2SAT 97
[2019-12-13] MEDS: HYDROcodone Bitartrate/Apap 5/325 Tablet PO (05:26)
[2019-12-13 05:52] LABS: Absolute Lymphocyte Count 1.63 X10^3/uL (0.83-4.51); Absolute Neutrophil Count 7.7 X10^3/uL (2.0-7.7); Basophil# 0.04 X10^3/uL; Basophil% 0.4 % (0-1); Eosinophil# 0.26 X10^3/uL; Eosinophils% 2.5 % (0-5); Hematocrit 34.8 % (37-47); Hemoglobin 10.9 g/dL (12.0-15.0); Lymphocyte # 1.63 X10^3/ul (4.0); Lymphocyte % 15.6 % (19-41); Mean Corp Hgb Conc 31.3 g/dL (32-36); Mean Corpuscular Hgb 30.8 pg (27.0-32.0); Mean Corpuscular Volume 98.3 fL (81-99); Mean Platelet Vol. 10.1 fl (6.2-12.0); Monocyte# 0.67 X10^3/uL; Monocyte% 6.4 % (0-10); NRBC Flagged by Analyzer 0 % (0-5); Neutrophil # 7.68 X10^3/uL (2.7-7.7); Neutrophil % 73.3 % (47-70); Platelet Count 232 K/mm3 (150-450); RBC Distribution Width CV 14.6 % (11.6-14.6); RBC Distribution Width SD 53.2 fl (35.1-43.9); Red Blood Count 3.54 M/mm3 (4.2-5.4); White Blood Count 10.5 K/mm3 (4.4-11.0)
[2019-12-13 06:04] LABS: Anion Gap 4 (5-15); BUN 32 mg/dL (7-18); BUN/Creat Ratio 35.7 RATIO (10-20); Calcium,Total 9.1 mg/dL (8.5-10.1); Chloride 106 mmol/L (98-107); EST Glomerular Filtration Rate 63 mL/min (>60); Est Glom Filt Rate - Afr Amer 77 mL/min (>60); Glucose 111 mg/dL (74-106); Potassium 4.7 mmol/L (3.5-5.1); Sodium Level 140 mmol/L (136-145)
[2019-12-13] MEDS: Iron Polysaccharide Complex 150 MG CAPSULE PO (07:36)
[2019-12-13 07:50] VITALS: PULSE 69; RESP 22
[2019-12-13] MEDS: Budesonide Respules 0.5 MG/2 ML AMPUL.NEB. INHALATION ×2 (07:50→18:40)
[2019-12-13] MEDS: Tuberculin,Purif.prot.deriv. 50 TU/ML Vial 5 ML ID (09:40)
[2019-12-13] MEDS: Acetaminophen 500 MG Tablet 1000 MG PO ×2 (09:51→17:17)
[2019-12-13 15:15] VITALS: O2SAT 96
[2019-12-13 15:35] VITALS: BP 102/50; PULSE 72; RESP 24; TEMP 37.1; O2SAT 96
[2019-12-13] MEDS: oxyCODONE 5 MG Tablet PO (17:18)
[2019-12-13] MEDS: Senna/Docusate Sodium 1 Tablet PO (17:18)
[2019-12-13 18:40] VITALS: PULSE 64; RESP 28
[2019-12-14 00:32] VITALS: BP 114/51; PULSE 68; RESP 22; TEMP 36.2; O2SAT 97
[2019-12-14] MEDS: oxyCODONE 5 MG Tablet PO ×3 (06:53→16:39)
[2019-12-14 07:30] VITALS: PULSE 77; RESP 17
[2019-12-14] MEDS: Budesonide Respules 0.5 MG/2 ML AMPUL.NEB. INHALATION ×2 (07:30→19:05)
[2019-12-14] MEDS: Iron Polysaccharide Complex 150 MG CAPSULE PO (08:13)
[2019-12-14] MEDS: Acetaminophen 500 MG Tablet 1000 MG PO (10:27)
[2019-12-14 13:46] VITALS: BP 93/44; PULSE 67; RESP 17; TEMP 36.7; O2SAT 97
[2019-12-14 19:10] VITALS: PULSE 65; RESP 18
[2019-12-15 04:41] VITALS: BP 125/58; PULSE 78; RESP 20; TEMP 36.6; O2SAT 95
[2019-12-15] MEDS: oxyCODONE 5 MG Tablet PO ×2 (04:45→09:45)
[2019-12-15] MEDS: Budesonide Respules 0.5 MG/2 ML AMPUL.NEB. INHALATION (07:10)
[2019-12-15] MEDS: Iron Polysaccharide Complex 150 MG CAPSULE PO (07:38)
[2019-12-15 07:41] VITALS: PULSE 63; RESP 16; O2SAT 98
[2019-12-15 07:58] VITALS: PULSE 66; RESP 21
--- NOTE | 2019-12-15 09:40 | NURSING ---
mepilex removed from pt coccyx, skin intact. blanchable redness aldo tailbone. pt instructed to turn and keep pressure off area at home. pt verbalized understanding.
--- NOTE | 2019-12-18 09:41 | MDS.RN ---
Information for the mds was obtained from review of the clinical record, interview of resident, staff, and direct observation of resident's care.
== END 2019-12-15 11:10 | disposition home health service (06) | DRG 689 ==
PROVIDERS: Admitting Provider Family Medicine Geriatric Medicine; Referring Provider Family Medicine Geriatric Medicine; Visit Provider Family Medicine Geriatric Medicine
DX: N39.0 Urinary tract infection, site not specified (principal); E43 Unspecified severe protein-calorie malnutrition; Z16.12 Extended spectrum beta lactamase (ESBL) resistance; J44.1 Chronic obstructive pulmonary disease with (acute) exacerbation; J96.11 Chronic respiratory failure with hypoxia; Z68.1 Body mass index [BMI] 19.9 or less, adult; B96.20 Unspecified Escherichia coli [E. coli] as the cause of diseases classified elsewhere; Z85.118 Personal history of other malignant neoplasm of bronchus and lung; Z99.81 Dependence on supplemental oxygen; F17.210 Nicotine dependence, cigarettes, uncomplicated; G89.29 Other chronic pain; B35.1 Tinea unguium; L60.2 Onychogryphosis; M79.675 Pain in left toe(s); M79.674 Pain in right toe(s)
CPT/HCPCS: 36415; 80048; 85025; 87426; 87635; 94640; 94668; 97110; 97162; 97166; 97530; 97535; 97802; J7050; A4216; U0002

== ENCOUNTER → 2019-12-31 11:18 | Outpatient (CLI) | payer MEDICARE, OTHER, SELFPAY ==
[2019-12-31 10:12] VITALS: BMI 16.0
[2019-12-31 11:55] LABS: Hematocrit 41.1 % (37-47); Hemoglobin 13.1 g/dL (12.0-15.0); Mean Corp Hgb Conc 31.9 g/dL (32-36); Mean Corpuscular Hgb 31.3 pg (27.0-32.0); Mean Corpuscular Volume 98.3 fL (81-99); Mean Platelet Vol. 9.9 fl (6.2-12.0); Platelet Count 279 K/mm3 (150-450); RBC Distribution Width CV 15.8 % (11.6-14.6); RBC Distribution Width SD 57.2 fl (35.1-43.9); Red Blood Count 4.18 M/mm3 (4.2-5.4)
[2019-12-31 13:12] LABS: Anion Gap 4 (5-15); BUN 18 mg/dL (7-18); BUN/Creat Ratio 19.7 RATIO (10-20); Chloride 108 mmol/L (98-107); Creatinine, Serum 0.91 mg/dL (0.55-1.02); EST Glomerular Filtration Rate 62 mL/min (>60); Est Glom Filt Rate - Afr Amer 75 mL/min (>60); Glucose 109 mg/dL (74-106); Potassium 4.1 mmol/L (3.5-5.1); Sodium Level 141 mmol/L (136-145)
[2019-12-31 19:35] LABS: Xtra Tube EP Lab EXTRA TUBE
== END ==
PROVIDERS: Referring Provider Nurse Practitioner Acute Care; Visit Provider Nurse Practitioner Acute Care
DX: R06.02 Shortness of breath (principal); R78.81 Bacteremia
CPT/HCPCS: 36415; 80048; 85027

== ENCOUNTER 2020-10-27 18:56 | Emergency (ER) | payer MEDICARE, OTHER, SELFPAY ==
[2020-10-27 18:57] VITALS: BP 146/88; PULSE 87; RESP 18; TEMP 36.6; O2SAT 97; BMI 18.8
--- NOTE | 2020-10-27 19:35 | EKG12_ITS ---
Test Reason : DYSRHYTHMIA Blood Pressure : / mmHG Vent. Rate : 087 BPM Atrial Rate : 087 BPM P-R Int : 128 ms QRS Dur : 074 ms QT Int : 376 ms P-R-T Axes : 066 045 060 degrees QTc Int : 452 ms Normal sinus rhythm with sinus arrhythmia Normal ECG Confirmed by NORRIS PATEL, ROBERT ([id number]), web content editor SKYLER KATZ ([id number]) on 10/30/2020 7:07:42 AM Referred By: MR Confirmed By:ROBERT PISANO MD
--- NOTE | 2020-10-27 19:58 | RAD_ITS ---
STUDY: X-RAY CHEST REASON FOR EXAM: Female, 84 years old. Chest pain TECHNIQUE: AP portable COMPARISON: 12/02/2019 FINDINGS: Minor interstitial thickening in the lower lobes. Small spiculated density in left upper lobe There is pleural thickening in the right apex. There is no pleural effusion or pneumothorax. Normal size heart. Normal mediastinum and carrie. Normal visualized pulmonary arteries. Mildly calcified aortic arch and descending thoracic aorta. Surgical clips in the right hilar region. Dorsal spine and shoulders demonstrate degenerative change. Normal visualized ribs, clavicles, and shoulders. There is no demonstrated abnormality of the visualized soft tissue structures of the upper abdomen. RAD/Chest 1 View (Portable) IMPRESSION: No acute cardiopulmonary pathology. Electronically Signed: Marcos Simmons MD at 20:46 EDT , Service support ,
[2020-10-27 20:02] LABS: Absolute Lymphocyte Count 0.29 X10^3/uL (0.83-4.51); Basophil# 0.01 X10^3/uL; Basophil% 0.1 % (0-1); Hemoglobin 13.7 g/dL (12.0-15.0); Lymphocyte # 0.29 X10^3/ul (0.83-4.51); Lymphocyte % 2.8 % (19-41); Mean Corp Hgb Conc 33.4 g/dL (32-36); Mean Corpuscular Hgb 32.2 pg (27.0-32.0); Mean Corpuscular Volume 96.2 fL (81-99); Mean Platelet Vol. 10.2 fl (6.2-12.0); Monocyte# 0.11 X10^3/uL; NRBC Flagged by Analyzer 0 % (0-5); Neutrophil # 10.02 X10^3/uL (2.7-7.7); Neutrophil % 95.2 % (47-70); POSITIVE DIFFERENTIAL YES; Platelet Count 263 K/mm3 (150-450); RBC Distribution Width CV 13.4 % (11.6-14.6); RBC Distribution Width SD 47.6 fl (35.1-43.9); Red Blood Count 4.26 M/mm3 (4.2-5.4); White Blood Count 10.5 K/mm3 (4.4-11.0)
[2020-10-27 20:04] VITALS: PULSE 88; RESP 34; RESP 38; O2SAT 96
[2020-10-27] MEDS: Albuterol 2.5 MG/3 ML VIAL.NEB. INHALATION (20:04)
[2020-10-27] MEDS: Ipratropium/Albuterol Sulfate 3 ML AMPUL.NEB INHALATION (20:04)
[2020-10-27 20:05] LABS: Differential Indicated SCAN CRITERIA MET
--- NOTE | 2020-10-27 20:10 | CPS ---
x1 Albuterol given to pt. in ER as well
[2020-10-27 20:16] VITALS: PULSE 82; RESP 20; O2SAT 96
[2020-10-27 20:18] VITALS: O2SAT 96
--- NOTE | 2020-10-27 20:24 | EDS_ITS ---
HPI History of Present Illness Chief Complaint: Abd Pain Narrative Narrative: Patient presenting for evaluation secondary to chest and abdominal pain. Patient has a underlying history of lung cancer, COPD, chronic oxygen use. Patient apparently was admitted at an outside facility for 5 days and was discharged yesterday. Patient states that she is not 100% sure why she was there, but reports they did not do anything for me. Patient states that she has been intermittently having issues with severe chest pain. It is sharp and intermittent and has no specific exacerbating or relieving qualities. Patient denies any nausea or vomiting. She also states that occasionally she gets abdominal pain. No diarrhea associated with this. No fevers associated with this. Patient states that they did multiple work-ups at the outside facility including blood work and chest x-rays and CT scans to find the etiology of her pain but were unable to find that. Patient states that when her palliative care team evaluated her today they recommended that she needed to go back to the hospital because if this is not taking care of it can cause permanent problems. [facility] Medical History (Updated 10/27/20 @ 22:[address] Zelalem Ellsworth MD) Bronchiectasis Chronic back pain Chronic obstructive pulmonary disease (COPD) Chronic respiratory failure with hypoxia COPD exacerbation History of lung cancer History of tobacco use Severe protein-calorie malnutrition Home Medications albuterol sulfate 2.5 mg INHALATION Q4H PRN #180 ml 10/15/19 [Rx Last Taken Unk nown] arformoterol 2 ml INHALATION BID 12/05/19 [History Last Taken Unknown] hydrocodone-acetaminophen 1 ea PO BID PRN PRN 3 Days #7 tab 12/05/19 [Rx Last Taken Unknown] Mineral Oil/Petrolatum,White [Eucerin] 1 applic TOPICAL BID PRN jar 12/12/19 [Rx Last Taken Unknown] acetaminophen 1,000 mg PO Q6H PRN PRN tab 12/12/19 [Rx Last Taken Unknown] [id number]-[id number]-peeekd-xk-atd 1 packet PO BIDCM #60 packet 12/12/19 [Rx Last Taken Unknown] hydrocodone-acetaminophen 1 tab PO BID tab 12/12/19 [Rx Last Taken Unknown] polysaccharide iron complex 150 mg PO DAILYCM #30 cap 12/12/19 [Rx Last Taken Unknown] budesonide 0.5 mg/2 mL suspension for nebulization 0.5 mg INHALATION BID #60 ml 12/31/19 [Rx Last Taken Unknown] bupropion HCl (smoking deter) 150 mg tablet,12 hr sustained-release(smoking deterrent) 150 mg PO BID #60 tab 12/31/19 [Rx Last Taken Unknown] albuterol sulfate 90 mcg/actuation aerosol inhaler 1 - 2 puff INHALATION Q4H PRN PRN #1 inhaler 04/29/20 [Rx Last Taken Unknown] Allergy/AdvReac Type Severity Reaction Status Date / Time No Known Allergies Allergy Verified 10/27/20 19:01 Family History Other No pertinent family history Surgical History No pertinent past surgical history Social History Smoking Status: Current every day smoker tobacco type: cigarettes alcohol intake: never ROS ROS ED Constitutional Constitutional ED: Denies chills or fever(s) ENT ENT ED: Denies rhinorrhea Cardiovascular Cardiovascular: Reports chest pain Respiratory/Chest Respiratory/Chest: Reports cough, dyspnea on exertion and sputum Gastrointestinal Gastrointestinal: Reports abdominal pain Genitourinary Genitourinary ED: Denies dysuria or hematuria Musculoskeletal Musculoskeletal: Denies back pain Integumentary Denies rash Neurologic Neurologic: Denies paresthesias or weakness Psychiatric Psychiatric: Denies depression Endocrine Endocrinology: Denies fatigue Allergic/Immunologic Allergic/Immunologic ED: Denies urticaria EXAM Physical Exam Const Vital Signs: 10/27/20 18:57 10/27/20 20:04 10/27/20 20:16 Temperature 97.8 F Temperature Source Temporal Pulse Rate 87 88 82 Respiratory Rate 18 38 H 20 H Respiratory Effort Short of Breath Labored Respiratory Depth Shallow Respiratory Pattern Tachypnea Blood Pressure 146/88 H Blood Pressure Mean 107 Pulse Ox 97 96 96 Oxygen Delivery Method Nasal Cannula Nasal Cannula Nasal Cannula Oxygen Flow Rate (L/min) 3 2.5 2.5 10/27/20 20:18 10/27/20 22:20 Temperature Temperature Source Pulse Rate 82 Respiratory Rate 16 Respiratory Effort Short of Breath Respiratory Depth Respiratory Pattern Tachypnea Blood Pressure 134/78 H Blood Pressure Mean 96 Pulse Ox 96 Oxygen Delivery Method Nasal Cannula Nasal Cannula Oxygen Flow Rate (L/min) 2.5 2.5 Positive well nourished and well developed Constitutional Narrative: Elderly female who is thin. She is tachypneic at rest but then speaks in full sentences with no apparent dyspnea on speaking General Appearance ED: well developed and NAD HEENT Reports moist mucous membranes Negative for trauma or tenderness Eyes EOMs intact bilaterally Neck no lymphadenopathy, supple and no JVD Chest Wall inspection of chest normal Resp Resp Narrative: At rest but speaking in full sentences. Wheezes noted throughout the lung sorto. No apparent prolonged expiratory phases noted. Cardio regular rate, regular rhythm, no murmurs and peripheral pulses 2+ throughout GI normal to inspection, nondistended, normoactive bowel sounds, non-tender and no masses GI Narrative: No reproducible abdominal tenderness was noted Palpation: soft Back/Spine normal to inspection Extremity normal to inspection General Extremety ED: Negative for tenderness Neuro oriented x3 and no sensory deficits noted Sensorium / Orientation: alert Motor Exam: strength 5/5 throughout Psych mental status grossly normal Skin no rashes or lesions noted MDM MDM MDM Narrative Medical decision making narrative: Patient presented secondary to vague symptoms including chest pain back pain and abdominal pain. Patient was recently admitted at an outside facility I did attempt to obtain records. CBC unremarkable, chemistry demonstrates normal renal function high-sensitivity troponin was 14 BNP modestly elevated at 600. Chest x-ray by my personal view as well as radiology was unremarkable. Patient remained stable in the emergency department, I will get the sense at this point that the patient requires readmission especially given her recent discharge. This does not seem to be a p resentation of pulmonary embolus or other serious etiology that requires admission or further observation. Patient was recommended to follow-up with her primary care physician. Patient was discharged in stable condition. Lab Data Labs: Laboratory Results - last 24 hr 10/27/20 10/27/20 10/27/20 19:56 19:56 19:56 WBC 10.5 RBC 4.26 Hgb 13.7 Hct 41.0 MCV 96.2 MCH 32.2 H MCHC 33.4 RDW Std Deviation 47.6 H RDW Coeff of Keiry 13.4 Plt Count 263 MPV 10.2 Immature Gran % (Auto) 0.900 Neut % (Auto) 95.2 H Lymph % (Auto) 2.8 L [place] % (Auto) 1.0 Eos % (Auto) 0.0 Baso % (Auto) 0.1 Absolute Neuts (auto) 10.0 H Absolute Lymphs (auto) 0.29 L Nucleated RBC % 0 Differential Comment SEE COMMENT Platelet Estimate ADEQUATE RBC Morphology N CHROM Anisocytosis RARE Macrocytosis RARE Sodium 134 L Potassium 5.1 Chloride 101 Carbon Dioxide 25.0 Anion Gap 8 BUN 24 H Creatinine 0.98 Estim Creat Clear Calc 28.36 Est GFR (MDRD) Af Amer 69 Est GFR (MDRD) Non-Af 57 L BUN/Creatinine Ratio 24.4 H Glucose 359 H Calcium 9.6 Troponin I High Sens 14 B-Natriuretic Peptide 632.3 H Radiography Chest X-Ray - ED: Read by ED Physician and Chronic Changes Diagnostic Testing: Radiology Impression Chest X-Ray 10/27/20 19:58 IMPRESSION: No acute cardiopulmonary pathology. Electronically Signed: Marcos Simmons MD at 20:46 EDT , Service support , EKG Initial EKG: Attestation: I personally reviewed and interpreted this EKG as follows: (Sinus rhythm 87 with sinus arrhythmia isoelectric ST segments normal T waves normal intervals no evidence of acute ischemic or arrhythmic changes) Discharge Plan Triage Chief Complaint: Abd Pain ED Provider: Zelalem Ellsworth Dx/Rx/DC Orders Clinical Impression: Chronic obstructive pulmonary disease (COPD), Chest pain Instructions: ED Chest Pain, Uncertain Cause Prescriptions: No Action albuterol sulfate 2.5 mg /3 mL (0.083 %) solution for nebulization 2.5 mg INHALATION Q4H PRN (Reason: Sob &/Or Wheezing) Qty: 180 RF: 3 bupropion HCl (smoking deter) 150 mg tablet extended release 12 hr 150 mg PO BID Qty: 60 RF: 1 budesonide 0.5 mg/2 mL suspension for nebulization 0.5 mg INHALATION BID Qty: 60 RF: 6 albuterol sulfate 90 mcg/actuation HFA aerosol inhaler 1 - 2 puff INHALATION Q4H PRN PRN (Reason: Shortness Of Breath) Qty: 1 RF: 6 hydrocodone-acetaminophen 1 EACH tablet 1 ea PO BID PRN PRN (Reason: Pain) 3 Days Qty: 7 RF: 0 arformoterol 15 MCG/2 ML solution for nebulization 2 ml INHALATION BID RF: 0 hydrocodone-acetaminophen 1 TABLET tablet 1 tab PO BID RF: 0 polysaccharide iron complex 150 MG capsule 150 mg PO DAILYCM Qty: 30 RF: 0 acetaminophen 500 MG tablet 1,000 mg PO Q6H PRN PRN (Reason: Pain Score 1-3) RF: 0 [id number]-kyzfia-dn-tak 1 PACKET packet 1 packet PO BIDCM Qty: 60 RF: 0 Mineral Oil/Petrolatum,White [Eucerin] 1 APPLIC Jar 1 applic TOPICAL BID PRN RF: 0 Primary Care Provider: Moose Abrams Referrals: Moose Abrams MD [Primary Care Provider] - 3-5 Days Disposition Disposition: Home, Self Care
[2020-10-27 20:42] LABS: Anisocytosis RARE; Macrocytosis RARE; Platelet Estimate ADEQUATE (ADEQ); Red Cell Morphology N CHROM NORMAL (NORM C&C)
[2020-10-27 20:44] LABS: Anion Gap 8 (5-15); BUN 24 mg/dL (7-18); BUN/Creat Ratio 24.4 RATIO (10-20); Calcium,Total 9.6 mg/dL (8.5-10.1); Chloride 101 mmol/L (98-107); Creatinine, Serum 0.98 mg/dL (0.55-1.02); EST Glomerular Filtration Rate 57 mL/min (>60); Est Glom Filt Rate - Afr Amer 69 mL/min (>60); Estimated Creatinine Clearance 28.36 ml/min; Glucose 359 mg/dL (74-106); Potassium 5.1 mmol/L (3.5-5.1); Sodium Level 134 mmol/L (136-145); Troponin-I HS 14 pg/mL (3.0-54.0)
[2020-10-27 21:07] LABS: BNP,B-Type NATRIURETIC PEPTIDE 632.3 pg/mL (0-100)
[2020-10-27 22:20] VITALS: BP 134/78; PULSE 82; RESP 16; O2SAT 96
[2020-10-27 22:50] LABS: Troponin-I HS 15 pg/mL (3.0-54.0)
== END 2020-10-27 22:56 | disposition home or self-care (01) ==
PROVIDERS: Emergency Provider Emergency Medicine
DX: J44.9 Chronic obstructive pulmonary disease, unspecified (principal); R07.9 Chest pain, unspecified; R06.09 Other forms of dyspnea; G89.29 Other chronic pain; F17.210 Nicotine dependence, cigarettes, uncomplicated; Z85.118 Personal history of other malignant neoplasm of bronchus and lung; Z99.81 Dependence on supplemental oxygen
CPT/HCPCS: 71045; 80048; 83880; 84484; 85025; 93005; 94640; 99251; 99285; A4216; G0463